=== PATIENT | female | born 1950 | race Caucasian/White ===

== ENCOUNTER 2017-04-29 12:21 | Day surgery (SDC) | payer OTHER, SELFPAY ==
[2017-04-29 12:38] VITALS: BP 157/69; PULSE 75; RESP 14; TEMP 35.6; O2SAT 96; BMI 37.3
--- NOTE | 2017-04-29 13:30 | RAD_ITS ---
STUDY: X-RAY - LUMBAR SPINE REASON FOR EXAM: Female, 66 years old. Radiofrequency ablation L3-S1 right side. TECHNIQUE: 8 view(s) of the lumbar spine were obtained. COMPARISON: None FINDINGS: 8 views were performed , as radiology support for c-arm imaging in the operating room. This is not a diagnostic examination. Images for for documentation purposes only. The cumulative dose is 7.0 mGy, 19.7 seconds fluoroscopy time used. RAD/Lumbar Spine 2 or 3 Views IMPRESSION: Fluoroscopic image guidance. Electronically Signed: Kelly Brasher MD at 6:09 EST , Service support ,
[2017-04-29] MEDS: Bupivacaine 0.25% 30 ML Vial (13:43)
[2017-04-29] MEDS: MethylPREDNISolone Acetate 80 MG/ML Vial (13:43)
[2017-04-29 13:56] VITALS: BP 119/58; BP 157/69; PULSE 65; RESP 16; TEMP 36.1; O2SAT 97
[2017-04-29 14:00] VITALS: BP 121/52; BP 157/69; PULSE 68; RESP 16; O2SAT 97
[2017-04-29 14:05] VITALS: BP 118/59; BP 157/69; PULSE 65; RESP 16; O2SAT 92
[2017-04-29 14:10] VITALS: BP 123/65; BP 157/69; PULSE 65; RESP 16; TEMP 36.1; O2SAT 93
[2017-04-29 14:30] VITALS: BP 157/69
--- NOTE | 2017-04-29 16:15 | PCM.OPRPT ---
Problem List (1) DDD (degenerative disc disease), lumbosacral Status: Chronic (2) Lumbar facet arthropathy Status: Chronic (3) Lumbosacral spondylosis Status: Chronic Report of Operation Date of Procedure: 04/29/17 Pre-Operative Diagnosis: Lumbosacral spondylosis, lumbosacral degenerative disc disease, lumbar facet arthropathy Post-Operative Diagnosis: Lumbosacral spondylosis, lumbosacral degenerative disc disease, lumbar facet arthropathy Surgery/Procedure Performed:: Right sided lumbar radiofrequency ablation of the medial branch at L3, L4, L5, S1 Description of Surgical Findings:: PROCEDURE: Right-sided radiofrequency ablation of the medial branch L3, L4, L5, S1 PREOPERATIVE DIAGNOSES: Lumbosacral spondylosis, lumbosacral degenerative disc disease, lumbar facet arthropathy POSTOPERATIVE DIAGNOSES: Lumbosacral spondylosis, lumbosacral degenerative disc disease, lumbar facet arthropathy ANESTHESIA: MAC COMPLICATIONS: None BLOOD LOSS: Minimal PROCEDURE IN DETAIL: History and physical today was reviewed. Risks and benefits of procedure explained. The patient understood, agreed to the procedure and informed consent was obtained. IV inserted per routine protocol. The patient was taken to the operating room, placed in the prone position with a pillow positioned underneath the abdomen. The right side of the lower back was prepped and draped in a sterile fashion using iodine x 3. Under fluoroscopy guidance, on an oblique view, the L3 through S1 vertebral bodies were visualized. The skin and subcutaneous tissue was anesthetized with approximately 10 mL of 1% lidocaine using a 25-gauge regular needle. Under direct visualization with fluoroscopy at approximately 25-degree angle, starting on the right L3, ending on the right S1 passing through the L4-L5 using a 20-gauge 15 cm with a 10 mm curved active tip radiofrequency ablation needle the needle passed through the skin. The tip of the needle was maneuvered and directed towards the superior and medial gutter of the transverse process at the vicinity of the medial branch. Once the tip of the needle was in contact with the bone, the needle pulled approximately 2 mm up the bone. The stylet of each needle was then removed. After negative aspiration of blood with CSF and confirmation of AP as well as oblique view, radiofrequency ablation probe was then inserted at each level. Impedance was then recorded at L3 to be 233, at L4 233, at L5 201, at S1 284 ohm. Motor-evoked potential was then initiated to 1.5 volt without any motor response at each corresponding level. The probe was then removed intact and a total of 6 mL preservative-free 1% lidocaine was injected in divided doses between those 4 levels after negative aspiration of blood with CSF. The radiofrequency ablation probe was then reinserted after confirmation of AP, oblique as well as lateral view. Radiofrequency ablation was then initiated to 80 degrees Celsius for 90 seconds at each level. Once concluded, the probe was then removed intact and a total of 6 mL of preservative-free 0.25% Marcaine with 40 mg Depo-Medrol was injected in divided doses between those 4 levels. The needles were then removed intact. The patient experienced no signs or symptoms of intrathecal, intravascular injection. The patient experienced no paraesthesia. The procedure was completed without any apparent difficulty, any complication. The patient appeared to tolerate well. Sensory as well as motor exam was unchanged from prior to procedure. ASSESSMENT AND PLAN: This is a 66-year-old Female with lumbosacral spondylosis, lumbosacral degenerative disc disease, lumbar facet arthropathy, status post right-sided radiofrequency ablation of the medial branch L3 through S1. The patient will continue her current medications. The patient will follow up in approximately 2 weeks for reevaluation.
== END 2017-04-29 14:30 | disposition home or self-care (01) ==
LOC: SDC 12:24 → AC 12:25
PROVIDERS: Family Provider Internal Medicine; PCP Internal Medicine; Visit Provider Anesthesiology Pain Medicine
PROC: (CPT 64635; principal; 2017-04-29 13:50)
DX: M47.897 Other spondylosis, lumbosacral region (principal); M51.37 Other intervertebral disc degeneration, lumbosacral region; F41.9 Anxiety disorder, unspecified; E78.00 Pure hypercholesterolemia, unspecified; K21.9 Gastro-esophageal reflux disease without esophagitis; Z79.899 Other long term (current) drug therapy; Z79.82 Long term (current) use of aspirin; I10 Essential (primary) hypertension; I44.7 Left bundle-branch block, unspecified; Z79.891 Long term (current) use of opiate analgesic; M17.10 Unilateral primary osteoarthritis, unspecified knee
CPT/HCPCS: 64635; 64636 ×3; 72100; 76000; J7120

== ENCOUNTER → 2017-05-15 20:00 | Outpatient (CLI) | payer OTHER, SELFPAY | PROVIDERS: Family Provider Internal Medicine; PCP Internal Medicine; Visit Provider Clinical Nurse Specialist | DX: G47.10 Hypersomnia, unspecified (principal); R06.83 Snoring; I10 Essential (primary) hypertension | CPT/HCPCS: 95810 ==

== ENCOUNTER → 2017-06-21 09:36 | Outpatient (CLI) | payer OTHER, SELFPAY ==
[2017-06-21 11:35] LABS: Cholesterol 166 mg/dL (200); High Density Lipoprotein 46 mg/dL; Triglycerides 189 mg/dL; Very Low Density Lipoprotein 38 mg/dL (5-40)
== END ==
PROVIDERS: Family Provider Internal Medicine; PCP Internal Medicine; Visit Provider Nurse Practitioner Primary Care
DX: R53.83 Other fatigue (principal); Z79.899 Other long term (current) drug therapy; R68.89 Other general symptoms and signs
CPT/HCPCS: 36415; 80061; 82306; 84443

== ENCOUNTER 2017-06-24 06:50 | Day surgery (SDC) | payer OTHER, SELFPAY ==
[2017-06-24 07:10] VITALS: BP 146/77; PULSE 83; RESP 16; TEMP 36.6; O2SAT 98; BMI 35.0
--- NOTE | 2017-06-24 08:10 | RAD_ITS ---
PROCEDURE: Caudal block. DATE OF EXAMINATION: June 24, 2017. INDICATION: Female, 66 years old. Chronic low back pain. FLUOROSCOPY TIME (if supplied): (0:07) minutes/seconds Imaging provided for caudal block. RAD/Fluor Guidance for Spine Inj IMPRESSION: Imaging provided for caudal block. Electronically Signed: Jayden Byrd MD at 10:05 EDT Tel [phone], Service support ,
[2017-06-24] MEDS: MethylPREDNISolone Acetate 80 MG/ML Vial (08:34)
[2017-06-24] MEDS: 0.9% Saline Lock 10 ML Syringe IV (08:34)
[2017-06-24] MEDS: Bupivacaine 0.25% 30 ML Vial (08:34)
[2017-06-24 08:40] VITALS: BP 115/58; BP 146/77; PULSE 75; RESP 16; TEMP 37; O2SAT 96
[2017-06-24 08:45] VITALS: BP 121/60; BP 146/77; PULSE 75; RESP 16; O2SAT 95
[2017-06-24 08:50] VITALS: BP 120/64; BP 146/77; PULSE 82; RESP 16; O2SAT 95
[2017-06-24 08:55] VITALS: BP 137/72; BP 146/77; PULSE 80; RESP 16; TEMP 36.9; O2SAT 96
[2017-06-24 09:19] VITALS: BP 146/77
--- NOTE | 2017-06-24 15:49 | PCM.OPRPT ---
Problem List (1) DDD (degenerative disc disease), lumbosacral Status: Chronic (2) Lumbosacral radiculopathy Status: Chronic (3) Lumbosacral spinal stenosis Status: Chronic Report of Operation Date of Procedure: 06/24/17 Pre-Operative Diagnosis: Lumbosacral radiculopathy, lumbosacral degenerative disc disease, lumbosacral spinal stenosis Post-Operative Diagnosis: Lumbosacral radiculopathy, lumbosacral degenerative disc disease, lumbosacral spinal stenosis Surgery/Procedure Performed:: Caudal epidural steroid injection Description of Surgical Findings:: Procedure: Caudal epidural steroid injection Preoperative diagnosis: Lumbosacral radiculopathy, lumbosacral degenerative disc disease, lumbosacral spinal stenosis Postoperative diagnosis:Lumbosacral radiculopathy, lumbosacral degenerative disc disease, lumbosacral spinal stenosis Anesthesia: MAC Blood loss: Minimal Complications: None Procedure in detail: History and physical today was reviewed risk and benefits of procedure explained the patient understood and agreed to procedure informed consent was obtained IV inserted per routine protocol patient was taken to the operating room placed in the prone position with a pillow position underneath the abdomen the lower back and tailbone area was prepped and draped in a sterile fashion using iodine ?3 under direct visualization with fluoroscopy on the lateral view the caudal space was identified skin and subcutaneous tissue anesthetized approximately 3 cc of 1% lidocaine using a 25-gauge regular needle under direct visualization fluoroscopy on the lateral view using a 22-gauge 3-1/2 inch spinal needle the needle was advanced via the skin through the sacral hiatus tip of needle passed through the sacrococcygeal ligament advanced approximately S4 area after negative aspiration for blood or CSF a total of 3 cc of contrast were injected to confirm correct placement of the needle as well as cephalad spread the spread was followed to approximately L5 area after repeated confirmation AP as well as lateral view and repeated negative aspiration a total of 15 cc of preservative-free 0.125% Marcaine with 80 mg of Depo-Medrol were injected easily the needle was then removed intact patient experienced no sinus symptoms intrathecal or intravascular injection patient experienced no paresthesia the procedure was completed without any apparent difficulty any complication the patient appeared to tolerate well. Assessment and plan: This is a 66-year-old female with lumbosacral radiculopathy lumbosacral degenerative disc disease lumbosacral spinal stenosis status post caudal epidural steroid injection patient will continue her current medications patient will follow approximately 2 weeks for possible repeat of the procedure if indicated.
== END 2017-06-24 09:20 | disposition home or self-care (01) ==
LOC: SDC 06:50 → AC 06:51
PROVIDERS: Family Provider Internal Medicine; PCP Internal Medicine; Visit Provider Anesthesiology Pain Medicine
PROC: 3E0S3BZ Introduction of Anesthetic Agent into Epidural Space, Percutaneous Approach (ICD-10-PCS; CPT 62282; principal; 2017-06-24 08:05)
DX: M51.17 Intervertebral disc disorders with radiculopathy, lumbosacral region (principal); M48.07 Spinal stenosis, lumbosacral region; F41.9 Anxiety disorder, unspecified; Z79.899 Other long term (current) drug therapy; Z79.82 Long term (current) use of aspirin; Z79.891 Long term (current) use of opiate analgesic; M12.9 Arthropathy, unspecified; E78.00 Pure hypercholesterolemia, unspecified; K21.9 Gastro-esophageal reflux disease without esophagitis; Z95.5 Presence of coronary angioplasty implant and graft; I25.10 Atherosclerotic heart disease of native coronary artery without angina pectoris; I10 Essential (primary) hypertension
CPT/HCPCS: 62323; 64483; 77003; J7120; A4216

== ENCOUNTER → 2017-08-21 08:14 | Outpatient (CLI) | payer OTHER, SELFPAY ==
[2017-08-21 09:23] LABS: AST(SGOT) 24 U/L (15-37); Alanine Aminotransfer ALT/SGPT 32 U/L (13-56); Albumin, Serum 3.8 g/dL (3.2-5.0); Alkaline Phosphatase 109 U/L (45-117); Bilirubin, Direct 0.09 mg/dL (0.00-0.30); Cholesterol 149 mg/dL (200); Globulin 3.6 g/dL (2.2-4.2); High Density Lipoprotein 42 mg/dL; Protein, Total 7.4 g/dL (6.4-8.2); Triglycerides 234 mg/dL; Very Low Density Lipoprotein 47 mg/dL (5-40)
== END ==
PROVIDERS: Family Provider Internal Medicine; PCP Internal Medicine; Visit Provider Internal Medicine Cardiovascular Disease
DX: E78.5 Hyperlipidemia, unspecified (principal)
CPT/HCPCS: 36415; 80061; 80076

== ENCOUNTER 2017-09-09 10:58 | Day surgery (SDC) | payer OTHER, SELFPAY ==
[2017-09-09] VITALS (7 sets, daily range): BP systolic 105–141; BP diastolic 64–77; PULSE 65–75; RESP 15–16; TEMP 36.3–36.6; O2SAT 94–100; BMI 34.7
--- NOTE | 2017-09-09 12:30 | RAD_ITS ---
PROCEDURE: Caudal block. DATE OF EXAMINATION: September 09, 2017. INDICATION: Female, 67 years old. FLUOROSCOPY TIME (if supplied): (0:06) minutes/seconds RADIATION DOSAGE (If Supplied By Facility): CTDIvol = ( ) mGy, DLP = ( ) mGycm Intraoperative imaging provided for caudal block. The spinal needle is seen in the mid posterior aspect of the sacrum. RAD/Fluor Guidance for Spine Inj IMPRESSION: Imaging provided for caudal block. Electronically Signed: Jayden Byrd MD at 14:50 EDT Tel [phone], Service support ,
[2017-09-09] MEDS: Bupivacaine 0.25% 30 ML Vial (12:41)
[2017-09-09] MEDS: MethylPREDNISolone Acetate 80 MG/ML Vial (12:41)
--- NOTE | 2017-09-09 13:28 | PCM.OPRPT ---
Problem List (1) DDD (degenerative disc disease), lumbosacral Status: Chronic (2) Lumbosacral radiculopathy Status: Chronic Report of Operation Date of Procedure: 09/09/17 Pre-Operative Diagnosis: Lumbosacral radiculopathy, lumbosacral degenerative disc disease, lumbosacral spinal stenosis Post-Operative Diagnosis: Lumbosacral radiculopathy, lumbosacral degenerative disc disease, lumbosacral spinal stenosis Surgery/Procedure Performed:: Caudal epidural steroid injection Description of Surgical Findings:: PROCEDURE: Caudal epidural steroid injection PREOPERATIVE DIAGNOSIS: Lumbosacral radiculopathy, lumbosacral degenerative disc disease, lumbosacral spinal stenosis POSTOPERATIVE DIAGNOSIS: Lumbosacral radiculopathy, lumbosacral degenerative disc disease, lumbosacral spinal stenosis ANESTHESIA: MAC COMPLICATIONS: None BLOOD LOSS: Minimal PROCEDURE IN DETAIL: History and physical today was reviewed. Risks and benefits of the procedure were explained. The patient understood, agreed to our procedure, and informed consent was obtained. IV inserted per routine protocol. The patient was taken to the operating room, placed in a prone position with a pillow positioned underneath the abdomen. The lower back and tailbone area was prepped and draped in a sterile fashion using iodine ?3 under direct visualization fluoroscopy on the lateral view the caudal space was identified the skin and subcutaneous tissue and size approximately 3 cc of 1% lidocaine using a 25-gauge regular needle under direct visualization with fluoroscopy on the lateral view using a 22-gauge 3-1/2 inch spinal needle the needle was advanced via the skin through the sacral hiatus the peroneal passed through the sacrococcygeal ligament advanced approximately S4 area after negative aspiration of blood or CSF a total of 3 cc of contrast were injected to confirm correct placement of the needle as well as cephalad spread spread was followed to approximately L5 area after confirmation AP as well as lateral view and repeated negative aspiration a total of 15 cc of preservative-free 0.125% Marcaine with 80 mg of the portal was injected easily. The needles were then removed intact. The patient experienced no signs or symptoms intrathecal, intravascular injection. The patient experienced no paraesthesia. The procedure was completed without any apparent difficult, any complication. The patient appeared to tolerate well. ASSESSMENT AND PLAN: This is a 67-year-old female with lumbosacral radiculopathy lumbosacral degenerative disc disease lumbosacral spinal stenosis status post caudal epidural steroid injection. The patient will continue his current medications. The patient will follow in approximately 2 weeks for possible repeat of the procedure if indicated.
== END 2017-09-09 13:42 | disposition home or self-care (01) ==
LOC: SDC 10:59 → AC 11:01
PROVIDERS: Family Provider Internal Medicine; PCP Internal Medicine; Visit Provider Anesthesiology Pain Medicine
PROC: 3E0S3BZ Introduction of Anesthetic Agent into Epidural Space, Percutaneous Approach (ICD-10-PCS; CPT 62282; principal; 2017-09-09 12:25)
DX: M51.17 Intervertebral disc disorders with radiculopathy, lumbosacral region (principal); I25.10 Atherosclerotic heart disease of native coronary artery without angina pectoris; I10 Essential (primary) hypertension; J45.909 Unspecified asthma, uncomplicated; K21.9 Gastro-esophageal reflux disease without esophagitis; E78.00 Pure hypercholesterolemia, unspecified; Z79.51 Long term (current) use of inhaled steroids; Z79.82 Long term (current) use of aspirin; Z79.891 Long term (current) use of opiate analgesic; Z79.899 Other long term (current) drug therapy; Z95.5 Presence of coronary angioplasty implant and graft
CPT/HCPCS: 01992; 62323; 64520; 64483; 77003; J7120; J3490

== ENCOUNTER 2017-12-23 06:57 | Day surgery (SDC) | payer OTHER, SELFPAY ==
[2017-12-23 07:17] VITALS: BP 149/74; PULSE 80; RESP 16; TEMP 36.8; O2SAT 98; BMI 34.4
--- NOTE | 2017-12-23 08:15 | RAD_ITS ---
PROCEDURE: Right L3 S1 radiofrequency ablation. DATE OF EXAMINATION: December 23, 2017. INDICATION: Female, 67 years old. Chronic low back pain. FLUOROSCOPY TIME (if supplied): (0:52) minutes/seconds. 14 coned-down intraoperative views were obtained. Intraoperative imaging was provided for right L3 S1 radiofrequency ablation. RAD/Lumbar Spine 2 or 3 Views IMPRESSION: Intraoperative fluoroscopic services provided for right L3 S1 radiofrequency ablation. Electronically Signed: Jayden Byrd MD at 14:57 EDT Tel [phone], Service support ,
[2017-12-23] MEDS: MethylPREDNISolone Acetate 80 MG/ML Vial (08:26)
[2017-12-23] MEDS: Bupivacaine 0.5% PF 10 ML VIAL (08:26)
[2017-12-23 08:49] VITALS: BP 100/55; BP 149/74; PULSE 82; RESP 16; TEMP 36.7; O2SAT 96
--- NOTE | 2017-12-23 08:53 | OP.PCM_ITS ---
Problem List (1) DDD (degenerative disc disease), lumbosacral Status: Chronic (2) Lumbar facet arthropathy Status: Chronic (3) Lumbosacral spondylosis Status: Chronic Report of Operation Date of Procedure: 12/23/17 Pre-Operative Diagnosis: Lumbosacral spondylosis, lumbosacral degenerative disc disease, lumbar facet arthropathy Post-Operative Diagnosis: Lumbosacral spondylosis, lumbosacral degenerative disc disease, lumbar facet arthropathy Surgery/Procedure Performed:: Right-sided lumbar radiofrequency ablation of the medial branch at L3, L4, L5, S1 Description of Surgical Findings:: PROCEDURE: Right-sided lumbar radiofrequency ablation of the medial branch L3, L4, L5, S1 PREOPERATIVE DIAGNOSES: Lumbosacral spondylosis, lumbosacral degenerative disc disease, lumbar facet arthropathy POSTOPERATIVE DIAGNOSES: Lumbosacral spondylosis, lumbosacral degenerative disc disease, lumbar facet arthropathy ANESTHESIA: MAC COMPLICATIONS: None BLOOD LOSS: Minimal PROCEDURE IN DETAIL: History and physical today was reviewed. Risks and benefits of procedure explained. The patient understood, agreed to the procedure and informed consent was obtained. IV inserted per routine protocol. The patient was taken to the operating room, placed in the prone position with a pillow positioned underneath the abdomen. The right side of the lower back was prepped and draped in a sterile fashion using iodine x 3. Under fluoroscopy guidance, on an oblique view, the L3 through S1 vertebral bodies were visual ized. The skin and subcutaneous tissue was anesthetized with approximately 10 mL of 1% lidocaine using a 25-gauge regular needle. Under direct visualization with fluoroscopy at approximately 25-degree angle, starting on the right L3, ending on the right S1 passing through the L4-L5 using a 20-gauge 15 cm with a 10 mm curved active tip radiofrequency ablation needle the needle passed through the skin. The tip of the needle was maneuvered and directed towards the superior and medial gutter of the transverse process at the vicinity of the medial branch. Once the tip of the needle was in contact with the bone, the needle pulled approximately 2 mm up the bone. The stylet of each needle was then removed. After negative aspiration of blood with CSF and confirmation of AP as well as oblique view, radiofrequency ablation probe was then inserted at each level. Impedance was then recorded at L3 to be 291, at L4 289, at L5 281, at S1 248 ohm. Motor-evoked potential was then initiated to 1.5 volt without any motor response at each corresponding level. The probe was then removed intact and a total of 6 mL preservative-free 1% lidocaine was injected in divided doses between those 4 levels after negative aspiration of blood with CSF. The radiofrequency ablation probe was then reinserted after confirmation of AP, oblique as well as lateral view. Radiofrequency ablation was then initiated to 80 degrees Celsius for 90 seconds at each level. Once concluded, the probe was then removed intact and a total of 6 mL of preservative-free 0.25% Marcaine with 40 mg Depo-Medrol was injected in divided doses between those 4 levels. The needles were then removed intact. The patient experienced no signs or symptoms of intrathecal, intravascular injection. The patient experienced no paraesthesia. The procedure was completed without any apparent difficulty, any complication. The patient appeared to tolerate well. Sensory as well as motor exam was unchanged from prior to procedure. ASSESSMENT AND PLAN: This is a 67-year-old female with lumbosacral spondylosis, lumbosacral degenerative disc disease, lumbar facet arthropathy, status post right-sided radiofrequency ablation of the medial branch L3 through S1. The patient will continue her current medications. The patient will follow up in approximately 2 weeks for reevaluation.
[2017-12-23 08:55] VITALS: BP 114/50; BP 149/74; PULSE 75; RESP 16; O2SAT 96
[2017-12-23 09:00] VITALS: BP 114/50; BP 149/74; PULSE 72; RESP 16; O2SAT 96
[2017-12-23 09:05] VITALS: BP 149/74; BP 97/85; PULSE 72; RESP 16; TEMP 36.6; O2SAT 95
[2017-12-23 09:21] VITALS: BP 149/74
== END 2017-12-23 09:22 | disposition home or self-care (01) ==
LOC: SDC 06:58 → AC 06:59
PROVIDERS: Family Provider Internal Medicine; PCP Internal Medicine; Referring Provider Anesthesiology Pain Medicine; Visit Provider Anesthesiology Pain Medicine
PROC: (CPT 64635; principal; 2017-12-23 08:10)
DX: M47.27 Other spondylosis with radiculopathy, lumbosacral region (principal); M51.37 Other intervertebral disc degeneration, lumbosacral region; M46.96 Unspecified inflammatory spondylopathy, lumbar region; M17.10 Unilateral primary osteoarthritis, unspecified knee; M51.36 Other intervertebral disc degeneration, lumbar region; D64.9 Anemia, unspecified; I25.10 Atherosclerotic heart disease of native coronary artery without angina pectoris; I10 Essential (primary) hypertension; F41.9 Anxiety disorder, unspecified; J45.909 Unspecified asthma, uncomplicated; G25.81 Restless legs syndrome; K21.9 Gastro-esophageal reflux disease without esophagitis; E78.00 Pure hypercholesterolemia, unspecified; Z78.0 Asymptomatic menopausal state; Z95.5 Presence of coronary angioplasty implant and graft; Z79.82 Long term (current) use of aspirin; Z79.891 Long term (current) use of opiate analgesic; Z79.899 Other long term (current) drug therapy
CPT/HCPCS: 01992; 64635; 64636 ×3; 72100; 76000; J7120; J3490

== ENCOUNTER 2018-01-27 07:25 | Day surgery (SDC) | payer OTHER, SELFPAY ==
[2018-01-27 07:53] VITALS: BP 122/57; PULSE 80; RESP 16; TEMP 36.6; O2SAT 95; BMI 34.3
--- NOTE | 2018-01-27 08:19 | RAD_ITS ---
STUDY: X-RAY - LUMBAR SPINE REASON FOR EXAM: Female, 67 years old. Intraoperative imaging for radiofrequency ablation of the left L3-S1 levels. TECHNIQUE: 12 coned-down intraoperative images of the lumbar spine were obtained. COMPARISON: None FINDINGS: Intraoperative imaging provided for left L3-S1 radiofrequency ablation. RAD/L/S Spine Min 4 Views IMPRESSION: Intraoperative imaging provided for left L3 S1 radiofrequency ablation. Electronically Signed: Jayden Byrd MD at 13:52 EST Tel [phone], Service support ,
[2018-01-27] MEDS: Bupivacaine 0.5% PF 10 ML VIAL (08:49)
[2018-01-27] MEDS: MethylPREDNISolone Acetate 80 MG/ML Vial (09:00)
[2018-01-27 09:12] VITALS: BP 117/66; BP 122/57; PULSE 76; RESP 16; TEMP 36.4; O2SAT 96
[2018-01-27 09:15] VITALS: BP 122/57; BP 124/71; PULSE 70; RESP 16; O2SAT 93
[2018-01-27 09:20] VITALS: BP 122/57; BP 124/76; PULSE 67; RESP 16; O2SAT 93
[2018-01-27 09:21] VITALS: BP 122/57; BP 144/69; PULSE 71; RESP 16; TEMP 36.7; O2SAT 96
[2018-01-27 09:36] VITALS: BP 122/57
--- NOTE | 2018-01-27 09:54 | PCM.OPRPT ---
Problem List (1) DDD (degenerative disc disease), lumbosacral Status: Chronic (2) Lumbar facet arthropathy Status: Chronic (3) Lumbosacral spondylosis Status: Chronic Report of Operation Date of Procedure: 01/27/18 Pre-Operative Diagnosis: Lumbosacral spondylosis, lumbosacral degenerative disc disease, lumbar facet arthropathy Post-Operative Diagnosis: Lumbosacral spondylosis, lumbosacral degenerative disc disease, lumbar facet arthropathy Surgery/Procedure Performed:: Left-sided lumbar radiofrequency ablation of the medial branch at L3, L4, L5, S1 Description of Surgical Findings:: PROCEDURE: Left-sided radiofrequency ablation of the medial branch L3, L4, L5, S1 PREOPERATIVE DIAGNOSES: Lumbosacral spondylosis, lumbosacral degenerative disc disease, lumbar facet arthropathy POSTOPERATIVE DIAGNOSES: Lumbosacral spondylosis, lumbosacral degenerative disc disease, lumbar facet arthropathy ANESTHESIA: MAC COMPLICATIONS: None BLOOD LOSS: Minimal PROCEDURE IN DETAIL: History and physical today was reviewed. Risks and benefits of procedure explained. The patient understood, agreed to the procedure and informed consent was obtained. IV inserted per routine protocol. The patient was taken to the operating room, placed in the prone position with a pillow positioned underneath the abdomen. The left side of the lower back was prepped and draped in a sterile fashion using iodine x 3. Under fluoroscopy guidance, on an oblique view, the L3 through S1 vertebral bodies were visualized. The skin and subcutaneous tissue was anesthetized with approximately 10 mL of 1% lidocaine using a 25-gauge regular needle. Under direct visualization with fluoroscopy at approximately 25-degree angle, starting on the left L3, ending on the left S1 passing through the L4-L5 using a 20-gauge 15 cm with a 10 mm curved active tip radiofrequency ablation needle, the needle passed through the skin, The tip of the needle was maneuvered and directed towards the superior and medial gutter of the transverse process at the vicinity of the medial branch. Once the tip of the needle was in contact with the bone, the needle pulled approximately 2 mm up the bone. The stylet of each needle was then removed. After negative aspiration of blood with CSF and confirmation of AP as well as oblique view, radiofrequency ablation probe was then inserted at each level. Impedance was then recorded at L3 to be 281, at L4 297, at L5 262, at S1 263 ohm. Motor-evoked potential was then initiated to 1.5 volt without any motor response at each corresponding level. The probe was then removed intact and a total of 6 mL preservative-free 1% lidocaine was injected in divided doses between those 4 levels after negative aspiration of blood with CSF. The radiofrequency ablation probe was then reinserted after confirmation of AP, oblique as well as lateral view. Radiofrequency ablation was then initiated to 80 degrees Celsius for 90 seconds at each level. Once concluded, the probe was then removed intact and a total of 6 mL of preservative-free 0.25% Marcaine with 40 mg Depo-Medrol was injected in divided doses between those 4 levels. The needles were then removed intact. The patient experienced no signs or symptoms of intrathecal, intravascular injection. The patient experienced no paraesthesia. The procedure was completed without any apparent difficulty, any complication. The patient appeared to tolerate well. Sensory as well as motor exam was unchanged from prior to procedure. ASSESSMENT AND PLAN: This is a 67-year-old female with lumbosacral spondylosis, lumbosacral degenerative disc disease, lumbar facet arthropathy, status post left-sided radiofrequency ablation of the medial branch L3 through S1. The patient will continue her current medications. The patient will follow up in approximately 2 weeks for reevaluation.
== END 2018-01-27 09:44 | disposition home or self-care (01) ==
LOC: SDC 07:29 → AC 07:29
PROVIDERS: Family Provider Internal Medicine; PCP Internal Medicine; Referring Provider Anesthesiology Pain Medicine; Visit Provider Anesthesiology Pain Medicine
PROC: (CPT 64635; principal; 2018-01-27 08:45)
DX: M47.817 Spondylosis without myelopathy or radiculopathy, lumbosacral region (principal); M51.37 Other intervertebral disc degeneration, lumbosacral region; M46.96 Unspecified inflammatory spondylopathy, lumbar region; M17.10 Unilateral primary osteoarthritis, unspecified knee; M51.36 Other intervertebral disc degeneration, lumbar region; M54.17 Radiculopathy, lumbosacral region; F41.9 Anxiety disorder, unspecified; I44.7 Left bundle-branch block, unspecified; I10 Essential (primary) hypertension; J45.909 Unspecified asthma, uncomplicated; G25.81 Restless legs syndrome; K21.9 Gastro-esophageal reflux disease without esophagitis; E78.00 Pure hypercholesterolemia, unspecified; Z86.2 Personal history of diseases of the blood and blood-forming organs and certain disorders involving the immune mechanism; Z78.0 Asymptomatic menopausal state; Z96.651 Presence of right artificial knee joint; Z95.5 Presence of coronary angioplasty implant and graft; Z79.82 Long term (current) use of aspirin; Z79.891 Long term (current) use of opiate analgesic; Z79.899 Other long term (current) drug therapy
CPT/HCPCS: 64635; 64636 ×3; 72110; 76000; J7120; J3490

== ENCOUNTER → 2018-01-31 15:59 | Outpatient (CLI) | payer OTHER, SELFPAY ==
[2018-01-27 07:53] VITALS: BMI 34.3
--- NOTE | 2018-01-31 16:05 | BI_ITS ---
MAMMOGRAPHY - BILATERAL SCREENING REASON FOR EXAM: Female, 67 years old. Routine annual screening examination. PERTINENT HISTORY: Mother with breast cancer. TECHNIQUE: Digital bilateral breast adriane (3D mammographic acquisition) in the CC and MLO projections. 2-D mediolateral oblique (MLO) and craniocaudad (CC) views of both breasts were obtained. CAD: Full Field Digital Mammography with Computer Added Detection was performed. COMPARISON: Comparison is made with prior study dated February 19, 2017 and January 09, 2016. FINDINGS: Breast Composition: There are scattered areas of fibroglandular density. There are no dominant masses or suspicious calcifications. No other significant abnormalities are identified. There has been no significant change since the prior study. BI/SCREENING MAMM (CAD), BILAT IMPRESSION: Stable bilateral screening mammogram. Yearly follow-up mammogram recommended. (A) ASSESSMENT CATEGORY: BIRADS Category 1: Negative. A letter regarding these results will be sent to the patient by the facility within 30 days. Approximately 10% of breast cancers are not detected by mammography. A normal mammogram should not delay biopsy of a clinically suspicious abnormality. [id number] Electronically Signed: Jayden Byrd MD at 10:25 EST Tel [phone], Service support ,
== END ==
PROVIDERS: Family Provider Internal Medicine; PCP Internal Medicine; Referring Provider Internal Medicine; Visit Provider Internal Medicine
DX: Z12.31 Encounter for screening mammogram for malignant neoplasm of breast (principal)
CPT/HCPCS: 77063; 77067

== ENCOUNTER 2018-03-08 17:48 | Emergency (ER) | payer OTHER, SELFPAY ==
[2018-02-28 14:43] VITALS: BMI 34.7
[2018-03-08 17:48] VITALS: BP 169/81; PULSE 96; RESP 18; TEMP 36.6; O2SAT 97; BMI 34.0
--- NOTE | 2018-03-08 18:09 | US_ITS ---
STUDY: ABDOMINAL ULTRASOUND - RIGHT UPPER QUADRANT REASON FOR VISIT: Female, 67 years old. Pain TECHNIQUE: Transverse and longitudinal imaging of the right upper quadrant was performed using real-time ultrasound. COMPARISON: None. FINDINGS: Liver: Right lobe 17 cm. Increased echogenicity. Normal portal venous flow. No demonstrated mass. Portal vein measurement: Gallbladder and biliary system: Normal size. Wall thickness 2-3 mm. Negative sonographic Bernal's sign. No demonstrated pericholecystic fluid. No luminal abnormalities. CBD 3-4 mm. Pancreas: Unremarkable. No demonstrated mass. Right Kidney: 9.1 cm. Cortex 1.3 cm. No demonstrated mass. No dilatation of collecting system. No demonstrated free fluid. US/Gallbladder IMPRESSION: The liver is prominent in size with increased echogenicity which can be seen with fatty infiltration. No abnormalities are seen in the gallbladder. Electronically Signed: Danna Rodriges MD at 21:21 EST Tel Direct: [phone], Service support ,
[2018-03-08] MEDS: Morphine 4 MG/ML Syringe IV ×2 (18:16→20:30)
[2018-03-08] MEDS: Ondansetron 4 MG/2 ML Vial IV ×2 (18:16→20:30)
[2018-03-08] MEDS: 0.9% Normal Saline 1,000 ML 1000 ML IV (18:16)
[2018-03-08 18:36] LABS: ALB/GLOB Ratio 1.1 RATIO (0.9-2.4); AST(SGOT) 34 U/L (15-37); Alanine Aminotransfer ALT/SGPT 45 U/L (13-56); Albumin, Serum 4.2 g/dL (3.2-5.0); Alkaline Phosphatase 112 U/L (45-117); Anion Gap 8 (5-15); BUN 12 mg/dL (7-18); BUN/Creat Ratio 12.8 RATIO (10-20); Calcium,Total 9.9 mg/dL (8.5-10.1); Chloride 104 mmol/L (98-107); Creatinine, Serum 0.93 mg/dL (0.55-1.02); EST Glomerular Filtration Rate 64 mL/min (>60); Est Glom Filt Rate - Afr Amer 77 mL/min (>60); Estimated Creatinine Clearance 44.29 ml/min; Globulin 3.7 g/dL (2.2-4.2); Glucose 141 mg/dL (74-106); Lipase 105 U/L (73-393); Potassium 3.9 mmol/L (3.5-5.1); Protein, Total 7.9 g/dL (6.4-8.2); Sodium Level 139 mmol/L (136-145)
[2018-03-08 18:57] LABS: Bacteria 0 SEEN /hpf (None Seen); Color, Urine Yellow (Yellow); Glucose, Dipstick Normal (Normal); Ketone-Dipstick Negative (Negative); Leukocyte Esterase-Dipstick 25 /ul (Negative); Mucous, Urine 0 SEEN /hpf (<or=2+); Nitrite-Dipstick Negative (Negative); Occult Blood-Urine Negative /ul (Negative); Protein-Dipstick Negative (Negative); Urine Bilirubin Dipstick Negative (Negative); Urine Clarity Sl. Cloudy (Clear); Urine Urobilinogen Normal (Normal)
[2018-03-08 19:03] LABS: Red Blood Cells-Urine 0-5 SEEN /hpf (0-5); Squamous Epithelial Cells - UA 0-5 SEEN /hpf (5-10); White Blood Cells 0-5 SEEN /hpf (0-5)
[2018-03-08 19:29] LABS: Absolute Lymphocyte Count 1.34 X10^3/ul (0.83-4.51); Absolute Neutrophil Count 6.4 X10^3/uL (2.0-7.7); Basophil# 0.01 X10^3/uL; Basophil% 0.1 % (0-1); Eosinophil# 0.22 X10^3/uL; Eosinophils% 2.5 % (0-5); Hematocrit 41.6 % (37-47); Hemoglobin 13.6 g/dl (12.0-15.0); Lymphocyte # 1.34 X10^3/ul (4.0); Lymphocyte % 15.5 % (19-41); Mean Corp Hgb Conc 32.7 g/gl (32-36); Mean Corpuscular Hgb 31.8 pg (27.0-32.0); Mean Corpuscular Volume 97.2 fL (81-99); Mean Platelet Vol. 11.1 fl (6.2-12.0); Monocyte# 0.67 X10^3/uL; Monocyte% 7.7 % (0-10); Neutrophil % 74.1 % (47-70); POSITIVE COUNT NO; POSITIVE DIFFERENTIAL NO; POSITIVE MORPHOLOGY NO; Platelet Count 226 K/mm3 (150-450); RBC Distribution Width CV 14.2 % (11.6-14.6); RBC Distribution Width SD 50.4 fl (35.1-43.9); Red Blood Count 4.28 M/mm3 (4.2-5.4); White Blood Count 8.7 K/mm3 (4.4-11.0)
[2018-03-08 20:00] VITALS: BP 116/52; PULSE 75; RESP 18; O2SAT 94
--- NOTE | 2018-03-08 21:47 | ED.VISSUMM ---
- ER Visit Summary Date of Service: 03/08/18 Chief Complaint: Nausea History of Present Illness: The patient is a 67 F with nausea, vomiting, and right upper quadrant pain. Symptoms are worse with food and better when she does not eat. She had a previous upper endoscopy which was unremarkable. She had a HIDA scan which showed an elevated ejection fraction. She is planning to follow-up with Dr. Lancaster in mid March as she is concerned for gallbladder pathology. She is also taking Protonix. She recently stopped Carafate and was prescribed Bentyl, but she has not started taking Bentyl yet. She thinks that the Protonix does not work as well as her prior prescription for AcipHex. No fevers or jaundice. No other pains. Physical Examination: Blood pressure 169/81. Otherwise vitals normal. Afebrile. Skin is normal without pallor, diaphoresis, or jaundice. Heart regular. Lungs clear. Abdomen tender in the right upper quadrant. No guarding or rebound. Back is nontender. Skin appears normal. Test Results: CBC normal. CMP and lipase unremarkable. Urinalysis unremarkable. Right upper quadrant ultrasound showed a prominent liver, possibly a fatty liver, but the gallbladder was normal. Emergency Department Course and Treatment: Patient was treated with fluids, morphine, and Zofran. She did require a second dose of morphine and Zofran for continued symptoms. Her workup was largely unremarkable. I have nothing to explain her right upper quadrant pain. She may still have some gallbladder dysfunction. At this time there is no evidence of cholecystitis, sepsis, or other pathology based on the workup. She would like to follow-up as an outpatient. She will switch her Protonix back to AcipHex. She will start taking her Bentyl. She was given a GI cocktail. Patient was advised to follow-up with her doctors. Return for any new or worsening issues. Return for chest pain or shortness of breath. Return for worsening abdominal pain or other symptoms. Treatment Plan: As above Disposition: Discharge Impression: 1. Right upper quadrant abdominal pain This note was generated with [employer] dictation software. It may contain incorrect words, spelling, and punctuation that were not noted in review of the chart prior to signing ED Disposition - Plan for ED Patient: Chief Complaint: Abd Pain Referrals: Helen Bartlett MD [Primary Care Provider] -
--- NOTE | 2018-03-08 21:50 | ED.DCSUM_ITS ---
- ER Visit Summary Date of Service: 03/08/18 Chief Complaint: Nausea History of Present Illness: The patient is a 67 F with nausea, vomiting, and right upper quadrant pain. Symptoms are worse with food and better when she does not eat. She had a previous upper endoscopy which was unremarkable. She had a HIDA scan which showed an elevated ejection fraction. She is planning to follow-up with Dr. Lancaster in mid March as she is concerned for gallbladder pathology. She is also taking Protonix. She recently stopped Carafate and was prescribed Bentyl, but she has not started taking Bentyl yet. She thinks that the Protonix does not work as well as her prior prescription for AcipHex. No fevers or jaundice. No other pains. Physical Examination: Blood pressure 169/81. Otherwise vitals normal. Afebrile. Skin is normal without pallor, diaphoresis, or jaundice. Heart regul ar. Lungs clear. Abdomen tender in the right upper quadrant. No guarding or rebound. Back is nontender. Skin appears normal. Test Results: CBC normal. CMP and lipase unremarkable. Urinalysis unremarkable. Right upper quadrant ultrasound showed a prominent liver, possibly a fatty liver, but the gallbladder was normal. Emergency Department Course and Treatment: Patient was treated with fluids, morphine, and Zofran. She did require a second dose of morphine and Zofran for continued symptoms. Her workup was largely unremarkable. I have nothing to explain her right upper quadrant pain. She may still have some gallbladder dysfunction. At this time there is no evidence of cholecystitis, sepsis, or other pathology based on the workup. She would like to follow-up as an outpatient. She will switch her Protonix back to AcipHex. She will start taking her Bentyl. She was given a GI cocktail. Patient was advised to follow-up with her doctors. Return for any new or worsening issues. Return for chest pain or shortness of breath. Return for worsening abdominal pain or other symptoms. Treatment Plan: As above Disposition: Discharge Impression: 1. Right upper quadrant abdominal pain This note was generated with [employer] software. It may contain incorrect words, spelling, and punctuation that were not noted in review of the chart prior to signing ED Disposition - Plan for ED Patient: Chief Complaint: Abd Pain Referrals: Helen Bartlett MD [Primary Care Provider] -
--- NOTE | 2018-03-08 21:50 | ED.DEP ---
ED Disposition - Plan for ED Patient: Chief Complaint: Abd Pain Instructions: ED Abdominal Pain Unkn Cause Referrals: Helen Bartlett MD [Primary Care Provider] -
[2018-03-08] MEDS: Mag Hydrox/Al Hydrox/Simeth 30 ML UDC PO (21:58)
[2018-03-08 22:00] VITALS: BP 114/65; PULSE 65; RESP 18; O2SAT 95
[2018-03-08] MEDS: HYDROcodone Bitartrate/Apap 5/325 Tablet PO (22:18)
[2018-03-08 22:19] VITALS: BP 114/65; PULSE 65; RESP 18; O2SAT 96
== END 2018-03-08 22:20 | disposition home or self-care (01) ==
LOC: ED 18:12
PROVIDERS: Emergency Provider Emergency Medicine; Family Provider Internal Medicine; PCP Internal Medicine
DX: R10.11 Right upper quadrant pain (principal); R11.2 Nausea with vomiting, unspecified; I25.10 Atherosclerotic heart disease of native coronary artery without angina pectoris; K21.9 Gastro-esophageal reflux disease without esophagitis; E78.00 Pure hypercholesterolemia, unspecified; Z79.82 Long term (current) use of aspirin; Z79.899 Other long term (current) drug therapy
CPT/HCPCS: 76705; 80053; 81001; 83690; 85025; 96361; 96374; 96375; 96376; 99284; A4216; J2405

== ENCOUNTER → 2018-03-27 13:14 | Outpatient (CLI) | payer OTHER, SELFPAY ==
[2018-03-25 07:39] VITALS: BMI 34.9
--- NOTE | 2018-03-27 11:00 | EKG12_ITS ---
Test Reason : PRE-OP Blood Pressure : / mmHG Vent. Rate : 085 BPM Atrial Rate : 085 BPM P-R Int : 152 ms QRS Dur : 110 ms QT Int : 408 ms P-R-T Axes : 053 009 076 degrees QTc Int : 485 ms Normal sinus rhythm ICLBBB Abnormal ECG Confirmed by MARLEN MARIEE, RYNE ([id number]), editorial director ADELA KAPOOR ([id number] on 03/31/2018 9:29:37 AM Referred By: Carmelo Lancaster Confirmed By:RYNE GEE MD
[2018-03-27 12:01] LABS: Prothrombin Time (Protime)PT. 13.1 SECONDS (11.7-14.9)
[2018-03-27 12:02] LABS: Partial Thromboplast Time 27.4 Seconds (24.1-36.2)
[2018-03-27 12:48] LABS: AST(SGOT) 38 U/L (15-37); Alanine Aminotransfer ALT/SGPT 43 U/L (13-56); Albumin, Serum 3.9 g/dL (3.2-5.0); Alkaline Phosphatase 106 U/L (45-117); Bilirubin, Direct 0.13 mg/dL (0.00-0.30); Cholesterol 141 mg/dL (200); Globulin 3.4 g/dL (2.2-4.2); High Density Lipoprotein 50 mg/dL; Protein, Total 7.3 g/dL (6.4-8.2); Triglycerides 165 mg/dL; Very Low Density Lipoprotein 33 mg/dL (5-40)
[2018-04-17 06:48] VITALS: BMI 35.0
== END ==
PROVIDERS: Internal Medicine Cardiovascular Disease; Family Provider Internal Medicine; PCP Internal Medicine; Referring Provider Surgery; Visit Provider Surgery
DX: Z79.899 Other long term (current) drug therapy (principal); G47.30 Sleep apnea, unspecified; Z87.898 Personal history of other specified conditions
CPT/HCPCS: 36415; 80061; 80076; 85610; 85730; 93005

== ENCOUNTER → 2018-04-01 09:46 | Outpatient (CLI) | payer OTHER, SELFPAY ==
[2018-03-25 07:39] VITALS: BMI 34.9
--- NOTE | 2018-04-01 09:48 | STE_ITS ---
Reason For Study: PRE OP Stress Results Protocol: Carlos Protocol Maximum Predicted HR: 153 bpm Target HR: 130 bpm % Maximum Predicted HR: 91 % DurationHeart Rate Stage (mm:ss) (bpm) BP BASELINE 69 120/64 STAGE 1 3:00 122 146/60 STAGE 2 3:00 139 174/50 RECOVERY 91 124/68 Stress Duration: 6:00 mm:ss Maximum Stress HR: 139 bpm Baseline Echocardiogram Findings The estimated ejection fraction is 65 %. Stress Echo Wall motion Data Resting WM Intermediate WM Stress WM Resting Wall Motion Wall Motion Stress No regional wall motion No regional wall motion abnormalities noted. abnormalities noted. EKG Data Normal intervals are noted. The patient exercised according to the regular Carlos protocol for a total duration of 6:01. The maximum heart rate attained was 164 beats per minute. This was 107% of maximum predicted heart rate. The patient exercised into stage 3 of the Carlos protocol. No clinical angina was noted. No arrhythmias noted. Interpretation Summary The estimated ejection fraction is 65 %. Abnormal, adequate, treadmill echocardiogram. Positive for ischemia by EKG criteria, as well as subtle anterior septal hypokinesis seen in the parasternal long, apical four-chamber and parasternal short views. No anginal symptoms noted but the patient did have dyspnea which may be an anginal equivalent. Appropriate blood pressure response to exercise. Average exercise capacity for age. Final LVEF of 65% test terminated due to dyspnea and target heart rate achieved. Ordering Physician: Carmelo Phillips Referring Physician: Carmelo Phillips Performed By: Aye Castillo, NELI, RVT
--- OUTSIDE RECORDS SUMMARY | 2018-06-03 11:33 | XMS RPT_ITS ---
:1950 Author Organization OHIP Support Name Relationship Address Phone LEXI BANSALBETH Unavailable [address] + [place] [address] TEACH, INOCENTE Unavailable [address] + [place] [address] [facility] Unavailable [address] + [place] [address] CHRIS, NORMA Unavailable [address] + [place] [address] TEACH, INOCENTE Unavailable [address] + [place] [address] [facility] Unavailable [address] + [place] [address] CHRIS, NORMA Unavailable [address] + [place] [address] TEACH, INOCENTE Unavailable [address] + [place] [address] [facility] Unavailable [address] + [place] [address] CHRIS, NORMA Unavailable [address] + [place] [address] TEACH, INOCENTE Unavailable [address] + [place] [address] [facility] Unavailable [address] + [place] [address] CHRIS, NORMA Unavailable [address] + [place] [address] TEACH, INOCENTE Unavailable [address] + [place] [address] [facility] Unavailable [address] + [place] [address] CHRIS, NORMA Unavailable [address] + [place] [address] TEACH, INOCENTE Unavailable [address] + [place] [address] [facility] Unavailable [address] + [place] [address] CHRIS, NORMA Unavailable [address] + [place] [address] TEACH, INOCENTE Unavailable [address] + [place] [address] [facility] Unavailable [address] + [place] [address] CHRIS, NORMA Unavailable [address] + [place] [address] TEACH, INOCENTE Unavailable [address] + [place] [address] [facility] Unavailable [address] + [place] [address] CHRIS, NORMA Unavailable [address] + [place] [address] TEACH, INOCENTE Unavailable [address] + [place] [address] [facility] Unavailable [address] + [place] [address] CHRIS, NORMA Unavailable [address] + [place] [address] TEACH, INOCENTE Unavailable [address] + [place] [address] [facility] Unavailable [address] + [place] [address] CHRIS, NORMA Unavailable [address] + [place] [address] TEACH, INOCENTE Unavailable [address] + [place] [address] [facility] Unavailable [address] + [place] [address] CHRIS, NORMA Unavailable [address] + [place] [address] TEACH, INOCENTE Unavailable [address] + [place] [address] [facility] Unavailable [address] + [place] [address] CHRIS, NORMA Unavailable [address] + [place] [address] TEACH, INOCENTE Unavailable [address] + [place] [address] [facility] Unavailable [address] + [place] [address] CHRIS, NORMA Unavailable [address] + [place] [address] TEACH, INOCENTE Unavailable [address] + [place] [address] [facility] Unavailable [address] + [place] [address] CHRIS, NORMA Unavailable [address] + [place] [address] TEACH, INOCENTE Unavailable [address] + [place] [address] [facility] Unavailable [address] + [place] [address] CHRIS, NORMA Unavailable [address] [phone] [place] [address] TEACH, INOCENTE Unavailable [address] [phone] [place] [address] [facility] Unavailable [address] + [place] [address] CHRIS, NORMA Unavailable [address] [phone] [place] [address] TEACH, INOCENTE Unavailable [address] [phone] [place] [address] [facility] Unavailable [address] + [place] [address] CHRIS, NORMA Unavailable [address] [phone] [place] [address] TEACH, INOCENTE Unavailable [address] [phone] [place] [address] [facility] Unavailable [address] + [place] [address] CHRIS, NORMA Unavailable [address] [phone] [place] [address] TEACH, INOCENTE Unavailable [address] [phone] [place] [address] [facility] Unavailable [address] + [place] [address] CHRIS, NORMA Unavailable [address] [phone] [place] [address] TEACH, INOCENTE Unavailable [address] [phone] [place] [address] [facility] Unavailable [address] + [place] [address] CHRIS, NORMA Unavailable [address] [phone] [place] [address] TEACH, INOCENTE Unavailable [address] [phone] [place] [address] [facility] Unavailable [address] + [place] [address] Care Team Providers Name Role Phone JOZEF SALEEM Admitting Unavailable JOZEF SALEEM Attending Unavailable CHRISTINA VAZQUEZ Attending Unavailable MARIA ANTONIA KIRBY ([facility]) Referring Unavailable BILL MUNROE ([facility]) Attending Unavailable BILL MUNROE ([facility]) Attending Unavailable BILL MUNROE ([facility]) Referring Unavailable BILL MUNROE ([facility]) Attending Unavailable KAROL BURROUGHS ([facility]) Attending Unavailable JOZEF SALEEM Attending Unavailable KAROL BURROUGHS ([facility]) Referring Unavailable JOZEF SALEEM Referring Unavailable JOZEF SALEEM Attending Unavailable JOZEF SALEEM Attending Unavailable GABRIELLE VAZQUEZA Swapna Attending Unavailable MARIA ANTONIA KIRBY ([facility]) Referring Unavailable TESTRAJODEE SANDERS Referring Unavailable TESTRAJODEE SANDERS Attending Unavailable EITAN WEN Attending Unavailable EITAN WEN Referring Unavailable EITAN WEN Admitting Unavailable EITAN WEN Attending Unavailable GEORGE CHRISTINA Swapna Referring Unavailable TESTRAJODEE SANDERS Attending Unavailable TESTRAJODEE SANDERS Attending Unavailable TESTRAJODEE SANDERS Referring Unavailable TESTRATOMMY, JODEE Referring Unavailable MARGARET HERRERA ([employer]) Attending Unavailable MARGARET HERRERA ([employer]) Referring Unavailable WENEITAN Referring Unavailable TESTRAKE, JODEE Attending Unavailable TESTRAKE, JODEE Referring Unavailable WEN, EITAN Referring Unavailable TESTRAKE, JODEE Attending Unavailable TESTRAKE, JODEE Referring Unavailable WEN, EITAN Attending Unavailable KAROL BURROUGHS ([facility]) Attending Unavailable Talampas, Christina Primary Care Unavailable Carmelo Rios Attending Unavailable Carlos Lancaster Attending Unavailable Talampas, Christina Referring Unavailable AnishaCarmelo Attending Unavailable Eitan Wen Referring Unavailable AimwellCarmelo Attending Unavailable Talampas, Christina Primary Care Unavailable Anisha [place]elo Referring Unavailable Carmelo Phillips Attending Unavailable Carmelo Phillips Referring Unavailable Talampas, Christina Primary Care Unavailable Carmelo Phillips Attending Unavailable Carmelo Phillips Referring Unavailable Talampas, Christina Primary Care Unavailable Ryder Parekh Consulting Unavailable Bautista Mendez Attending Unavailable Bautista Mendez Referring Unavailable Talampas, Christina Primary Care Unavailable Maria Antonia Kirby [employer] PICKER-C Attending Unavailable Talampas, Christina Primary Care Unavailable Bill Munroe Attending Unavailable Talampas, Christina Primary Care Unavailable Bill Munroe Referring Unavailable Bautista Mendez Attending Unavailable Bautista Mendez Referring Unavailable Talampas, Christina Primary Care Unavailable Carmelo Phillips Attending Unavailable Talampas, Christina Referring Unavailable Talampas, Christina Primary Care Unavailable Carmelo Phillips Attending Unavailable Carmelo Phillips Referring Unavailable Talampas, Christina Primary Care Unavailable Bautista [place]endez Attending Unavailable Bautista Mendez Referring Unavailable Talampas, Christina Primary Care Unavailable Carlos Lancaster Attending Unavailable Talampas, Christina Referring Unavailable Talampas, Christina Primary Care Unavailable Sally Kuo Attending Unavailable Talampas, Christina Referring Unavailable Sally Kuo Attending Unavailable Talampas, Christina Referring Unavailable Talampas, Christina Primary Care Unavailable ASSESSMENT, HEALTH RISK Attending Unavailable ASSESSMENT, HEALTH RISK Referring Unavailable Talampas, Christina Primary Care Unavailable Bautista [place] Attending Unavailable Bautista Mendez Referring Unavailable Talampas, Christina Primary Care Unavailable Bautista [place]endez Attending Unavailable Bautista Mendez Referring Unavailable Talampas, Christina Primary Care Unavailable Talampas, Christina Attending Unavailable Talampas, Christina Referring Unavailable Talampas, Christina Primary Care Unavailable Carmelo Phillips Attending Unavailable Christina Vazquez Referring Unavailable PROBLEMS PROBLEMS DATE TYPE CONDITION / CODE ATTENDING STATUS SOURCE 04/02/2018 Unknown E78.5 - Carmelo Lancaster Active [place] Hyperlipidemia, Community unspecified / Hospital E78.5(ICD-10) Repository 04/02/2018 Unknown I25.10 - Carmelo Lancaster Active [place] Atherosclerotic heart Community disease of [facility] coronary artery Repository without angina pectoris / I25.10(ICD-10) 02/05/2018 Active Ingrowing nail / NA Active [facility] L60.0(ICD-10) [facility] Main [place] Repository 02/05/2018 Active 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 [facility] Main cartilage, [place] unspecified / Repository D16.9(ICD-10) 01/20/2018 Active Change in bowel habit RYAN Active [facility] / R19.4(ICD-10) [facility] Main [place] Repository 01/20/2018 Active Dysphagia, WEN, Active [facility] unspecified / [facility] Main R13.10(ICD-10) [place] Repository 01/20/2018 Active Heartburn / WEN, Active [facility] R12(ICD-10) [facility] Main [place] Repository 01/07/2018 Active Right upper quadrant NA Active [facility] pain / R10.11(ICD-10) Clinic Main [place] Repository 12/27/2017 Active Pain, unspecified / NA Active [facility] R52(ICD-10) [facility] Main [place] Repository 08/28/2017 Active Ganglion, left hand / SALEEM, JOZEF Active [facility] M67.442(ICD-10) Clinic Other [place] Repository 05/15/2017 Active Unknown / BILL MUNROE Active [facility] UNK(Unknown) ([facility]) [facility] Main [place] Repository PROCEDURES PROCEDURES No Procedure Records FoundRESULTS RESULTS LIVER PROFILE Collected: 04/04/2018 Status: F Source: [place] [facility] TYPE CODE TESTS RESULT OUT OF RANGE REFERENCE UNITS LAB L501.1500 6.4-8.2 g/dL Normal T PROT 7.3 LAB L501.1800 3.2-5.0 g/dL Normal ALB 3.9 LAB L501.1950 2.2-4.2 g/dL Normal GLOB 3.4 LAB L501.4100 15-37 U/L High AST 38 LAB L501.4305 45-117 U/L Normal ALK P 106 LAB L501.4405 13-56 U/L Normal ALT 43 LAB L501.4600 0.20-1.00 mg/dL Normal T BILI 0.30 LAB L501.4700 0.00-0.30 mg/dL Normal D BILI 0.13 Performed By: #### L500.3400, L500.4100 #### [facility] [address] [place], [address] LIPID PROFILE Collected: 04/04/2018 Status: F Source: [place] 12:[address] [facility] REPOSITORY TYPE CODE TESTS RESULT OUT OF RANGE REFERENCE UNITS LAB L501.4900 200 mg/dL Normal CHOL 141 Result Comment: <200 mg/dL Desirable 200-240 mg/dL Borderline >240 mg/dL High Risk LAB L501.5000 mg/dL Normal TRIG 165 Result Comment: The drugs N-Acetylcysteine and Metamizole may falsely depress this assay. Serum Triglycerides Reference Interval Normal <150 mg/dL Borderline high 150 - 199 mg/dL High 200 - 499 mg/dL Very High > or = 500 mg/dL LAB L501.6400 mg/dL Normal HDL 50 Result Comment: The drugs N-Acetylcysteine and Metamizole may falsely depress this assay. Reference Range HDL <40 mg/dL Low HDL Cholesterol HDL >or= 60 mg/dL High HDL Cholesterol LAB L501.6500 0-130 mg/dL Normal LDL 58 LAB L501.6600 5-40 mg/dL Normal VLDL 33 Performed By: #### L500.3400, L500.4100 #### [facility] [address] [place], [address] CHEST PA AND LATERAL Observed: 04/03/2018 Status: F Source: [place] 7:[address] [facility] REPOSITORY [facility] Services [address] [place] [address] Chest PA and Lateral MR#: [id number] Acct: [id number] Name: NGOC COTA Ari[place]na Rep #: [id number] : 1950 F 67 From: Jayden Byrd MD PCP: Christina Vazquez MD Status: PRE SD Study: Chest PA and Lateral Date of Exam: 04/03/18 Exam# [id number] Ordering Dr: Carmelo Phillips MD STUDY: X-RAY CHEST REASON FOR EXAM: Female, 67 years old. Preoperative evaluation. Shortness of breath. TECHNIQUE: PA and lateral views of the chest. COMPARISON: None. FINDINGS: The lungs are clear and expanded. Scattered calcified granulomas. There is no demonstrated pleural abnormality. Normal size heart. Normal mediastinum and marck. Normal visualized pulmonary arteries. Normal visualized aortic arch and descending thoracic aorta. There is demineralization of the osseous structures. Normal visualized ribs, clavicles, and shoulders. Surgical clips are seen in the left upper quadrant. RAD/Chest PA and Lateral IMPRESSION: No acute abnormality is seen. Electronically Signed: Jayden Byrd MD at 9:52 EST , Service support , CC: Carmelo Phillips MD; Christina Vazquez MD Production Quality Manager: Signed CARDIOLOGY VISIT Observed: 04/02/2018 Status: F Source: [place] REPORT 1:[address] [facility] REPOSITORY [facility] [address] [place] [address]. [address] [place] [address] OFFICE VISIT Date of Service: 02/17/18 MR#: [id number] Acct: [id number] Name: NGOC COTA Rep #: [id number] : 1950 Provider: Carmelo Phillips MD Age/Sex: 67/F Location: [facility] Status: Signed with Addenda ADDENDUM by Caremlo Phillips MD on 04/02/18 at 1351 Addendum entered and electronically signed by Carmelo Phillips MD 04/02/18 13:51: Patient underwent stress echocardiogram which was abnormal for ischemia. Given the patient's previous coronary artery disease, stenting, and need for upcoming surgery, I recommended that she undergo a after catheterization to evaluate her previous coronary artery disease. She will continue on baby aspirin and Plavix until her catheterization is been complete. Unfortunately she will need to postpone her surgery until her catheterization has been completed. Sincerely, Dr. Carmelo Phillips. Assessment AND Plan 1. Atherosclerotic heart disease of [place] coronary artery without angina pectoris I25.10 PTCA and ALESSANDRA to LAD 07/05/[address] Phillips [facility] Plan - Carmelo Phillips MD 1. Coronary artery disease: No anginal symptoms at this time. No indication for any additional testing. Her blood pressure and heart rate are well-controlled. Patient states that she is being worked up for gallbladder disease and is undergoing a HIDA scan and ultrasound soon. It is found the patient requires cholecystectomy, she will require a treadmill echocardiogram. It is also possible the patient may have unerupted herpes zoster to explain her symptoms. In the meantime she will continue baby aspirin, Lasix, losartan, metoprolol. Orders Orders: 2. Hyperlipidemia E78.5 Plan - Carmelo Phillips MD 2. Hyperlipidemia: The patient's LDL cholesterol is not at goal. She complains of myalgias despite being on vitamin D and low-dose Zocor. Recommend discontinuation of Zocor, switching to Crestor 10 mg p.o. nightly, and continuing vitamin D. Repeat lipid profile in 6 weeks time. 3. Return office in 6 months. This note was generated using a voice recognition system and there may be incorrect words, spelling or punctuation that were not noted when reviewing the office note prior to saving. Orders Orders: Plan Detail Other Medications New: Discontinued: metoprolol succinate ER Discontinued Yipgrh27.5 mg (1/2 x 25 mg) PO DAILY 16 tabs 11RF : Order edited - Discontinuing original order simvastatin Discontinued Reason: Order Cha20 mg PO QHS 90 tabs 3RF high chol nged Follow Up +6M (Alan) 04/02/18 1351 <Electronically signed by Carmelo Phillips MD> Date Carmelo Phillips MD cc: Christina Vazquez MD * Signed HPI HPI Chief Complaint: routine f/u Details: Mrs. 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 this precipitated a treadmill echocardiogram supervised by myself at [facility] on 07/01/14. This was markedly abnormal which required a diagnostic coronary angiogram. Patient was found to have 2 tandem lesions in her proximal and mid LAD, followed by a Stable lesion in the proximal RCA. Patient had her sheath removed and then transferred to [facility] 3 days later after an inpatient stay with IV nitroglycerin. We then proceeded with successful angioplasty and drug-eluting stenting to the proximal LAD with a 3.0X 32 Promus stent, postdilated proximally with 3.5 and 4.0 noncompliant balloons. An FFR of her RCA was negative at 0.95 so no additional stenting was performed. The patient developed a pseudoaneurysm in the right groin, with successful thrombin injection. Repeat ultrasound demonstrated no evidence of continued pseudoaneurysm and the patient was discharged home. since her last visit, the patient has been doing rather well. She denies any chest pain, angina, shortness of breath or dyspnea on exertion. 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 She is compliant with her CPAP. She does complain of some mild myalgias due to her Zocor, despite being on vitamin D. In our office her blood pressure is 130/70, and pulse is 76 and regular. Her physical exam is as below. Her lipids as of 11/2014 show an HDL of 40 and LDL of 76. Her lipids as of 06/21/17 show an LDL of 82, and an HDL of 46. Repeat lipids dated 11/14/17 showed HDL of 42 and an LDL of 89. Repeat lipids are pending. 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: No Accompanied by: Is patient in pain?: No Allergies chlorhexidine Allergy (Verified 02/14/18 09:20) Hives diclofenac sodium [From Voltaren] Allergy (Verified 02/14/18 09:20) Swelling simvastatin Adverse Reaction (Intermediate, Verified 02/17/18 11:49) Myalgias adhesive Adverse Reaction (Verified 02/14/18 09:20) Rash cyclobenzaprine HCl [From Flexeril] Adverse Reaction (Verified 02/14/18 09:20) Nausea/Vom/Diarrhea ibuprofen Adverse Reaction (Verified 02/14/18 09:20) Nausea/Vom/Diarrhea meloxicam [From Mobic] Adverse Reaction (Verified 02/14/18 09:20) Nausea/Vom/Diarrhea orphenadrine citrate [From Norflex] Adverse Reaction (Verified 02/14/18 09:20) Other piroxicam [From Feldene] Adverse Reaction (Verified 02/14/18 09:20) Rash pregabalin [From Lyrica] Adverse Reaction (Verified 02/14/18 09:20) Nausea/Vom/Diarrhea Medications Lorazepam [Ativan] 1 mg PO BID PRN PRN 07/29/13 [History Confirmed 02/14/18] Multivitamins,Therapeutic [Multivitamin] 1 tab PO DAILY 07/29/13 [History Confirmed 02/14/18] Aspirin E.C. [Ecotrin] 81 mg PO DAILY@0800 04/06/15 [History Confirmed 02/14/18] Oxycodone HCl/Acetaminophen [Percocet 5-325] 1 - 2 tab PO TID PRN 12/07/15 [History Confirmed 02/14/18] Tizanidine HCl [Zanaflex] 1 tab PO TID PRN 05/10/16 [History Confirmed 02/14/18] Ipratropium [Atrovent (SP)] 1 puff INHALATION BID 10/29/16 [History Confirmed 02/14/18] proMETHazine suppository [Phenergan] 25 mg RECTAL Q6H PRN PRN #20 suppos. 01/26/17 [Rx Confirmed 02/14/18] metoprolol succinate ER 25 mg tablet,extended release 24 hr 12.5 mg PO DAILY #16 tab 06/14/17 [Rx Confirmed 02/14/18] Dextran 70/Hypromellose [Nature's Tears Eye Drops] 15 ml OP PRN PRN 06/20/17 [History Confirmed 02/14/18] bisacodyl 5 mg tablet,delayed release 5 mg PO QDAY PRN tab 06/29/17 [History Confirmed 02/14/18] cholecalciferol (vitamin D3) 2,000 unit capsule 2,000 unit PO QDAY 06/29/17 [History Confirmed 02/14/18] diphenhydramine 25 mg capsule 25 mg PO BID PRN cap 06/29/17 [History Confirmed 02/14/18] docusate sodium 100 mg capsule 100 mg PO QDAY PRN 06/29/17 [History Confirmed 02/14/18] furosemide 20 mg tablet 20 mg PO .COMPLEX tab 06/29/17 [History Confirmed 02/14/18] nitroglycerin 0.4 mg sublingual tablet 0.4 mg SUBLINGUAL Q5- 15M PRN 06/29/17 [History Confirmed 02/14/18] gabapentin 400 mg capsule 400 mg PO TID 07/01/17 [History Confirmed 02/14/18] losartan 50 mg tablet 50 mg PO QDAY #30 tab 07/01/17 [Rx Confirmed 02/14/18] Amoxicillin [Amoxil] 500 mg PO BID 12/23/17 [History Confirmed 02/14/18] Rabeprazole Sodium [Aciphex] 20 mg PO BID 01/27/18 [History Confirmed 02/14/18] fluticasone 50 mcg/actuation nasal spray,suspension 1 spray INTRANASAL BID g 02/17/18 [History Confirmed 02/17/18] rosuvastatin 10 mg tablet 10 mg PO DAILY #30 tab 02/17/18 [Rx Confirmed 02/17/18] [facility] Medical History History of pseudoaneurysm (Chronic) IBS (irritable bowel syndrome) (Chronic) Sciatica (Chronic) Arthritis (Chronic) Hyperlipidemia (Chronic) Hypertension (Chronic) Left bundle branch block (Chronic) Atherosclerotic heart disease of [place] coronary artery without angina pectoris (Chronic) Surgical History H/O left knee surgery (Chronic) Plantar fasciitis of left foot (Chronic) Bunion of left foot (Chronic) Status post right foot surgery (Chronic) Status post right knee replacement (Chronic) Stented coronary artery (Chronic) History of left heart catheterization (Chronic) Family History Mother Breast cancer Father CAD (coronary artery disease) Social History Smoking Status: Never smoker second hand exposure: No alcohol intake: never substance use type: does not use caffeine: Yes what type of physical activity do you participate in: none ROS Const Const: Positive for other (RUQ pain, HIDA scan Weds per Dr. Wen); negative for fatigue, weakness, body ache, fever(s), headache(s), chills, frequent falls, night sweats, daytime sleepiness, difficulty sleeping, excessive sweating, weight gain, weight loss, increased appetite, poor appetite or anorexia Eyes Eyes: Negative for blind spots, loss of peripheral vision, transient loss of vision, blurry vision, change in vision, double vision, floaters, tunnel vision or other ENT ENT: Negative for dizziness, hearing loss, tinnitus, Nosebleed/epistaxis, balance problems, post nasal drip, lip swelling, tongue swelling, bleeding gums, hoarseness, neck pain, dry mouth, other or headache(s) Cardio Chest Pain: No Palpitations: No Edema: Bilateral (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 It goes away when feet up.) Muscle aches with walking: None Resp Respiratory: Negative for SOB with activity, SOB at rest, SOB orthopnea\SOB lying down, Cough, Coughing up blood/hemoptysis, chest congestion, pain on inspiration, snoring, stridor, wheezing, crackles, paroxysmal nocturnal dyspnea or other GI GI: Negative nausea, vomiting, heartburn, constipation, belching, bloating, cramping, vomiting blood/hematemesis, bright, red blood in stools, black,tarry stools, loose stools, Difficulty Swallowing or other : Negative for hematuria, frequent nighttime urination/ nocturia, erectile dysfunction or abnormal vaginal bleeding Musc Musc: Negative for balance problems, muscle aches/ myalgia, muscle weakness or joint pain Skin Skin: Negative redness, non-healing lesions, rash, unusual bruising, skin ulcer, wounds, jaundice or other Neuro Neuro: Negative for blurry vision, double vision, dizziness, lightheadedness, near syncope, syncope, orthostatic symptoms, confusion, memory loss, restless legs, vertigo, seizures, lack of coordination, other, weakness, headache(s) or frequent falls Anoop Hematologic/Lymphatic: Negative for easy bleeding, easy bruising, enlarged lymph nodes or other Endo Endo: Negative for cold intolerance, heat intolerance, flushing, increased thirst/drinking, increased hunger, hair loss, hair growth, other, fatigue or excessive sweating Psych Psych: Negative for anxiety, depression, thoughts of harming anyone, thoughts of harming yourself, visual hallucinations, panic attacks or audible hallucinations Allergy Allergy/Immunology: Negative for lip swelling, Negative for tongue swelling, Negative for rash, Negative for throat swelling, Negative for hives Cardiology Exam Const Appearance: cooperative, healthy appearing and no acute distress Nutritional Appearance: well nourished Orientation: alert, oriented x3 and oriented to person Head Head: normal to inspection, atraumatic and normocephalic Nose: external nose normal Face and Sinus: face symmetric Mouth: oral mucosae normal Eyes General: appearance normal, both eyes and all related structures Eyelids: eyelids normal Conjunctivae: conjunctivae normal Pupils: PERRL and normal by confrontation EOM: EOM intact bilaterally Neck Neck: normal visual inspection and full ROM Carotids: normal carotid upstroke Chest Chest inspection: normal inspection of the chest Auscultation: Bilateral: Clear to Auscultation Cardio Palpation: normal PMI Rate: regular rate Rhythm: regular rhythm Heart sounds: S1 normal and S2 normal GI GI: normal to inspection, no hepatosplenomegaly and bowel sounds present Neuro General: alert, oriented x3, awake, CN's II-XI intact bilaterally and moves all extremities Skin Skin: no rashes or lesions noted Extremities Pulses: Normal: Right Femoral Pulse, Left Femoral Pulse, Right Dorsalis Pedis Pulse, Left Dorsalis Pedis Pulse, Right Posterior Tibial Pulse, Left Posterior Tibial Pulse, Right Radial Pulse, Left Radial Pulse Lower Extremity Edema: None: Bilateral Psych Psychological: normal affect Assessment AND Plan 1. Atherosclerotic heart disease of [place] coronary artery without angina pectoris I25.10 PTCA and ALESSANDRA to LAD 07/05/[address] Phillips [facility] Plan 1. Coronary artery disease: No anginal symptoms at this time. No indication for any additional testing. Her blood pressure and heart rate are well-controlled. Patient states that she is being worked up for gallbladder disease and is undergoing a HIDA scan and ultrasound soon. It is found the patient requires cholecystectomy, she will require a treadmill echocardiogram. It is also possible the patient may have unerupted herpes zoster to explain her symptoms. In the meantime she will continue baby aspirin, Lasix, losartan, metoprolol. Orders Orders: 2. Hyperlipidemia E78.5 Plan 2. Hyperlipidemia: The patient's LDL cholesterol is not at goal. She complains of myalgias despite being on vitamin D and low-dose Zocor. Recommend discontinuation of Zocor, switching to Crestor 10 mg p.o. nightly, and continuing vitamin D. Repeat lipid profile in 6 weeks time. 3. Return office in 6 months. This note was generated using a voice recognition system and there may be incorrect words, spelling or punctuation that were not noted when reviewing the office note prior to saving. Orders Orders: Plan Detail Other Medications New: Discontinued: Follow Up +6M (Alan) Coding Level of Care Code Off vis,est,level 3 Diagnoses Atherosclerotic heart disease of [place] coronary artery without angina pectoris I25.10 Hyperlipidemia E78.5 Coding Level of Care Code Off vis,est,level 3 Diagnoses Atherosclerotic heart disease of [place] coronary artery without angina pectoris I25.10 Hyperlipidemia E78.5 02/17/18 1200 <Electronically signed by Carmelo Phillips MD> Date Carmelo Phillips MD Cosigner Signature: Date (if applicable) CC: Christina Vazquez MD STRESS TEST ECHO W/O Observed: 04/01/2018 Status: F Source: [place] CONTRAST 5:[address] [facility] REPOSITORY [facility] Cardiovascular Services [address] [place], [place] [address] [address] Stress Test Echo w/o Contrast MR#: [id number] Acct: [id number] Name: NGOC COTA Rep #: [id number] : 1950 67 From: Carmelo Phillips MD Primary Care: Christina Vazquez MD Status: REG CLI Ordering Dr: Carmelo Phillips MD Sex: F C Reason For Study: PRE OP Stress Results Protocol: Carlos Protocol Maximum Predicted HR: 153 bpm Target HR: 130 bpm % Maximum Predicted HR: 91 % DurationHeart Rate Stage (mm:ss) (bpm) BP BASELINE 69 120/64 STAGE 1 3:00 122 146/60 STAGE 2 3:00 139 174/50 RECOVERY 91 124/68 Stress Duration: 6:00 mm:ss Maximum Stress HR: 139 bpm Baseline Echocardiogram Findings The estimated ejection fraction is 65 %. Stress Echo Wall motion Data Resting WM Intermediate WM Stress WM Resting Wall Motion Wall Motion Stress No regional wall motion No regional wall motion abnormalities noted. abnormalities noted. EKG Data Normal intervals are noted. The patient exercised according to the regular Carlos protocol for a total duration of 6:01. The maximum heart rate attained was 164 beats per minute. This was 107% of maximum predicted heart rate. The patient exercised into stage 3 of the Carlos protocol. No clinical angina was noted. No arrhythmias noted. Interpretation Summary The estimated ejection fraction is 65 %. Abnormal, adequate, treadmill echocardiogram. Positive for ischemia by EKG criteria, as well as subtle anterior septal hypokinesis seen in the parasternal long, apical four-chamber and parasternal short views. No anginal symptoms noted but the patient did have dyspnea which may be an anginal equivalent. Appropriate blood pressure response to exercise. Average exercise capacity for age. Final LVEF of 65% test terminated due to dyspnea and target heart rate achieved. Ordering Physician: Carmelo Phillips Referring Physician: Carmelo Phillips Performed By: Aye Castillo, NELI, RVT 04/01/18 1751 Date Carmelo Phillips MD CC: Carmelo Phillips MD; Christina Vazquez MD Date Dictated: 04/01/18 1007 Date Transcribed: 04/01/181750 Production Quality Manager: Signed 12 LEAD ELECTROCARDIOGRAM Observed: 03/31/2018 Status: F Source: [place] 9:29 AM [facility] REPOSITORY [facility] Cardiovascular Services [address] [place] [address] 12 Lead EKG 03/27/18 1120 MR#: [id number] Acct: [id number] Name: NGOC COAT Rep #: [id number] : 1950 67 From: Chauncey Munoz MD Attending Dr: Carmelo Lancaster MD Status: PRE SDC Ordering Dr: Carmelo Lancaster MD Date: 03/27/18 Location: [facility] Sex: F C Admitted: Test Reason : PRE-OP Blood Pressure : / mmHG Vent. Rate : 085 BPM Atrial Rate : 085 BPM P-R Int : 152 ms QRS Dur : 110 ms QT Int : 408 ms P-R-T Axes : 053 009 076 degrees QTc Int : 485 ms Normal sinus rhythm ICLBBB Abnormal ECG Confirmed by MARLEN MARIEE, CHAUNCEY ([id number]), fashion editor ADELA KAPOOR ([id number]) on 03/31/2018 9:29:37 AM Referred By: Carmelo Lancaster Confirmed By:CHAUNCEY MUNOZ MD 03/31/18 0929 Date Chauncey Munoz MD CC: Carmelo Lancaster MD; Christina Vazquez MD Signed PROTHROMBIN TIME W/INR Collected: 03/27/2018 Status: F Source: [place] 10:[address] [facility] REPOSITORY TYPE CODE TESTS RESULT OUT OF RANGE REFERENCE UNITS LAB L300.4150 11.7-14.9 SECONDS Normal PROTIME 13.1 LAB L300.4200 Normal INR 1.0 Performed By: #### L300.3900, L300.4310 #### [facility] [address] [place], [address] PARTIAL THROMBOPLAST Collected: 03/27/2018 Status: F Source: [place] TIME 10:[address] [facility] REPOSITORY TYPE CODE TESTS RESULT OUT OF RANGE REFERENCE UNITS LAB L300.4310 24.1-36.2 Seconds Normal PTT 27.4 Performed By: #### L300.3900, L300.4310 #### [facility] [address] [place], [address] SURGERY VISIT REPORT Observed: 03/25/2018 Status: F Source: [place] 8:39 AM [facility] REPOSITORY [facility] 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: No Is patient in pain?: No Allergies chlorhexidine Allergy (Verified 03/25/18 07:38) Hives diclofenac sodium [From Voltaren] Allergy (Verified 03/25/18 07:38) Swelling simvastatin Adverse Reaction (Intermediate, Verified 03/25/18 07:38) Myalgias adhesive Adverse Reaction (Verified 03/25/18 07:38) Rash cyclobenzaprine HCl [From Flexeril] Adverse Reaction (Verified 03/25/18 07:38) Nausea/Vom/Diarrhea ibuprofen Adverse Reaction (Verified 03/25/18 07:38) Nausea/Vom/Diarrhea meloxicam [From Mobic] Adverse Reaction (Verified 03/25/18 07:38) Nausea/Vom/Diarrhea orphenadrine citrate [From Norflex] Adverse Reaction (Verified 03/25/18 07:38) Other piroxicam [From Feldene] Adverse Reaction (Verified 03/25/18 07:38) Rash pregabalin [From Lyrica] Adverse Reaction (Verified 03/25/18 07:38) Nausea/Vom/Diarrhea Medications Lorazepam [Ativan] 1 mg PO BID PRN PRN 07/29/13 [History Confirmed 03/25/18] Multivitamins,Therapeutic [Multivitamin] 1 tab PO DAILY 07/29/13 [History Confirmed 03/25/18] Aspirin E.C. [Ecotrin] 81 mg PO DAILY@0800 04/06/15 [History Confirmed 03/25/18] Oxycodone HCl/Acetaminophen [Percocet 5-325] 1 - 2 tab PO TID PRN 12/07/15 [History Confirmed 03/25/18] Tizanidine HCl [Zanaflex] 1 tab PO TID PRN 05/10/16 [History Confirmed 03/25/18] Ipratropium [Atrovent (SP)] 1 puff INHALATION BID 10/29/16 [History Confirmed 03/25/18] proMETHazine suppository [Phenergan] 25 mg RECTAL Q6H PRN PRN #20 suppos. 01/26/17 [Rx Confirmed 03/25/18] metoprolol succinate ER 25 mg tablet,extended release 24 hr 12.5 mg PO DAILY #16 tab 06/14/17 [Rx Confirmed 03/25/18] Dextran 70/Hypromellose [Nature's Tears Eye Drops] 15 ml OP PRN PRN 06/20/17 [History Confirmed 03/25/18] bisacodyl 5 mg tablet,delayed release 5 mg PO QDAY PRN tab 06/29/17 [History Confirmed 03/25/18] cholecalciferol (vitamin D3) 2,000 unit capsule 2,000 unit PO QDAY 06/29/17 [History Confirmed 03/25/18] diphenhydramine 25 mg capsule 25 mg PO BID PRN cap 06/29/17 [History Confirmed 03/25/18] docusate sodium 100 mg capsule 100 mg PO QDAY PRN 06/29/17 [History Confirmed 03/25/18] furosemide 20 mg tablet 20 mg PO .COMPLEX tab 06/29/17 [History Confirmed 03/25/18] nitroglycerin 0.4 mg sublingual tablet 0.4 mg SUBLINGUAL Q5- 15M PRN 06/29/17 [History Confirmed 03/25/18] gabapentin 400 mg capsule 400 mg PO TID 07/01/17 [History Confirmed 03/25/18] losartan 50 mg tablet 50 mg PO QDAY #30 tab 07/01/17 [Rx Confirmed 03/25/18] Amoxicillin [Amoxil] 500 mg PO BID 12/23/17 [History Confirmed 03/25/18] Rabeprazole Sodium [Aciphex] 20 mg PO BID 01/27/18 [History Confirmed 03/25/18] fluticasone 50 mcg/actuation nasal spray,suspension 1 spray INTRANASAL BID g 02/17/18 [History Confirmed 03/25/18] rosuvastatin 10 mg tablet 10 mg PO DAILY #30 tab 02/17/18 [Rx Confirmed 03/25/18] PFSH Medical History History of pseudoaneurysm (Chronic) IBS (irritable bowel syndrome) (Chronic) Sciatica (Chronic) Arthritis (Chronic) Hyperlipidemia (Chronic) Hypertension (Chronic) Left bundle branch block (Chronic) Atherosclerotic heart disease of [place] coronary artery without angina pectoris (Chronic) Abdominal pain (Acute) Nausea (Acute) Surgical History H/O left knee surgery (Chronic) Plantar fasciitis of left foot (Chronic) Bunion of left foot (Chronic) Status post right foot surgery (Chronic) Status post right knee replacement (Chronic) Stented coronary artery (Chronic) History of left heart catheterization (Chronic) Family History Mother Breast cancer Father CAD (coronary artery disease) Social History Smoking Status: Never smoker second hand exposure: No alcohol intake: never substance use type: does not use caffeine: Yes what type of physical activity do you participate in: none HPI HPI HPI: NGOC COTA, is a 67 F who presents to the office today for right upper quadrant abdominal pain with nausea and vomiting. This is a complicated 67-year-old patient. In January 2018 she underwent a upper and lower endoscopy she was noted to have some mild chronic inactive gastritis H. pylori negative. She had random colon biopsies which showed no signs of acidic or collagenous colitis. She has been a long-term patient on AcipHex and recently was changed to Protonix. In addition she has been on Carafate in the past. She has had persistent right upper quadrant abdominal pain with nausea and vomiting. No particular foods make this worse. On 02/14/2018 she underwent a HIDA scan with ejection fraction which showed an ejection fraction above 76%. She does not complain of heartburn. She has had no rectal bleeding. Patient is also been taking dicyclomine but has not noticed any positive effects from this. ROS General General: No weight change, appetite, fatigue, colon cancer, breast cancer or weakness HEENT HEENT: Yes eye surgery; no difficulty swallowing, eye injury, swollen glands or hoarseness Endo Endocrine: No thyroid disease, diabetes mellitus, thyroid cancer, Hair loss, heat intolerance or cold intolerance Skin Skin: No rash or changing moles Breast Breast: No left breast lump, right breast lump, nipple discharge, breast pain, abnormal mammogram, abnormal US or breast enlargement Musc Musculoskeletal: Yes back problems and arthritis; no rheumatoid arthritis, gout or joint pain Cardio Cardiovascular: Yes heart disease, high blood pressure and heart stent; no murmur, pacemaker, atrial fibrillation, heart attack, palpitations, shortness of breat with exertion or chest pain Psych Psychiatric: No depression, anxiety or hearing voices Resp Respiratory: No shortness of breath, Yes sleep apnea, No cough, No COPD, No asthma, No emphysema, No wheezing Gastro Gastrointestinal: Yes abdominal pain, Yes nausea or vomiting, No diarrhea, Yes constipation, No blood in stool, Yes acid reflux, Yes hemorrhoids, No ulcers, Yes gallbladder problem, No black,tarry stools Anoop Hematologic: Yes blood thinners, No blood disorders, No bleeding, No anemia, No blood clots Neuro Neurologic: No system reviewed and no additional complaints, except as docu, No as per HPI, No abnormal walking, No abnormal hearing, No abnormal movements, No abnormal speech, No behavioral changes, No burning sensations, No confusion, No seizure-like activity, No unsteadiness, No dizziness, No localized weakness, No frequent falls, No headache(s), No lack of coordination, No loss of vision, No memory loss, No numbness, No other visual disturbances, No radiating pain, No restless legs, No sensory deficit, No fainting, No tingling, No tremor(s), No weakness, No other Exam Const General: well developed, no acute distress, well hydrated Orientation: oriented to person, oriented to place, oriented to time [facility] Head: normocephalic, atraumatic Ears: external ears normal Mouth: moist mucous membranes Eyes Sclera: sclerae normal Pupils: normal by confrontation Neck Neck: no lymphadenopathy noted Neck mass: No Thyroid: symmetrical, thyroid normal Chest Chest palpation AND inspection: normal inspection of the chest Breast Palpation: No nipple discharge Resp Effort AND Inspection: normal respiratory effort Auscultation: clear to auscultation bilaterally Percussion: percussion normal Cardio Rate: regular rate Rhythm: regular rhythm Heart Sounds: no murmurs GI Palpation: soft, tender, no masses, no hepatosplenomegaly Auscultation: normal bowel sounds Rectal Exam: other Other: Rectal exam deferred. Patient has a vertical midline incision from her xiphoid down to her pubic bone. She has an old colostomy scar in the left lower quadrant. She has significant tenderness in the right upper quadrant she has no rebound guarding or peritoneal signs. Extrem General: no clubbing, cyanosis or edema, normal to inspection Assessment AND Plan Problems 1. Right upper quadrant abdominal pain R10.11 2. Abnormal biliary HIDA scan R94.8 Plan Reviewed the anatomy with the patient and discussed the procedure: laparoscopic cholecystectomy with possible cholangiograms, possible open. Review risks including but not limited to bleeding, infection, hernia, bile leak, retained gallstones requiring another procedure ERCP- Endoscopic Retrograde Cholangiopancreatography, injury to another organ (bile ducts, common bile duct, small bowel, etc.) and conversion to an open procedure. All questions were answered. If this is ineffective at controlling her discomfort she is going to have to see rheumatology for possible treatment for costochondritis since she is not a candidate to be placed on any NSAIDs not quite sure what medication she might be useful on her. Coding Level of Care Code Off vis,new,level 3 Diagnoses Right upper quadrant abdominal pain R10.11 Abnormal biliary HIDA scan R94.8 03/25/18 0839 <Electronically signed by Carmelo Lancaster MD> Date Carmelo Lancaster MD Cosigner Signature: Date (if applicable) CC: MARGARET HERRERA; Christina Vazquez MD; Eitan Wen MD PROGRESS Observed: 03/13/2018 Status: COMPLETED Source: [place] 7:49 AM [facility] REPOSIT[facility] HNO ID: [id number] Author: Karol (Rug Weaver) Older Service: (none) Author Type: Nurse Practitioner Type: Progress Notes Filed: 03/13/2018 10:04 AM Note Text: CC: Patient presents with: [facility] ER Follow up HPI Ngoc Cota is a 67 year old female who presents today for ER follow-up. Facility: [facility] Date of visit: 03/08 Reason for visit: RUQ abdominal pain, nausea, vomiting Hospital course: CBC, CMP, Lipase, UA normal. RUQ ultrasound grossly normal RUQ abdominal pain has been present for about 6 months. Evaluated by GI initially on 01/03. HIDA scan showed increased EF. EGD and colonoscopy relatively normal. GI follow-up on 02/26. Advised symptoms due to reflux and possibly hyperactive gallbladder. Treatment with Carafate, Protonix continued and prescribed Bentyl. Referred to general surgery; appointment on 03/[address] Lancaster. Also has follow-up with GI on 03/21 She had not started Bentyl yet, advised in ER to start which she did on 03/09. Aciphex previously changed to Protonix due to cost but obviously ineffective. Resumed Aciphex about one week ago. No worsening symptoms since ER visit. Positive for RUQ pain, diarrhea, nausea, vomiting that is worsened by eating. She does tolerate liquids and staying hydrated. Denies fever, chills, black/bloody stools, weight loss, fatigue. REVIEW OF SYSTEMS General: Positive for intermittent lightheadedness. Denies syncope, feeling faint, low blood pressure. Cardiovascular: no SOB, no palpitations and no swelling : Voiding adequate amounts, urine light yellow PAST MEDICAL HISTORY Diagnosis Date - Anatomical narrow angle borderline glaucoma - Bundle branch block, unspecified 01/12 LBBB - Coronary artery disease involving [place] coronary artery of [place] heart without angina pectoris 2014 Dr. Phillips - DDD (degenerative disc disease), lumbar - Disorder of bone and cartilage, unspecified - Diverticulosis of colon (without mention of hemorrhage) - GERD (gastroesophageal reflux disease) - Hypertension - Irritable bowel syndrome - Lichen Sclerosus et Atrophicus of the Vulva 03/16/2009 - Lumbar radiculopathy - Other combinations of endocrine dysfunction - Plantar fascial fibromatosis - Primary localized osteoarthrosis, lower leg - Right knee DJD - Right sided sciatica - S/P coronary artery stent placement 2014 LAD - Snoring PAST SURGICAL HISTORY Procedure Laterality Date - CARDIAC CATH 06/2014 stent - COLONOSCOP W/ OR W/O BRSH SPEC 03/20/2011 Colonoscopy - CORRECT BUNION,SIMPLE 1999 Bunion both- left was nonunion - EGD W/O OR W/BRUSH/WASH 03/20/2011 EGD - EXCIS TENDON SHEATH LESN,HAND/FINGR Left 08/28/2017 Excision gangion cyst left index finger - KNEE SCOPE,DIAGNOSTIC prior to 2003 right knee X 3 - PART REMOVAL COLON W ANASTOMOSIS [id number] sigmoid resection - PAST SURGICAL HISTORY OF 1998 endochondroma right knee - PAST SURGICAL HISTORY OF 1998 laser both eyes for glaucoma - PAST SURGICAL HISTORY OF 1998 left plantar fasciotomy - PAST SURGICAL HISTORY OF 1982 hysterectomy with one ovary removed - PAST SURGICAL HISTORY OF 08/11/2013 Total Right Knee replacement - REMOVAL OF TONSILS,<12 Y/O Tonsillectomy - TOTAL KNEE REPLACEMENT 2003 Knee replacement, total right ALLERGIES Voltaren [Diclofenac Sodium]; Chlorhexidine; Cyclobenzaprine; Lyrica [Pregabalin]; Nsaids (Non-Steroidal Anti-Inflammatory Drug); Orphenadrine; Piroxicam; Tape [Other] MEDICATIONS amoxicillin (POLYMOX, AMOXIL) 500 mg capsule TAKE 4 CAPSULES BY MOUTH 30 MINUTES PRIOR TO DENTAL PROCEDURES dicyclomine (BENTYL) 20 mg tablet Take 1 tablet by mouth three times daily before meals. sucralfate (CARAFATE) 1 gram tablet Take 1 tablet by mouth three times daily before meals. rosuvastatin (CRESTOR) 10 mg tablet Take 10 mg by mouth once daily. LORazepam (ATIVAN) 1 mg tablet Take 1 tablet by mouth twice daily as needed for up to 180 days. losartan (COZAAR) 50 mg tablet Take 1 tablet by mouth once daily. gabapentin (NEURONTIN) 400 mg capsule Take 1 capsule by mouth daily at bedtime. CPAP Initiate Auto PAP @ 5-20 cm of water with humidification. Mask (per patient preference) optional chin strap (if indicated) , filters, tubing, humidifier and lifetime supplies. COMPOUNDED PRESCRIPTION Lab order: Hepatitis C antibody and reflex confirmation test (HCV RNA) if needed Z01.89 ACIPHEX 20 mg tablet Take 1 tablet by mouth twice daily. Do not substitute with generic (not effective) promethazine (PHENERGAN) 25 mg tablet Take 1 tablet by mouth every 6 hours as needed. clobetasol (TEMOVATE) 0.05 % cream Apply to affected skin sparingly once daily as needed nystatin (NYSTOP) powder Apply 1 application to affected area four times daily. As directed metoprolol succinate ER (TOPROL XL) 25 mg 24 hr tablet Take 0.5 tablets by mouth once daily. simvastatin (ZOCOR) 20 mg tablet Take 1 tablet by mouth daily at bedtime. Diclofenac Sodium (VOLTAREN) 1 % gel Use 4 times a day as needed furosemide (LASIX) 20 mg tablet Take 1 tablet by mouth once daily. docusate sodium (COLACE) 100 mg capsule Take 1 capsule by mouth twice daily as needed for Constipation. oxyCODONE-acetaminophen (PERCOCET) 10-325 mg tablet Take 1 tablet by mouth every 8 hours as needed. aspirin, enteric coated (ECOTRIN LOW STRENGTH) 81 mg EC tablet Take 1 tablet by mouth once daily. therapeutic multivitamin ORAL tablet Take 1 tablet by mouth once daily. pantoprazole DR (PROTONIX) 40 mg tablet Take 1 tablet by mouth once daily. bisacodyl EC (DULCOLAX) 5 mg EC tablet Take 1 tablet by mouth once daily as needed. FAMILY HISTORY Problem Relation Age of Onset - Breast Cancer Mother also uterine cancer - Diabetes Mother - Heart Father Social History Substance Use Topics - Smoking status: Never Smoker - Smokeless tobacco: Never Used - Alcohol use No PHYSICAL EXAM BP 119/80 Pulse 83 Temp 36.6 ?C (97.8 ?F) (Temporal Artery) Resp 16 Wt 84.2 kg (185 lb 9.6 oz) SpO2 99% BMI 34.50 kg/m? General Appearance: well appearing, in no acute distress, alert Skin: Skin color, texture, turgor normal for age; Eyes: conjunctiva pink and moist, no icterus, sclera white, non-injected Oropharynx: moist Lungs: lungs clear to auscultation. No wheezing, rhonchi, rales Heart: RRR without murmur, gallop, or rubs. No ectopy Abdomen: Abdomen soft. Bowel sounds normal. No pain with light palpation. Ext: no edema in LE bilaterally, good distal pulses ASSESSMENT/PLAN: 1. Right upper quadrant abdominal pain - ICD9: 789.01, ICD10: R10.11 (primary diagnosis) No worsening symptoms since ER visit. No alarm symptoms or exam findings today - Continue with Bentyl and Aciphex - Zofran as needed for nausea. Advised to take prior to eating. - Continue bland, low fat diet. Push fluids - Follow-up with general surgery and GI as scheduled 2. Gastroesophageal reflux disease, esophagitis presence not specified - ICD9: 530.81, ICD10: K21.9 As above 3. Non-intractable vomiting with nausea, unspecified vomiting type - ICD9: 787.01, ICD10: R11.2 As above 4. Diarrhea, unspecified type - ICD9: 787.91, ICD10: R19.7 As above Prescription instructions reviewed with patient as applicable. Potential red flag symptoms discussed with the patient. Reviewed appropriate action plan to take if red flag symptoms occur. Patient agreeable to treatment plan. Karol Burroughs APRN.CNP CNOV Observed: 03/13/2018 Status: COMPLETED Source: [place] 7:40 AM [facility] RE[facility]ITORY Office Visit (INTMWS) NGOC COTA ([id number]) 1950 F Date Time Provider Department 03/13/18 7:40 AM KAROL BURROUGHS (APRYL) INTM[facility] During your visit today, we recorded the following information about you: Temperature Pulse Respiration Blood pressure 97.8 degrees 83/minute 16/minute 119/80 Weight 84.2 kg Karol Burroughs APRN.CNP 03/13/2018 10:04 AM Signed CC: Patient presents with: [facility] ER Follow up HPI Ngoc Cota is a 67 year old female who presents today for ER follow-up. Facility: [facility] Date of visit: 03/08 Reason for visit: RUQ abdominal pain, nausea, vomiting Hospital course: CBC, CMP, Lipase, UA normal. RUQ ultrasound grossly normal RUQ abdominal pain has been present for about 6 months. Evaluated by GI initially on 01/03. HIDA scan showed increased EF. EGD and colonoscopy relatively normal. GI follow-up on 02/26. Advised symptoms due to reflux and possibly hyperactive gallbladder. Treatment with Carafate, Protonix continued and prescribed Bentyl. Referred to general surgery; appointment on 03/[address] Lancaster. Also has follow-up with GI on 03/21 She had not started Bentyl yet, advised in ER to start which she did on 03/09. Aciphex previously changed to Protonix due to cost but obviously ineffective. Resumed Aciphex about one week ago. No worsening symptoms since ER visit. Positive for RUQ pain, diarrhea, nausea, vomiting that is worsened by eating. She does tolerate liquids and staying hydrated. Denies fever, chills, black/bloody stools, weight loss, fatigue. REVIEW OF SYSTEMS General: Positive for intermittent lightheadedness. Denies syncope, feeling faint, low blood pressure. Cardiovascular: no SOB, no palpitations and no swelling : Voiding adequate amounts, urine light yellow PAST MEDICAL HISTORY Diagnosis Date - Anatomical narrow angle borderline glaucoma - Bundle branch block, unspecified 01/12 LBBB - Coronary artery disease involving [place] coronary artery of [place] heart without angina pectoris 2014 Dr. Phillips - DDD (degenerative disc disease), lumbar - Disorder of bone and cartilage, unspecified - Diverticulosis of colon (without mention of hemorrhage) - GERD (gastroesophageal reflux disease) - Hypertension - Irritable bowel syndrome - Lichen Sclerosus et Atrophicus of the Vulva 03/16/2009 - Lumbar radiculopathy - Other combinations of endocrine dysfunction - Plantar fascial fibromatosis - Primary localized osteoarthrosis, lower leg - Right knee DJD - Right sided sciatica - S/P coronary artery stent placement 2014 LAD - Snoring PAST SURGICAL HISTORY Procedure Laterality Date - CARDIAC CATH 06/2014 stent - COLONOSCOP W/ OR W/O [facility] SPEC 03/20/2011 Colonoscopy - CORRECT BUNION,SIMPLE 2000 Bunion both- left was nonunion - EGD W/O OR W/BRUSH/WASH 03/20/2011 EGD - EXCIS TENDON SHEATH LESN,HAND/FINGR Left 08/28/2017 Excision gangion cyst left index finger - KNEE SCOPE,DIAGNOSTIC prior to 2003 right knee X 3 - PART REMOVAL COLON W ANASTOMOSIS [id number] sigmoid resection - PAST SURGICAL HISTORY OF 1998 endochondroma right knee - PAST SURGICAL HISTORY OF 1998 laser both eyes for glaucoma - PAST SURGICAL HISTORY OF 1998 left plantar fasciotomy - PAST SURGICAL HISTORY OF 1982 hysterectomy with one ovary removed - PAST SURGICAL HISTORY OF 08/11/2013 Total Right Knee replacement - REMOVAL OF TONSILS,<12 Y/O Tonsillectomy - TOTAL KNEE REPLACEMENT 2003 Knee replacement, total right ALLERGIES Voltaren [Diclofenac Sodium]; Chlorhexidine; Cyclobenzaprine; Lyrica [Pregabalin]; Nsaids (Non-Steroidal Anti-Inflammatory Drug); Orphenadrine; Piroxicam; Tape [Other] MEDICATIONS amoxicillin (POLYMOX, AMOXIL) 500 mg capsule TAKE 4 CAPSULES BY MOUTH 30 MINUTES PRIOR TO DENTAL PROCEDURES dicyclomine (BENTYL) 20 mg tablet Take 1 tablet by mouth three times daily before meals. sucralfate (CARAFATE) 1 gram tablet Take 1 tablet by mouth three times daily before meals. rosuvastatin (CRESTOR) 10 mg tablet Take 10 mg by mouth once daily. LORazepam (ATIVAN) 1 mg tablet Take 1 tablet by mouth twice daily as needed for up to 180 days. losartan (COZAAR) 50 mg tablet Take 1 tablet by mouth once daily. gabapentin (NEURONTIN) 400 mg capsule Take 1 capsule by mouth daily at bedtime. CPAP Initiate Auto PAP @ 5-20 cm of water with humidification. Mask (per patient preference) optional chin strap (if indicated) , filters, tubing, humidifier and lifetime supplies. COMPOUNDED PRESCRIPTION Lab order: Hepatitis C antibody and reflex confirmation test (HCV RNA) if needed Z01.89 ACIPHEX 20 mg tablet Take 1 tablet by mouth twice daily. Do not substitute with generic (not effective) promethazine (PHENERGAN) 25 mg tablet Take 1 tablet by mouth every 6 hours as needed. clobetasol (TEMOVATE) 0.05 % cream Apply to affected skin sparingly once daily as needed nystatin (NYSTOP) powder Apply 1 application to affected area four times daily. As directed metoprolol succinate ER (TOPROL XL) 25 mg 24 hr tablet Take 0.5 tablets by mouth once daily. simvastatin (ZOCOR) 20 mg tablet Take 1 tablet by mouth daily at bedtime. Diclofenac Sodium (VOLTAREN) 1 % gel Use 4 times a day as needed furosemide (LASIX) 20 mg tablet Take 1 tablet by mouth once daily. docusate sodium (COLACE) 100 mg capsule Take 1 capsule by mouth twice daily as needed for Constipation. oxyCODONE-acetaminophen (PERCOCET) 10-325 mg tablet Take 1 tablet by mouth every 8 hours as needed. aspirin, enteric coated (ECOTRIN LOW STRENGTH) 81 mg EC tablet Take 1 tablet by mouth once daily. therapeutic multivitamin ORAL tablet Take 1 tablet by mouth once daily. pantoprazole DR (PROTONIX) 40 mg tablet Take 1 tablet by mouth once daily. bisacodyl EC (DULCOLAX) 5 mg EC tablet Take 1 tablet by mouth once daily as needed. FAMILY HISTORY Problem Relation Age of Onset - Breast Cancer Mother also uterine cancer - Diabetes Mother - Heart Father Social History Substance Use Topics - Smoking status: Never Smoker - Smokeless tobacco: Never Used - Alcohol use No PHYSICAL EXAM BP 119/80 Pulse 83 Temp 36.6 ?C (97.8 ?F) (Temporal Artery) Resp 16 Wt 84.2 kg (185 lb 9.6 oz) SpO2 99% BMI 34.50 kg/m? General Appearance: well appearing, in no acute distress, alert Skin: Skin color, texture, turgor normal for age; Eyes: conjunctiva pink and moist, no icterus, sclera white, non-injected Oropharynx: moist Lungs: lungs clear to auscultation. No wheezing, rhonchi, rales Heart: RRR without murmur, gallop, or rubs. No ectopy Abdomen: Abdomen soft. Bowel sounds normal. No pain with light palpation. Ext: no edema in LE bilaterally, good distal pulses ASSESSMENT/PLAN: 1. Right upper quadrant abdominal pain - ICD9: 789.01, ICD10: R10.11 (primary diagnosis) No worsening symptoms since ER visit. No alarm symptoms or exam findings today - Continue with Bentyl and Aciphex - Zofran as needed for nausea. Advised to take prior to eating. - Continue bland, low fat diet. Push fluids - Follow-up with general surgery and GI as scheduled 2. Gastroesophageal reflux disease, esophagitis presence not specified - ICD9: 530.81, ICD10: K21.9 As above 3. Non-intractable vomiting with nausea, unspecified vomiting type - ICD9: 787.01, ICD10: R11.2 As above 4. Diarrhea, unspecified type - ICD9: 787.91, ICD10: R19.7 As above Prescription instructions reviewed with patient as applicable. Potential red flag symptoms discussed with the patient. Reviewed appropriate action plan to take if red flag symptoms occur. Patient agreeable to treatment plan. Karol Burroughs APRN.APRYL Burroughs APRN.CNP 03/13/2018 8:07 AM Signed To ER if develop severe abdominal pain, vomiting that won't stop, high fever, rigid abdomen Referring Provider: SELF [[id number]] Allergies As of Date: 03/13/2018 Noted Allergy Reaction VOLTAREN (DICLOFENAC SODIUM) 01/02/2010 2 - Rash 7 - Swelling 12 - Shortness of Breath CHLORHEXIDINE 08/26/2017 4 - Hives Comments: Hibicleanse CYCLOBENZAPRINE 09/10/2002 4 - Hives Comments: Flexeril Blurred vision and nausea and vomiting LYRICA (PREGABALIN) 03/17/2010 5 - Intolerance Comments: Fluid retention NSAIDS (NON-STEROIDAL ANTI-INFLAM*09/10/2002 8 - GI Upset Comments: Ibuprofen, naproxen,etc ORPHENADRINE 09/10/2002 4 - Hives Comments: Norflex Nausea and vomiting and blurred vision PIROXICAM 09/10/2002 4 - Hives Comments: Feldene Blurred vision and nausea and vomiting Tape [Other] 09/10/2002 Comments: adhesive Date Reviewed: 03/13/2018 Reviewed by: Cheyanne Galarza Shank Sorter - Fully Assessed Reason for Visit: [facility] ER Follow up [Other] Primary Visit Diagnosis:Right upper quadrant abdominal pain [R10.11] Other Visit Diagnoses:Gastroesophageal reflux disease, esophagitis presence not specified [K21.9] Non-intractable vomiting with nausea, unspecified vomiting type [R11.2] Diarrhea, unspecified type [R19.7] Order(s):ACIPHEX 20 mg tabletTake 1 tablet by mouth twice daily. Do not substitute with generic (not effective)Disp: 180 tabletRfl: 3 ondansetron orally disintegrating (ZOFRAN ODT) 4 mg disintegrating tabletTake 1-2 tablets by mouth every 8 hours as needed.Disp: 30 tabletRfl: 0 Prescriptions as of 03/13/2018 Sig: ACIPHEX 20 MG TABLET,DELAYED * Take 1 tablet by mouth twice * AMOXICILLIN 500 MG CAPSULE TAKE 4 CAPSULES BY MOUTH 30 M* DICYCLOMINE 20 MG TABLET Take 1 tablet by mouth three * ROSUVASTATIN 10 MG TABLET Take 10 mg by mouth once florecita* LORAZEPAM 1 MG TABLET Take 1 tablet by mouth twice * LOSARTAN 50 MG TABLET Take 1 tablet by mouth once d* GABAPENTIN 400 MG CAPSULE Take 1 capsule by mouth daily* CPAP Initiate Auto PAP @ 5- 20 cm o* COMPOUNDED PRESCRIPTION Lab order: Hepatitis C antib* PROMETHAZINE 25 MG TABLET Take 1 tablet by mouth every * CLOBETASOL 0.05 % TOPICAL CRE* Apply to affected skin sparin* NYSTATIN 100,000 UNIT/GRAM TO* Apply 1 application to affect* METOPROLOL SUCCINATE ER 25 MG* Take 0.5 tablets by mouth onc* SIMVASTATIN 20 MG TABLET Take 1 tablet by mouth daily * DICLOFENAC 1 % TOPICAL GEL Use 4 times a day as needed FUROSEMIDE 20 MG TABLET Take 1 tablet by mouth once d* DOCUSATE SODIUM 100 MG CAPSULE Take 1 capsule by mouth twice* OXYCODONE-ACETAMINOPHEN 10 MG* Take 1 tablet by mouth every * ASPIRIN 81 MG TABLET,DELAYED * Take 1 tablet by mouth once d* THERAPEUTIC MULTIVITAMIN TABL* Take 1 tablet by mouth once d* ONDANSETRON 4 MG DISINTEGRATI* Take 1-2 tablets by mouth ugalberto* BISACODYL 5 MG TABLET,DELAYED* Take 1 tablet by mouth once d* Problem List As Of Date 03/13/2018 Noted Resolved INGROWING NAIL [L60.0] INVALID FOR* MALFUN PAYMENT COLLECTOR ORTHO DEVICE/ GRAFT NOS [T83.406B]INVALID FOR* Bundle branch block [I45.4] INVALID FOR* PAIN IN LIMB [M79.609] INVALID FOR* OTHER HAMMER TOE [M20.40] INVALID FOR* ENTHESOPATHY, SITE NOS [M77.9] INVALID FOR* GERD (Gastroesophageal Reflux Disease) [K21.9] Right Sided Sciatica [M54.31] Lichen Sclerosus et Atrophicus of the Vulva [N9*INVALID FOR* Porokeratosis [Q82.8] INVALID FOR* Calcaneal Spur [M77.30] INVALID FOR* Plantar fascial fibromatosis [M72.2] INVALID FOR* Hyperlipidemia [E78.5] INVALID FOR* Lumbar radiculopathy [M54.16] INVALID FOR* More... Degenerative joint disease of knee, right [M17.*INVALID FOR* More... Acute gastritis without mention of hemorrhage [*INVALID FOR* Anxiety [F41.9] INVALID FOR* Coronary artery disease involving [place] vann*INVALID FOR* More... Class 2 obesity due to excess calories with bod*INVALID FOR* Essential hypertension [I10] INVALID FOR* ARPAN (obstructive sleep apnea) [G47.33] INVALID FOR* Digital mucous cyst of finger of left hand [M67*INVALID FOR* More... Other instructions from your clinician: To ER if develop severe abdominal pain, vomiting that won't stop, high fever, rigid abdomen Prescriptions ordered this encounter Disp Refills Start End ACIPHEX 20 MG TABLET,DELAYED RELEASE 180 * 3 03/13/2018 03/13/2019 Cmt: Protonix ineffective. Has tried Nexium, Prilosec in the past which were ineffective Route: ORAL Sig: Take 1 tablet by mouth twice daily. Do not substitute with generic (not effective) ONDANSETRON 4 MG DISINTEGRATING TABL* 30 t* 0 03/13/2018 Route: ORAL Sig: Take 1-2 tablets by mouth every 8 hours as needed. Medications Discontinued During This Encounter pantoprazole DR (PROTONIX) 40 mg tab* 30 t* 2 02/06/2018 03/13/2018 Route: ORAL Sig: Take 1 tablet by mouth once daily. Disc: Lack of Efficacy sucralfate (CARAFATE) 1 gram tablet 90 t* 3 02/19/2018 03/13/2018 Route: ORAL Sig: Take 1 tablet by mouth three times daily before meals. Disc: Lack of Efficacy ACIPHEX 20 mg tablet 180 * 3 03/28/2017 03/13/2018 Route: ORAL Sig: Take 1 tablet by mouth twice daily. Do not substitute with generic (not effective) Disc: Reason for discontinue is not on file. Encounter Status:Closed by KAROL BURROUGHS CNP on 03/13/18 PULMONARY VISIT REPORT Observed: 03/13/2018 Status: F Source: [facility] 7:[address] [facility] REPOSITORY [facility] [address] [place] [address] OFFICE VISIT Date of Service: 03/13/18 MR#: [id number] Acct: [id number] Name: NGOC COTA Rep #: [id number] : 1950 Provider: Carlos Lancaster MD Age/Sex: 67/F Location: [facility].PM[facility] Status: Signed Assessment AND Plan Problems 1. ARPAN (obstructive sleep apnea) G47.33 2. Obesity (BMI 30.0-34.9) E66.9 3. 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 Plan Plan secondary to work. Patient does have mild sleep apnea treated with AutoPap. Have discussed dental appliance in the past, but given dental issues this is not appropriate at this time. 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 This would not be addressed unless patient were to decide to change shifts or retire. Did encourage weight loss. Continue AutoPap. Possible sleep phase training in the future HPI 3 M FU: Chief Complaint: Daytime fatigue Details: Patient is a 67-year-old female, currently under the care of Dr. Vazquez, who presents for evaluation secondary to daytime fatigue and ARPAN. Patient reports that she has had difficulty complying with AutoPap therapy secondary to dental issues. Patient states that she has been evaluated for dental implants. These have not gone as planned requiring multiple interventions. Patient states that this was complicated by paresthesia of the lower lip made it very difficult to use the AutoPap. Patient has recently resumed therapy and states that she can tell when she uses it. 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 Patient states she can wake up at midnight routinely, even on days off and she attributes this to break time while at work. Patient has had some weight loss that she attributes to the inability to eat given her dental issues. Patient is trying weight loss otherwise, but understands that most of her weight loss is because of her decreased p.o. intake. Patient does have some lower extremity swelling, which she believes is at baseline and she attributes to being on my feet all day. Documentation personally reviewed with the patient Compliance report (February 2018): Only attempted usage 8 times out of the last 30 days with an average of 2 hours 59 minutes on auto set with an average pressure of 9 cm of water and a residual AHI of 1.6 and well controlled leak HPI Comments Details: Intake Vital Signs03/13/18 Height 5 ft 1 in 03/13/18 Weight: 83.915 kg Intake Visit Reasons: 3 M FU Accompanied by: Self Allergies chlorhexidine Allergy (Verified 02/14/18 09:20) Hives diclofenac sodium [From Voltaren] Allergy (Verified 02/14/18 09:20) Swelling simvastatin Adverse Reaction (Intermediate, Verified 02/17/18 11:49) Myalgias adhesive Adverse Reaction (Verified 02/14/18 09:20) Rash cyclobenzaprine HCl [From Flexeril] Adverse Reaction (Verified 02/14/18 09:20) Nausea/Vom/Diarrhea ibuprofen Adverse Reaction (Verified 02/14/18 09:20) Nausea/Vom/Diarrhea meloxicam [From Mobic] Adverse Reaction (Verified 02/14/18 09:20) Nausea/Vom/Diarrhea orphenadrine citrate [From Norflex] Adverse Reaction (Verified 02/14/18 09:20) Other piroxicam [From Feldene] Adverse Reaction (Verified 02/14/18 09:20) Rash pregabalin [From Lyrica] Adverse Reaction (Verified 02/14/18 09:20) Nausea/Vom/Diarrhea Medications Lorazepam [Ativan] 1 mg PO BID PRN PRN 07/29/13 [History Confirmed 02/14/18] Multivitamins,Therapeutic [Multivitamin] 1 tab PO DAILY 07/29/13 [History Confirmed 02/14/18] Aspirin E.C. [Ecotrin] 81 mg PO DAILY@0800 04/06/15 [History Confirmed 02/14/18] Oxycodone HCl/Acetaminophen [Percocet 5-325] 1 - 2 tab PO TID PRN 12/07/15 [History Confirmed 02/14/18] Tizanidine HCl [Zanaflex] 1 tab PO TID PRN 05/10/16 [History Confirmed 02/14/18] Ipratropium [Atrovent (SP)] 1 puff INHALATION BID 10/29/16 [History Confirmed 02/14/18] proMETHazine suppository [Phenergan] 25 mg RECTAL Q6H PRN PRN #20 suppos. 01/26/17 [Rx Confirmed 02/14/18] metoprolol succinate ER 25 mg tablet,extended release 24 hr 12.5 mg PO DAILY #16 tab 06/14/17 [Rx Confirmed 02/14/18] Dextran 70/Hypromellose [Nature's Tears Eye Drops] 15 ml OP PRN PRN 06/20/17 [History Confirmed 02/14/18] bisacodyl 5 mg tablet,delayed release 5 mg PO QDAY PRN tab 06/29/17 [History Confirmed 02/14/18] cholecalciferol (vitamin D3) 2,000 unit capsule 2,000 unit PO QDAY 06/29/17 [History Confirmed 02/14/18] diphenhydramine 25 mg capsule 25 mg PO BID PRN cap 06/29/17 [History Confirmed 02/14/18] docusate sodium 100 mg capsule 100 mg PO QDAY PRN 06/29/17 [History Confirmed 02/14/18] furosemide 20 mg tablet 20 mg PO .COMPLEX tab 06/29/17 [History Confirmed 02/14/18] nitroglycerin 0.4 mg sublingual tablet 0.4 mg SUBLINGUAL Q5- 15M PRN 06/29/17 [History Confirmed 02/14/18] gabapentin 400 mg capsule 400 mg PO TID 07/01/17 [History Confirmed 02/14/18] losartan 50 mg tablet 50 mg PO QDAY #30 tab 07/01/17 [Rx Confirmed 02/14/18] Amoxicillin [Amoxil] 500 mg PO BID 12/23/17 [History Confirmed 02/14/18] Rabeprazole Sodium [Aciphex] 20 mg PO BID 01/27/18 [History Confirmed 02/14/18] fluticasone 50 mcg/actuation nasal spray,suspension 1 spray INTRANASAL BID g 02/17/18 [History Confirmed 02/17/18] rosuvastatin 10 mg tablet 10 mg PO DAILY #30 tab 02/17/18 [Rx Confirmed 02/17/18] PFSH Medical History History of pseudoaneurysm (Chronic) IBS (irritable bowel syndrome) (Chronic) Sciatica (Chronic) Arthritis (Chronic) Hyperlipidemia (Chronic) Hypertension (Chronic) Left bundle branch block (Chronic) Atherosclerotic heart disease of [place] coronary artery without angina pectoris (Chronic) Surgical History H/O left knee surgery (Chronic) Plantar fasciitis of left foot (Chronic) Bunion of left foot (Chronic) Status post right foot surgery (Chronic) Status post right knee replacement (Chronic) Stented coronary artery (Chronic) History of left heart catheterization (Chronic) Family History Mother Breast cancer Father CAD (coronary artery disease) Social History Smoking Status: Never smoker second hand exposure: No alcohol intake: never substance use type: does not use caffeine: Yes what type of physical activity do you participate in: none Review of Systems Const CONSTITUTIONAL: Negative anorexia, body ache, chills, daytime sleepiness, fever(s), night sweats, oral thrush, stops breathing during sleep, weight loss, sleeping in chair, fatigue, weight loss, weight gain, frequent colds, seasonal allergies, other, headache(s) or orthopnea EETM Ear Nose Throat Mouth: Positive hearing normal and post nasal drip; negative hoarseness, dry mouth in morning, change in vision, itchy eyes, eye pain, swallowing Difficulty, ear pain, headache(s), mouth pain, nasal congestion, nasal discharge, sinus pain, sinus pressure, sore throat, other, hard of hearing or nose bleed Cardio Cardiovascular: Negative chest pain, chest pain at rest, chest pain with activity, irregular heart rhythm, edema, shortness of breath when lying down, palpitations, other or murmur Resp Respiratory: Positive as per HPI and wheezing; negative shortness of breath, pain with cough, chest congestion, cough, chest tightness, pain on inspiration, inhalers, increase use of rescue inhalers, snoring, apnea or other Gastro Gastrointestional: Positive reflux; negative bloody stools, change in appetite, difficulty swallowing, hematemesis, melena stool, loose stool, constipation or other Genitourinary: Negative blood in urine, nocturia, pain with urination or other Musc Musculoskeletal: Negative body pain, back pain, neck pain or other Skin/Breast Skin/Breast: Negative dry skin, itching, unusual bruising, breast lump, other or rash Neuro Neurological: Positive restless legs; negative confusion, weakness or other Psych Psychocological: Negative abnormal sleep pattern, anxiety, thoughts of hurting self/others, hopelessness or other Lymph Lymphatic: Negative easy bleeding, easy bruising, other or swollen lymph nodes Exam Const Constitutional: Positive conversant, cooperative, in no acute respiratory distress, healthy appearing, well developed, well nourished, good hygiene and obese; negative appears older than stated age or smells of smoke Head Head: Positive normocephalic and atraumatic; negative cyanosis of lips/distal nose, frontal sinus tenderness or maxillary sinus tenderness Eyes Eye: Positive clear conjunctiva; negative nystagmus, scleral abnormality or cataract present Ears Ear: Positive hearing normal and external ears normal; negative hard of hearing Nose Nose: Positive external nose normal, septum normal and no nasal discharge; negative epistaxis or nasal polyp Mouth Mouth: Positive post nasal drip, oral mucosae normal, no lesions and good dentition; negative malodorous breath or oral thrush present Mallampati Score: II: Mallampati Score Neck Neck: Positive normal visual inspection, full ROM and trachea midline; negative lymphadenopathy or JVD Chest Wall Chest: Positive normal inspection of the chest and symmetric chest movement; negative crepitus or tenderness Resp lung sounds: Positive clear to auscultation, good air exchange, normal expiratory time and normal respiratory effort; negative wheezes, rhonchi, rales, use of accessory muscles, wheeze present on forced exhalation or dullness to percussion Cardio Cardiac: Positive regular rate, regular rhythm, S1 normal and S2 normal; negative murmur, rub or gallop GI GI: Positive normal to inspection, normal bowel sounds and obese; negative distended, ascites or epigastric tenderness Genitourinary: Positive deferred Musc Musculoskeletal: Positive steady gait; negative using an assistive device for ambulation, kyphosis or scoliosis Skin Pulmonary Skin Exam: Positive intact; negative rash, lesion, ulcers, erythema or dermal atrophy Pulses Pulse: Yes radial pulses present Extremities Extremities: Yes capillary refill normal, No clubbing, No cyanosis, Yes edema Neuro Neurologic: Yes conversant, Yes no focal neuro deficits, Yes normal concentration, Yes understands questions, Yes cooperative, Yes normal cognition, Yes normal coordination Lymph Lymphatic: No lymphadenopathy Psych Appearance: Positive grossly normal Mental Status: Positive mental status grossly normal Mood: Positive congruent mood Affect: Positive normal affect Coding Level of Care Code Off vis,est,level 3 Diagnoses ARPAN (obstructive sleep apnea) G47.33 Obesity (BMI 30.0-34.9) E66.9 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 03/13/18 0707 <Electronically signed by Carlos Lancaster MD> Date Carlos Lancaster MD Cosigner Signature: Date (if applicable) CC: Christina Vazquez MD EMERGENCY DEPARTMENT Observed: 03/08/2018 Status: F Source: [place] SUMMARY 11:[address] [facility] REPOSITORY [facility] Medical Records Department [address] [place] [address] Emergency Department Summary 03/08/18 2147 MR#: [id number] Acct: [id number] Name: NGOC COTA Rep #: [id number] : 1950 67 From: Carmelo Rios MD PCP: Christina Vazquez MD Status: DEP ER - ER Visit Summary Date of Service: 03/08/18 Chief Complaint: Nausea History of Present Illness: The patient is a 67 F with nausea, vomiting, and right upper quadrant pain. Symptoms are worse with food and better when she does not eat. She had a previous upper endoscopy which was unremarkable. She had a HIDA scan which showed an elevated ejection fraction. She is planning to follow-up with Dr. Lancaster in mid March as she is concerned for gallbladder pathology. She is also taking Protonix. She recently stopped Carafate and was prescribed Bentyl, but she has not started taking Bentyl yet. She thinks that the Protonix does not work as well as her prior prescription for AcipHex. No fevers or jaundice. No other pains. Physical Examination: Blood pressure 169/81. Otherwise vitals normal. Afebrile. Skin is normal without pallor, diaphoresis, or jaundice. Heart regular. Lungs clear. Abdomen tender in the right upper quadrant. No guarding or rebound. Back is nontender. Skin appears normal. Test Results: CBC normal. CMP and lipase unremarkable. Urinalysis unremarkable. Right upper quadrant ultrasound showed a prominent liver, possibly a fatty liver, but the gallbladder was normal. Emergency Department Course and Treatment: Patient was treated with fluids, morphine, and Zofran. She did require a second dose of morphine and Zofran for continued symptoms. Her workup was largely unremarkable. I have nothing to explain her right upper quadrant pain. She may still have some gallbladder dysfunction. At this time there is no evidence of cholecystitis, sepsis, or other pathology based on the workup. She would like to follow-up as an outpatient. She will switch her Protonix back to AcipHex. She will start taking her Bentyl. She was given a GI cocktail. Patient was advised to follow-up with her doctors. Return for any new or worsening issues. Return for chest pain or shortness of breath. Return for worsening abdominal pain or other symptoms. Treatment Plan: As above Disposition: Discharge Impression: 1. Right upper quadrant abdominal pain This note was generated with Hitch dictation software. It may contain incorrect words, spelling, and punctuation that were not noted in review of the chart prior to signing ED Disposition - Plan for ED Patient: Chief Complaint: Abd Pain Referrals: Christina Vazquez MD [Primary Care Provider] - What to do if you have Problems For any increased pain, shortness of breath, bleeding, nausea or vomiting, chest pain, or any unexpected problems, contact your Primary Care Provider. Call [facility] ([phone]) or report to the closest Emergency Room. Call 911 if necessary. 03/08/18 2500 <Electronically signed by Carmelo Rios MD> Date Carmelo Rios MD Cosigner Signature (If Indicated): Date CC: Christina Vazquez MD DISCHARGE INSTRUCTION Observed: 03/08/2018 Status: F Source: [place] 11:[address] [facility] REPOSITORY [facility] Medical Records Department [address] [place] [address] Discharge Instruction 03/08/18 2150 MR#: [id number] Acct: [id number] Name: NGOC COTA #: [id number] : 1950 67 From: Carmelo Rios MD PCP: Christina Vazquez MD Status: DEP ER ED Disposition - Plan for ED Patient: Chief Complaint: Abd Pain Instructions: ED Abdominal Pain Unkn Cause Referrals: Christina Vazquez MD [Primary Care Provider] - What to do if you have Problems For any increased pain, shortness of breath, bleeding, nausea or vomiting, chest pain, or any unexpected problems, contact your Primary Care Provider. Call [facility] ([phone]) or report to the closest Emergency Room. Call 911 if necessary. 03/08/18 1103 <Electronically signed by Carmelo Rios MD> Date Carmelo Rios MD Cosigner Signature (If Indicated): Date CC: Christina Vazquez MD URINALYSIS, COMPLETE Collected: 03/08/2018 Status: F Source: [place] 6:[address] [facility] REPOSITORY Order Comment: Order Date: 03/08/18 How was Urine Obtained? CLEAN CATCH TYPE CODE TESTS RESULT OUT OF RANGE REFERENCE UNITS LAB L400.3000 Yellow COLOR Normal Yellow LAB L400.3050 Clear Normal CLARITY Sl. Cloudy LAB L400.3200 Normal mg/dl Normal GLUCOSE, UR Normal LAB L400.3300 Negative mg/dL Normal BILIRUBIN URINE Negative LAB L400.3400 Negative mg/dl Normal KETONE UR Negative LAB L400.3465 1.002-1.030 Normal SP.GR. DIPSTX 1.010 LAB L400.3550 5.0 - 8.0 pH UR Normal 7.0 LAB L400.3600 Negative mg/dl PROT Normal DIPSTX Negative LAB L400.3700 Normal mg/dl Normal UROBILI Normal LAB L400.3750 Negative Normal NITRITE UR Negative LAB L400.3780 Negative /ul Normal OCCULT BLOOD-UR Negative LAB L400.3800 Negative /ul High LEUK 25 ESTERASE LAB L400.4050 0-5 /hpf WBC Normal 0-5 SEEN LAB L400.4100 0-5 /hpf Normal RBC-UA 0-5 SEEN LAB L400.4150 5-10 /hpf SQUAM Normal EPI 0-5 SEEN LAB L400.4300 None Seen /hpf 0 Normal BACTERIA SEEN LAB L400.4350 <or=2+ /hpf 0 Normal MUCUS, URINE SEEN Performed By: #### L400.0001 #### [facility] [address] [place], [address] COMPREHENSIVE METABOLIC Collected: 03/08/2018 Status: F Source: [facility] 6:[address] [facility] REPOSITORY TYPE CODE TESTS RESULT OUT OF RANGE REFERENCE UNITS LAB L501.0100 74-106 mg/dL High GLU 141 Result Comment: Fasting Glucose result greater than or equal to 126 mg/dL suggests DIABETES MELLITUS per A.D.A. criteria. Please note revised GLUCOSE reference range effective 2017. LAB L501.1000 7-18 mg/dL Normal BUN 12 LAB L501.1100 0.55-1.02 mg/dL Normal CREAT,SERUM 0.93 Result Comment: The validity of the calculated GFR AND GFRAA in patients over 70 years has not been determined. Clinical correlation is essential. LAB L501.1110 >60 mL/min Normal EST GFR 64 Result Comment: Non- GFR Calc LAB L501.1115 >60 mL/min Normal EST GFR - AA 77 Result Comment: GFR Calc LAB L501.1255 ml/min Normal Estimated CRCL 44.29 LAB L501.1300 10-20 RATIO Normal BUN/CRE 12.8 LAB L501.1500 6.4-8. g/dL Normal 2 T PROT 7.9 LAB L501.1800 3.2-5. g/dL Normal 0 ALB 4.2 LAB L501.1950 2.2-4. g/dL Normal 2 GLOB 3.7 LAB L501.2000 0.9-2. RATIO Normal 4 A/G 1.1 LAB L501.2200 8.5-10 mg/dL Normal .1 CA 9.9 LAB L501.4100 15-37 U/L Normal AST 34 LAB L501.4305 45-117 U/L Normal ALK P 112 LAB L501.4405 13-56 U/L Normal ALT 45 LAB L501.4600 0.20-1 mg/dL Normal .00 T BILI 0.50 LAB L501.5300 136-14 mmol/L Normal 5 NA 139 LAB L501.5600 3.5-5. mmol/L Normal 1 K 3.9 LAB L501.5900 98-107 mmol/L Normal CL 104 LAB L501.6100 21.0-3 mmol/L Normal 2.0 CO2 27.0 LAB L501.6200 5-15 Normal GAP 8 Performed By: #### L500.4050, L501.2450 #### [facility] [address] [place], [address] LIPASE Collected: 03/08/2018 Status: F Source: [place] 6:[address] [facility] REPOSITORY TYPE CODE TESTS RESULT OUT OF RANGE REFERENCE UNITS LAB L501.2450 73-393 U/L Normal LIPASE 105 Performed By: #### L500.4050, L501.2450 #### [facility] [address] [place], [address] CBC W/DIFF, AUTOMATED Collected: 03/08/2018 Status: F Source: [place] 6:[address] [facility] REPOSITORY TYPE CODE TESTS RESULT OUT OF RANGE REFERENCE UNITS LAB L100.1000 4.4-11.0 K/mm3 Normal WBC 8.7 LAB L100.1200 4.2-5.4 M/mm3 Normal RBC 4.28 LAB L100.1300 12.0-15.0 g/dl Normal HGB 13.6 LAB L100.1400 37-47 % Normal HCT 41.6 LAB L100.1500 81-99 fL Normal MCV 97.2 LAB L100.1600 27.0-32.0 pg Normal MCH 31.8 LAB L100.1700 32-36 g/gl Normal MCHC 32.7 LAB L100.1810 11.6-14.6 % Normal RDW CV 14.2 LAB L100.1820 35.1-43.9 fl High RDW SD 50.4 LAB L100.1900 150-450 K/mm3 Normal PLT 226 LAB L100.2000 6.2-12.0 fl Normal MPV 11.1 LAB L100.2100 47-70 % High NEUT% 74.1 LAB L100.2200 19-41 % Low LY% 15.5 LAB L100.2300 0-10 % Normal MONO% 7.7 LAB L100.2400 0-5 % Normal EO% 2.5 LAB L100.2500 0-1 % Normal BASO% 0.1 LAB L100.2550 0.0-0.9 % Normal IM GRAN % 0.100 Result Comment: IG% - Immature Granulocytes (promyelocytes, myelocytes and metamyelocytes) > 1% indicates that a LEFT SHIFT is Present. LAB L100.2620 2.0-7.7 X10 3/uL Normal Absolute Neut 6.4 LAB L100.2720 0.83-4.51 X10 3/ul Normal Absolute Lymph 1.34 Performed By: #### L100.0100 #### [facility] [address] [facility] [place], [address] GALLBLADDER Observed: 03/08/2018 Status: F Source: [place] 6:[address] [facility] REPOSITORY [facility] Imaging Services [address] [place] [address] Gallbladder MR#: [id number] Acct: [id number] Name: NGOC COTA Rep #: [id number] : 1950 F 67 From: Danna Rodriges MD PCP: Christina Vazquez MD Status: REG ER Study: Gallbladder Date of Exam: 03/08/18 Exam# [id number] Ordering Dr: Carmelo Rios MD STUDY: ABDOMINAL ULTRASOUND - RIGHT UPPER QUADRANT REASON FOR VISIT: Female, 67 years old. Pain TECHNIQUE: Transverse and longitudinal imaging of the right upper quadrant was performed using real-time ultrasound. COMPARISON: None. FINDINGS: Liver: Right lobe 17 cm. Increased echogenicity. Normal portal venous flow. No demonstrated mass. Portal vein measurement: Gallbladder and biliary system: Normal size. Wall thickness 2-3 mm. Negative sonographic Bernal's sign. No demonstrated pericholecystic fluid. No luminal abnormalities. CBD 3-4 mm. Pancreas: Unremarkable. No demonstrated mass. Right Kidney: 9.1 cm. Cortex 1.3 cm. No demonstrated mass. No dilatation of collecting system. No demonstrated free fluid. US/Gallbladder IMPRESSION: The liver is prominent in size with increased echogenicity which can be seen with fatty infiltration. No abnormalities are seen in the gallbladder. Electronically Signed: Danna Rodriges MD at 21:21 EST Tel Direct: [phone], Service support , CC: Carmelo Rios MD; Christina Vazquez MD Production Quality Manager: Signed PROGRESS Observed: 02/26/2018 Status: COMPLETED Source: [place] 5:19 PM [facility] RE[facility] HNO ID: [id number] Author: Eitan Wen Service: (none) Author Type: Physician Type: Progress Notes Filed: 02/26/2018 5:24 PM Note Text: CC: Mrs. Cota returns today for follow up of her recent HIDA scan HPI: Ngoc Cota is a 67 year old female. The patient had a recent HIDA scan which was read as normal. However I looked at it and I saw that the ejection fraction was quite elevated at 76%. Interestingly the patient has had continuing right upper quadrant pain and has had at least 4 episodes where the pain was so bad she almost saw hospitalization something that the patient is not inclined to ever do. 2 weeks ago the patient was placed on pantoprazole replacing her long-term AcipHex. This produced no improvement. 5 days ago the patient was placed on Carafate thus far with no improvement Clearly the patient has at least 2 different GI illnesses both reflux as well as abdominal pain in the right upper quadrant PAST MEDICAL HISTORY Diagnosis Date - Anatomical narrow angle borderline glaucoma - Bundle branch block, unspecified 01/12 LBBB - Coronary artery disease involving [place] coronary artery of [place] heart without angina pectoris 2014 Dr. Phillips - DDD (degenerative disc disease), lumbar - Disorder of bone and cartilage, unspecified - Diverticulosis of colon (without mention of hemorrhage) - GERD (gastroesophageal reflux disease) - Hypertension - Irritable bowel syndrome - Lichen Sclerosus et Atrophicus of the Vulva 03/16/2009 - Lumbar radiculopathy - Other combinations of endocrine dysfunction - Plantar fascial fibromatosis - Primary localized osteoarthrosis, lower leg - Right knee DJD - Right sided sciatica - S/P coronary artery stent placement 2014 LAD - Snoring PAST SURGICAL HISTORY Procedure Laterality Date - CARDIAC CATH 06/2014 stent - COLONOSCOP W/ OR W/O BRSH SPEC 03/20/2011 Colonoscopy - CORRECT BUNION,SIMPLE 2000 Bunion both- left was nonunion - EGD W/O OR W/BRUSH/WASH 03/20/2011 EGD - EXCIS TENDON SHEATH LESN,HAND/FINGR Left 08/28/2017 Excision gangion cyst left index finger - KNEE SCOPE,DIAGNOSTIC prior to 2003 right knee X 3 - PART REMOVAL COLON W ANASTOMOSIS [id number] sigmoid resection - PAST SURGICAL HISTORY OF 1998 endochondroma right knee - PAST SURGICAL HISTORY OF 1998 laser both eyes for glaucoma - PAST SURGICAL HISTORY OF 1998 left plantar fasciotomy - PAST SURGICAL HISTORY OF 1982 hysterectomy with one ovary removed - PAST SURGICAL HISTORY OF 08/11/2013 Total Right Knee replacement - REMOVAL OF TONSILS,<12 Y/O Tonsillectomy - TOTAL KNEE REPLACEMENT 2004 Knee replacement, total right SOCIAL HX: Social History Substance Use Topics - Smoking status: Never Smoker - Smokeless tobacco: Never Used - Alcohol use No FAMILY HISTORY Problem Relation Age of Onset - Breast Cancer Mother also uterine cancer - Diabetes Mother - Heart Father ALLERGIES: ALLERGIES Allergen Reactions - Voltaren [Diclofena* Rash, Swelling, Shortness of Breath - Chlorhexidine Hives Hibicleanse - Cyclobenzaprine Hives Flexeril Blurred vision and nausea and vomiting - Lyrica [Pregabalin] Intolerance Fluid retention - Nsaids (Non-Steroid* GI Upset Ibuprofen, naproxen,etc - Orphenadrine Hives Norflex Nausea and vomiting and blurred vision - Piroxicam Hives Feldene Blurred vision and nausea and vomiting - Tape [Other] adhesive MEDICATIONS: Amoxicillin 500 mg tablet Take 4 tablets by mouth. 30 minutes prior to dental procedures. aspirin, enteric coated (ECOTRIN LOW STRENGTH) 81 mg EC tablet Take 1 tablet by mouth once daily. bisacodyl EC (DULCOLAX) 5 mg EC tablet Take 1 tablet by mouth once daily as needed. clobetasol (TEMOVATE) 0.05 % cream Apply to affected skin sparingly once daily as needed COMPOUNDED PRESCRIPTION Lab order: Hepatitis C antibody and reflex confirmation test (HCV RNA) if needed Z01.89 CPAP Initiate Auto PAP @ 5-20 cm of water with humidification. Mask (per patient preference) optional chin strap (if indicated) , filters, tubing, humidifier and lifetime supplies. Diclofenac Sodium (VOLTAREN) 1 % gel Use 4 times a day as needed docusate sodium (COLACE) 100 mg capsule Take 1 capsule by mouth twice daily as needed for Constipation. furosemide (LASIX) 20 mg tablet Take 1 tablet by mouth once daily. gabapentin (NEURONTIN) 400 mg capsule Take 1 capsule by mouth daily at bedtime. LORazepam (ATIVAN) 1 mg tablet Take 1 tablet by mouth twice daily as needed for up to 180 days. losartan (COZAAR) 50 mg tablet Take 1 tablet by mouth once daily. metoprolol succinate ER (TOPROL XL) 25 mg 24 hr tablet Take 0.5 tablets by mouth once daily. nystatin (NYSTOP) powder Apply 1 application to affected area four times daily. As directed oxyCODONE-acetaminophen (PERCOCET) 10-325 mg tablet Take 1 tablet by mouth every 8 hours as needed. pantoprazole DR (PROTONIX) 40 mg tablet Take 1 tablet by mouth once daily. promethazine (PHENERGAN) 25 mg tablet Take 1 tablet by mouth every 6 hours as needed. rosuvastatin (CRESTOR) 10 mg tablet Take 10 mg by mouth once daily. simvastatin (ZOCOR) 20 mg tablet Take 1 tablet by mouth daily at bedtime. sucralfate (CARAFATE) 1 gram tablet Take 1 tablet by mouth three times daily before meals. therapeutic multivitamin ORAL tablet Take 1 tablet by mouth once daily. ACIPHEX 20 mg tablet Take 1 tablet by mouth twice daily. Do not substitute with generic (not effective) dicyclomine (BENTYL) 20 mg tablet Take 1 tablet by mouth three times daily before meals. ROS: All systems reviewed and negative unless otherwise noted above. PHYSICAL EXAM: VITALS: BP 127/53 Pulse 61 Wt 192 lb 4.8 oz (87.2kg) General Appearance: Well appearing, alert, in no acute distress, well-hydrated, well nourished.. Skin: Skin color, texture, turgor normal, no suspicious rashes or lesions. Lungs: Lungs clear to auscultation. No wheezing, rhonchi, rales. Heart: RRR without murmur, gallop, or rubs. No ectopy. Extremities: No deformities, edema, skin discoloration, clubbing or cyanosis. Abdomen: Soft nontender bowel sounds normoactive without hepatosplenomegaly. IMPRESSION: I believe that this patient's HIDA scan is significant in that the ejection fraction is markedly elevated at almost 80%. It is my experience that a hyperactive gallbladder can also give rise to symptoms. Traditionally only underactive gallbladders with ejection fraction is less than 35% are thought to be abnormal. It is interesting to note that the patient's pain is exclusively in the right upper quadrant and that on 4 occasions has been so severe that it is almost prompting hospitalization. I also believe that the patient has to different GI illnesses. First, her acid reflux which is unrelated to her current situation and the second her right upper quadrant pain which is either secondary to gallbladder dysfunction or possibly small bowel dysmotility PLAN: Will complete another 9 days of the Carafate. If ineffective would discontinue the Carafate and continue the Protonix. I would then wait 3 days and start dicyclomine intended to help her theorized small bowel hypercontractility. If after 2 weeks of dicyclomine she continues to have right upper quadrant discomfort, I would make a consultation with the surgeon for consideration of a cholecystectomy. I have told the patient that the cholecystectomy doesn't offer any promises of a cure but might be something to consider false fails This note was partially generated using Hitch voice recognition system, and there may be some incorrect words, spellings, and punctuation that were not noted in checking the note before saving. Eitan Wen MD CNOV Observed: 02/26/2018 Status: COMPLETED Source: [place] 4:10 PM [facility] REPOSITORY Office Visit (GASTTW) NGOC COTA ([id number]) 1950 F Date Time Provider Department 02/26/18 4:10 PM EITAN WEN During your visit today, we recorded the following information about you: Pulse Blood pressure Weight 61/minute 127/53 87.2 kg Eitan Wen MD 02/26/2018 5:24 PM Signed CC: Mrs. Cota returns today for follow up of her recent HIDA scan HPI: Ngoc Cota is a 67 year old female. The patient had a recent HIDA scan which was read as normal. However I looked at it and I saw that the ejection fraction was quite elevated at 76%. Interestingly the patient has had continuing right upper quadrant pain and has had at least 4 episodes where the pain was so bad she almost saw hospitalization something that the patient is not inclined to ever do. 2 weeks ago the patient was placed on pantoprazole replacing her long-term AcipHex. This produced no improvement. 5 days ago the patient was placed on Carafate thus far with no improvement Clearly the patient has at least 2 different GI illnesses both reflux as well as abdominal pain in the right upper quadrant PAST MEDICAL HISTORY Diagnosis Date - Anatomical narrow angle borderline glaucoma - Bundle branch block, unspecified 01/12 LBBB - Coronary artery disease involving [place] coronary artery of [place] heart without angina pectoris 2014 Dr. Phillips - DDD (degenerative disc disease), lumbar - Disorder of bone and cartilage, unspecified - Diverticulosis of colon (without mention of hemorrhage) - GERD (gastroesophageal reflux disease) - Hypertension - Irritable bowel syndrome - Lichen Sclerosus et Atrophicus of the Vulva 03/16/2009 - Lumbar radiculopathy - Other combinations of endocrine dysfunction - Plantar fascial fibromatosis - Primary localized osteoarthrosis, lower leg - Right knee DJD - Right sided sciatica - S/P coronary artery stent placement 2014 LAD - Snoring PAST SURGICAL HISTORY Procedure Laterality Date - CARDIAC CATH 06/2014 stent - COLONOSCOP W/ OR W/O BRSH SPEC 03/20/2011 Colonoscopy - CORRECT BUNION,SIMPLE 2000 Bunion both- left was nonunion - EGD W/O OR W/BRUSH/WASH 03/20/2011 EGD - EXCIS TENDON SHEATH LESN,HAND/FINGR Left 08/28/2017 Excision gangion cyst left index finger - KNEE SCOPE,DIAGNOSTIC prior to 2003 right knee X 3 - PART REMOVAL COLON W ANASTOMOSIS [id number] sigmoid resection - PAST SURGICAL HISTORY OF 1998 endochondroma right knee - PAST SURGICAL HISTORY OF 1998 laser both eyes for glaucoma - PAST SURGICAL HISTORY OF 1998 left plantar fasciotomy - PAST SURGICAL HISTORY OF 1982 hysterectomy with one ovary removed - PAST SURGICAL HISTORY OF 08/11/2013 Total Right Knee replacement - REMOVAL OF TONSILS,<12 Y/O Tonsillectomy - TOTAL KNEE REPLACEMENT 2004 Knee replacement, total right SOCIAL HX: Social History Substance Use Topics - Smoking status: Never Smoker - Smokeless tobacco: Never Used - Alcohol use No FAMILY HISTORY Problem Relation Age of Onset - Breast Cancer Mother also uterine cancer - Diabetes Mother - Heart Father ALLERGIES: ALLERGIES Allergen Reactions - Voltaren [Diclofena* Rash, Swelling, Shortness of Breath - Chlorhexidine Hives Hibicleanse - Cyclobenzaprine Hives Flexeril Blurred vision and nausea and vomiting - Lyrica [Pregabalin] Intolerance Fluid retention - Nsaids (Non-Steroid* GI Upset Ibuprofen, naproxen,etc - Orphenadrine Hives Norflex Nausea and vomiting and blurred vision - Piroxicam Hives Feldene Blurred vision and nausea and vomiting - Tape [Other] adhesive MEDICATIONS: Amoxicillin 500 mg tablet Take 4 tablets by mouth. 30 minutes prior to dental procedures. aspirin, enteric coated (ECOTRIN LOW STRENGTH) 81 mg EC tablet Take 1 tablet by mouth once daily. bisacodyl EC (DULCOLAX) 5 mg EC tablet Take 1 tablet by mouth once daily as needed. clobetasol (TEMOVATE) 0.05 % cream Apply to affected skin sparingly once daily as needed COMPOUNDED PRESCRIPTION Lab order: Hepatitis C antibody and reflex confirmation test (HCV RNA) if needed Z01.89 CPAP Initiate Auto PAP @ 5-20 cm of water with humidification. Mask (per patient preference) optional chin strap (if indicated) , filters, tubing, humidifier and lifetime supplies. Diclofenac Sodium (VOLTAREN) 1 % gel Use 4 times a day as needed docusate sodium (COLACE) 100 mg capsule Take 1 capsule by mouth twice daily as needed for Constipation. furosemide (LASIX) 20 mg tablet Take 1 tablet by mouth once daily. gabapentin (NEURONTIN) 400 mg capsule Take 1 capsule by mouth daily at bedtime. LORazepam (ATIVAN) 1 mg tablet Take 1 tablet by mouth twice daily as needed for up to 180 days. losartan (COZAAR) 50 mg tablet Take 1 tablet by mouth once daily. metoprolol succinate ER (TOPROL XL) 25 mg 24 hr tablet Take 0.5 tablets by mouth once daily. nystatin (NYSTOP) powder Apply 1 application to affected area four times daily. As directed oxyCODONE-acetaminophen (PERCOCET) 10-325 mg tablet Take 1 tablet by mouth every 8 hours as needed. pantoprazole DR (PROTONIX) 40 mg tablet Take 1 tablet by mouth once daily. promethazine (PHENERGAN) 25 mg tablet Take 1 tablet by mouth every 6 hours as needed. rosuvastatin (CRESTOR) 10 mg tablet Take 10 mg by mouth once daily. simvastatin (ZOCOR) 20 mg tablet Take 1 tablet by mouth daily at bedtime. sucralfate (CARAFATE) 1 gram tablet Take 1 tablet by mouth three times daily before meals. therapeutic multivitamin ORAL tablet Take 1 tablet by mouth once daily. ACIPHEX 20 mg tablet Take 1 tablet by mouth twice daily. Do not substitute with generic (not effective) dicyclomine (BENTYL) 20 mg tablet Take 1 tablet by mouth three times daily before meals. ROS: All systems reviewed and negative unless otherwise noted above. PHYSICAL EXAM: VITALS: BP 127/53 Pulse 61 Wt 192 lb 4.8 oz (87.2kg) General Appearance: Well appearing, alert, in no acute distress, well-hydrated, well nourished.. Skin: Skin color, texture, turgor normal, no suspicious rashes or lesions. Lungs: Lungs clear to auscultation. No wheezing, rhonchi, rales. Heart: RRR without murmur, gallop, or rubs. No ectopy. Extremities: No deformities, edema, skin discoloration, clubbing or cyanosis. Abdomen: Soft nontender bowel sounds normoactive without hepatosplenomegaly. IMPRESSION: I believe that this patient's HIDA scan is significant in that the ejection fraction is markedly elevated at almost 80%. It is my experience that a hyperactive gallbladder can also give rise to symptoms. Traditionally only underactive gallbladders with ejection fraction is less than 35% are thought to be abnormal. It is interesting to note that the patient's pain is exclusively in the right upper quadrant and that on 4 occasions has been so severe that it is almost prompting hospitalization. I also believe that the patient has to different GI illnesses. First, her acid reflux which is unrelated to her current situation and the second her right upper quadrant pain which is either secondary to gallbladder dysfunction or possibly small bowel dysmotility PLAN: Will complete another 9 days of the Carafate. If ineffective would discontinue the Carafate and continue the Protonix. I would then wait 3 days and start dicyclomine intended to help her theorized small bowel hypercontractility. If after 2 weeks of dicyclomine she continues to have right upper quadrant discomfort, I would make a consultation with the surgeon for consideration of a cholecystectomy. I have told the patient that the cholecystectomy doesn't offer any promises of a cure but might be something to consider false fails This note was partially generated using Hitch voice recognition system, and there may be some incorrect words, spellings, and punctuation that were not noted in checking the note before saving. Eitan Wen MD Referring Provider: SELF [[id number]] Allergies As of Date: 02/26/2018 Noted Allergy Reaction VOLTAREN (DICLOFENAC SODIUM) 01/02/2010 2 - Rash 7 - Swelling 12 - Shortness of Breath CHLORHEXIDINE 08/26/2017 4 - Hives Comments: Hibicleanse CYCLOBENZAPRINE 09/10/2002 4 - Hives Comments: Flexeril Blurred vision and nausea and vomiting LYRICA (PREGABALIN) 03/17/2010 5 - Intolerance Comments: Fluid retention NSAIDS (NON-STEROIDAL ANTI-INFLAM*09/10/2002 8 - GI Upset Comments: Ibuprofen, naproxen,etc ORPHENADRINE 09/10/2002 4 - Hives Comments: Norflex Nausea and vomiting and blurred vision PIROXICAM 09/10/2002 4 - Hives Comments: Feldene Blurred vision and nausea and vomiting Tape [Other] 09/10/2002 Comments: adhesive Date Reviewed: 02/26/2018 Reviewed by: Suzanna Keenan LPN - Fully Assessed Reason for Visit: Follow Up [171] Cmt: HIDA scan f/u Primary Visit Diagnosis:Right upper quadrant pain [R10.11] Order(s):dicyclomine (BENTYL) 20 mg tabletTake 1 tablet by mouth three times daily before meals.Disp: 90 tabletRfl: 3 Prescriptions as of 02/26/2018 Sig: AMOXICILLIN 500 MG TABLET Take 4 tablets by mouth. 30 m* ASPIRIN 81 MG TABLET,DELAYED * Take 1 tablet by mouth once d* BISACODYL 5 MG TABLET,DELAYED* Take 1 tablet by mouth once d* CLOBETASOL 0.05 % TOPICAL CRE* Apply to affected skin sparin* COMPOUNDED PRESCRIPTION Lab order: Hepatitis C antib* CPAP Initiate Auto PAP @ 5- 20 cm o* DICLOFENAC 1 % TOPICAL GEL Use 4 times a day as needed DOCUSATE SODIUM 100 MG CAPSULE Take 1 capsule by mouth twice* FUROSEMIDE 20 MG TABLET Take 1 tablet by mouth once d* GABAPENTIN 400 MG CAPSULE Take 1 capsule by mouth daily* LORAZEPAM 1 MG TABLET Take 1 tablet by mouth twice * LOSARTAN 50 MG TABLET Take 1 tablet by mouth once d* METOPROLOL SUCCINATE ER 25 MG* Take 0.5 tablets by mouth onc* NYSTATIN 100,000 UNIT/GRAM TO* Apply 1 application to affect* OXYCODONE-ACETAMINOPHEN 10 MG* Take 1 tablet by mouth every * PANTOPRAZOLE 40 MG TABLET,DEL* Take 1 tablet by mouth once d* PROMETHAZINE 25 MG TABLET Take 1 tablet by mouth every * ROSUVASTATIN 10 MG TABLET Take 10 mg by mouth once florecita* SIMVASTATIN 20 MG TABLET Take 1 tablet by mouth daily * SUCRALFATE 1 GRAM TABLET Take 1 tablet by mouth three * THERAPEUTIC MULTIVITAMIN TABL* Take 1 tablet by mouth once d* ACIPHEX 20 MG TABLET,DELAYED * Take 1 tablet by mouth twice * Patient not taking: Reported on 02/18/2018 DICYCLOMINE 20 MG TABLET Take 1 tablet by mouth three * Problem List As Of Date 02/26/2018 Noted Resolved INGROWING NAIL [L60.0] INVALID FOR* MALFUN PAYMENT COLLECTOR ORTHO DEVICE/ GRAFT NOS [T80.668X]INVALID FOR* Bundle branch block [I45.4] INVALID FOR* PAIN IN LIMB [M79.609] INVALID FOR* OTHER HAMMER TOE [M20.40] INVALID FOR* ENTHESOPATHY, SITE NOS [M77.9] INVALID FOR* GERD (Gastroesophageal Reflux Disease) [K21.9] Right Sided Sciatica [M54.31] Lichen Sclerosus et Atrophicus of the Vulva [N9*INVALID FOR* Porokeratosis [Q82.8] INVALID FOR* Calcaneal Spur [M77.30] INVALID FOR* Plantar fascial fibromatosis [M72.2] INVALID FOR* Hyperlipidemia [E78.5] INVALID FOR* Lumbar radiculopathy [M54.16] INVALID FOR* More... Degenerative joint disease of knee, right [M17.*INVALID FOR* More... Acute gastritis without mention of hemorrhage [*INVALID FOR* Anxiety [F41.9] INVALID FOR* Coronary artery disease involving [place] vann*INVALID FOR* More... Class 2 obesity due to excess calories with bod*INVALID FOR* Essential hypertension [I10] INVALID FOR* ARPAN (obstructive sleep apnea) [G47.33] INVALID FOR* Digital mucous cyst of finger of left hand [M67*INVALID FOR* More... Prescriptions ordered this encounter Disp Refills Start End DICYCLOMINE 20 MG TABLET 90 t* 3 02/26/2018 Route: ORAL Sig: Take 1 tablet by mouth three times daily before meals. Encounter Status:Closed by EITAN WEN MD on 02/26/18 PROGRESS Observed: 02/26/2018 Status: COMPLETED Source: [place] 1:22 PM [facility] [place] REPOSIT[facility] HNO ID: [id number] Author: Jodee Ruiz Service: (none) Author Type: Physician Type: Progress Notes Filed: 02/26/2018 1:28 PM Note Text: Follow up podiatric office visit for: Chief Complaint: This 67 year old who presents for follow up:left hallux total nail matrixectomy. Patient states that there is some mild pain but it is tolerable Patient denies any major redness or drainage. She feels she is doing well. PAIN EVALUATION 02/26/2018 Pain Score: 2 Pain Location: Toe Description: Sore Duration Amount of Time: 1 Duration Units: Weeks Frequency: Intermittent Intervention: Relaxation No results found for: HBA1C PCP: Christina Vazquez MD PAST MEDICAL HISTORY Diagnosis Date - Anatomical narrow angle borderline glaucoma - Bundle branch block, unspecified 01/12 LBBB - Coronary artery disease involving [place] coronary artery of [place] heart without angina pectoris 2014 Dr. 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 30 minutes prior to dental procedures. aspirin, enteric coated (ECOTRIN LOW STRENGTH) 81 mg EC tablet Take 1 tablet by mouth once daily. bisacodyl EC (DULCOLAX) 5 mg EC tablet Take 1 tablet by mouth once daily as needed. clobetasol (TEMOVATE) 0.05 % cream Apply to affected skin sparingly once daily as needed COMPOUNDED PRESCRIPTION Lab order: Hepatitis C antibody and reflex confirmation test (HCV RNA) if needed Z01.89 CPAP Initiate Auto PAP @ 5-20 cm of water with humidification. Mask (per patient preference) optional chin strap (if indicated) , filters, tubing, humidifier and lifetime supplies. Diclofenac Sodium (VOLTAREN) 1 % gel Use 4 times a day as needed docusate sodium (COLACE) 100 mg capsule Take 1 capsule by mouth twice daily as needed for Constipation. furosemide (LASIX) 20 mg tablet Take 1 tablet by mouth once daily. gabapentin (NEURONTIN) 400 mg capsule Take 1 capsule by mouth daily at bedtime. LORazepam (ATIVAN) 1 mg tablet Take 1 tablet by mouth twice daily as needed for up to 180 days. losartan (COZAAR) 50 mg tablet Take 1 tablet by mouth once daily. metoprolol succinate ER (TOPROL XL) 25 mg 24 hr tablet Take 0.5 tablets by mouth once daily. nystatin (NYSTOP) powder Apply 1 application to affected area four times daily. As directed oxyCODONE-acetaminophen (PERCOCET) 10-325 mg tablet Take 1 tablet by mouth every 8 hours as needed. pantoprazole DR (PROTONIX) 40 mg tablet Take 1 tablet by mouth once daily. promethazine (PHENERGAN) 25 mg tablet Take 1 tablet by mouth every 6 hours as needed. rosuvastatin (CRESTOR) 10 mg tablet Take 10 mg by mouth once daily. simvastatin (ZOCOR) 20 mg tablet Take 1 tablet by mouth daily at bedtime. sucralfate (CARAFATE) 1 gram tablet Take 1 tablet by mouth three times daily before meals. therapeutic multivitamin ORAL tablet Take 1 tablet by mouth once daily. ACIPHEX 20 mg tablet Take 1 tablet by mouth twice daily. Do not substitute with generic (not effective) (Patient not taking: Reported on 02/18/2018 ) No current facility-administered medications for this visit. ALLERGIES Allergen Reactions - Voltaren [Diclofena* Rash, Swelling, Shortness of Breath - Chlorhexidine Hives Hibicleanse - Cyclobenzaprine Hives Flexeril Blurred vision and nausea and vomiting - Lyrica [Pregabalin] Intolerance Fluid retention - Nsaids (Non-Steroid* GI Upset Ibuprofen, naproxen,etc - Orphenadrine Hives Norflex Nausea and vomiting and blurred vision - Piroxicam Hives Feldene Blurred vision and nausea and vomiting - Tape [Other] adhesive PAST SURGICAL HISTORY Procedure Laterality Date - CARDIAC CATH 06/2014 stent - COLONOSCOP W/ OR W/O [facility] SPEC 03/20/2011 Colonoscopy - CORRECT BUNION,SIMPLE 1999 Bunion both- left was nonunion - EGD W/O OR W/BRUSH/WASH 03/20/2011 EGD - EXCIS TENDON SHEATH LESN,HAND/FINGR Left 08/28/2017 Excision gangion cyst left index finger - KNEE SCOPE,DIAGNOSTIC prior to 2003 right knee X 3 - PART REMOVAL COLON W ANASTOMOSIS [id number] sigmoid resection - PAST SURGICAL HISTORY OF 1998 endochondroma right knee - PAST SURGICAL HISTORY OF 1998 laser both eyes for glaucoma - PAST SURGICAL HISTORY OF 1998 left plantar fasciotomy - PAST SURGICAL HISTORY OF 1982 hysterectomy with one ovary removed - PAST SURGICAL HISTORY OF 08/11/2013 Total Right Knee replacement - REMOVAL OF TONSILS,<12 Y/O Tonsillectomy - TOTAL KNEE REPLACEMENT 2003 Knee replacement, total right Physical Exam: Constitutional: Pt is a well developed 67 year old female who is alert, oriented, cooperative and in no apparent distress. OBJECTIVE: NVSI unchanged from previous visit. Dermatological: Left hallux s/p total nail matrixectomy. No redness, drainage or local signs of infection. Mild maceration is noted distally. No pain is present with palpation of toe. Webspaces clean and dry 1- 4 left. Skin appears well hydrated and supple. good color, texture, turgor. No open lesions present. No callosities present. Musculoskeletal/Orthopaedic: Patient has no pain to palpation of left foot ASSESSMENT: (S91.109A) Open wound of toe, initial encounter (primary encounter diagnosis) PLAN: 1. History and physical examination completed today. 2. Patient toe is progressing and healing as expected without signs of infection. Mild maceration present so informed patient that she can leave open to air at night. During day, continue with band aid until entire wound has healed 3. Patient understands risk of recurrence 4. Patient very pleased with outcome to b/l hallux. 5. F/u prn. Jodee Ruiz DPM CNOV Observed: 02/26/2018 Status: COMPLETED Source: [place] 1:10 PM [facility] [place] RE[facility]IT[facility] Office Visit (PODIWS) [facility] COTA ([id number]) 1950 F Date Time Provider Department 02/26/18 1:10 PM JODEE RUIZ PODIWS During your visit today, we recorded the following information about you: Tiffany Powell RN 02/26/2018 1:28 PM Signed AMB ROOMING INTAKE FLOWSHEET DATA Risk Screening Do you have concerns about personal safety or safety in the home?: No Pain Pain Score: 2/10 Pain Location: Toe Description: Sore Duration Amount of Time: 1 Duration Units: Weeks Frequency: Intermittent Intervention: Relaxation Patient presents 1 week post total nail matrixectomy, L hallux. Pt states she only has pain with a lot of activity. She worked a 12 hour shift last night and states her toe was mildly sore as a result. She continues to soak her toe and apply neosporin and a bandaid. Jodee Ruiz DPM 02/26/2018 1:28 PM Signed Follow up podiatric office visit for: Chief Complaint: This 67 year old who presents for follow up:left hallux total nail matrixectomy. Patient states that there is some mild pain but it is tolerable Patient denies any major redness or drainage. She feels she is doing well. PAIN EVALUATION 02/26/2018 Pain Score: 2 Pain Location: Toe Description: Sore Duration Amount of Time: 1 Duration Units: Weeks Frequency: Intermittent Intervention: Relaxation No results found for: HBA1C PCP: Christina Vazquez MD PAST MEDICAL HISTORY Diagnosis Date - Anatomical narrow angle borderline glaucoma - Bundle branch block, unspecified 01/12 LBBB - Coronary artery disease involving [place] coronary artery of [place] heart without angina pectoris 2014 Dr. 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 30 minutes prior to dental procedures. aspirin, enteric coated (ECOTRIN LOW STRENGTH) 81 mg EC tablet Take 1 tablet by mouth once daily. bisacodyl EC (DULCOLAX) 5 mg EC tablet Take 1 tablet by mouth once daily as needed. clobetasol (TEMOVATE) 0.05 % cream Apply to affected skin sparingly once daily as needed COMPOUNDED PRESCRIPTION Lab order: Hepatitis C antibody and reflex confirmation test (HCV RNA) if needed Z01.89 CPAP Initiate Auto PAP @ 5-20 cm of water with humidification. Mask (per patient preference) optional chin strap (if indicated) , filters, tubing, humidifier and lifetime supplies. Diclofenac Sodium (VOLTAREN) 1 % gel Use 4 times a day as needed docusate sodium (COLACE) 100 mg capsule Take 1 capsule by mouth twice daily as needed for Constipation. furosemide (LASIX) 20 mg tablet Take 1 tablet by mouth once daily. gabapentin (NEURONTIN) 400 mg capsule Take 1 capsule by mouth daily at bedtime. LORazepam (ATIVAN) 1 mg tablet Take 1 tablet by mouth twice daily as needed for up to 180 days. losartan (COZAAR) 50 mg tablet Take 1 tablet by mouth once daily. metoprolol succinate ER (TOPROL XL) 25 mg 24 hr tablet Take 0.5 tablets by mouth once daily. nystatin (NYSTOP) powder Apply 1 application to affected area four times daily. As directed oxyCODONE-acetaminophen (PERCOCET) 10-325 mg tablet Take 1 tablet by mouth every 8 hours as needed. pantoprazole DR (PROTONIX) 40 mg tablet Take 1 tablet by mouth once daily. promethazine (PHENERGAN) 25 mg tablet Take 1 tablet by mouth every 6 hours as needed. rosuvastatin (CRESTOR) 10 mg tablet Take 10 mg by mouth once daily. simvastatin (ZOCOR) 20 mg tablet Take 1 tablet by mouth daily at bedtime. sucralfate (CARAFATE) 1 gram tablet Take 1 tablet by mouth three times daily before meals. therapeutic multivitamin ORAL tablet Take 1 tablet by mouth once daily. ACIPHEX 20 mg tablet Take 1 tablet by mouth twice daily. Do not substitute with generic (not effective) (Patient not taking: Reported on 02/18/2018 ) No current facility-administered medications for this visit. ALLERGIES Allergen Reactions - Voltaren [Diclofena* Rash, Swelling, Shortness of Breath - Chlorhexidine Hives Hibicleanse - Cyclobenzaprine Hives Flexeril Blurred vision and nausea and vomiting - Lyrica [Pregabalin] Intolerance Fluid retention - Nsaids (Non-Steroid* GI Upset Ibuprofen, naproxen,etc - Orphenadrine Hives Norflex Nausea and vomiting and blurred vision - Piroxicam Hives Feldene Blurred vision and nausea and vomiting - Tape [Other] adhesive PAST SURGICAL HISTORY Procedure Laterality Date - CARDIAC CATH 06/2014 stent - COLONOSCOP W/ OR W/O [facility] SPEC 03/20/2011 Colonoscopy - CORRECT BUNION,SIMPLE 2000 Bunion both- left was nonunion - EGD W/O OR W/BRUSH/WASH 03/20/2011 EGD - EXCIS TENDON SHEATH LESN,HAND/FINGR Left 08/28/2017 Excision gangion cyst left index finger - KNEE SCOPE,DIAGNOSTIC prior to 2003 right knee X 3 - PART REMOVAL COLON W ANASTOMOSIS [id number] sigmoid resection - PAST SURGICAL HISTORY OF 1998 endochondroma right knee - PAST SURGICAL HISTORY OF 1998 laser both eyes for glaucoma - PAST SURGICAL HISTORY OF 1998 left plantar fasciotomy - PAST SURGICAL HISTORY OF 1982 hysterectomy with one ovary removed - PAST SURGICAL HISTORY OF 08/11/2013 Total Right Knee replacement - REMOVAL OF TONSILS,<12 Y/O Tonsillectomy - TOTAL KNEE REPLACEMENT 2004 Knee replacement, total right Physical Exam: Constitutional: Pt is a well developed 67 year old female who is alert, oriented, cooperative and in no apparent distress. OBJECTIVE: NVSI unchanged from previous visit. Dermatological: Left hallux s/p total nail matrixectomy. No redness, drainage or local signs of infection. Mild maceration is noted distally. No pain is present with palpation of toe. Webspaces clean and dry 1-4 left. Skin appears well hydrated and supple. good color, texture, turgor. No open lesions present. No callosities present. Musculoskeletal/Orthopaedic: Patient has no pain to palpation of left foot ASSESSMENT: (S91.109A) Open wound of toe, initial encounter (primary encounter diagnosis) PLAN: 1. History and physical examination completed today. 2. Patient toe is progressing and healing as expected without signs of infection. Mild maceration present so informed patient that she can leave open to air at night. During day, continue with band aid until entire wound has healed 3. Patient understands risk of recurrence 4. Patient very pleased with outcome to b/l hallux. 5. F/u prn. Jodee Ruiz DPM Referring Provider: JODEE RUIZ [[id number]] Allergies As of Date: 02/26/2018 Noted Allergy Reaction VOLTAREN (DICLOFENAC SODIUM) 01/02/2010 2 - Rash 7 - Swelling 12 - Shortness of Breath CHLORHEXIDINE 08/26/2017 4 - Hives Comments: Hibicleanse CYCLOBENZAPRINE 09/10/2002 4 - Hives Comments: Flexeril Blurred vision and nausea and vomiting LYRICA (PREGABALIN) 03/17/2010 5 - Intolerance Comments: Fluid retention NSAIDS (NON-STEROIDAL ANTI-INFLAM*09/10/2002 8 - GI Upset Comments: Ibuprofen, naproxen,etc ORPHENADRINE 09/10/2002 4 - Hives Comments: Norflex Nausea and vomiting and blurred vision PIROXICAM 09/10/2002 4 - Hives Comments: Feldene Blurred vision and nausea and vomiting Tape [Other] 09/10/2002 Comments: adhesive Date Reviewed: 02/26/2018 Reviewed by: Tiffany Powell RN - Fully Assessed Reason for Visit: Recheck [92] Primary Visit Diagnosis:Open wound of toe, initial encounter [S98.109A] Prescriptions as of 02/26/2018 Sig: AMOXICILLIN 500 MG TABLET Take 4 tablets by mouth. 30 m* ASPIRIN 81 MG TABLET,DELAYED * Take 1 tablet by mouth once d* BISACODYL 5 MG TABLET,DELAYED* Take 1 tablet by mouth once d* CLOBETASOL 0.05 % TOPICAL CRE* Apply to affected skin sparin* COMPOUNDED PRESCRIPTION Lab order: Hepatitis C antib* CPAP Initiate Auto PAP @ 5- 20 cm o* DICLOFENAC 1 % TOPICAL GEL Use 4 times a day as needed DOCUSATE SODIUM 100 MG CAPSULE Take 1 capsule by mouth twice* FUROSEMIDE 20 MG TABLET Take 1 tablet by mouth once d* GABAPENTIN 400 MG CAPSULE Take 1 capsule by mouth daily* LORAZEPAM 1 MG TABLET Take 1 tablet by mouth twice * LOSARTAN 50 MG TABLET Take 1 tablet by mouth once d* METOPROLOL SUCCINATE ER 25 MG* Take 0.5 tablets by mouth onc* NYSTATIN 100,000 UNIT/GRAM TO* Apply 1 application to affect* OXYCODONE-ACETAMINOPHEN 10 MG* Take 1 tablet by mouth every * PANTOPRAZOLE 40 MG TABLET,DEL* Take 1 tablet by mouth once d* PROMETHAZINE 25 MG TABLET Take 1 tablet by mouth every * ROSUVASTATIN 10 MG TABLET Take 10 mg by mouth once florecita* SIMVASTATIN 20 MG TABLET Take 1 tablet by mouth daily * SUCRALFATE 1 GRAM TABLET Take 1 tablet by mouth three * THERAPEUTIC MULTIVITAMIN TABL* Take 1 tablet by mouth once d* ACIPHEX 20 MG TABLET,DELAYED * Take 1 tablet by mouth twice * Patient not taking: Reported on 02/18/2018 Problem List As Of Date 02/26/2018 Noted Resolved INGROWING NAIL [L60.0] INVALID FOR* MALFUN PAYMENT COLLECTOR ORTHO DEVICE/ GRAFT NOS [T88.670Z]INVALID FOR* Bundle branch block [I45.4] INVALID FOR* PAIN IN LIMB [M79.609] INVALID FOR* OTHER HAMMER TOE [M20.40] INVALID FOR* ENTHESOPATHY, SITE NOS [M77.9] INVALID FOR* GERD (Gastroesophageal Reflux Disease) [K21.9] Right Sided Sciatica [M54.31] Lichen Sclerosus et Atrophicus of the Vulva [N9*INVALID FOR* Porokeratosis [Q82.8] INVALID FOR* Calcaneal Spur [M77.30] INVALID FOR* Plantar fascial fibromatosis [M72.2] INVALID FOR* Hyperlipidemia [E78.5] INVALID FOR* Lumbar radiculopathy [M54.16] INVALID FOR* More... Degenerative joint disease of knee, right [M17.*INVALID FOR* More... Acute gastritis without mention of hemorrhage [*INVALID FOR* Anxiety [F41.9] INVALID FOR* Coronary artery disease involving [place] vann*INVALID FOR* More... Class 2 obesity due to excess calories with bod*INVALID FOR* Essential hypertension [I10] INVALID FOR* ARPAN (obstructive sleep apnea) [G47.33] INVALID FOR* Digital mucous cyst of finger of left hand [M67*INVALID FOR* More... Disposition: Return if symptoms worsen or fail to improve. Follow-up and Disposition History Recorded Encounter Status:Closed by JODEE RUIZ DPM on 02/26/18 PROGRESS Observed: 02/26/2018 Status: COMPLETED Source: [place] 1:06 PM [facility] REPOSITORY HNO ID: [id number] Author: Tiffany Powell RN Service: (none) Author Type: (none) Type: Progress Notes Filed: 02/26/2018 1:28 PM Note Text: AMB ROOMING INTAKE FLOWSHEET DATA Risk Screening Do you have concerns about personal safety or safety in the home?: No Pain Pain Score: 2/10 Pain Location: Toe Description: Sore Duration Amount of Time: 1 Duration Units: Weeks Frequency: Intermittent Intervention: Relaxation Patient presents 1 week post total nail matrixectomy, L hallux. Pt states she only has pain with a lot of activity. She worked a 12 hour shift last night and states her toe was mildly sore as a result. She continues to soak her toe and apply neosporin and a bandaid. NM HEPATOBILIARY W EF Observed: 02/19/2018 Status: F Source: [place] AND/OR RX 11:32 AM [facility] REPOSITORY * * *Final Report* * * DATE OF EXAM: Feb 19 2018 11:32AM TWN [id number] - NM HEPATOBILIARY W EF AND/OR RX / PROCEDURE REASON: Right upper quadrant pain * * * * Physician Interpretation * * * * HEPATOBILIARY SCAN WITH POST FATTY MEAL GALLBLADDER EJECTION FRACTION: HISTORY: Right upper quadrant abdominal pain. TECHNIQUE: 5.5 mCi Tc-99m Choletec IV, followed by dynamic imaging of the abdomen for 60 minutes. The patient ingested a fatty meal consisting of 8 ounces of Ensure Plus, followed by additional imaging. RESULT: There is prompt uptake and clearance of activity by the liver, which is normal in configuration. Major intra- and extrahepatic biliary ducts are visualized. Gallbladder activity is visualized by 11 minutes post injection, indicating cystic duct patency. Proximal small bowel activity is noted by 16 minutes post injection, indicating biliary patency. After ingestion of the fatty meal, the calculated gallbladder ejection fraction was 76% (normal range, >35%). These findings represent a normal gallbladder response, without definite evidence for chronic cholecystitis. There was an episode of mild transient duodenogastric biliary reflux. IMPRESSION: NO DEFINITE SCINTIGRAPHIC EVIDENCE FOR ACUTE OR CHRONIC CHOLECYSTITIS. MILD TRANSIENT DUODENOGASTRIC BILIARY REFLUX. Production Quality Manager: [facility] Transcribe Date/Time: Feb 19 2018 11:42A Dictated by : GEORGES MARINO MD This examination was interpreted and the report reviewed and electronically signed by: GEORGES MARINO MD on Feb 19 2018 11:46AM EST [id number] PROGRESS Observed: 02/19/2018 Status: COMPLETED Source: [place] 10:08 AM [facility] REPOSITORY O ID: [id number] Author: Laurie Holloway Rt (N) (Ct) Service: (none) Author Type: (none) Type: Progress Notes Filed: 02/19/2018 10:09 AM Note Text: RADIOLOGY SERVICE PROGRESS NOTE SERVICE DATE: 02/19/2018 SERVICE TIME: 10:08 AM PATIENT IDENTITY VERIFICATION COMPLETED USING TWO (2) METHODS: Patient confirmed name and Date of verbally. PATIENT GENDER DATA: .female : No ALLERGIES: Reviewed and unchanged MEDICATIONS REVIEWED: Not applicable PATIENT RELEVANT IMPLANT DATA REVIEWED: Not Applicable CREATININE: Creatinine Date Value Ref Range Status 07/06/2014 0.91 0.51 - 0.95 mg/dL Final 02/28/2004 0.90 0.6 - 1.0 mg/dL Final 02/27/2004 0.90 0.6 - 1.0 mg/dL Final P.O.C.T. RESULTS: N/A February 19, [address] PERFORMED: No IV SITE: Ambulatory: A peripheral IV was started in the Right antecubital site with a Angio cath: 22 gauge. POST EXAM PIV STATUS: Discontinued PROCEDURE TYPE: NM INJECT: HIDA with Gallbladder EF. 5.5 mCi Tc99m CHOLETEC. 8 ounces of Ensure Plus. ADMINISTRATION TIME: 9:55am PATIENT DISCHARGED TO: Ambulatory patient, left [place] department area. A Diagnostic radioactive procedure has taken place, with no further precautions necessary other than routine body substance precautions. More information regarding radiation safety can be found using this link: [email or web address] SIGNATURE: Laurie Holloway Rt (N) (Ct) PATIENT NAME: Ngoc Cota DATE: February 19, 2018 TIME: 10:08 AM PAGER/CONTACT #: PROGRESS Observed: 02/18/2018 Status: COMPLETED Source: [place] 9:42 AM [facility] REPOSITORY HNO ID: [id number] Author: Tiffany Powell RN Service: (none) Author Type: (none) Type: Progress Notes Filed: 02/18/2018 12:23 PM Note Text: UNIVERSAL PROTOCOL / SAFETY CHECKLIST Procedure to be performed: Total phenol matrixectomy, L hallux Sign in Communication: Completed Time Out: Team Confirms the Correct Patient, Correct Procedure, Correct Site and Site Marking, Correct Position (if applicable), Prep and Dry Time (if applicable). Time: 0946 Affirmation of Time Out: YES Sign Out Discussion: Completed Tiffany Powell RN PROGRESS Observed: 02/18/2018 Status: COMPLETED Source: [place] 9:18 AM [facility] REPOSITORY HNO ID: [id number] Author: Jodee Ruiz Service: (none) Author Type: Physician Type: Progress Notes Filed: 02/18/2018 12:23 PM Note Text: Follow up podiatric office visit for: Chief Complaint: This 67 year old who presents for follow up:painful ingrowing toenail of left hallux. She is here to have the entire toenail removed of left hallux. She had procedure on right hallux and this has healed and she has no issues with the right hallux toenail. PAIN EVALUATION 02/18/2018 Pain Score: 2 Pain Location: Toe left great toe Description: Aching;Sharp Duration Amount of Time: - years Frequency: Continuous Intervention: Medication tylenol as needed No results found for: HBA1C PCP: Christina Vazquez MD PAST MEDICAL HISTORY Diagnosis Date - Anatomical narrow angle borderline glaucoma - Bundle branch block, unspecified 01/12 LBBB - Coronary artery disease involving [place] coronary artery of [place] heart without angina pectoris 2014 Dr. 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 30 minutes prior to dental procedures. aspirin, enteric coated (ECOTRIN LOW STRENGTH) 81 mg EC tablet Take 1 tablet by mouth once daily. bisacodyl EC (DULCOLAX) 5 mg EC tablet Take 1 tablet by mouth once daily as needed. clobetasol (TEMOVATE) 0.05 % cream Apply to affected skin sparingly once daily as needed COMPOUNDED PRESCRIPTION Lab order: Hepatitis C antibody and reflex confirmation test (HCV RNA) if needed Z01.89 CPAP Initiate Auto PAP @ 5-20 cm of water with humidification. Mask (per patient preference) optional chin strap (if indicated) , filters, tubing, humidifier and lifetime supplies. Diclofenac Sodium (VOLTAREN) 1 % gel Use 4 times a day as needed docusate sodium (COLACE) 100 mg capsule Take 1 capsule by mouth twice daily as needed for Constipation. furosemide (LASIX) 20 mg tablet Take 1 tablet by mouth once daily. gabapentin (NEURONTIN) 400 mg capsule Take 1 capsule by mouth daily at bedtime. LORazepam (ATIVAN) 1 mg tablet Take 1 tablet by mouth twice daily as needed for up to 180 days. losartan (COZAAR) 50 mg tablet Take 1 tablet by mouth once daily. metoprolol succinate ER (TOPROL XL) 25 mg 24 hr tablet Take 0.5 tablets by mouth once daily. nystatin (NYSTOP) powder Apply 1 application to affected area four times daily. As directed oxyCODONE-acetaminophen (PERCOCET) 10-325 mg tablet Take 1 tablet by mouth every 8 hours as needed. pantoprazole DR (PROTONIX) 40 mg tablet Take 1 tablet by mouth once daily. promethazine (PHENERGAN) 25 mg tablet Take 1 tablet by mouth every 6 hours as needed. rosuvastatin (CRESTOR) 10 mg tablet Take 10 mg by mouth once daily. therapeutic multivitamin ORAL tablet Take 1 tablet by mouth once daily. ACIPHEX 20 mg tablet Take 1 tablet by mouth twice daily. Do not substitute with generic (not effective) (Patient not taking: Reported on 02/18/2018 ) simvastatin (ZOCOR) 20 mg tablet Take 1 tablet by mouth daily at bedtime. No current facility-administered medications for this visit. ALLERGIES Allergen Reactions - Voltaren [Diclofena* Rash, Swelling, Shortness of Breath - Chlorhexidine Hives Hibicleanse - Cyclobenzaprine Hives Flexeril Blurred vision and nausea and vomiting - Lyrica [Pregabalin] Intolerance Fluid retention - Nsaids (Non-Steroid* GI Upset Ibuprofen, naproxen,etc - Orphenadrine Hives Norflex Nausea and vomiting and blurred vision - Piroxicam Hives Feldene Blurred vision and nausea and vomiting - Tape [Other] adhesive PAST SURGICAL HISTORY Procedure Laterality Date - CARDIAC CATH 06/2014 [facility]2011 Colonoscopy - CORRECT BUNION,SIMPLE 2000 Bunion both- left was nonunion - EGD W/O OR W/BRUSH/WASH 03/20/2011 EGD - EXCIS TENDON SHEATH LESN,HAND/FINGR Left 08/28/2017 Excision gangion cyst left index finger - KNEE SCOPE,DIAGNOSTIC prior to 2003 right knee X 3 - PART REMOVAL COLON W ANASTOMOSIS [id number] sigmoid resection - PAST SURGICAL HISTORY OF 1998 endochondroma right knee - PAST SURGICAL HISTORY OF 1998 laser both eyes for glaucoma - PAST SURGICAL HISTORY OF 1998 left plantar fasciotomy - PAST SURGICAL HISTORY OF 1982 hysterectomy with one ovary removed - PAST SURGICAL HISTORY OF 08/11/2013 Total Right Knee replacement - REMOVAL OF TONSILS,<12 Y/O Tonsillectomy - TOTAL KNEE REPLACEMENT 2004 Knee replacement, total right Physical Exam: Constitutional: Pt is a well developed 67 year old female who is alert, oriented, cooperative and in no apparent distress. OBJECTIVE: NVSI unchanged from previous visit. Dermatological: Right hallux lateral nail border s/p matrixectomy without signs of infection. Left hallux toenail appears lifting and is dystrophic. Webspaces clean and dry 1-4 b/l. Skin appears well hydrated and supple. good color, texture, turgor. No open lesions present. No callosities present. Musculoskeletal/Orthopaedic: Patient has pain to palpation of left hallux xrays of b/l foot reviewed. Very small exostosis present to right hallux. No spur present of left hallux ASSESSMENT: (L60.0) Ingrowing toenail of left foot (primary encounter diagnosis) PLAN: 1. History and physical examination completed today. 2. Patient was examined and informed of current findings 3. Right hallux s/p matrixectomy appears healed. There are no signs of infection. No need for wound care as toe is now healed 4. Discussed ingrowing toenail of left hallux. She has had procedure in past. Discussed partial vs total nail matrixectomy. She has elected for total nail matrixectomy. 5. Reviewed xrays. Essentially normal. No major exostosis noted b/l Discussed risks of toenail procedure not limited to infection, pain, swelling, bleeding, painful scarring, recurrence, need for revised procedure. Patient consented to proceed. Patient was properly identified by name and procedure. The left hallux was then injected with 1.5 cc of 0.25% Marcaine plain and 1.5 cc of 2% lidocaine plain in a 50/50 mixture. The toe was then prepped and draped in the usual aseptic technique. A digital tournicot was applied to the toe. The entire nail was then freed and removed. Careful inspection was performed to assure no remaining spicule present. 3 applications of phenol were then administered x 30 seconds each followed by alcohol rinse. Sterile dressing was then applied consisting of amerigel, guaze, shane and coban. Tournicot was removed and hyperemic response was noted. Patient tolerated well. Patient will f/u in 2 weeks. ARACELI Banegas Observed: 02/18/2018 Status: COMPLETED Source: [place] 8:55 AM [facility] REPOSITORY Office Visit (PODIWS) BEATANGOC ([id number]) 1950 F Date Time Provider Department 02/18/18 8:55 AM JODEE RUIZ During your visit today, we recorded the following information about you: Jodee Ruiz DPM 02/18/2018 12:23 PM Signed Follow up podiatric office visit for: Chief Complaint: This 67 year old who presents for follow up:painful ingrowing toenail of left hallux. She is here to have the entire toenail removed of left hallux. She had procedure on right hallux and this has healed and she has no issues with the right hallux toenail. PAIN EVALUATION 02/18/2018 Pain Score: 2 Pain Location: Toe left great toe Description: Aching;Sharp Duration Amount of Time: - years Frequency: Continuous Intervention: Medication tylenol as needed No results found for: HBA1C PCP: Christina Vazquez MD PAST MEDICAL HISTORY Diagnosis Date - Anatomical narrow angle borderline glaucoma - Bundle branch block, unspecified 01/12 LBBB - Coronary artery disease involving [place] coronary artery of [place] heart without angina pectoris 2014 Dr. 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 30 minutes prior to dental procedures. aspirin, enteric coated (ECOTRIN LOW STRENGTH) 81 mg EC tablet Take 1 tablet by mouth once daily. bisacodyl EC (DULCOLAX) 5 mg EC tablet Take 1 tablet by mouth once daily as needed. clobetasol (TEMOVATE) 0.05 % cream Apply to affected skin sparingly once daily as needed COMPOUNDED PRESCRIPTION Lab order: Hepatitis C antibody and reflex confirmation test (HCV RNA) if needed Z01.89 CPAP Initiate Auto PAP @ 5-20 cm of water with humidification. Mask (per patient preference) optional chin strap (if indicated) , filters, tubing, humidifier and lifetime supplies. Diclofenac Sodium (VOLTAREN) 1 % gel Use 4 times a day as needed docusate sodium (COLACE) 100 mg capsule Take 1 capsule by mouth twice daily as needed for Constipation. furosemide (LASIX) 20 mg tablet Take 1 tablet by mouth once daily. gabapentin (NEURONTIN) 400 mg capsule Take 1 capsule by mouth daily at bedtime. LORazepam (ATIVAN) 1 mg tablet Take 1 tablet by mouth twice daily as needed for up to 180 days. losartan (COZAAR) 50 mg tablet Take 1 tablet by mouth once daily. metoprolol succinate ER (TOPROL XL) 25 mg 24 hr tablet Take 0.5 tablets by mouth once daily. nystatin (NYSTOP) powder Apply 1 application to affected area four times daily. As directed oxyCODONE-acetaminophen (PERCOCET) 10-325 mg tablet Take 1 tablet by mouth every 8 hours as needed. pantoprazole DR (PROTONIX) 40 mg tablet Take 1 tablet by mouth once daily. promethazine (PHENERGAN) 25 mg tablet Take 1 tablet by mouth every 6 hours as needed. rosuvastatin (CRESTOR) 10 mg tablet Take 10 mg by mouth once daily. therapeutic multivitamin ORAL tablet Take 1 tablet by mouth once daily. ACIPHEX 20 mg tablet Take 1 tablet by mouth twice daily. Do not substitute with generic (not effective) (Patient not taking: Reported on 02/18/2018 ) simvastatin (ZOCOR) 20 mg tablet Take 1 tablet by mouth daily at bedtime. No current facility-administered medications for this visit. ALLERGIES Allergen Reactions - Voltaren [Diclofena* Rash, Swelling, Shortness of Breath - Chlorhexidine Hives Hibicleanse - Cyclobenzaprine Hives Flexeril Blurred vision and nausea and vomiting - Lyrica [Pregabalin] Intolerance Fluid retention - Nsaids (Non-Steroid* GI Upset Ibuprofen, naproxen,etc - Orphenadrine Hives Norflex Nausea and vomiting and blurred vision - Piroxicam Hives Feldene Blurred vision and nausea and vomiting - Tape [Other] adhesive PAST SURGICAL HISTORY Procedure Laterality Date - CARDIAC CATH 06/2014 stent - COLONOSCOP W/ OR W/O [facility] SPEC 03/20/2011 Colonoscopy - CORRECT BUNION,SIMPLE 1999 Bunion both- left was nonunion - EGD W/O OR W/BRUSH/WASH 03/20/2011 EGD - EXCIS TENDON SHEATH LESN,HAND/FINGR Left 08/28/2017 Excision gangion cyst left index finger - KNEE SCOPE,DIAGNOSTIC prior to 2003 right knee X 3 - PART REMOVAL COLON W ANASTOMOSIS [id number] sigmoid resection - PAST SURGICAL HISTORY OF 1998 endochondroma right knee - PAST SURGICAL HISTORY OF 1998 laser both eyes for glaucoma - PAST SURGICAL HISTORY OF 1998 left plantar fasciotomy - PAST SURGICAL HISTORY OF 1982 hysterectomy with one ovary removed - PAST SURGICAL HISTORY OF 08/11/2013 Total Right Knee replacement - REMOVAL OF TONSILS,<12 Y/O Tonsillectomy - TOTAL KNEE REPLACEMENT 2004 Knee replacement, total right Physical Exam: Constitutional: Pt is a well developed 67 year old female who is alert, oriented, cooperative and in no apparent distress. OBJECTIVE: NVSI unchanged from previous visit. Dermatological: Right hallux lateral nail border s/p matrixectomy without signs of infection. Left hallux toenail appears lifting and is dystrophic. Webspaces clean and dry 1-4 b/l. Skin appears well hydrated and supple. good color, texture, turgor. No open lesions present. No callosities present. Musculoskeletal/Orthopaedic: Patient has pain to palpation of left hallux xrays of b/l foot reviewed. Very small exostosis present to right hallux. No spur present of left hallux ASSESSMENT: (L60.0) Ingrowing toenail of left foot (primary encounter diagnosis) PLAN: 1. History and physical examination completed today. 2. Patient was examined and informed of current findings 3. Right hallux s/p matrixectomy appears healed. There are no signs of infection. No need for wound care as toe is now healed 4. Discussed ingrowing toenail of left hallux. She has had procedure in past. Discussed partial vs total nail matrixectomy. She has elected for total nail matrixectomy. 5. Reviewed xrays. Essentially normal. No major exostosis noted b/l Discussed risks of toenail procedure not limited to infection, pain, swelling, bleeding, painful scarring, recurrence, need for revised procedure. Patient consented to proceed. Patient was properly identified by name and procedure. The left hallux was then injected with 1.5 cc of 0.25% Marcaine plain and 1.5 cc of 2% lidocaine plain in a 50/50 mixture. The toe was then prepped and draped in the usual aseptic technique. A digital tournicot was applied to the toe. The entire nail was then freed and removed. Careful inspection was performed to assure no remaining spicule present. 3 applications of phenol were then administered x 30 seconds each followed by alcohol rinse. Sterile dressing was then applied consisting of amerigel, guaze, shane and coban. Tournicot was removed and hyperemic response was noted. Patient tolerated well. Patient will f/u in 2 weeks. ARACELI Banegas RN 02/18/2018 12:23 PM Signed UNIVERSAL PROTOCOL / SAFETY CHECKLIST Procedure to be performed: Total phenol matrixectomy, L hallux Sign in Communication: Completed Time Out: Team Confirms the Correct Patient, Correct Procedure, Correct Site and Site Marking, Correct Position (if applicable), Prep and Dry Time (if applicable). Time: 0946 Affirmation of Time Out: YES Sign Out Discussion: Completed Tiffany Powell RN 02/18/2018 9:57 AM Signed Post-Op Nail Instructions Minimize activity until the anesthesia wears off (about 2- 8 hours). Increase activity to tolerance Remove bandage tomorrow Soak affected toe/foot in epsom salts for 15-20 minutes twice daily After soaking, apply antibiotic ointment (OTC Neosporin) to affected toe and re bandage OTC Ibuprofen if having pain, provided you have no allergies or intolerance to NSAIDS Mild drainage, redness, and blood is expected, but if you expeirence severe pain, increase in drainage, swelling, or red streaking please contact our office immediately Feel free to contact office as well if you have any questions/concerns [phone], ask for Podiatry Nurse Referring Provider: JODEE RUIZ [[id number]] Allergies As of Date: 02/18/2018 Noted Allergy Reaction VOLTAREN (DICLOFENAC SODIUM) 01/02/2010 2 - Rash 7 - Swelling 12 - Shortness of Breath CHLORHEXIDINE 08/26/2017 4 - Hives Comments: Hibicleanse CYCLOBENZAPRINE 09/10/2002 4 - Hives Comments: Flexeril Blurred vision and nausea and vomiting LYRICA (PREGABALIN) 03/17/2010 5 - Intolerance Comments: Fluid retention NSAIDS (NON-STEROIDAL ANTI-INFLAM*09/10/2002 8 - GI Upset Comments: Ibuprofen, naproxen,etc ORPHENADRINE 09/10/2002 4 - Hives Comments: Norflex Nausea and vomiting and blurred vision PIROXICAM 09/10/2002 4 - Hives Comments: Feldene Blurred vision and nausea and vomiting Tape [Other] 09/10/2002 Comments: adhesive Date Reviewed: 02/18/2018 Reviewed by: Daren (Rn) Jin - Fully Assessed Reason for Visit: Procedure [88] Cmt: Left hallux removal Primary Visit Diagnosis:Ingrowing toenail of left foot [L60.0] Prescriptions as of 02/18/2018 Sig: AMOXICILLIN 500 MG TABLET Take 4 tablets by mouth. 30 m* ASPIRIN 81 MG TABLET,DELAYED * Take 1 tablet by mouth once d* BISACODYL 5 MG TABLET,DELAYED* Take 1 tablet by mouth once d* CLOBETASOL 0.05 % TOPICAL CRE* Apply to affected skin sparin* COMPOUNDED PRESCRIPTION Lab order: Hepatitis C antib* CPAP Initiate Auto PAP @ 5- 20 cm o* DICLOFENAC 1 % TOPICAL GEL Use 4 times a day as needed DOCUSATE SODIUM 100 MG CAPSULE Take 1 capsule by mouth twice* FUROSEMIDE 20 MG TABLET Take 1 tablet by mouth once d* GABAPENTIN 400 MG CAPSULE Take 1 capsule by mouth daily* LORAZEPAM 1 MG TABLET Take 1 tablet by mouth twice * LOSARTAN 50 MG TABLET Take 1 tablet by mouth once d* METOPROLOL SUCCINATE ER 25 MG* Take 0.5 tablets by mouth onc* NYSTATIN 100,000 UNIT/GRAM TO* Apply 1 application to affect* OXYCODONE-ACETAMINOPHEN 10 MG* Take 1 tablet by mouth every * PANTOPRAZOLE 40 MG TABLET,DEL* Take 1 tablet by mouth once d* PROMETHAZINE 25 MG TABLET Take 1 tablet by mouth every * ROSUVASTATIN 10 MG TABLET Take 10 mg by mouth once florecita* THERAPEUTIC MULTIVITAMIN TABL* Take 1 tablet by mouth once d* ACIPHEX 20 MG TABLET,DELAYED * Take 1 tablet by mouth twice * Patient not taking: Reported on 02/18/2018 SIMVASTATIN 20 MG TABLET Take 1 tablet by mouth daily * Problem List As Of Date 02/18/2018 Noted Resolved INGROWING NAIL [L60.0] INVALID FOR* MALFUN PAYMENT COLLECTOR ORTHO DEVICE/ GRAFT NOS [T84.325F]INVALID FOR* Bundle branch block [I45.4] INVALID FOR* PAIN IN LIMB [M79.609] INVALID FOR* OTHER HAMMER TOE [M20.40] INVALID FOR* ENTHESOPATHY, SITE NOS [M77.9] INVALID FOR* GERD (Gastroesophageal Reflux Disease) [K21.9] Right Sided Sciatica [M54.31] Lichen Sclerosus et Atrophicus of the Vulva [N9*INVALID FOR* Porokeratosis [Q82.8] INVALID FOR* Calcaneal Spur [M77.30] INVALID FOR* Plantar fascial fibromatosis [M72.2] INVALID FOR* Hyperlipidemia [E78.5] INVALID FOR* Lumbar radiculopathy [M54.16] INVALID FOR* More... Degenerative joint disease of knee, right [M17.*INVALID FOR* More... Acute gastritis without mention of hemorrhage [*INVALID FOR* Anxiety [F41.9] INVALID FOR* Coronary artery disease involving [place] vann*INVALID FOR* More... Class 2 obesity due to excess calories with bod*INVALID FOR* Essential hypertension [I10] INVALID FOR* ARPAN (obstructive sleep apnea) [G47.33] INVALID FOR* Digital mucous cyst of finger of left hand [M67*INVALID FOR* More... Other instructions from your clinician: Post-Op Nail Instructions Minimize activity until the anesthesia wears off (about 2-8 hours). Increase activity to tolerance Remove bandage tomorrow Soak affected toe/foot in epsom salts for 15-20 minutes twice daily After soaking, apply antibiotic ointment (OTC Neosporin) to affected toe and re bandage OTC Ibuprofen if having pain, provided you have no allergies or intolerance to NSAIDS Mild drainage, redness, and blood is expected, but if you expeirence severe pain, increase in drainage, swelling, or red streaking please contact our office immediately Feel free to contact office as well if you have any questions/concerns [phone], ask for Podiatry Nurse Disposition: Return in about 1 week (around 02/25/2018) for post total nail matrixectomy, L hallux. Follow-up and Disposition History Recorded Encounter Status:Closed by GEOVANNY JODEE ARACELI on 02/18/18 PROGRESS Observed: 02/06/2018 Status: COMPLETED Source: [place] 4:00 PM [facility] REPOSITORY HNO ID: [id number] Author: Margaret Herrera Service: (none) Author Type: Nurse Practitioner Type: Progress Notes Filed: 02/06/2018 6:31 PM Note Text: Ngoc Cota a 67 year old female who presents today for follow up regarding dyspepsia and RUQ pain. The patient saw Dr. Wen in consultation on 01/03/18. That note has been reviewed. The patient was seen by Dr. Wen for upper endoscopy and colonoscopy 01/20/18 The procedure report has been reviewed and findings as follows: EGD Impression: ? - Normal esophagus. ? - Normal stomach. Biopsied. ? - Normal examined duodenum. Colonoscopy Impression: - The entire examined colon is normal. Biopsied. FINAL DIAGNOSIS 1. Stomach, antrum, biopsy (A) - Mild chronic inactive gastritis. ?- No morphologic evidence of Helicobacter pylori. 2. Colon, random biopsy (B) - Colonic mucosa with no significant diagnostic alteration. COMMENT Morphologic features of lymphocytic and collagenous colitis are not identified. Acute colitis is not present. I have reviewed the procedure and pathology reports, as well as the images, with the patient. The patient is scheduled for a HIDA scan on 02/14/18 in [place]. Presenting complaint: The patient presents today concerned regarding RUQ pain. This has been persistent. She is concerned about her gallbladder. The patient takes AciPhex daily for years. Has tried the other PPIs, a few years ago, as well as OTC. Will be retiring soon and concerned about cost. Willing to try pantoprazole since that wasn't around when she tried the others. The patient recalls that Dr. Wen mentioned something about trying Carafate. I have explained that it could make her constipated. She declines trying it. REVIEW OF SYSTEMS: GENERAL: No weight loss, malaise or fevers GI: The patient states that her appetite has been adequate. She does get hungry. There has been some nausea, no vomiting. She denies dysphagia and denies odynophagia. There has partially been indigestion without heartburn. There has not been regurgitation. Bowel habits have been irregular. There has partially been diarrhea. There has partially been constipation. The patient denies rectal bleeding. There has not been melena. Daily abdominal pain that is located in the right upper quadrant. All other reviewed and negative other than HPI. PAST MEDICAL HISTORY Diagnosis Date - Anatomical narrow angle borderline glaucoma - Bundle branch block, unspecified 01/12 LBBB - Coronary artery disease involving [place] coronary artery of [place] heart without angina pectoris 2014 Dr. Phillips - DDD (degenerative disc disease), lumbar - Disorder of bone and cartilage, unspecified - Diverticulosis of colon (without mention of hemorrhage) - GERD (gastroesophageal reflux disease) - Hypertension - Irritable bowel syndrome - Lichen Sclerosus et Atrophicus of the [place] 03/16/2009 - Lumbar radiculopathy - Other combinations of endocrine dysfunction - Plantar fascial fibromatosis - Primary localized osteoarthrosis, lower leg - Right knee DJD - Right sided sciatica - S/P coronary artery stent placement 2014 LAD - Snoring PAST SURGICAL HISTORY Procedure Laterality Date - CARDIAC CATH 06/2014 stent - COLONOSCOP W/ OR W/O [facility] SPEC 03/20/2011 Colonoscopy - CORRECT BUNION,SIMPLE 2000 Bunion both- left was nonunion - EGD W/O OR W/BRUSH/WASH 03/20/2011 EGD - EXCIS TENDON SHEATH LESN,HAND/FINGR Left 08/28/2017 Excision gangion cyst left index finger - KNEE SCOPE,DIAGNOSTIC prior to 2003 right knee X 3 - PART REMOVAL COLON W ANASTOMOSIS [id number] sigmoid resection - PAST SURGICAL HISTORY OF 1998 endochondroma right knee - PAST SURGICAL HISTORY OF 1998 laser both eyes for glaucoma - PAST SURGICAL HISTORY OF 1998 left plantar fasciotomy - PAST SURGICAL HISTORY OF 1982 hysterectomy with one ovary removed - PAST SURGICAL HISTORY OF 08/11/2013 Total Right Knee replacement - REMOVAL OF TONSILS,<12 Y/O Tonsillectomy - TOTAL KNEE REPLACEMENT 2004 Knee replacement, total right FAMILY HISTORY Problem Relation Age of Onset - Breast Cancer Mother also uterine cancer - Diabetes Mother - Heart Father Current Outpatient Prescriptions: LORazepam (ATIVAN) 1 mg tablet Take 1 tablet by mouth twice daily as needed for up to 180 days. Disp: 60 tablet Rfl: 4 losartan (COZAAR) 50 mg tablet Take 1 tablet by mouth once daily. Disp: 90 tablet Rfl: 3 gabapentin (NEURONTIN) 400 mg capsule Take 1 capsule by mouth daily at bedtime. Disp: Rfl: Amoxicillin 500 mg tablet Take 4 tablets by mouth. 30 minutes prior to dental procedures. Disp: 8 tablet Rfl: 1 CPAP Initiate Auto PAP @ 5-20 cm of water with humidification. Mask (per patient preference) optional chin strap (if indicated) , filters, tubing, humidifier and lifetime supplies. Disp: 1 Device Rfl: 0 COMPOUNDED PRESCRIPTION Lab order: Hepatitis C antibody and reflex confirmation test (HCV RNA) if needed Z01.89 Disp: 1 Each Rfl: 0 ACIPHEX 20 mg tablet Take 1 tablet by mouth twice daily. Do not substitute with generic (not effective) Disp: 180 tablet Rfl: 3 promethazine (PHENERGAN) 25 mg tablet Take 1 tablet by mouth every 6 hours as needed. Disp: 30 tablet Rfl: 0 clobetasol (TEMOVATE) 0.05 % cream Apply to affected skin sparingly once daily as needed Disp: 30 g Rfl: 3 nystatin (NYSTOP) powder Apply 1 application to affected area four times daily. As directed Disp: 1 Bottle Rfl: 2 metoprolol succinate ER (TOPROL XL) 25 mg 24 hr tablet Take 0.5 tablets by mouth once daily. Disp: Rfl: simvastatin (ZOCOR) 20 mg tablet Take 1 tablet by mouth daily at bedtime. Disp: Rfl: 0 Diclofenac Sodium (VOLTAREN) 1 % gel Use 4 times a day as needed Disp: Rfl: 0 furosemide (LASIX) 20 mg tablet Take 1 tablet by mouth once daily. Disp: Rfl: 0 docusate sodium (COLACE) 100 mg capsule Take 1 capsule by mouth twice daily as needed for Constipation. Disp: Rfl: 0 bisacodyl EC (DULCOLAX) 5 mg EC tablet Take 1 tablet by mouth once daily as needed. Disp: Rfl: 0 oxyCODONE-acetaminophen (PERCOCET) 10-325 mg tablet Take 1 tablet by mouth every 8 hours as needed. Disp: Rfl: aspirin, enteric coated (ECOTRIN LOW STRENGTH) 81 mg EC tablet Take 1 tablet by mouth once daily. Disp: Rfl: 0 therapeutic multivitamin ORAL tablet Take 1 tablet by mouth once daily. Disp: Rfl: 0 No current facility-administered medications for this visit. SOCIAL HISTORY: Patient is . She has never smoked and reports her alcohol use as never. PHYSICAL EXAMINATION: Blood pressure 133/62, pulse 88, height 156.2 cm (5' 1.5), weight 83.9 kg (185 lb). General Appearance: Well appearing, alert, in no acute distress, well-hydrated, well nourished. Skin: Skin color, texture, turgor normal, no suspicious rashes or lesions. Eyes: Anicteric sclera. Neck: Supple, no adenopathy. Lungs: lungs clear to auscultation. No wheezing, rhonchi, rales. Heart: RRR without murmur. Abdomen: Abdomen soft, tenderness to palpation just below, but along right lower rib border. Non-tender otherwise. Bowel sounds normal. No masses, organomegaly. Extremities: No deformities, edema. Impression: RUQ pain 2)dyspepsia Plan: Trial of pantoprazole. Proceed with the HIDA scan. Further plan based on the results. I have personally interviewed and examined this patient. I have reviewed the information that the BUDDER entered for this encounter. I spent 25 minutes in the visit, with greater than 50% of the total ocsd-pz-lwrm time of the visit in counseling and coordination of care. Margaret Herrera RN APRN.APRYL CNOV Observed: 02/06/2018 Status: COMPLETED Source: [place] 3:40 PM [facility] REPOSITORY [facility] NGOC COTA ([id number]) 1950 F Date Time Provider Department 02/06/18 3:40 PM MARGARET HERRERA ([place]ON) [facility] During your visit today, we recorded the following information about you: Pulse Blood pressure Weight Height 88/minute 133/62 83.9 kg 1.562 m Margaret Herrera RN APRN.APRYL 02/06/2018 6:31 PM Signed Ngoc Cota a 67 year old female who presents today for follow up regarding dyspepsia and RUQ pain. The patient saw Dr. Wen in consultation on 01/03/18. That note has been reviewed. The patient was seen by Dr. Wen for upper endoscopy and colonoscopy 01/20/18 The procedure report has been reviewed and findings as follows: EGD Impression: ? - Normal esophagus. ? - Normal stomach. Biopsied. ? - Normal examined duodenum. Colonoscopy Impression: - The entire examined colon is normal. Biopsied. FINAL DIAGNOSIS 1. Stomach, antrum, biopsy (A) - Mild chronic inactive gastritis. ?- No morphologic evidence of Helicobacter pylori. 2. Colon, random biopsy (B) - Colonic mucosa with no significant diagnostic alteration. COMMENT Morphologic features of lymphocytic and collagenous colitis are not identified. Acute colitis is not present. I have reviewed the procedure and pathology reports, as well as the images, with the patient. The patient is scheduled for a HIDA scan on 02/14/18 in [place]. Presenting complaint: The patient presents today concerned regarding RUQ pain. This has been persistent. She is concerned about her gallbladder. The patient takes AciPhex daily for years. Has tried the other PPIs, a few years ago, as well as OTC. Will be retiring soon and concerned about cost. Willing to try pantoprazole since that wasn't around when she tried the others. The patient recalls that Dr. Wen mentioned something about trying Carafate. I have explained that it could make her constipated. She declines trying it. REVIEW OF SYSTEMS: GENERAL: No weight loss, malaise or fevers GI: The patient states that her appetite has been adequate. She does get hungry. There has been some nausea, no vomiting. She denies dysphagia and denies odynophagia. There has partially been indigestion without heartburn. There has not been regurgitation. Bowel habits have been irregular. There has partially been diarrhea. There has partially been constipation. The patient denies rectal bleeding. There has not been melena. Daily abdominal pain that is located in the right upper quadrant. All other reviewed and negative other than HPI. PAST MEDICAL HISTORY Diagnosis Date - Anatomical narrow angle borderline glaucoma - Bundle branch block, unspecified 01/12 LBBB - Coronary artery disease involving [place] coronary artery of [place] heart without angina pectoris 2014 Dr. Phillips - DDD (degenerative disc disease), lumbar - Disorder of bone and cartilage, unspecified - Diverticulosis of colon (without mention of hemorrhage) - GERD (gastroesophageal reflux disease) - Hypertension - Irritable bowel syndrome - Lichen Sclerosus et Atrophicus of the [place] 03/16/2009 - Lumbar radiculopathy - Other combinations of endocrine dysfunction - Plantar fascial fibromatosis - Primary localized osteoarthrosis, lower leg - Right knee DJD - Right sided sciatica - S/P coronary artery stent placement 2014 LAD - Snoring PAST SURGICAL HISTORY Procedure Laterality Date - CARDIAC CATH 06/2014 stent - COLONOSCOP W/ OR W/O [facility] SPEC 03/20/2011 Colonoscopy - CORRECT BUNION,SIMPLE 1999 Bunion both- left was nonunion - EGD W/O OR W/BRUSH/WASH 03/20/2011 EGD - EXCIS TENDON SHEATH LESN,HAND/FINGR Left 08/28/2017 Excision gangion cyst left index finger - KNEE SCOPE,DIAGNOSTIC prior to 2003 right knee X 3 - PART REMOVAL COLON W ANASTOMOSIS [id number] sigmoid resection - PAST SURGICAL HISTORY OF 1998 endochondroma right knee - PAST SURGICAL HISTORY OF 1998 laser both eyes for glaucoma - PAST SURGICAL HISTORY OF 1998 left plantar fasciotomy - PAST SURGICAL HISTORY OF 1982 hysterectomy with one ovary removed - PAST SURGICAL HISTORY OF 08/11/2013 Total Right Knee replacement - REMOVAL OF TONSILS,<12 Y/O Tonsillectomy - TOTAL KNEE REPLACEMENT 2003 Knee replacement, total right FAMILY HISTORY Problem Relation Age of Onset - Breast Cancer Mother also uterine cancer - Diabetes Mother - Heart Father Current Outpatient Prescriptions: LORazepam (ATIVAN) 1 mg tablet Take 1 tablet by mouth twice daily as needed for up to 180 days. Disp: 60 tablet Rfl: 4 losartan (COZAAR) 50 mg tablet Take 1 tablet by mouth once daily. Disp: 90 tablet Rfl: 3 gabapentin (NEURONTIN) 400 mg capsule Take 1 capsule by mouth daily at bedtime. Disp: Rfl: Amoxicillin 500 mg tablet Take 4 tablets by mouth. 30 minutes prior to dental procedures. Disp: 8 tablet Rfl: 1 CPAP Initiate Auto PAP @ 5-20 cm of water with humidification. Mask (per patient preference) optional chin strap (if indicated) , filters, tubing, humidifier and lifetime supplies. Disp: 1 Device Rfl: 0 COMPOUNDED PRESCRIPTION Lab order: Hepatitis C antibody and reflex confirmation test (HCV RNA) if needed Z01.89 Disp: 1 Each Rfl: 0 ACIPHEX 20 mg tablet Take 1 tablet by mouth twice daily. Do not substitute with generic (not effective) Disp: 180 tablet Rfl: 3 promethazine (PHENERGAN) 25 mg tablet Take 1 tablet by mouth every 6 hours as needed. Disp: 30 tablet Rfl: 0 clobetasol (TEMOVATE) 0.05 % cream Apply to affected skin sparingly once daily as needed Disp: 30 g Rfl: 3 nystatin (NYSTOP) powder Apply 1 application to affected area four times daily. As directed Disp: 1 Bottle Rfl: 2 metoprolol succinate ER (TOPROL XL) 25 mg 24 hr tablet Take 0.5 tablets by mouth once daily. Disp: Rfl: simvastatin (ZOCOR) 20 mg tablet Take 1 tablet by mouth daily at bedtime. Disp: Rfl: 0 Diclofenac Sodium (VOLTAREN) 1 % gel Use 4 times a day as needed Disp: Rfl: 0 furosemide (LASIX) 20 mg tablet Take 1 tablet by mouth once daily. Disp: Rfl: 0 docusate sodium (COLACE) 100 mg capsule Take 1 capsule by mouth twice daily as needed for Constipation. Disp: Rfl: 0 bisacodyl EC (DULCOLAX) 5 mg EC tablet Take 1 tablet by mouth once daily as needed. Disp: Rfl: 0 oxyCODONE-acetaminophen (PERCOCET) 10-325 mg tablet Take 1 tablet by mouth every 8 hours as needed. Disp: Rfl: aspirin, enteric coated (ECOTRIN LOW STRENGTH) 81 mg EC tablet Take 1 tablet by mouth once daily. Disp: Rfl: 0 therapeutic multivitamin ORAL tablet Take 1 tablet by mouth once daily. Disp: Rfl: 0 No current facility-administered medications for this visit. SOCIAL HISTORY: Patient is . She has never smoked and reports her alcohol use as never. PHYSICAL EXAMINATION: Blood pressure 133/62, pulse 88, height 156.2 cm (5' 1.5), weight 83.9 kg (185 lb). General Appearance: Well appearing, alert, in no acute distress, well-hydrated, well nourished. Skin: Skin color, texture, turgor normal, no suspicious rashes or lesions. Eyes: Anicteric sclera. Neck: Supple, no adenopathy. Lungs: lungs clear to auscultation. No wheezing, rhonchi, rales. Heart: RRR without murmur. Abdomen: Abdomen soft, tenderness to palpation just below, but along right lower rib border. Non-tender otherwise. Bowel sounds normal. No masses, organomegaly. Extremities: No deformities, edema. Impression: RUQ pain 2)dyspepsia Plan: Trial of pantoprazole. Proceed with the HIDA scan. Further plan based on the results. I have personally interviewed and examined this patient. I have reviewed the information that the BUDDER entered for this encounter. I spent 25 minutes in the visit, with greater than 50% of the total grnj-iq-hjqc time of the visit in counseling and coordination of care. Margaret Herrera RN PRE K SPECIAL EDUCATION TEACHER.WEDDING CONSULTANT Margaret Herrera RN PRE K SPECIAL EDUCATION TEACHER.APRYL 02/06/2018 4:34 PM Addendum We'll see what that the HIDA scan shows. Trial of pantoprazole in place of the AciPhex. Report back. Begin Benefiber. Start by taking one teaspoon in 8 oz of liquid daily for 3-4 weeks. Increase to two teaspoons daily for 3-4 weeks. Finally take one tablespoon daily. At that point you may divide the dose and take twice a day, if you'd like. Do not stop using this. Referring Provider: MARGARET HERRERA ([facility]) [[id number]] Allergies As of Date: 02/06/2018 Noted Allergy Reaction VOLTAREN (DICLOFENAC SODIUM) 01/02/2010 2 - Rash 7 - Swelling 12 - Shortness of Breath CHLORHEXIDINE 08/26/2017 4 - Hives Comments: Hibicleanse CYCLOBENZAPRINE 09/10/2002 4 - Hives Comments: Flexeril Blurred vision and nausea and vomiting LYRICA (PREGABALIN) 03/17/2010 5 - Intolerance Comments: Fluid retention NSAIDS (NON-STEROIDAL ANTI-INFLAM*09/10/2002 8 - GI Upset Comments: Ibuprofen, naproxen,etc ORPHENADRINE 09/10/2002 4 - Hives Comments: Norflex Nausea and vomiting and blurred vision PIROXICAM 09/10/2002 4 - Hives Comments: Feldene Blurred vision and nausea and vomiting Tape [Other] 09/10/2002 Comments: adhesive Date Reviewed: 02/06/2018 Reviewed by: Sahara Cisneros LPN - Fully Assessed Reason for Visit: follow up procedure 01-20-18 [Other] Primary Visit Diagnosis:Chronic RUQ pain [R10.11, G89.29] Other Visit Diagnosis:Chronic antral gastritis [K29.50] Order(s):pantoprazole DR (PROTONIX) 40 mg tabletTake 1 tablet by mouth once daily.Disp: 30 tabletRfl: 2 Prescriptions as of 02/06/2018 Sig: LORAZEPAM 1 MG TABLET Take 1 tablet by mouth twice * LOSARTAN 50 MG TABLET Take 1 tablet by mouth once d* GABAPENTIN 400 MG CAPSULE Take 1 capsule by mouth daily* AMOXICILLIN 500 MG TABLET Take 4 tablets by mouth. 30 m* CPAP Initiate Auto PAP @ 5- 20 cm o* COMPOUNDED PRESCRIPTION Lab order: Hepatitis C antib* ACIPHEX 20 MG TABLET,DELAYED * Take 1 tablet by mouth twice * PROMETHAZINE 25 MG TABLET Take 1 tablet by mouth every * CLOBETASOL 0.05 % TOPICAL CRE* Apply to affected skin sparin* NYSTATIN 100,000 UNIT/GRAM TO* Apply 1 application to affect* METOPROLOL SUCCINATE ER 25 MG* Take 0.5 tablets by mouth onc* SIMVASTATIN 20 MG TABLET Take 1 tablet by mouth daily * DICLOFENAC 1 % TOPICAL GEL Use 4 times a day as needed FUROSEMIDE 20 MG TABLET Take 1 tablet by mouth once d* DOCUSATE SODIUM 100 MG CAPSULE Take 1 capsule by mouth twice* BISACODYL 5 MG TABLET,DELAYED* Take 1 tablet by mouth once d* OXYCODONE-ACETAMINOPHEN 10 MG* Take 1 tablet by mouth every * ASPIRIN 81 MG TABLET,DELAYED * Take 1 tablet by mouth once d* THERAPEUTIC MULTIVITAMIN TABL* Take 1 tablet by mouth once d* PANTOPRAZOLE 40 MG TABLET,DEL* Take 1 tablet by mouth once d* Problem List As Of Date 02/06/2018 Noted Resolved INGROWING NAIL [L60.0] INVALID FOR* MALFUN PAYMENT COLLECTOR ORTHO DEVICE/ GRAFT NOS [G47.790Y]INVALID FOR* Bundle branch block [I45.4] INVALID FOR* PAIN IN LIMB [M79.609] INVALID FOR* OTHER HAMMER TOE [M20.40] INVALID FOR* ENTHESOPATHY, SITE NOS [M77.9] INVALID FOR* GERD (Gastroesophageal Reflux Disease) [K21.9] Right Sided Sciatica [M54.31] Lichen Sclerosus et Atrophicus of the [place] [N9*INVALID FOR* Porokeratosis [Q82.8] INVALID FOR* Calcaneal Spur [M77.30] INVALID FOR* Plantar fascial fibromatosis [M72.2] INVALID FOR* Hyperlipidemia [E78.5] INVALID FOR* Lumbar radiculopathy [M54.16] INVALID FOR* More... Degenerative joint disease of knee, right [M17.*INVALID FOR* More... Acute gastritis without mention of hemorrhage [*INVALID FOR* Anxiety [F41.9] INVALID FOR* Coronary artery disease involving [place] vann*INVALID FOR* More... Class 2 obesity due to excess calories with bod*INVALID FOR* Essential hypertension [I10] INVALID FOR* ARPAN (obstructive sleep apnea) [G47.33] INVALID FOR* Digital mucous cyst of finger of left hand [M67*INVALID FOR* More... Other instructions from your clinician: We'll see what that the HIDA scan shows. Trial of pantoprazole in place of the AciPhex. Report back. Begin Benefiber. Start by taking one teaspoon in 8 oz of liquid daily for 3-4 weeks. Increase to two teaspoons daily for 3-4 weeks. Finally take one tablespoon daily. At that point you may divide the dose and take twice a day, if you'd like. Do not stop using this. Prescriptions ordered this encounter Disp Refills Start End PANTOPRAZOLE 40 MG TABLET,DELAYED RE* 30 t* 2 02/06/2018 Route: ORAL Sig: Take 1 tablet by mouth once daily. Encounter Status:Closed by MARGARET HERRERA CNP on 02/06/18 PROGRESS Observed: 02/05/2018 Status: COMPLETED Source: [place] 9:37 AM [facility] REPOSITORY [facility] ID: [id number] Author: AMELIA Almonte (Ct) Service: (none) Author Type: Clinical Partner Integration Planner Type: Progress Notes Filed: 02/05/2018 9:37 AM Note Text: Radiology Service Progress Note PATIENT NAME: Ngoc Cota DATE OF SERVICE: February 05, 2018 TIME: 9:37 AM PATIENT IDENTITY VERIFICATION COMPLETED USING TWO (2) METHODS: Patient confirmed name verbally and Date of . PATIENT GENDER DATA: Female. status: : No status: NO. PATIENT RELEVANT IMPLANT DATA REVIEWED: Not Applicable RADIOLOGY DEPARTMENT: General X-ray: Exam(s) Completed: Lower Extremity X-Ray(s): Feet, Bilateral and Wt. Bearing: PERIPHERAL IV DATA: Not applicable SIGNED BY: AMELIA Almonte February 05, 2018 9:37 AM XR FOOT 3V AP/LAT/OBL Observed: 02/05/2018 Status: F Source: [facility] 9:36 AM [facility] REPOSITORY * * *Final Report* * * DATE OF EXAM: Feb 05 2018 9:36AM [id number] - XR FOOT 3V AP/LAT/OBL DANDY / PROCEDURE REASON: multiple diagnoses * * * * Physician Interpretation * * * * HISTORY: 67-YEAR-OLD FEMALE WITH Ingrowing toenail of left foot Osteochondroma . pt recently had ingrown nail on right great toe removed, possible bone spur on left foot TECHNIQUE: XR FOOT 3V AP/LAT/OBL DANDY Laterality: BILATERAL Number of different views (projections): 3 COMPARISON: 12/27/2017 RESULT: Status post bilateral bunionectomy. Osteophytes at the first MTP joint bilaterally. Degenerative changes and interphalangeal joints are unchanged. Status post bunionette correction and the previously described calcifications in the Achilles tendon on the right is not visualized on today's exam which may be related to positioning. Bilaterally no acute fracture. IMPRESSION: NO ACUTE BONY ABNORMALITY AND NO CHANGE COMPARED TO PREVIOUS EXAM. Production Quality Manager: CHERYL Transcribe Date/Time: Feb 06 2018 9:56A Dictated by : ROSEANN ISAAC MD This examination was interpreted and the report reviewed and electronically signed by: ROSEANN ISAAC MD on Feb 06 2018 10:00AM EST [id number] PROGRESS Observed: 02/05/2018 Status: COMPLETED Source: [place] 9:07 AM [facility] REPOSITORY [facility] ID: [id number] Author: Jodee Ruiz Service: (none) Author Type: Physician Type: Progress Notes Filed: 02/08/2018 1:36 PM Note Text: Follow up podiatric office visit for: Chief Complaint: This 67 year old who presents for follow up:right hallux lateral nail matrixectomy. Patient denies any pain. Denies n/v/f/c. Patient has completed antibiotic and has had no issues. She has very little drainage. She feels she is doing very well. She would like to arrange to have procedure on the left hallux lateral nail border. Patient has no other complaints. PAIN EVALUATION No data found. No results found for: HBA1C PCP: Christina Vazquez MD PAST MEDICAL HISTORY Diagnosis Date - Anatomical narrow angle borderline glaucoma - Bundle branch block, unspecified 01/12 LBBB - Coronary artery disease involving [place] coronary artery of [place] heart without angina pectoris 2014 Dr. Phillips - DDD (degenerative disc disease), lumbar - Disorder of bone and cartilage, unspecified - Diverticulosis of colon (without mention of hemorrhage) - GERD (gastroesophageal reflux disease) - Hypertension - Irritable bowel syndrome - Lichen Sclerosus et Atrophicus of the [place] 03/16/2009 - Lumbar radiculopathy - Other combinations of endocrine dysfunction - Plantar fascial fibromatosis - Primary localized osteoarthrosis, lower leg - Right knee DJD - Right sided sciatica - S/P coronary artery stent placement 2014 LAD - Snoring Current Outpatient Prescriptions: doxycycline monohydrate (MONODOX) 100 mg capsule Take 1 capsule by mouth twice daily for 7 days. LORazepam (ATIVAN) 1 mg tablet Take 1 tablet by mouth twice daily as needed for up to 180 days. losartan (COZAAR) 50 mg tablet Take 1 tablet by mouth once daily. gabapentin (NEURONTIN) 400 mg capsule Take 1 capsule by mouth daily at bedtime. Amoxicillin 500 mg tablet Take 4 tablets by mouth. 30 minutes prior to dental procedures. CPAP Initiate Auto PAP @ 5-20 cm of water with humidification. Mask (per patient preference) optional chin strap (if indicated) , filters, tubing, humidifier and lifetime supplies. COMPOUNDED PRESCRIPTION Lab order: Hepatitis C antibody and reflex confirmation test (HCV RNA) if needed Z01.89 ACIPHEX 20 mg tablet Take 1 tablet by mouth twice daily. Do not substitute with generic (not effective) clobetasol (TEMOVATE) 0.05 % cream Apply to affected skin sparingly once daily as needed nystatin (NYSTOP) powder Apply 1 application to affected area four times daily. As directed metoprolol succinate ER (TOPROL XL) 25 mg 24 hr tablet Take 0.5 tablets by mouth once daily. simvastatin (ZOCOR) 20 mg tablet Take 1 tablet by mouth daily at bedtime. Diclofenac Sodium (VOLTAREN) 1 % gel Use 4 times a day as needed furosemide (LASIX) 20 mg tablet Take 1 tablet by mouth once daily. docusate sodium (COLACE) 100 mg capsule Take 1 capsule by mouth twice daily as needed for Constipation. bisacodyl EC (DULCOLAX) 5 mg EC tablet Take 1 tablet by mouth once daily as needed. oxyCODONE-acetaminophen (PERCOCET) 10-325 mg tablet Take 1 tablet by mouth every 8 hours as needed. aspirin, enteric coated (ECOTRIN LOW STRENGTH) 81 mg EC tablet Take 1 tablet by mouth once daily. therapeutic multivitamin ORAL tablet Take 1 tablet by mouth once daily. promethazine (PHENERGAN) 25 mg tablet Take 1 tablet by mouth every 6 hours as needed. (Patient not taking: Reported on 01/03/2018 ) No current facility-administered medications for this visit. ALLERGIES Allergen Reactions - Voltaren [Diclofena* Rash, Swelling, Shortness of Breath - Chlorhexidine Hives Hibicleanse - Cyclobenzaprine Hives Flexeril Blurred vision and nausea and vomiting - Lyrica [Pregabalin] Intolerance Fluid retention - Nsaids (Non-Steroid* GI Upset Ibuprofen, naproxen,etc - Orphenadrine Hives Norflex Nausea and vomiting and blurred vision - Piroxicam Hives Feldene Blurred vision and nausea and vomiting - Tape [Other] adhesive PAST SURGICAL HISTORY Procedure Laterality Date - CARDIAC CATH 06/2014 [facility]2011 Colonoscopy - CORRECT BUNION,SIMPLE 2000 Bunion both- left was nonunion - EGD W/O OR W/BRUSH/WASH 03/20/2011 EGD - EXCIS TENDON SHEATH LESN,HAND/FINGR Left 08/28/2017 Excision gangion cyst left index finger - KNEE SCOPE,DIAGNOSTIC prior to 2003 right knee X 3 - PART REMOVAL COLON W ANASTOMOSIS [id number] sigmoid resection - PAST SURGICAL HISTORY OF 1998 endochondroma right knee - PAST SURGICAL HISTORY OF 1998 laser both eyes for glaucoma - PAST SURGICAL HISTORY OF 1998 left plantar fasciotomy - PAST SURGICAL HISTORY OF 1982 hysterectomy with one ovary removed - PAST SURGICAL HISTORY OF 08/11/2013 Total Right Knee replacement - REMOVAL OF TONSILS,<12 Y/O Tonsillectomy - TOTAL KNEE REPLACEMENT 2004 Knee replacement, total right Physical Exam: Constitutional: Pt is a well developed 67 year old female who is alert, oriented, cooperative and in no apparent distress. OBJECTIVE: NVSI unchanged from previous visit. Dermatological: Patient s/p matrixectomy of right hallux lateral nail border. There are no signs of infection. Nail bed appears healed. There is no pain. Left hallux does appear dystrophic and ingrowing. There is swelling of distal tuft of left hallux. Musculoskeletal/Orthopaedic: Patient has pain to palpation of left hallux ASSESSMENT: (S90.109A) Open wound of toe, initial encounter (primary encounter diagnosis) (L60.0) Ingrowing toenail of left foot (D16.9) Osteochondroma PLAN: 1. History and physical examination completed today. 2. Discussed right hallux. She is sp matrixectomy of right hallux lateral nail border. Right hallux appears healed without signs of infection, pain or complication. She can continue with local wound care if any drainage develops. Patient very satisfied. 3. Discussed ingrowing toenail of left hallux. She has had procedure in past. She has ingrowing toenail of left hallux. Going to order xrays to assure no underlying osteochondrom that could be causing thickening of nail plate. If xrays negative, she can consider partial vs total nail matrixectomy of left hallux . Jodee Ruiz DPM PROGRESS Observed: 02/05/2018 Status: COMPLETED Source: [place] 8:50 AM [facility] REPOSITORY HNO ID: [id number] Author: Tiffany Powell RN Service: (none) Author Type: (none) Type: Progress Notes Filed: 02/08/2018 1:36 PM Note Text: AMB ROOMING INTAKE FLOWSHEET DATA Risk Screening Do you have concerns about personal safety or safety in the home?: No Patient presents 1 week post partial matrixectomy L hallux lateral border. She denies pain or any signs of infection. She continues to apply neosporin and bandaid. CNOV Observed: 02/05/2018 Status: COMPLETED Source: [place] 8:40 AM [facility] REPOSITORY Office Visit (PODIWS) NGOC COTA ([id number]) 1950 F Date Time Provider Department 02/05/18 8:40 AM JODEE RUIZ During your visit today, we recorded the following information about you: Tiffany Powell RN 02/08/2018 1:36 PM Signed AMB ROOMING INTAKE FLOWSHEET DATA Risk Screening Do you have concerns about personal safety or safety in the home?: No Patient presents 1 week post partial matrixectomy L hallux lateral border. She denies pain or any signs of infection. She continues to apply neosporin and bandaid. Jodee Ruiz DPM 02/08/2018 1:36 PM Signed Follow up podiatric office visit for: Chief Complaint: This 67 year old who presents for follow up:right hallux lateral nail matrixectomy. Patient denies any pain. Denies n/v/f/c. Patient has completed antibiotic and has had no issues. She has very little drainage. She feels she is doing very well. She would like to arrange to have procedure on the left hallux lateral nail border. Patient has no other complaints. PAIN EVALUATION No data found. No results found for: HBA1C PCP: Christina Vazquez MD PAST MEDICAL HISTORY Diagnosis Date - Anatomical narrow angle borderline glaucoma - Bundle branch block, unspecified 01/12 LBBB - Coronary artery disease involving [place] coronary artery of [place] heart without angina pectoris 2014 Dr. Phillips - DDD (degenerative disc disease), lumbar - Disorder of bone and cartilage, unspecified - Diverticulosis of colon (without mention of hemorrhage) - GERD (gastroesophageal reflux disease) - Hypertension - Irritable bowel syndrome - Lichen Sclerosus et Atrophicus of the Vulva 03/16/2009 - Lumbar radiculopathy - Other combinations of endocrine dysfunction - Plantar fascial fibromatosis - Primary localized osteoarthrosis, lower leg - Right knee DJD - Right sided sciatica - S/P coronary artery stent placement 2014 LAD - Snoring Current Outpatient Prescriptions: doxycycline monohydrate (MONODOX) 100 mg capsule Take 1 capsule by mouth twice daily for 7 days. LORazepam (ATIVAN) 1 mg tablet Take 1 tablet by mouth twice daily as needed for up to 180 days. losartan (COZAAR) 50 mg tablet Take 1 tablet by mouth once daily. gabapentin (NEURONTIN) 400 mg capsule Take 1 capsule by mouth daily at bedtime. Amoxicillin 500 mg tablet Take 4 tablets by mouth. 30 minutes prior to dental procedures. CPAP Initiate Auto PAP @ 5-20 cm of water with humidification. Mask (per patient preference) optional chin strap (if indicated) , filters, tubing, humidifier and lifetime supplies. COMPOUNDED PRESCRIPTION Lab order: Hepatitis C antibody and reflex confirmation test (HCV RNA) if needed Z01.89 ACIPHEX 20 mg tablet Take 1 tablet by mouth twice daily. Do not substitute with generic (not effective) clobetasol (TEMOVATE) 0.05 % cream Apply to affected skin sparingly once daily as needed nystatin (NYSTOP) powder Apply 1 application to affected area four times daily. As directed metoprolol succinate ER (TOPROL XL) 25 mg 24 hr tablet Take 0.5 tablets by mouth once daily. simvastatin (ZOCOR) 20 mg tablet Take 1 tablet by mouth daily at bedtime. Diclofenac Sodium (VOLTAREN) 1 % gel Use 4 times a day as needed furosemide (LASIX) 20 mg tablet Take 1 tablet by mouth once daily. docusate sodium (COLACE) 100 mg capsule Take 1 capsule by mouth twice daily as needed for Constipation. bisacodyl EC (DULCOLAX) 5 mg EC tablet Take 1 tablet by mouth once daily as needed. oxyCODONE-acetaminophen (PERCOCET) 10-325 mg tablet Take 1 tablet by mouth every 8 hours as needed. aspirin, enteric coated (ECOTRIN LOW STRENGTH) 81 mg EC tablet Take 1 tablet by mouth once daily. therapeutic multivitamin ORAL tablet Take 1 tablet by mouth once daily. promethazine (PHENERGAN) 25 mg tablet Take 1 tablet by mouth every 6 hours as needed. (Patient not taking: Reported on 01/03/2018 ) No current facility-administered medications for this visit. ALLERGIES Allergen Reactions - Voltaren [Diclofena* Rash, Swelling, Shortness of Breath - Chlorhexidine Hives Hibicleanse - Cyclobenzaprine Hives Flexeril Blurred vision and nausea and vomiting - Lyrica [Pregabalin] Intolerance Fluid retention - Nsaids (Non-Steroid* GI Upset Ibuprofen, naproxen,etc - Orphenadrine Hives Norflex Nausea and vomiting and blurred vision - Piroxicam Hives Feldene Blurred vision and nausea and vomiting - Tape [Other] adhesive PAST SURGICAL HISTORY Procedure Laterality Date - CARDIAC CATH 06/2014 stent - COLONOSCOP W/ OR W/O [facility] SPEC 03/20/2011 Colonoscopy - CORRECT BUNION,SIMPLE 1999 Bunion both- left was nonunion - EGD W/O OR W/BRUSH/WASH 03/20/2011 EGD - EXCIS TENDON SHEATH CLARITZAHAND/FINGR Left 08/28/2017 Excision gangion cyst left index finger - KNEE SCOPE,DIAGNOSTIC prior to 2003 right knee X 3 - PART REMOVAL COLON W ANASTOMOSIS [id number] sigmoid resection - PAST SURGICAL HISTORY OF 1998 endochondroma right knee - PAST SURGICAL HISTORY OF 1998 laser both eyes for glaucoma - PAST SURGICAL HISTORY OF 1998 left plantar fasciotomy - PAST SURGICAL HISTORY OF 1982 hysterectomy with one ovary removed - PAST SURGICAL HISTORY OF 08/11/2013 Total Right Knee replacement - REMOVAL OF TONSILS,<12 Y/O Tonsillectomy - TOTAL KNEE REPLACEMENT 2004 Knee replacement, total right Physical Exam: Constitutional: Pt is a well developed 67 year old female who is alert, oriented, cooperative and in no apparent distress. OBJECTIVE: NVSI unchanged from previous visit. Dermatological: Patient s/p matrixectomy of right hallux lateral nail border. There are no signs of infection. Nail bed appears healed. There is no pain. Left hallux does appear dystrophic and ingrowing. There is swelling of distal tuft of left hallux. Musculoskeletal/Orthopaedic: Patient has pain to palpation of left hallux ASSESSMENT: (S91.109A) Open wound of toe, initial encounter (primary encounter diagnosis) (L60.0) Ingrowing toenail of left foot (D16.9) Osteochondroma PLAN: 1. History and physical examination completed today. 2. Discussed right hallux. She is sp matrixectomy of right hallux lateral nail border. Right hallux appears healed without signs of infection, pain or complication. She can continue with local wound care if any drainage develops. Patient very satisfied. 3. Discussed ingrowing toenail of left hallux. She has had procedure in past. She has ingrowing toenail of left hallux. Going to order xrays to assure no underlying osteochondrom that could be causing thickening of nail plate. If xrays negative, she can consider partial vs total nail matrixectomy of left hallux . ARACELI Banegas RN 02/05/2018 9:17 AM Signed Continue band aid and neosporin to R great toe Get xrays today - our office will contact you with the results Referring Provider: JODEE RUIZ [[id number]] Allergies As of Date: 02/05/2018 Noted Allergy Reaction VOLTAREN (DICLOFENAC SODIUM) 01/02/2010 2 - Rash 7 - Swelling 12 - Shortness of Breath CHLORHEXIDINE 08/26/2017 4 - Hives Comments: Hibicleanse CYCLOBENZAPRINE 09/10/2002 4 - Hives Comments: Flexeril Blurred vision and nausea and vomiting LYRICA (PREGABALIN) 03/17/2010 5 - Intolerance Comments: Fluid retention NSAIDS (NON-STEROIDAL ANTI-INFLAM*09/10/2002 8 - GI Upset Comments: Ibuprofen, naproxen,etc ORPHENADRINE 09/10/2002 4 - Hives Comments: Norflex Nausea and vomiting and blurred vision PIROXICAM 09/10/2002 4 - Hives Comments: Feldene Blurred vision and nausea and vomiting Tape [Other] 09/10/2002 Comments: adhesive Date Reviewed: 02/05/2018 Reviewed by: Tiffany Powell RN - Fully Assessed Reason for Visit: Follow Up [171] Primary Visit Diagnosis:Open wound of toe, initial encounter [S91.109A] Other Visit Diagnoses:Ingrowing toenail of left foot [L60.0] Osteochondroma [D16.9] Order(s):XR FOOT GENERAL 3V AP/LAT/OBL BILAT [[id number]] Order #: [id number] FUTURE Prescriptions as of 02/05/2018 Sig: DOXYCYCLINE MONOHYDRATE 100 M* Take 1 capsule by mouth twice* LORAZEPAM 1 MG TABLET Take 1 tablet by mouth twice * LOSARTAN 50 MG TABLET Take 1 tablet by mouth once d* GABAPENTIN 400 MG CAPSULE Take 1 capsule by mouth daily* AMOXICILLIN 500 MG TABLET Take 4 tablets by mouth. 30 m* CPAP Initiate Auto PAP @ 5- 20 cm o* COMPOUNDED PRESCRIPTION Lab order: Hepatitis C antib* ACIPHEX 20 MG TABLET,DELAYED * Take 1 tablet by mouth twice * CLOBETASOL 0.05 % TOPICAL CRE* Apply to affected skin sparin* NYSTATIN 100,000 UNIT/GRAM TO* Apply 1 application to affect* METOPROLOL SUCCINATE ER 25 MG* Take 0.5 tablets by mouth onc* SIMVASTATIN 20 MG TABLET Take 1 tablet by mouth daily * DICLOFENAC 1 % TOPICAL GEL Use 4 times a day as needed FUROSEMIDE 20 MG TABLET Take 1 tablet by mouth once d* DOCUSATE SODIUM 100 MG CAPSULE Take 1 capsule by mouth twice* BISACODYL 5 MG TABLET,DELAYED* Take 1 tablet by mouth once d* OXYCODONE-ACETAMINOPHEN 10 MG* Take 1 tablet by mouth every * ASPIRIN 81 MG TABLET,DELAYED * Take 1 tablet by mouth once d* THERAPEUTIC MULTIVITAMIN TABL* Take 1 tablet by mouth once d* PROMETHAZINE 25 MG TABLET Take 1 tablet by mouth every * Problem List As Of Date 02/05/2018 Noted Resolved INGROWING NAIL [L60.0] INVALID FOR* MALFUN PAYMENT COLLECTOR ORTHO DEVICE/ GRAFT NOS [T84.498A]INVALID FOR* Bundle branch block [I45.4] INVALID FOR* PAIN IN LIMB [M79.609] INVALID FOR* OTHER HAMMER TOE [M20.40] INVALID FOR* ENTHESOPATHY, SITE NOS [M77.9] INVALID FOR* GERD (Gastroesophageal Reflux Disease) [K21.9] Right Sided Sciatica [M54.31] Lichen Sclerosus et Atrophicus of the Vulva [N9*INVALID FOR* Porokeratosis [Q82.8] INVALID FOR* Calcaneal Spur [M77.30] INVALID FOR* Plantar fascial fibromatosis [M72.2] INVALID FOR* Hyperlipidemia [E78.5] INVALID FOR* Lumbar radiculopathy [M54.16] INVALID FOR* More... Degenerative joint disease of knee, right [M17.*INVALID FOR* More... Acute gastritis without mention of hemorrhage [*INVALID FOR* Anxiety [F41.9] INVALID FOR* Coronary artery disease involving [place] vann*INVALID FOR* More... Class 2 obesity due to excess calories with bod*INVALID FOR* Essential hypertension [I10] INVALID FOR* ARPAN (obstructive sleep apnea) [G47.33] INVALID FOR* Digital mucous cyst of finger of left hand [M67*INVALID FOR* More... Notes for Staff Call patient with results Other instructions from your clinician: Continue band aid and neosporin to R great toe Get xrays today - our office will contact you with the results Follow Up: Call patient with results Follow-up and Disposition History Recorded Encounter Status:Closed by JODEE RUIZ DPM on 02/08/18 SCREENING MAMM (CAD), Observed: 01/31/2018 Status: F Source: [place] 4:05 PM [facility] REPOSITORY [facility] Imaging Services [address] [place] [address] SCREENING MAMM (CAD), BILAT MR#: [id number] Acct: [id number] Name: NGOC COTA Rep #: [id number] : 1950 F 67 From: Jayden Byrd MD PCP: Christina Vazquez MD Status: REG CLI Study: SCREENING MAMM (CAD), BILAT Date of Exam: 01/31/18 Exam# [id number] Ordering Dr: Christina Vazquez MD MAMMOGRAPHY - BILATERAL SCREENING REASON FOR EXAM: Female, 67 years old. Routine annual screening examination. PERTINENT HISTORY: Mother with breast cancer. TECHNIQUE: Digital bilateral breast adriane (3D mammographic acquisition) in the CC and MLO projections. 2-D mediolateral oblique (MLO) and craniocaudad (CC) views of both breasts were obtained. CAD: Full Field Digital Mammography with Computer Added Detection was performed. COMPARISON: Comparison is made with prior study dated February 19, 2017 and January 09, 2016. FINDINGS: Breast Composition: There are scattered areas of fibroglandular density. There are no dominant masses or suspicious calcifications. No other significant abnormalities are identified. There has been no significant change since the prior study. BI/SCREENING MAMM (CAD), BILAT IMPRESSION: Stable bilateral screening mammogram. Yearly follow-up mammogram recommended. (A) ASSESSMENT CATEGORY: BIRADS Category 1: Negative. A letter regarding these results will be sent to the patient by the facility within 30 days. Approximately 10% of breast cancers are not detected by mammography. A normal mammogram should not delay biopsy of a clinically suspicious abnormality. [id number] Electronically Signed: Jayden Byrd MD at 10:25 EST Tel [phone], Service support , CC: Christina Vazquez MD Production Quality Manager: Signed PROGRESS Observed: 01/29/2018 Status: COMPLETED Source: [place] 8:18 AM [facility] REPOSITORY HNO ID: [id number] Author: Tiffany Powell RN Service: (none) Author Type: (none) Type: Progress Notes Filed: 01/30/2018 8:15 PM Note Text: UNIVERSAL PROTOCOL / SAFETY CHECKLIST Procedure to be performed: Partial matrixectomy, L hallux lateral border Sign in Communication: Completed Time Out: Team Confirms the Correct Patient, Correct Procedure, Correct Site and Site Marking, Correct Position (if applicable), Prep and Dry Time (if applicable). Time: 818 Affirmation of Time Out: YES Sign Out Discussion: Completed Tiffany Powell RN CNOV Observed: 01/29/2018 Status: COMPLETED Source: [place] 8:15 AM [facility] REPOSITORY Office Visit (PODIWS) NGOC COTA ([id number]) 1950 F Date Time Provider Department 01/29/18 8:15 AM JODEE RUIZ PODIWS During your visit today, we recorded the following information about you: Tiffany Powell RN 01/30/2018 8:15 PM Signed AMB ROOMING INTAKE FLOWSHEET DATA Risk Screening Do you have concerns about personal safety or safety in the home?: No Pain Pain Score: 3/10 Pain Location: Toe (right hallux) Description: Sharp Duration Amount of Time: (several) Duration Units: Weeks Frequency: Intermittent Intervention: Reposition Patient is here for follow up of ingrown toenail, R hallux lateral border. She continues with pain and would like to proceed with removing border permanently today. Jodee Ruiz DPM 01/30/2018 8:15 PM Signed Follow up podiatric office visit for: Chief Complaint: This 67 year old who presents for follow up:ingrowing toenail of right hallux Patient has continued pain to the lateral border of right hallux She would like to have this removed today She denies any drainage She has no other complaints. PAIN EVALUATION 01/29/2018 Pain Score: 3 Pain Location: Toe right hallux Description: Sharp Duration Amount of Time: - several Duration Units: Weeks Frequency: Intermittent Intervention: Reposition No results found for: HBA1C PCP: Christina Vazquez MD PAST MEDICAL HISTORY Diagnosis Date - Anatomical narrow angle borderline glaucoma - Bundle branch block, unspecified 01/12 LBBB - Coronary artery disease involving [place] coronary artery of [place] heart without angina pectoris 2014 Dr. Phillips - DDD (degenerative disc disease), lumbar - Disorder of bone and cartilage, unspecified - Diverticulosis of colon (without mention of hemorrhage) - GERD (gastroesophageal reflux disease) - Hypertension - Irritable bowel syndrome - Lichen Sclerosus et Atrophicus of the Vulva 03/16/2009 - Lumbar radiculopathy - Other combinations of endocrine dysfunction - Plantar fascial fibromatosis - Primary localized osteoarthrosis, lower leg - Right knee DJD - Right sided sciatica - S/P coronary artery stent placement 2014 LAD - Snoring Current Outpatient Prescriptions: LORazepam (ATIVAN) 1 mg tablet Take 1 tablet by mouth twice daily as needed for up to 180 days. losartan (COZAAR) 50 mg tablet Take 1 tablet by mouth once daily. gabapentin (NEURONTIN) 400 mg capsule Take 1 capsule by mouth daily at bedtime. Amoxicillin 500 mg tablet Take 4 tablets by mouth. 30 minutes prior to dental procedures. CPAP Initiate Auto PAP @ 5-20 cm of water with humidification. Mask (per patient preference) optional chin strap (if indicated) , filters, tubing, humidifier and lifetime supplies. COMPOUNDED PRESCRIPTION Lab order: Hepatitis C antibody and reflex confirmation test (HCV RNA) if needed Z01.89 ACIPHEX 20 mg tablet Take 1 tablet by mouth twice daily. Do not substitute with generic (not effective) clobetasol (TEMOVATE) 0.05 % cream Apply to affected skin sparingly once daily as needed nystatin (NYSTOP) powder Apply 1 application to affected area four times daily. As directed metoprolol succinate ER (TOPROL XL) 25 mg 24 hr tablet Take 0.5 tablets by mouth once daily. simvastatin (ZOCOR) 20 mg tablet Take 1 tablet by mouth daily at bedtime. Diclofenac Sodium (VOLTAREN) 1 % gel Use 4 times a day as needed furosemide (LASIX) 20 mg tablet Take 1 tablet by mouth once daily. docusate sodium (COLACE) 100 mg capsule Take 1 capsule by mouth twice daily as needed for Constipation. bisacodyl EC (DULCOLAX) 5 mg EC tablet Take 1 tablet by mouth once daily as needed. oxyCODONE-acetaminophen (PERCOCET) 10-325 mg tablet Take 1 tablet by mouth every 8 hours as needed. aspirin, enteric coated (ECOTRIN LOW STRENGTH) 81 mg EC tablet Take 1 tablet by mouth once daily. therapeutic multivitamin ORAL tablet Take 1 tablet by mouth once daily. promethazine (PHENERGAN) 25 mg tablet Take 1 tablet by mouth every 6 hours as needed. (Patient not taking: Reported on 01/03/2018 ) No current facility-administered medications for this visit. ALLERGIES Allergen Reactions - Voltaren [Diclofena* Rash, Swelling, Shortness of Breath - Chlorhexidine Hives Hibicleanse - Cyclobenzaprine Hives Flexeril Blurred vision and nausea and vomiting - Lyrica [Pregabalin] Intolerance Fluid retention - Nsaids (Non-Steroid* GI Upset Ibuprofen, naproxen,etc - Orphenadrine Hives Norflex Nausea and vomiting and blurred vision - Piroxicam Hives Feldene Blurred vision and nausea and vomiting - Tape [Other] adhesive PAST SURGICAL HISTORY Procedure Laterality Date - CARDIAC CATH 06/2014 stent - COLONOSCOP W/ OR W/O [facility] SPEC 03/20/2011 Colonoscopy - CORRECT BUNION,SIMPLE 2000 Bunion both- left was nonunion - EGD W/O OR W/BRUSH/WASH 03/20/2011 EGD - EXCIS TENDON SHEATH LESN,HAND/FINGR Left 08/28/2017 Excision gangion cyst left index finger - KNEE SCOPE,DIAGNOSTIC prior to 2003 right knee X 3 - PART REMOVAL COLON W ANASTOMOSIS [id number] sigmoid resection - PAST SURGICAL HISTORY OF 1998 endochondroma right knee - PAST SURGICAL HISTORY OF 1998 laser both eyes for glaucoma - PAST SURGICAL HISTORY OF 1998 left plantar fasciotomy - PAST SURGICAL HISTORY OF 1982 hysterectomy with one ovary removed - PAST SURGICAL HISTORY OF 08/11/2013 Total Right Knee replacement - REMOVAL OF TONSILS,<12 Y/O Tonsillectomy - TOTAL KNEE REPLACEMENT 2004 Knee replacement, total right Physical Exam: Constitutional: Pt is a well developed 67 year old female who is alert, oriented, cooperative and in no apparent distress. OBJECTIVE: Vascular: DP and PT pulses are readily palpable to right foot. cft is less than 5 seconds. Skin temperature is warm to warm. No erythema is present. Dermatological: Right hallux lateral border is ingrowing and painful. No signs of infection are present. Webspaces clean and dry 1-4 b/l. Skin appears well hydrated and supple. good color, texture, turgor. No open lesions present. No callosities present. Musculoskeletal/Orthopaedic: Patient has pain to palpation of right hallux lateral nail border ASSESSMENT: (L60.0) Ingrowing toenail (primary encounter diagnosis) PLAN: 1. History and physical examination completed today. 2. Discussed ingrowing toenail of right hallux lateral border. Discussed conservative options not limited to slant back vs partial vs total matrixectomy. She elected for partial matrixectomy of right hallux lateral nail border. Discussed risks of toenail procedure not limited to infection, pain, swelling, bleeding, painful scarring, recurrence, deep bone infection, loss of toe, need for revised procedure. Patient consented to proceed. Patient was properly identified by name and procedure. The right hallux was then injected with 1.5 cc of 0.5% Marcaine plain and 1.5 cc of 2% lidocaine plain in a 50/50 mixture. The toe was then prepped and draped in the usual aseptic technique. A digital tournicot was applied to the toe. The lateral border was then freed and removed. There was severe incurvation of lateral nail border with significant thickening of proximal nail plate. the proximal nail plate had significant spicule beneath existing nail plate with granulation tissue requiring debridement. Careful inspection was performed to assure no remaining spicule present following debridement. 3 applications of phenol were then administered x 30 seconds each followed by alcohol rinse. Sterile dressing was then applied consisting of amerigel, guaze, shane and coban. Tournicot was removed and hyperemic response was noted. Patient tolerated well. Patient will f/u in 1 weeks. I am going to recommend patient hold on showering with the toe exposed until she heals this wound due to the required extra debridement performed today. I am going to place her on doxycycline as precaution. Will see patient in one week. ARACELI Banegas DPM 01/29/2018 8:13 AM Addendum Post-Op Nail Instructions Minimize activity until the anesthesia wears off (about 2- 8 hours). Increase activity to tolerance Remove bandage tomorrow Soak affected toe/foot in warm water and mild antibacterial soap for 15-20 minutes twice daily DO NOT GET TOE WET IN SHOWER After soaking, apply antibiotic ointment (OTC Neosporin) to affected toe and re bandage OTC Ibuprofen if having pain, provided you have no allergies or intolerance to NSAIDS Mild drainage, redness, and blood is expected, but if you expeirence severe pain, increase in drainage, swelling, or red streaking please contact our office immediately Feel free to contact office as well if you have any questions/concerns [phone], ask for Podiatry Nurse Tiffany Powell RN 01/30/2018 8:15 PM Signed UNIVERSAL PROTOCOL / SAFETY CHECKLIST Procedure to be performed: Partial matrixectomy, L hallux lateral border Sign in Communication: Completed Time Out: Team Confirms the Correct Patient, Correct Procedure, Correct Site and Site Marking, Correct Position (if applicable), Prep and Dry Time (if applicable). Time: 0819 Affirmation of Time Out: YES Sign Out Discussion: Completed Tiffany Powell RN Referring Provider: SELF [[id number]] Allergies As of Date: 01/29/2018 Noted Allergy Reaction VOLTAREN (DICLOFENAC SODIUM) 01/02/2010 2 - Rash 7 - Swelling 12 - Shortness of Breath CHLORHEXIDINE 08/26/2017 4 - Hives Comments: Hibicleanse CYCLOBENZAPRINE 09/10/2002 4 - Hives Comments: Flexeril Blurred vision and nausea and vomiting LYRICA (PREGABALIN) 03/17/2010 5 - Intolerance Comments: Fluid retention NSAIDS (NON-STEROIDAL ANTI-INFLAM*09/10/2002 8 - GI Upset Comments: Ibuprofen, naproxen,etc ORPHENADRINE 09/10/2002 4 - Hives Comments: Norflex Nausea and vomiting and blurred vision PIROXICAM 09/10/2002 4 - Hives Comments: Feldene Blurred vision and nausea and vomiting Tape [Other] 09/10/2002 Comments: adhesive Date Reviewed: 01/29/2018 Reviewed by: Tiffany Powell RN - Fully Assessed Reason for Visit: Ingrown Nail [765] Primary Visit Diagnosis:Ingrowing toenail [L60.0] Order(s):doxycycline monohydrate (MONODOX) 100 mg capsuleTake 1 capsule by mouth twice daily for 7 days.Disp: 14 capsuleRfl: 0 Prescriptions as of 01/29/2018 Sig: LORAZEPAM 1 MG TABLET Take 1 tablet by mouth twice * LOSARTAN 50 MG TABLET Take 1 tablet by mouth once d* GABAPENTIN 400 MG CAPSULE Take 1 capsule by mouth daily* AMOXICILLIN 500 MG TABLET Take 4 tablets by mouth. 30 m* CPAP Initiate Auto PAP @ 5- 20 cm o* COMPOUNDED PRESCRIPTION Lab order: Hepatitis C antib* ACIPHEX 20 MG TABLET,DELAYED * Take 1 tablet by mouth twice * CLOBETASOL 0.05 % TOPICAL CRE* Apply to affected skin sparin* NYSTATIN 100,000 UNIT/GRAM TO* Apply 1 application to affect* METOPROLOL SUCCINATE ER 25 MG* Take 0.5 tablets by mouth onc* SIMVASTATIN 20 MG TABLET Take 1 tablet by mouth daily * DICLOFENAC 1 % TOPICAL GEL Use 4 times a day as needed FUROSEMIDE 20 MG TABLET Take 1 tablet by mouth once d* DOCUSATE SODIUM 100 MG CAPSULE Take 1 capsule by mouth twice* BISACODYL 5 MG TABLET,DELAYED* Take 1 tablet by mouth once d* OXYCODONE-ACETAMINOPHEN 10 MG* Take 1 tablet by mouth every * ASPIRIN 81 MG TABLET,DELAYED * Take 1 tablet by mouth once d* THERAPEUTIC MULTIVITAMIN TABL* Take 1 tablet by mouth once d* DOXYCYCLINE MONOHYDRATE 100 M* Take 1 capsule by mouth twice* PROMETHAZINE 25 MG TABLET Take 1 tablet by mouth every * Patient not taking: Reported on 01/03/2018 Problem List As Of Date 01/29/2018 Noted Resolved INGROWING NAIL [L60.0] INVALID FOR* MALFUN PAYMENT COLLECTOR ORTHO DEVICE/ GRAFT NOS [N15.657S]INVALID FOR* Bundle branch block [I45.4] INVALID FOR* PAIN IN LIMB [M79.609] INVALID FOR* OTHER HAMMER TOE [M20.40] INVALID FOR* ENTHESOPATHY, SITE NOS [M77.9] INVALID FOR* GERD (Gastroesophageal Reflux Disease) [K21.9] Right Sided Sciatica [M54.31] Lichen Sclerosus et Atrophicus of the Vulva [N9*INVALID FOR* Porokeratosis [Q82.8] INVALID FOR* Calcaneal Spur [M77.30] INVALID FOR* Plantar fascial fibromatosis [M72.2] INVALID FOR* Hyperlipidemia [E78.5] INVALID FOR* Lumbar radiculopathy [M54.16] INVALID FOR* More... Degenerative joint disease of knee, right [M17.*INVALID FOR* More... Acute gastritis without mention of hemorrhage [*INVALID FOR* Anxiety [F41.9] INVALID FOR* Coronary artery disease involving [place] vann*INVALID FOR* More... Class 2 obesity due to excess calories with bod*INVALID FOR* Essential hypertension [I10] INVALID FOR* ARPAN (obstructive sleep apnea) [G47.33] INVALID FOR* Digital mucous cyst of finger of left hand [M67*INVALID FOR* More... Other instructions from your clinician: Post-Op Nail Instructions Minimize activity until the anesthesia wears off (about 2-8 hours). Increase activity to tolerance Remove bandage tomorrow Soak affected toe/foot in warm water and mild antibacterial soap for 15-20 minutes twice daily DO NOT GET TOE WET IN SHOWER After soaking, apply antibiotic ointment (OTC Neosporin) to affected toe and re bandage OTC Ibuprofen if having pain, provided you have no allergies or intolerance to NSAIDS Mild drainage, redness, and blood is expected, but if you expeirence severe pain, increase in drainage, swelling, or red streaking please contact our office immediately Feel free to contact office as well if you have any questions/concerns [phone], ask for Podiatry Nurse Prescriptions ordered this encounter Disp Refills Start End DOXYCYCLINE MONOHYDRATE 100 MG CAPSU* 14 c* 0 01/29/2018 02/05/2018 Route: ORAL Sig: Take 1 capsule by mouth twice daily for 7 days. Disposition: Return in about 1 week (around 02/05/2018) for post partial matrixectomy, L hallux lateral border. Follow-up and Disposition History Recorded Encounter Status:Closed by JODEE RUIZ DPM on 01/30/18 PROGRESS Observed: 01/29/2018 Status: COMPLETED Source: [place] 7:58 AM [facility] REPOSITORY HNO ID: [id number] Author: Jodee Ruiz Service: (none) Author Type: Physician Type: Progress Notes Filed: 01/30/2018 8:15 PM Note Text: Follow up podiatric office visit for: Chief Complaint: This 67 year old who presents for follow up:ingrowing toenail of right hallux Patient has continued pain to the lateral border of right hallux She would like to have this removed today She denies any drainage She has no other complaints. PAIN EVALUATION 01/29/2018 Pain Score: 3 Pain Location: Toe right hallux Description: Sharp Duration Amount of Time: - several Duration Units: Weeks Frequency: Intermittent Intervention: Reposition No results found for: HBA1C PCP: Christina Vazquez MD PAST MEDICAL HISTORY Diagnosis Date - Anatomical narrow angle borderline glaucoma - Bundle branch block, unspecified 01/12 LBBB - Coronary artery disease involving [place] coronary artery of [place] heart without angina pectoris 2014 Dr. Phillips - DDD (degenerative disc disease), lumbar - Disorder of bone and cartilage, unspecified - Diverticulosis of colon (without mention of hemorrhage) - GERD (gastroesophageal reflux disease) - Hypertension - Irritable bowel syndrome - Lichen Sclerosus et Atrophicus of the Vulva 03/16/2009 - Lumbar radiculopathy - Other combinations of endocrine dysfunction - Plantar fascial fibromatosis - Primary localized osteoarthrosis, lower leg - Right knee DJD - Right sided sciatica - S/P coronary artery stent placement 2014 LAD - Snoring Current Outpatient Prescriptions: LORazepam (ATIVAN) 1 mg tablet Take 1 tablet by mouth twice daily as needed for up to 180 days. losartan (COZAAR) 50 mg tablet Take 1 tablet by mouth once daily. gabapentin (NEURONTIN) 400 mg capsule Take 1 capsule by mouth daily at bedtime. Amoxicillin 500 mg tablet Take 4 tablets by mouth. 30 minutes prior to dental procedures. CPAP Initiate Auto PAP @ 5-20 cm of water with humidification. Mask (per patient preference) optional chin strap (if indicated) , filters, tubing, humidifier and lifetime supplies. COMPOUNDED PRESCRIPTION Lab order: Hepatitis C antibody and reflex confirmation test (HCV RNA) if needed Z01.89 ACIPHEX 20 mg tablet Take 1 tablet by mouth twice daily. Do not substitute with generic (not effective) clobetasol (TEMOVATE) 0.05 % cream Apply to affected skin sparingly once daily as needed nystatin (NYSTOP) powder Apply 1 application to affected area four times daily. As directed metoprolol succinate ER (TOPROL XL) 25 mg 24 hr tablet Take 0.5 tablets by mouth once daily. simvastatin (ZOCOR) 20 mg tablet Take 1 tablet by mouth daily at bedtime. Diclofenac Sodium (VOLTAREN) 1 % gel Use 4 times a day as needed furosemide (LASIX) 20 mg tablet Take 1 tablet by mouth once daily. docusate sodium (COLACE) 100 mg capsule Take 1 capsule by mouth twice daily as needed for Constipation. bisacodyl EC (DULCOLAX) 5 mg EC tablet Take 1 tablet by mouth once daily as needed. oxyCODONE-acetaminophen (PERCOCET) 10-325 mg tablet Take 1 tablet by mouth every 8 hours as needed. aspirin, enteric coated (ECOTRIN LOW STRENGTH) 81 mg EC tablet Take 1 tablet by mouth once daily. therapeutic multivitamin ORAL tablet Take 1 tablet by mouth once daily. promethazine (PHENERGAN) 25 mg tablet Take 1 tablet by mouth every 6 hours as needed. (Patient not taking: Reported on 01/03/2018 ) No current facility-administered medications for this visit. ALLERGIES Allergen Reactions - Voltaren [Diclofena* Rash, Swelling, Shortness of Breath - Chlorhexidine Hives Hibicleanse - Cyclobenzaprine Hives Flexeril Blurred vision and nausea and vomiting - Lyrica [Pregabalin] Intolerance Fluid retention - Nsaids (Non-Steroid* GI Upset Ibuprofen, naproxen,etc - Orphenadrine Hives Norflex Nausea and vomiting and blurred vision - Piroxicam Hives Feldene Blurred vision and nausea and vomiting - Tape [Other] adhesive PAST SURGICAL HISTORY Procedure Laterality Date - CARDIAC CATH 06/2014 stent - COLONOSCOP W/ OR W/O [facility] SPEC 03/20/2011 Colonoscopy - CORRECT BUNION,SIMPLE 2000 Bunion both- left was nonunion - EGD W/O OR W/BRUSH/WASH 03/20/2011 EGD - EXCIS TENDON SHEATH LESN,HAND/FINGR Left 08/28/2017 Excision gangion cyst left index finger - KNEE SCOPE,DIAGNOSTIC prior to 2003 right knee X 3 - PART REMOVAL COLON W ANASTOMOSIS [id number] sigmoid resection - PAST SURGICAL HISTORY OF 1998 endochondroma right knee - PAST SURGICAL HISTORY OF 1998 laser both eyes for glaucoma - PAST SURGICAL HISTORY OF 1998 left plantar fasciotomy - PAST SURGICAL HISTORY OF 1982 hysterectomy with one ovary removed - PAST SURGICAL HISTORY OF 08/11/2013 Total Right Knee replacement - REMOVAL OF TONSILS,<12 Y/O Tonsillectomy - TOTAL KNEE REPLACEMENT 2004 Knee replacement, total right Physical Exam: Constitutional: Pt is a well developed 67 year old female who is alert, oriented, cooperative and in no apparent distress. OBJECTIVE: Vascular: DP and PT pulses are readily palpable to right foot. cft is less than 5 seconds. Skin temperature is warm to warm. No erythema is present. Dermatological: Right hallux lateral border is ingrowing and painful. No signs of infection are present. Webspaces clean and dry 1-4 b/l. Skin appears well hydrated and supple. good color, texture, turgor. No open lesions present. No callosities present. Musculoskeletal/Orthopaedic: Patient has pain to palpation of right hallux lateral nail border ASSESSMENT: (L60.0) Ingrowing toenail (primary encounter diagnosis) PLAN: 1. History and physical examination completed today. 2. Discussed ingrowing toenail of right hallux lateral border. Discussed conservative options not limited to slant back vs partial vs total matrixectomy. She elected for partial matrixectomy of right hallux lateral nail border. Discussed risks of toenail procedure not limited to infection, pain, swelling, bleeding, painful scarring, recurrence, deep bone infection, loss of toe, need for revised procedure. Patient consented to proceed. Patient was properly identified by name and procedure. The right hallux was then injected with 1.5 cc of 0.5% Marcaine plain and 1.5 cc of 2% lidocaine plain in a 50/50 mixture. The toe was then prepped and draped in the usual aseptic technique. A digital tournicot was applied to the toe. The lateral border was then freed and removed. There was severe incurvation of lateral nail border with significant thickening of proximal nail plate. the proximal nail plate had significant spicule beneath existing nail plate with granulation tissue requiring debridement. Careful inspection was performed to assure no remaining spicule present following debridement. 3 applications of phenol were then administered x 30 seconds each followed by alcohol rinse. Sterile dressing was then applied consisting of amerigel, guaze, shane and coban. Tournicot was removed and hyperemic response was noted. Patient tolerated well. Patient will f/u in 1 weeks. I am going to recommend patient hold on showering with the toe exposed until she heals this wound due to the required extra debridement performed today. I am going to place her on doxycycline as precaution. Will see patient in one week. Jodee Ruiz DPM PROGRESS Observed: 01/29/2018 Status: COMPLETED Source: [place] 7:55 AM [facility] REPOSITORY O ID: [id number] Author: Tiffany Powell RN Service: (none) Author Type: (none) Type: Progress Notes Filed: 01/30/2018 8:15 PM Note Text: AMB ROOMING INTAKE FLOWSHEET DATA Risk Screening Do you have concerns about personal safety or safety in the home?: No Pain Pain Score: 3/10 Pain Location: Toe (right hallux) Description: Sharp Duration Amount of Time: (several) Duration Units: Weeks Frequency: Intermittent Intervention: Reposition Patient is here for follow up of ingrown toenail, R hallux lateral border. She continues with pain and would like to proceed with removing border permanently today. OPERATIVE REPORT Observed: 01/27/2018 Status: F Source: [place] 9:[address] [facility] REPOSITORY [facility] Medical Records Department [address] [place] [address] Operative Report 01/27/18 0954 MR#: [id number] Acct: [id number] Name: NGOC COTA Rep #: [id number] : 1950 67 From: Bautista Mendez MD PCP: Christina Vazquez MD Status: [facility] [place] [facility] Problem List (1) DDD (degenerative disc disease), lumbosacral Status: Chronic (2) Lumbar facet arthropathy Status: Chronic (3) Lumbosacral spondylosis Status: Chronic Report of Operation Date of Procedure: 01/27/18 Pre-Operative Diagnosis: Lumbosacral spondylosis, lumbosacral degenerative disc disease, lumbar facet arthropathy Post-Operative Diagnosis: Lumbosacral spondylosis, lumbosacral degenerative disc disease, lumbar facet arthropathy Surgery/Procedure Performed:: Left-sided lumbar radiofrequency ablation of the medial branch at L3, L4, L5, S1 Description of Surgical Findings:: PROCEDURE: Left-sided radiofrequency ablation of the medial branch L3, L4, L5, S1 PREOPERATIVE DIAGNOSES: Lumbosacral spondylosis, lumbosacral degenerative disc disease, lumbar facet arthropathy POSTOPERATIVE DIAGNOSES: Lumbosacral spondylosis, lumbosacral degenerative disc disease, lumbar facet arthropathy ANESTHESIA: MAC COMPLICATIONS: None BLOOD LOSS: Minimal PROCEDURE IN DETAIL: History and physical today was reviewed. Risks and benefits of procedure explained. The patient understood, agreed to the procedure and informed consent was obtained. IV inserted per routine protocol. The patient was taken to the operating room, placed in the prone position with a pillow positioned underneath the abdomen. The left side of the lower back was prepped and draped in a sterile fashion using iodine x 3. Under fluoroscopy guidance, on an oblique view, the L3 through S1 vertebral bodies were visualized. The skin and subcutaneous tissue was anesthetized with approximately 10 mL of 1% lidocaine using a 25-gauge regular needle. Under direct visualization with fluoroscopy at approximately 25-degree angle, starting on the left L3, ending on the left S1 passing through the L4-L5 using a 20-gauge 15 cm with a 10 mm curved active tip radiofrequency ablation needle, the needle passed through the skin, The tip of the needle was maneuvered and directed towards the superior and medial gutter of the transverse process at the vicinity of the medial branch. Once the tip of the needle was in contact with the bone, the needle pulled approximately 2 mm up the bone. The stylet of each needle was then removed. After negative aspiration of blood with CSF and confirmation of AP as well as oblique view, radiofrequency ablation probe was then inserted at each level. Impedance was then recorded at L3 to be 281, at L4 297, at L5 262, at S1 263 ohm. Motor-evoked potential was then initiated to 1.5 volt without any motor response at each corresponding level. The probe was then removed intact and a total of 6 mL preservative- free 1% lidocaine was injected in divided doses between those 4 levels after negative aspiration of blood with CSF. The radiofrequency ablation probe was then reinserted after confirmation of AP, oblique as well as lateral view. Radiofrequency ablation was then initiated to 80 degrees Celsius for 90 seconds at each level. Once concluded, the probe was then removed intact and a total of 6 mL of preservative-free 0.25% Marcaine with 40 mg Depo-Medrol was injected in divided doses between those 4 levels. The needles were then removed intact. The patient experienced no signs or symptoms of intrathecal, intravascular injection. The patient experienced no paraesthesia. The procedure was completed without any apparent difficulty, any complication. The patient appeared to tolerate well. Sensory as well as motor exam was unchanged from prior to procedure. ASSESSMENT AND PLAN: This is a 67-year-old female with lumbosacral spondylosis, lumbosacral degenerative disc disease, lumbar facet arthropathy, status post left-sided radiofrequency ablation of the medial branch L3 through S1. The patient will continue her current medications. The patient will follow up in approximately 2 weeks for reevaluation. 01/27/18 0957 <Electronically signed by Bautista Mendez MD> Date Bautista Mendez MD CC: Bautista Mendez; Christina Vazquez MD Signed L/S SPINE MIN 4 Observed: 01/27/2018 Status: F Source: [facility] 8:[address] [facility] REPOSITORY [facility] Imaging Services [address] [place] [id number] L/S Spine Min 4 Views MR#: [id number] Acct: [id number] Name: NGOC COTA Rep #: [id number] : 1950 F 67 From: Jayden Byrd MD PCP: Christina Vazquez MD Status: [facility] Study: L/S Spine Min 4 Views Date of Exam: 01/27/18 Exam# [id number] Ordering Dr: Bautista Mendez MD STUDY: X-RAY - LUMBAR SPINE REASON FOR EXAM: Female, 67 years old. Intraoperative imaging for radiofrequency ablation of the left L3-S1 levels. TECHNIQUE: 12 coned-down intraoperative images of the lumbar spine were obtained. COMPARISON: None FINDINGS: Intraoperative imaging provided for left L3-S1 radiofrequency ablation. RAD/L/S Spine Min 4 Views IMPRESSION: Intraoperative imaging provided for left L3 S1 radiofrequency ablation. Electronically Signed: Jayden Byrd MD at 13:52 EST Tel [phone], Service support , CC: Bautista Mendez; Christina Vazquez MD Production Quality Manager: Signed NURSING PROG Observed: 01/20/2018 Status: COMPLETED Source: [place] 5:10 PM [facility] REPOSITORY HNO ID: [id number] Author: Lupis Horne RN Service: (none) Author Type: Registered Nurse Type: Nursing Progress Note Filed: 01/20/2018 5:13 PM Note Text: Patient did not experience a fall prior to discharge. Patient did not experience a burn prior to discharge. Lupis Horne RN PT ED Observed: 01/20/2018 Status: COMPLETED Source: [place] 5:05 PM [facility] RE[facility]IT[facility] HNO ID: [id number] Author: Lupis Horne RN Service: (none) Author Type: Registered Nurse Type: Patient Education Filed: 01/20/2018 5:12 PM Note Text: POST OP LEARNING RESPONSE INSTRUCTION PROVIDED TO: Patient and family member METHOD OF INSTRUCTION: Individual instruction Written instruction - handouts Verbal instruction PATIENT / FAMILY RESPONSE: Information received as demonstrated by interest and questions FOLLOW-UP PLAN: Follow up phone call. Contact information given. Followup appointment with nurse practitioner--scheduled SUPPLEMENTAL MATERIAL: Procedure discharge instructions REFERRAL (RECOMMENDATION): None Electronically Signed By: Lupis Horne RN In Department: AMBULATORY SURGERY NURSING PROG Observed: 01/20/2018 Status: COMPLETED Source: [place] 5:00 PM [facility] RE[facility]ITORY HNO ID: [id number] Author: Lupis Horne RN Service: (none) Author Type: Registered Nurse Type: Nursing Progress Note Filed: 01/20/2018 5:14 PM Note Text: Dr. Wen at bedside to review procedure and recommendations. Lupis Horne RN NURSING PROG Observed: 01/20/2018 Status: COMPLETED Source: [place] 4:20 PM [facility] RE[facility]IT[facility] HNO ID: [id number] Author: Lupis DanielsRnSandy Horne RN Service: (none) Author Type: Registered Nurse Type: Nursing Progress Note Filed: 01/20/2018 4:29 PM Note Text: Arrived in phase II via cart. Left lateral position. Sedated, but responds to verbal stimuli. Color normal; skin warm and dry. Respirations wnl and unlabored. Abdomen soft and with + bowel sounds in quads X 4. Family at bedside. Patient resting comfortably. Lupis Horne RN BRIEF OP NOT Observed: 01/20/2018 Status: COMPLETED Source: [place] 4:18 PM [facility] RE[facility] HNO ID: [id number] Author: Eitan Wen Service: Gastroenterology Author Type: Physician Type: Brief Op Note Filed: 01/20/2018 4:19 PM Note Text: BRIEF OPERATIVE NOTE PATIENT NAME: Ngoc Cota LOG ID: [id number] Surgery Date: 01/20/2018 Surgeon(s) and Operations Leader(s): Eitan Wen MD -Primary Procedure(s): Procedure(s) (LRB): EGD WITH BIOPSY (N/A) COLONOSCOPY FLEXIBLE W/ BIOPSY (N/A) Anesthesia: Procedural Sedation Findings: Normal EGD and colonoscopy Estimated Blood Loss: Minimal Specimens: Antrum and random colon Preop Diagnosis: Altered bowel function [R19.4] Right upper quadrant pain [R10.11] Dysphagia, unspecified type [R13.10] Heartburn [R12] Postop Diagnosis: Right upper quadrant pain [R10.11] Dysphagia, unspecified type [R13.10] Heartburn [R12] SIGNATURE: Eitan Wen MD DATE: January 20, 2018 TIME: 4:18 PM NURSING PROG Observed: 01/20/2018 Status: COMPLETED Source: [place] 4:16 PM [facility] REPOSIT[facility] HNO ID: [id number] Author: Danna DanielsRn) NITHIN Bansal Service: (none) Author Type: Registered Nurse Type: Nursing Progress Note Filed: 01/20/2018 4:16 PM Note Text: Patient did not experience a fall within the Intraoperative area. Patient did not experience a burn within the Intraoperative area. Danna Bansal RN NURSING PROG Observed: 01/20/2018 Status: COMPLETED Source: [place] 3:48 PM [facility] RE[facility]ITORY HNO ID: [id number] Author: Lupis (Rn) NITHIN Horne Service: (none) Author Type: Registered Nurse Type: Nursing Progress Note Filed: 01/20/2018 3:49 PM Note Text: [facility] PRE-OP NURSING HAND OFF NOTE SBAR Hand off given to Danna Bansal RN. Hand off was communicated verbally and at the patient's bedside and all questions were answered. FALLS/HEATON Patient did not experience a fall within the Preoperative area. Patient did not experience a burn within the Preoperative area. Lupis Horne RN HISTORY PHYSICAL Observed: 01/20/2018 Status: COMPLETED Source: [place] 3:18 PM [facility] REPOSIT[facility] HNO ID: [id number] Author: Eitan Wen Service: Gastroenterology Author Type: Physician Type: HANDP Filed: 01/20/2018 3:18 PM Note Text: PROCEDURAL SEDATION HISTORY AND PHYSICAL EXAM SERVICE DATE: 01/20/2018 SERVICE TIME: 3:18 PM Subjective HPI: This is a 67 year old female who presents with upper and lower GI distress PAST ANESTHESIA HISTORY: No history of adverse event PAST MEDICAL HISTORY Diagnosis Date - Anatomical narrow angle borderline glaucoma - Bundle branch block, unspecified 01/12 LBBB - Coronary artery disease involving [place] coronary artery of [place] heart without angina pectoris 2014 Dr. Phillips - DDD (degenerative disc disease), lumbar - Disorder of bone and cartilage, unspecified - Diverticulosis of colon (without mention of hemorrhage) - GERD (gastroesophageal reflux disease) - Hypertension - Irritable bowel syndrome - Lichen Sclerosus et Atrophicus of the Vulva 03/16/2009 - Lumbar radiculopathy - Other combinations of endocrine dysfunction - Plantar fascial fibromatosis - Primary localized osteoarthrosis, lower leg - Right knee DJD - Right sided sciatica - S/P coronary artery stent placement 2014 LAD - Snoring PAST SURGICAL HISTORY Procedure Laterality Date - CARDIAC CATH 06/2014 [facility] 03/20/2011 Colonoscopy - CORRECT BUNION,SIMPLE 2000 Bunion both- left was nonunion - EGD W/O OR W/BRUSH/WASH 03/20/2011 EGD - EXCIS TENDON SHEATH LESN,HAND/FINGR Left 08/28/2017 Excision gangion cyst left index finger - KNEE SCOPE,DIAGNOSTIC prior to 2003 right knee X 3 - PART REMOVAL COLON W ANASTOMOSIS [id number] sigmoid resection - PAST SURGICAL HISTORY OF 1998 endochondroma right knee - PAST SURGICAL HISTORY OF 1998 laser both eyes for glaucoma - PAST SURGICAL HISTORY OF 1998 left plantar fasciotomy - PAST SURGICAL HISTORY OF 1982 hysterectomy with one ovary removed - PAST SURGICAL HISTORY OF 08/11/2013 Total Right Knee replacement - REMOVAL OF TONSILS,<12 Y/O Tonsillectomy - TOTAL KNEE REPLACEMENT 2003 Knee replacement, total right Prior to Admission medications as of 01/20/18 1435 Medication Sig Last Dose Taking losartan (COZAAR) 50 mg tablet Take 1 tablet by mouth once daily. 01/20/2018 at Unknown time Yes gabapentin (NEURONTIN) 400 mg capsule Take 1 capsule by mouth daily at bedtime. 01/19/2018 at Unknown time Yes ACIPHEX 20 mg tablet Take 1 tablet by mouth twice daily. Do not substitute with generic (not effective) 01/20/2018 at Unknown time Yes metoprolol succinate ER (TOPROL XL) 25 mg 24 hr tablet Take 0.5 tablets by mouth once daily. 01/20/2018 at Unknown time Yes simvastatin (ZOCOR) 20 mg tablet Take 1 tablet by mouth daily at bedtime. 01/19/2018 at Unknown time Yes furosemide (LASIX) 20 mg tablet Take 1 tablet by mouth once daily. 01/20/2018 at Unknown time Yes oxyCODONE-acetaminophen (PERCOCET) 10-325 mg tablet Take 1 tablet by mouth every 8 hours as needed. 01/19/2018 at Unknown time Yes aspirin, enteric coated (ECOTRIN LOW STRENGTH) 81 mg EC tablet Take 1 tablet by mouth once daily. 01/20/2018 at Unknown time Yes LORazepam (ATIVAN) 1 mg tablet Take 1 tablet by mouth twice daily as needed for up to 180 days. 01/18/2018 Amoxicillin 500 mg tablet Take 4 tablets by mouth. 30 minutes prior to dental procedures. Unknown at Unknown time CPAP Initiate Auto PAP @ 5-20 cm of water with humidification. Mask (per patient preference) optional chin strap (if indicated) , filters, tubing, humidifier and lifetime supplies. Unknown at Unknown time COMPOUNDED PRESCRIPTION Lab order: Hepatitis C antibody and reflex confirmation test (HCV RNA) if needed Z01.89 promethazine (PHENERGAN) 25 mg tablet Take 1 tablet by mouth every 6 hours as needed. Patient not taking: Reported on 01/03/2018 Unknown at Unknown time clobetasol (TEMOVATE) 0.05 % cream Apply to affected skin sparingly once daily as needed Unknown at Unknown time nystatin (NYSTOP) powder Apply 1 application to affected area four times daily. As directed Unknown at Unknown time Diclofenac Sodium (VOLTAREN) 1 % gel Use 4 times a day as needed Unknown at Unknown time docusate sodium (COLACE) 100 mg capsule Take 1 capsule by mouth twice daily as needed for Constipation. Unknown at Unknown time bisacodyl EC (DULCOLAX) 5 mg EC tablet Take 1 tablet by mouth once daily as needed. Unknown at Unknown time therapeutic multivitamin ORAL tablet Take 1 tablet by mouth once daily. Unknown at Unknown time ALLERGIES Allergen Reactions - Voltaren [Diclofena* Rash, Swelling, Shortness of Breath - Chlorhexidine Hives Hibicleanse - Cyclobenzaprine Hives Flexeril Blurred vision and nausea and vomiting - Lyrica [Pregabalin] Intolerance Fluid retention - Nsaids (Non-Steroid* GI Upset Ibuprofen, naproxen,etc - Orphenadrine Hives Norflex Nausea and vomiting and blurred vision - Piroxicam Hives Feldene Blurred vision and nausea and vomiting - Tape [Other] adhesive Objective PHYSICAL EXAM: The remainder of the physical exam is noncontributory. AIRWAY: Airway Visualization of Uvula: Yes Mouth opening greater than 2 fingerbreadths: Yes Neck Full Range of Motion: Yes LUNGS: Lungs clear to auscultation, Good diaphragmatic excursion CARDIAC: Normal S1 and S2; no rubs, murmurs, or gallops Assessment/Plan ASA Class: ASA Class:: Patient with mild systemic disease Active Problems: * No active hospital problems. * Resolved Problems: * No resolved hospital problems. * Provisional Diagnosis/Treatment Plan: Upper and lower GI distress/EGD and colonoscopy SEDATION GOAL: Moderate SIGNATURE: Eitan Wen MD PATIENT NAME: Ngoc Cota DATE: January 20, 2018 TIME: 3:18 PM PAGER: PT ED Observed: 01/20/2018 Status: COMPLETED Source: [place] 2:38 PM [facility] REPOSITORY HNO ID: [id number] Author: Lupis Russo) NITHIN Horne Service: (none) Author Type: Registered Nurse Type: Patient Education Filed: 01/20/2018 2:39 PM Note Text: Discharge Instructions were reviewed pre-operatively with the patient. All questions and concerns were addressed. Lupis Horne RN PRE OP LEARNING ASSESSMENT PROCEDURE/SURGERY: GI PROCEDURES: EGD AND Colonoscopy READINESS TO LEARN COGNITIVE ABILITY: Alert and oriented MOTIVATION TO LEARN: Interested FAMILY SUPPORT: Unable to assess - Family not present PATIENT LEARNS BEST BY: Multiple Methods FACTORS AFFECTING LEARNING: None PHYSICAL LIMITATIONS AFFECTING LEARNING: None Electronically Signed By: Lupis Horne RN In Department: AMBULATORY SURGERY SURGICAL PATHOLOGY Observed: 01/20/2018 Status: F Source: [place] 12:00 AM [facility] REPOSITORY Specimen originated from [facility] Specimen #: [id number] Submitting Physician: EITAN WEN MD FINAL DIAGNOSIS 1. Stomach, antrum, biopsy (A) - Mild chronic inactive gastritis. - No morphologic evidence of Helicobacter pylori. 2. Colon, random biopsy (B) - Colonic mucosa with no significant diagnostic alteration. COMMENT Morphologic features of lymphocytic and collagenous colitis are not identified. Acute colitis is not present. AEB/kmr 01/21/18 Ana See M.D. (Electronic Signature) SPECIMEN SUBMITTED A: ANTRUM, BIOPSY B: RANDOM COLON, BIOPSY CLINICAL DATA DYSPHAGIA, UNSPECIFIED TYPE [R13.10], ALTERED BOWEL FUNCTION [R19.4], RIGHT UPPER QUADRANT PAIN [R10.11], HEARTBURN [R12] A) H/H GROSS DESCRIPTION A. Received in formalin are two pieces of bliss, soft tissue aggregating to 0.7 x 0.2 x 0.1 cm. Totally submitted in one cassette. B. Received in formalin are six pieces of bliss, soft tissue aggregating to 2.5 x 0.2 x 0.1 cm. Totally submitted in one cassette. Gross examination performed at [facility], [address] [place] [address] 01/21/2018 12:54:06 AM Date of Report: 01/22/2018 Date of Procedure: 01/20/2018 Date of Receipt: 01/20/2018 Submitted by: EITAN WEN MD Location: W010 Diagnostic interpretation performed at [facility], [address] [place] [address]. PROGRESS Observed: 01/07/2018 Status: COMPLETED Source: [place] 10:44 AM [facility] REPOSITORY HNO ID: [id number] Author: Nichole Alcocer Service: (none) Author Type: (none) Type: Progress Notes Filed: 01/07/2018 10:45 AM Note Text: Radiology Service Progress Note PATIENT NAME: Ngoc Cota DATE OF SERVICE: January 07, 2018 TIME: 10:44 AM PATIENT IDENTITY VERIFICATION COMPLETED USING TWO (2) METHODS: Patient confirmed name verbally and Date of . PATIENT GENDER DATA: Female. status: : No status: NO. PATIENT RELEVANT IMPLANT DATA REVIEWED: Not Applicable RADIOLOGY DEPARTMENT: Ultrasound PERIPHERAL IV DATA: Not applicable SIGNED BY: Nichole Alcocer January 07, 2018 10:44 AM US ABD RIGHT UPPER Observed: 01/07/2018 Status: F Source: [facility] 10:43 AM [facility] REPOSITORY * * *Final Report* * * DATE OF EXAM: Jan 07 2018 10:43AM [facility]U 1032 - US ABD RIGHT UPPER QUADRANT / PROCEDURE REASON: Right upper quadrant pain * * * * Physician Interpretation * * * * EXAMINATION: RIGHT UPPER QUADRANT ULTRASOUND CLINICAL HISTORY: Right upper quadrant pain. TECHNIQUE: Sonography of the right upper quadrant was performed. Images were obtained and stored in a permanent archive. MQ: [id number] COMPARISON: None. RESULT: Please of this examination is limited secondary to overlying bowel gas. Pancreas: Normal sonographic appearance. Portions obscured: tail Liver: Echotexture: Normal, homogeneous. Echogenicity: Heterogeneous Surface contour: Smooth Lesions: None. Biliary: No intrahepatic biliary duct dilation. CBD: 0.3 cm at the hilum. Gallbladder: Normal caliber -Contents: No cholelithiasis -Wall: Normal -Other: No pericholecystic fluid. Right Kidney: No hydronephrosis. The right kidney measures approximately 8.6 cm. Ascites: None. IMPRESSION: Heterogeneous liver echogenicity, without focal hepatic lesion. No cholelithiasis or convincing sonographic evidence for acute cholecystitis. No biliary dilation. Production Quality Manager: CHERYL Transcribe Date/Time: Jan 07 2018 10:57A Dictated by : YOSEPH PLATT MD This examination was interpreted and the report reviewed and electronically signed by: YOSEPH PLATT MD on Jan 07 2018 10:59AM EST [id number] Observed: 01/06/2018 Status: COMPLETED Source: [place] 12:00 AM [facility] REPOSITORY Patient:Ngoc Cota MRN: <[id number]> Height:5' 1.417(1.56 m) Weight:183 lb 10.3 oz (83.3 kg) Outpatient Medications as of 01/20/18: LORazepam (ATIVAN) 1 mg tablet losartan (COZAAR) 50 mg tablet gabapentin (NEURONTIN) 400 mg capsule Amoxicillin 500 mg tablet CPAP COMPOUNDED PRESCRIPTION ACIPHEX 20 mg tablet promethazine (PHENERGAN) 25 mg tablet clobetasol (TEMOVATE) 0.05 % cream nystatin (NYSTOP) powder metoprolol succinate ER (TOPROL XL) 25 mg 24 hr tablet simvastatin (ZOCOR) 20 mg tablet Diclofenac Sodium (VOLTAREN) 1 % gel furosemide (LASIX) 20 mg tablet docusate sodium (COLACE) 100 mg capsule bisacodyl EC (DULCOLAX) 5 mg EC tablet oxyCODONE-acetaminophen (PERCOCET) 10-325 mg tablet aspirin, enteric coated (ECOTRIN LOW STRENGTH) 81 mg EC tablet therapeutic multivitamin ORAL tablet Admission/Clinic Administered Medications as of 01/20/18: lactated ringers infusion Problem List: Ingrowing nail [L60.0] Unspecified mechanical complication of internal orthopedic device, implant, and graft [T84.498A] Bundle branch block [I45.4] Pain in limb [M79.609] Other hammer toe (acquired) [M20.40] Enthesopathy of unspecified site [M77.9] GERD (gastroesophageal reflux disease) [K21.9] Right sided sciatica [M54.31] Lichen sclerosus et atrophicus of the vulva [N90.4] Porokeratosis [Q82.8] Calcaneal spur [M77.30] Plantar fascial fibromatosis [M72.2] Hyperlipidemia [E78.5] Lumbar radiculopathy [M54.16] Degenerative joint disease of knee, right [M17.11] Acute gastritis without mention of hemorrhage [K29.00] Anxiety [F41.9] Coronary artery disease involving [place] coronary artery of [place] heart without angina pectoris [I25.10] Class 2 obesity due to excess calories with body mass index (BMI) of 35.0 to 35.9 in adult [E66.09, Z68.35] Essential hypertension [I10] ARPAN (obstructive sleep apnea) [G47.33] Digital mucous cyst of finger of left hand [M67.442] Allergies: Voltaren [Diclofenac Sodium] Chlorhexidine Cyclobenzaprine Lyrica [Pregabalin] Nsaids (Non-Steroidal Anti-Inflammatory Drug) Orphenadrine Piroxicam Tape [Other] Date Verified: 01/20/18 Lab Values No results within the last 30 days for the following basenames: K,HCT Progress Notes ([facility]): Eitan Wen MD 01/07/2018 11:35 AM Signed Gallbladder ultrasound is negative Suzanna Keenan LPN 01/07/2018 11:40 AM Signed Called and spoke with patient. Relayed ultrasound results. Patient verbalizes understanding and has no other questions or concerns at this time. Suzanna Keenan LPN January 07, 2018 11:39 AM Progress Notes ([facility]): Nichole Alcocer 01/07/2018 10:45 AM Signed Radiology Service Progress Note PATIENT NAME: Ngoc Cota DATE OF SERVICE: January 07, 2018 TIME: 10:44 AM PATIENT IDENTITY VERIFICATION COMPLETED USING TWO (2) METHODS: Patient confirmed name verbally and Date of . PATIENT GENDER DATA: Female. status: : No status: NO. PATIENT RELEVANT IMPLANT DATA REVIEWED: Not Applicable RADIOLOGY DEPARTMENT: Ultrasound PERIPHERAL IV DATA: Not applicable SIGNED BY: Nichole Alcocer January 07, 2018 10:44 AM PROGRESS Observed: 01/03/2018 Status: COMPLETED Source: [place] 11:06 AM [facility] REPOSITORY O ID: [id number] Author: Eitan Wen Service: (none) Author Type: Physician Type: Progress Notes Filed: 01/03/2018 11:09 AM Note Text: CC: Right upper quadrant pain, acid reflux and dysphagia and altered bowel habits HPI: Ngoc Cota is a 67 year old female. 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 She had a gallbladder evaluation with ultrasound and HIDA scan. That evaluation, however, was about 15 years ago and needs to be repeated The patient also notices alternating diarrhea and constipation there is lower abdominal cramping. Finally the patient has a history of acid reflux and is currently experiencing dysphagia/choking. She points to her upper esophagus but it is well-known fact that localization of dysphagia in the esophagus is not very good. PAST MEDICAL HISTORY Diagnosis Date - Anatomical narrow angle borderline glaucoma - Bundle branch block, unspecified 01/12 LBBB - Coronary artery disease involving [place] coronary artery of [place] heart without angina pectoris 2014 Dr. Phillips - DDD (degenerative disc disease), lumbar - Disorder of bone and cartilage, unspecified - Diverticulosis of colon (without mention of hemorrhage) - GERD (gastroesophageal reflux disease) - Irritable bowel syndrome - Lichen Sclerosus et Atrophicus of the Vulva 03/16/2009 - Lumbar radiculopathy - Other combinations of endocrine dysfunction - Plantar fascial fibromatosis - Primary localized osteoarthrosis, lower leg - Right knee DJD - Right sided sciatica - S/P coronary artery stent placement 2014 LAD PAST SURGICAL HISTORY Procedure Laterality Date - CARDIAC CATH 06/2014 stent - COLONOSCOP W/ OR W/O [facility] SPEC 03/20/2011 Colonoscopy - CORRECT BUNION,SIMPLE 2000 Bunion both- left was nonunion - EGD W/O OR W/BRUSH/WASH 03/20/2011 EGD - EXCIS TENDON SHEATH LESN,HAND/FINGR Left 08/28/2017 Excision gangion cyst left index finger - KNEE SCOPE,DIAGNOSTIC prior to 2003 right knee X 3 - PART REMOVAL COLON W ANASTOMOSIS [id number] sigmoid resection - PAST SURGICAL HISTORY OF 1998 endochondroma right knee - PAST SURGICAL HISTORY OF 1998 laser both eyes for glaucoma - PAST SURGICAL HISTORY OF 1998 left plantar fasciotomy - PAST SURGICAL HISTORY OF 1982 hysterectomy with one ovary removed - PAST SURGICAL HISTORY OF 08/11/2013 Total Right Knee replacement - REMOVAL OF TONSILS,<12 Y/O Tonsillectomy - TOTAL KNEE REPLACEMENT 2004 Knee replacement, total right SOCIAL HX: Social History Substance Use Topics - Smoking status: Never Smoker - Smokeless tobacco: Never Used - Alcohol use No FAMILY HISTORY Problem Relation Age of Onset - Breast Cancer Mother also uterine cancer - Diabetes Mother - Heart Father ALLERGIES: ALLERGIES Allergen Reactions - Voltaren [Diclofena* Rash, Swelling, Shortness of Breath - Chlorhexidine Hives Hibicleanse - Cyclobenzaprine Hives Flexeril Blurred vision and nausea and vomiting - Lyrica [Pregabalin] Intolerance Fluid retention - Nsaids (Non-Steroid* GI Upset Ibuprofen, naproxen,etc - Orphenadrine Hives Norflex Nausea and vomiting and blurred vision - Piroxicam Hives Feldene Blurred vision and nausea and vomiting - Tape [Other] adhesive MEDICATIONS: LORazepam (ATIVAN) 1 mg tablet Take 1 tablet by mouth twice daily as needed for up to 180 days. losartan (COZAAR) 50 mg tablet Take 1 tablet by mouth once daily. gabapentin (NEURONTIN) 400 mg capsule Take 1 capsule by mouth daily at bedtime. CPAP Initiate Auto PAP @ 5-20 cm of water with humidification. Mask (per patient preference) optional chin strap (if indicated) , filters, tubing, humidifier and lifetime supplies. clobetasol (TEMOVATE) 0.05 % cream Apply to affected skin sparingly once daily as needed nystatin (NYSTOP) powder Apply 1 application to affected area four times daily. As directed metoprolol succinate ER (TOPROL XL) 25 mg 24 hr tablet Take 0.5 tablets by mouth once daily. simvastatin (ZOCOR) 20 mg tablet Take 1 tablet by mouth daily at bedtime. Diclofenac Sodium (VOLTAREN) 1 % gel Use 4 times a day as needed furosemide (LASIX) 20 mg tablet Take 1 tablet by mouth once daily. docusate sodium (COLACE) 100 mg capsule Take 1 capsule by mouth twice daily as needed for Constipation. oxyCODONE-acetaminophen (PERCOCET) 10-325 mg tablet Take 1 tablet by mouth every 8 hours as needed. aspirin, enteric coated (ECOTRIN LOW STRENGTH) 81 mg EC tablet Take 1 tablet by mouth once daily. therapeutic multivitamin ORAL tablet Take 1 tablet by mouth once daily. peg 3350-electrolytes (COLYTE) 240-22.72-6.72 -5.84 gram solution Take 4,000 mL by mouth one time only for 1 dose. Amoxicillin 500 mg tablet Take 4 tablets by mouth. 30 minutes prior to dental procedures. COMPOUNDED PRESCRIPTION Lab order: Hepatitis C antibody and reflex confirmation test (HCV RNA) if needed Z01.89 ACIPHEX 20 mg tablet Take 1 tablet by mouth twice daily. Do not substitute with generic (not effective) promethazine (PHENERGAN) 25 mg tablet Take 1 tablet by mouth every 6 hours as needed. bisacodyl EC (DULCOLAX) 5 mg EC tablet Take 1 tablet by mouth once daily as needed. ROS: All systems reviewed and negative except as above noted. PHYSICAL EXAM: VITALS: BP 140/51 Pulse 72 Ht 5' 1.417 (1.56m) Wt 183 lb 9.6 oz (83.3kg) BMI 34.22 kg/(m2). General Appearance: Well appearing, alert, in no acute distress, well-hydrated, well nourished.. Skin: Skin color, texture, turgor normal, no suspicious rashes or lesions. Eyes: Anicteric sclera. Pupils are equally round and reactive to light. Extraocular movements are intact. Nose/Sinuses: Nares normal, septum midline, mucosa normal, no drainage or sinus tenderness. Oropharynx: Lips, mucosa, and tongue normal, teeth and gingiva normal, oropharynx normal. Neck: Supple, no adenopathy; thyroid symmetric, normal size, no bruits. Back: good flexion and extension, good range of motion, no muscle tenderness, motor and sensory appear to be normal, no evidence of scoliosis. Lungs: Lungs clear to auscultation. No wheezing, rhonchi, rales. Heart: RRR without murmur, gallop, or rubs. No ectopy. Abdomen: Normal abdominal exam, Abdomen soft, non-tender. Bowel sounds normal. No masses, organomegaly. Extremities: No deformities, edema, skin discoloration, clubbing or cyanosis. . IMPRESSION: This patient has right upper quadrant discomfort, acid reflux with dysphagia and altered bowel habits. She will need evaluation of her stomach colon and gallbladder PLAN: HIDA scan with calculated ejection fraction and ultrasound EGD Colonoscopy Return to the office thereafter This note was partially generated using Hitch voice recognition system, and there may be some incorrect words, spellings, and punctuation that were not noted in checking the note before saving. Eitan Wen MD CNOV Observed: 01/03/2018 Status: COMPLETED Source: [place] 9:40 AM [facility] REPOSITORY Office Visit (GASTTW) NGOC COTA ([id number]) 1950 F Date Time Provider Department 01/03/18 9:40 AM EITAN WENW During your visit today, we recorded the following information about you: Pulse Blood pressure Weight Height 72/minute 140/51 83.3 kg 1.56 m Eitan Wen MD 01/03/2018 11:09 AM Signed CC: Right upper quadrant pain, acid reflux and dysphagia and altered bowel habits HPI: Ngoc Cota is a 67 year old female. 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 She had a gallbladder evaluation with ultrasound and HIDA scan. That evaluation, however, was about 15 years ago and needs to be repeated The patient also notices alternating diarrhea and constipation there is lower abdominal cramping. Finally the patient has a history of acid reflux and is currently experiencing dysphagia/choking. She points to her upper esophagus but it is well-known fact that localization of dysphagia in the esophagus is not very good. PAST MEDICAL HISTORY Diagnosis Date - Anatomical narrow angle borderline glaucoma - Bundle branch block, unspecified 01/12 LBBB - Coronary artery disease involving [place] coronary artery of [place] heart without angina pectoris 2014 Dr. Phillips - DDD (degenerative disc disease), lumbar - Disorder of bone and cartilage, unspecified - Diverticulosis of colon (without mention of hemorrhage) - GERD (gastroesophageal reflux disease) - Irritable bowel syndrome - Lichen Sclerosus et Atrophicus of the Vulva 03/16/2009 - Lumbar radiculopathy - Other combinations of endocrine dysfunction - Plantar fascial fibromatosis - Primary localized osteoarthrosis, lower leg - Right knee DJD - Right sided sciatica - S/P coronary artery stent placement 2014 LAD PAST SURGICAL HISTORY Procedure Laterality Date - CARDIAC CATH 06/2014 stent - COLONOSCOP W/ OR W/O [facility] SPEC 03/20/2011 Colonoscopy - CORRECT BUNION,SIMPLE 1999 Bunion both- left was nonunion - EGD W/O OR W/BRUSH/WASH 03/20/2011 EGD - EXCIS TENDON SHEATH LESN,HAND/FINGR Left 08/28/2017 Excision gangion cyst left index finger - KNEE SCOPE,DIAGNOSTIC prior to 2003 right knee X 3 - PART REMOVAL COLON W ANASTOMOSIS [id number] sigmoid resection - PAST SURGICAL HISTORY OF 1998 endochondroma right knee - PAST SURGICAL HISTORY OF 1998 laser both eyes for glaucoma - PAST SURGICAL HISTORY OF 1998 left plantar fasciotomy - PAST SURGICAL HISTORY OF 1982 hysterectomy with one ovary removed - PAST SURGICAL HISTORY OF 08/11/2013 Total Right Knee replacement - REMOVAL OF TONSILS,<12 Y/O Tonsillectomy - TOTAL KNEE REPLACEMENT 2003 Knee replacement, total right SOCIAL HX: Social History Substance Use Topics - Smoking status: Never Smoker - Smokeless tobacco: Never Used - Alcohol use No FAMILY HISTORY Problem Relation Age of Onset - Breast Cancer Mother also uterine cancer - Diabetes Mother - Heart Father ALLERGIES: ALLERGIES Allergen Reactions - Voltaren [Diclofena* Rash, Swelling, Shortness of Breath - Chlorhexidine Hives Hibicleanse - Cyclobenzaprine Hives Flexeril Blurred vision and nausea and vomiting - Lyrica [Pregabalin] Intolerance Fluid retention - Nsaids (Non-Steroid* GI Upset Ibuprofen, naproxen,etc - Orphenadrine Hives Norflex Nausea and vomiting and blurred vision - Piroxicam Hives Feldene Blurred vision and nausea and vomiting - Tape [Other] adhesive MEDICATIONS: LORazepam (ATIVAN) 1 mg tablet Take 1 tablet by mouth twice daily as needed for up to 180 days. losartan (COZAAR) 50 mg tablet Take 1 tablet by mouth once daily. gabapentin (NEURONTIN) 400 mg capsule Take 1 capsule by mouth daily at bedtime. CPAP Initiate Auto PAP @ 5-20 cm of water with humidification. Mask (per patient preference) optional chin strap (if indicated) , filters, tubing, humidifier and lifetime supplies. clobetasol (TEMOVATE) 0.05 % cream Apply to affected skin sparingly once daily as needed nystatin (NYSTOP) powder Apply 1 application to affected area four times daily. As directed metoprolol succinate ER (TOPROL XL) 25 mg 24 hr tablet Take 0.5 tablets by mouth once daily. simvastatin (ZOCOR) 20 mg tablet Take 1 tablet by mouth daily at bedtime. Diclofenac Sodium (VOLTAREN) 1 % gel Use 4 times a day as needed furosemide (LASIX) 20 mg tablet Take 1 tablet by mouth once daily. docusate sodium (COLACE) 100 mg capsule Take 1 capsule by mouth twice daily as needed for Constipation. oxyCODONE-acetaminophen (PERCOCET) 10-325 mg tablet Take 1 tablet by mouth every 8 hours as needed. aspirin, enteric coated (ECOTRIN LOW STRENGTH) 81 mg EC tablet Take 1 tablet by mouth once daily. therapeutic multivitamin ORAL tablet Take 1 tablet by mouth once daily. peg 3350-electrolytes (COLYTE) 240-22.72-6.72 -5.84 gram solution Take 4,000 mL by mouth one time only for 1 dose. Amoxicillin 500 mg tablet Take 4 tablets by mouth. 30 minutes prior to dental procedures. COMPOUNDED PRESCRIPTION Lab order: Hepatitis C antibody and reflex confirmation test (HCV RNA) if needed Z01.89 ACIPHEX 20 mg tablet Take 1 tablet by mouth twice daily. Do not substitute with generic (not effective) promethazine (PHENERGAN) 25 mg tablet Take 1 tablet by mouth every 6 hours as needed. bisacodyl EC (DULCOLAX) 5 mg EC tablet Take 1 tablet by mouth once daily as needed. ROS: All systems reviewed and negative except as above noted. PHYSICAL EXAM: VITALS: BP 140/51 Pulse 72 Ht 5' 1.417 (1.56m) Wt 183 lb 9.6 oz (83.3kg) BMI 34.22 kg/(m2). General Appearance: Well appearing, alert, in no acute distress, well-hydrated, well nourished.. Skin: Skin color, texture, turgor normal, no suspicious rashes or lesions. Eyes: Anicteric sclera. Pupils are equally round and reactive to light. Extraocular movements are intact. Nose/Sinuses: Nares normal, septum midline, mucosa normal, no drainage or sinus tenderness. Oropharynx: Lips, mucosa, and tongue normal, teeth and gingiva normal, oropharynx normal. Neck: Supple, no adenopathy; thyroid symmetric, normal size, no bruits. Back: good flexion and extension, good range of motion, no muscle tenderness, motor and sensory appear to be normal, no evidence of scoliosis. Lungs: Lungs clear to auscultation. No wheezing, rhonchi, rales. Heart: RRR without murmur, gallop, or rubs. No ectopy. Abdomen: Normal abdominal exam, Abdomen soft, non-tender. Bowel sounds normal. No masses, organomegaly. Extremities: No deformities, edema, skin discoloration, clubbing or cyanosis. . IMPRESSION: This patient has right upper quadrant discomfort, acid reflux with dysphagia and altered bowel habits. She will need evaluation of her stomach colon and gallbladder PLAN: HIDA scan with calculated ejection fraction and ultrasound EGD Colonoscopy Return to the office thereafter This note was partially generated using Hitch voice recognition system, and there may be some incorrect words, spellings, and punctuation that were not noted in checking the note before saving. Eitan Wen MD Referring Provider: SELF [200] Allergies As of Date: 01/03/2018 Noted Allergy Reaction VOLTAREN (DICLOFENAC SODIUM) 01/02/2010 2 - Rash 7 - Swelling 12 - Shortness of Breath CHLORHEXIDINE 08/26/2017 4 - Hives Comments: Hibicleanse CYCLOBENZAPRINE 09/10/2002 4 - Hives Comments: Flexeril Blurred vision and nausea and vomiting LYRICA (PREGABALIN) 03/17/2010 5 - Intolerance Comments: Fluid retention NSAIDS (NON-STEROIDAL ANTI-INFLAM*09/10/2002 8 - GI Upset Comments: Ibuprofen, naproxen,etc ORPHENADRINE 09/10/2002 4 - Hives Comments: Norflex Nausea and vomiting and blurred vision PIROXICAM 09/10/2002 4 - Hives Comments: Feldene Blurred vision and nausea and vomiting Tape [Other] 09/10/2002 Comments: adhesive Date Reviewed: 12/27/2017 Reviewed by: Christine Crenshaw MA - Fully Assessed Reason for Visit: Consult [502] Primary Visit Diagnosis:Altered bowel function [R19.4] Other Visit Diagnoses:Right upper quadrant pain [R10.11] Dysphagia, unspecified type [R13.10] Heartburn [R12] Order(s):US ABD RT UPPER QUADRANT [[id number]] Order #: [id number] FUTURE NM HEPATOBILIARY W EF AND/OR RX [[id number]] Order #: [id number] FUTURE COLONOSCOPY - DIAGNOSTIC [[id number]] Order #: [id number] FUTURE EGD [[id number]] Order #: [id number] FUTURE peg 3350-electrolytes (COLYTE) 240-22.72-6.72 -5.84 gram solutionTake 4,000 mL by mouth one time only for 1 dose.Disp: 1 BottleRfl: 0 Prescriptions as of 01/03/2018 Sig: LORAZEPAM 1 MG TABLET Take 1 tablet by mouth twice * LOSARTAN 50 MG TABLET Take 1 tablet by mouth once d* GABAPENTIN 400 MG CAPSULE Take 1 capsule by mouth daily* CPAP Initiate Auto PAP @ 5- 20 cm o* CLOBETASOL 0.05 % TOPICAL CRE* Apply to affected skin sparin* NYSTATIN 100,000 UNIT/GRAM TO* Apply 1 application to affect* METOPROLOL SUCCINATE ER 25 MG* Take 0.5 tablets by mouth onc* SIMVASTATIN 20 MG TABLET Take 1 tablet by mouth daily * DICLOFENAC 1 % TOPICAL GEL Use 4 times a day as needed FUROSEMIDE 20 MG TABLET Take 1 tablet by mouth once d* DOCUSATE SODIUM 100 MG CAPSULE Take 1 capsule by mouth twice* OXYCODONE-ACETAMINOPHEN 10 MG* Take 1 tablet by mouth every * ASPIRIN 81 MG TABLET,DELAYED * Take 1 tablet by mouth once d* THERAPEUTIC MULTIVITAMIN TABL* Take 1 tablet by mouth once d* PEG 3350 240 GRAM-ELECTROLYTE* Take 4,000 mL by mouth one ti* AMOXICILLIN 500 MG TABLET Take 4 tablets by mouth. 30 m* COMPOUNDED PRESCRIPTION Lab order: Hepatitis C antib* ACIPHEX 20 MG TABLET,DELAYED * Take 1 tablet by mouth twice * PROMETHAZINE 25 MG TABLET Take 1 tablet by mouth every * Patient not taking: Reported on 01/03/2018 BISACODYL 5 MG TABLET,DELAYED* Take 1 tablet by mouth once d* Problem List As Of Date 01/03/2018 Noted Resolved INGROWING NAIL [L60.0] INVALID FOR* MALFUN PAYMENT COLLECTOR ORTHO DEVICE/ GRAFT NOS [S54.392U]INVALID FOR* Bundle branch block [I45.4] INVALID FOR* PAIN IN LIMB [M79.609] INVALID FOR* OTHER HAMMER TOE [M20.40] INVALID FOR* ENTHESOPATHY, SITE NOS [M77.9] INVALID FOR* GERD (Gastroesophageal Reflux Disease) [K21.9] Right Sided Sciatica [M54.31] Lichen Sclerosus et Atrophicus of the Vulva [N9*INVALID FOR* Porokeratosis [Q82.8] INVALID FOR* Calcaneal Spur [M77.30] INVALID FOR* Plantar fascial fibromatosis [M72.2] INVALID FOR* Hyperlipidemia [E78.5] INVALID FOR* Lumbar radiculopathy [M54.16] INVALID FOR* More... Degenerative joint disease of knee, right [M17.*INVALID FOR* More... Acute gastritis without mention of hemorrhage [*INVALID FOR* Anxiety [F41.9] INVALID FOR* Coronary artery disease involving [place] vann*INVALID FOR* More... Class 2 obesity due to excess calories with bod*INVALID FOR* Essential hypertension [I10] INVALID FOR* ARPAN (obstructive sleep apnea) [G47.33] INVALID FOR* Digital mucous cyst of finger of left hand [M67*INVALID FOR* More... Prescriptions ordered this encounter Disp Refills Start End PEG 3350 240 GRAM-ELECTROLYTES 22.72* 1 Ron* 0 01/03/2018 01/03/2018 Route: ORAL Sig: Take 4,000 mL by mouth one time only for 1 dose. Encounter Status:Closed by EITAN WEN MD on 01/03/18 PROGRESS Observed: 12/27/2017 Status: COMPLETED Source: [place] 8:56 AM [facility] REPOSITORY HNO ID: [id number] Author: Christine Crenshaw MA Service: (none) Author Type: (none) Type: Progress Notes Filed: 12/27/2017 9:01 AM Note Text: Patient provided with powerstep comfort max and silcone toe cap for R 4th toe , size 7/8, and instructed/educated in its application, wear, and care. All questions were answered, and patient was able to demonstrate competence with the necessary skills to utilize the above equipment. Christine Crenshaw MA PROGRESS Observed: 12/27/2017 Status: COMPLETED Source: [place] 8:31 AM [facility] REPOSITORY HNO ID: [id number] Author: Jodee Ruiz Service: (none) Author Type: Physician Type: Progress Notes Filed: 12/27/2017 9:01 AM Note Text: Consultation requested by Dr. Vazquez for an opinion regarding b/l foot pain. My final recommendations will be communicated back to the requesting physician by way of shared Medical record or letter to requesting physician via US mail. Initial Podiatric Office Visit: Chief Complaint: This 67 year old female who presents with chief complaint:painful callus of b/l feet HPI Patient presents to clinic for evaluation of b/l foot She complains of painful callus to b/l 4th toe. She states that she will often get callus to toes and she trims them herself. She is here to discuss options. She also complains of painful ingrowing toenail of right hallux. She has this debrided with scheduled pedicure which does help. She has no other complaints. PAIN EVALUATION 12/27/2017 Pain Score: 3 Pain Location: Foot-Right b/l feet Description: Aching;Burning;Sore;Tingling Duration Amount of Time: 1 Duration Units: Months Frequency: Intermittent Intervention: Medication No results found for: HBA1C PCP: Christina Vazquez MD PAST MEDICAL HISTORY Diagnosis Date - Anatomical narrow angle borderline glaucoma - Bundle branch block, unspecified 01/12 LBBB - Coronary artery disease involving [place] coronary artery of [place] heart without angina pectoris 2014 Dr. Phillips - DDD (degenerative disc disease), lumbar - Disorder of bone and cartilage, unspecified - Diverticulosis of colon (without mention of hemorrhage) - GERD (gastroesophageal reflux disease) - Irritable bowel syndrome - Lichen Sclerosus et Atrophicus of the Vulva 03/16/2009 - Lumbar radiculopathy - Other combinations of endocrine dysfunction - Plantar fascial fibromatosis - Primary localized osteoarthrosis, lower leg - Right knee DJD - Right sided sciatica - S/P coronary artery stent placement 2015 [facility] Current Outpatient Prescriptions: LORazepam (ATIVAN) 1 mg tablet Take 1 tablet by mouth twice daily as needed for up to 180 days. losartan (COZAAR) 50 mg tablet Take 1 tablet by mouth once daily. gabapentin (NEURONTIN) 400 mg capsule Take 1 capsule by mouth daily at bedtime. Amoxicillin 500 mg tablet Take 4 tablets by mouth. 30 minutes prior to dental procedures. CPAP Initiate Auto PAP @ 5-20 cm of water with humidification. Mask (per patient preference) optional chin strap (if indicated) , filters, tubing, humidifier and lifetime supplies. COMPOUNDED PRESCRIPTION Lab order: Hepatitis C antibody and reflex confirmation test (HCV RNA) if needed Z01.89 ACIPHEX 20 mg tablet Take 1 tablet by mouth twice daily. Do not substitute with generic (not effective) promethazine (PHENERGAN) 25 mg tablet Take 1 tablet by mouth every 6 hours as needed. clobetasol (TEMOVATE) 0.05 % cream Apply to affected skin sparingly once daily as needed nystatin (NYSTOP) powder Apply 1 application to affected area four times daily. As directed metoprolol succinate ER (TOPROL XL) 25 mg 24 hr tablet Take 0.5 tablets by mouth once daily. simvastatin (ZOCOR) 20 mg tablet Take 1 tablet by mouth daily at bedtime. Diclofenac Sodium (VOLTAREN) 1 % gel Use 4 times a day as needed furosemide (LASIX) 20 mg tablet Take 1 tablet by mouth once daily. docusate sodium (COLACE) 100 mg capsule Take 1 capsule by mouth twice daily as needed for Constipation. bisacodyl EC (DULCOLAX) 5 mg EC tablet Take 1 tablet by mouth once daily as needed. oxyCODONE-acetaminophen (PERCOCET) 10-325 mg tablet Take 1 tablet by mouth every 8 hours as needed. aspirin, enteric coated (ECOTRIN LOW STRENGTH) 81 mg EC tablet Take 1 tablet by mouth once daily. therapeutic multivitamin ORAL tablet Take 1 tablet by mouth once daily. No current facility-administered medications for this visit. ALLERGIES Allergen Reactions - Voltaren [Diclofena* Rash, Swelling, Shortness of Breath - Chlorhexidine Hives Hibicleanse - Cyclobenzaprine Hives Flexeril Blurred vision and nausea and vomiting - Lyrica [Pregabalin] Intolerance Fluid retention - Nsaids (Non-Steroid* GI Upset Ibuprofen, naproxen,etc - Orphenadrine Hives Norflex Nausea and vomiting and blurred vision - Piroxicam Hives Feldene Blurred vision and nausea and vomiting - Tape [Other] adhesive PAST SURGICAL HISTORY Procedure Laterality Date - CARDIAC CATH 06/2014 stent - COLONOSCOP W/ OR W/O [facility] SPEC 03/20/2011 Colonoscopy - CORRECT BUNION,SIMPLE 2000 Bunion both- left was nonunion - EGD W/O OR W/BRUSH/WASH 03/20/2011 EGD - EXCIS TENDON SHEATH LESN,HAND/FINGR Left 08/28/2017 Excision gangion cyst left index finger - KNEE SCOPE,DIAGNOSTIC prior to 2003 right knee X 3 - PART REMOVAL COLON W ANASTOMOSIS [id number] sigmoid resection - PAST SURGICAL HISTORY OF 1998 endochondroma right knee - PAST SURGICAL HISTORY OF 1998 laser both eyes for glaucoma - PAST SURGICAL HISTORY OF 1998 left plantar fasciotomy - PAST SURGICAL HISTORY OF 1982 hysterectomy with one ovary removed - PAST SURGICAL HISTORY OF 08/11/2013 Total Right Knee replacement - REMOVAL OF TONSILS,<12 Y/O Tonsillectomy - TOTAL KNEE REPLACEMENT 2003 Knee replacement, total right FAMILY HISTORY Problem Relation Age of Onset - Breast Cancer Mother also uterine cancer - Diabetes Mother - Heart Father Social History Marital status: Spouse name: Years of education: Number of children: Social History Main Topics Smoking status: Never Smoker Smokeless tobacco: Never Used Alcohol use: No Drug use: No REVIEW OF SYSTEMS GENERAL: Negative for Malaise, significant weight loss, fever RESPIRATORY: Negative for cough, wheezing and shortness of breath CARDIOVASCULAR: Negative for chest pain, leg swelling and palpitations GI: Negative for abdominal discomfort, blood in stools or black stools and change in bowel habits : Negative for dysuria, frequency and incontinence MUSCULOSKELETAL: Negative for joint pain or swelling, back pain, and muscle pain. SKIN: Negative for lesions, rash, and itching. HEMATOLOGY/LYMPHOLOGY Negative for prolonged bleeding, bruising easily, and swollen nodes. ENDOCRINE: Negative for cold or heat intolerance, polyuria, polydipsia and goiter. NEURO: negative Physical Exam: Constitutional: Pt is a well developed 67 year old female who is alert, oriented and cooperative Eyes: Following during examination. No redness or drainage. Respiratory: RR normal and nonlabored. Even breathing. No evidence of distress or shortness of breath. Psychology: Patient is engaged during conversation. Normal affect and mood. Does not appear depressed or anxious during encounter. Vascular: Dorsalis pedis and posterior tibial pulses palpable as b/l Capillary Fill time < 5 seconds to digits 1-5 b/l Skin temperature warm to warm proximal to distal b/l Hair growth present to digits Neurological: intact light touch/epicritic sensation Vibratory sensation decreased b/l intact protective sensation no significant neurological deficits Dermatological: B/l hallux lateral border is slightly ingrowing. No signs of infection. No pain today. Webspaces clean and dry 1-4 b/l. Skin appears well hydrated and supple. good color, texture, turgor. No open lesions present. Callus present to left 4th and 5th metatarsal heads and right 4th toe. There is atrophy of fat pad b/l Musculoskeletal/Orthopaedic: Patient has pain to palpation of right 4th toe Foot type is neutral structurally AJ ROM is full with knee extended and flexed 1st MPJ is full when loaded and no pain or crepitus are noted with ROM. MTJ, STJ are full and free of pain and crepitus. +5/5 muscle strength dorsiflexion, plantarflexion, inversion, eversion b/l Radiographs: 3 views b/l foot ordered December 27, 2017: I have personally reviewed and interpreted these XR myself: No acute findings noted. There is exostosis present to right 4th toe ASSESSMENT: (M89.8X9) Exostosis (primary encounter diagnosis) (L85.9) Hyperkeratosis (L60.0) Ingrowing toenail PLAN: 1. History and physical examination performed. 2. XR reviewed with patient and interpreted today 3. Discussed pain of right 4th toe. She has bony exostosis of middle phalanx. This is likely source of pain. Recommend gel spacer and/or use of lambs wool. If pain persists, exostectomy vs hammertoe correction is possible. 4. Discussed callus of left foot. This was debrided today as courtesy. Recommend gel powersteps. Due to atrophy of fat pad, she is susceptible to callus formation. I suspect the inserts will help her. 5. Discussed ingrowing toenail of b/l hallux. She could consider matrixectomy of lateral nail border. She will consider. 6. F/u prn. ARACELI Banegas Observed: 12/27/2017 Status: COMPLETED Source: [place] 8:25 AM [facility] REPOSITORY Office Visit (PODIWS) [facility] COTA ([id number]) 1950 F Date Time Provider Department 10/19/18 8:25 AM JODEE RUIZ During your visit today, we recorded the following information about you: Christine Crenshaw MA 12/27/2017 9:01 AM Signed AMB ROOMING INTAKE FLOWSHEET DATA Risk Screening Do you have concerns about personal safety or safety in the home?: No Pain Pain Score: 3/10 Pain Location: Foot-Right (b/l feet) Description: Aching, Burning, Sore, Tingling Duration Amount of Time: 1 Duration Units: Months Frequency: Intermittent Intervention: Medication Patient is here for Bilateral foot pain. R foot 4 th toe rubs on her shoe and has caused a callus whichs has a burning, stinging pain pain 4/10. Big toe R foot tingling feeling pain 4/10. Patient states she will soak her feet in very warm water which helps. Patient takes percocet 2 x daily for pain. Patient applies lotion to b/l feet. Patient is not a smoker nor a diabetic. XR 12/27 Jodee Ruiz DPM 12/27/2017 9:01 AM Signed Consultation requested by Dr. Vazquez for an opinion regarding b/l foot pain. My final recommendations will be communicated back to the requesting physician by way of shared Medical record or letter to requesting physician via US mail. Initial Podiatric Office Visit: Chief Complaint: This 67 year old female who presents with chief complaint:painful callus of b/l feet HPI Patient presents to clinic for evaluation of b/l foot She complains of painful callus to b/l 4th toe. She states that she will often get callus to toes and she trims them herself. She is here to discuss options. She also complains of painful ingrowing toenail of right hallux. She has this debrided with scheduled pedicure which does help. She has no other complaints. PAIN EVALUATION 12/27/2017 Pain Score: 3 Pain Location: Foot-Right b/l feet Description: Aching;Burning;Sore;Tingling Duration Amount of Time: 1 Duration Units: Months Frequency: Intermittent Intervention: Medication No results found for: HBA1C PCP: Christina Vazquez MD PAST MEDICAL HISTORY Diagnosis Date - Anatomical narrow angle borderline glaucoma - Bundle branch block, unspecified 01/12 LBBB - Coronary artery disease involving [place] coronary artery of [place] heart without angina pectoris 2014 Dr. Phillips - DDD (degenerative disc disease), lumbar - Disorder of bone and cartilage, unspecified - Diverticulosis of colon (without mention of hemorrhage) - GERD (gastroesophageal reflux disease) - Irritable bowel syndrome - Lichen Sclerosus et Atrophicus of the Vulva 03/16/2009 - Lumbar radiculopathy - Other combinations of endocrine dysfunction - Plantar fascial fibromatosis - Primary localized osteoarthrosis, lower leg - Right knee DJD - Right sided sciatica - S/P coronary artery stent placement 2014 [facility] Current Outpatient Prescriptions: LORazepam (ATIVAN) 1 mg tablet Take 1 tablet by mouth twice daily as needed for up to 180 days. losartan (COZAAR) 50 mg tablet Take 1 tablet by mouth once daily. gabapentin (NEURONTIN) 400 mg capsule Take 1 capsule by mouth daily at bedtime. Amoxicillin 500 mg tablet Take 4 tablets by mouth. 30 minutes prior to dental procedures. CPAP Initiate Auto PAP @ 5-20 cm of water with humidification. Mask (per patient preference) optional chin strap (if indicated) , filters, tubing, humidifier and lifetime supplies. COMPOUNDED PRESCRIPTION Lab order: Hepatitis C antibody and reflex confirmation test (HCV RNA) if needed Z01.89 ACIPHEX 20 mg tablet Take 1 tablet by mouth twice daily. Do not substitute with generic (not effective) promethazine (PHENERGAN) 25 mg tablet Take 1 tablet by mouth every 6 hours as needed. clobetasol (TEMOVATE) 0.05 % cream Apply to affected skin sparingly once daily as needed nystatin (NYSTOP) powder Apply 1 application to affected area four times daily. As directed metoprolol succinate ER (TOPROL XL) 25 mg 24 hr tablet Take 0.5 tablets by mouth once daily. simvastatin (ZOCOR) 20 mg tablet Take 1 tablet by mouth daily at bedtime. Diclofenac Sodium (VOLTAREN) 1 % gel Use 4 times a day as needed furosemide (LASIX) 20 mg tablet Take 1 tablet by mouth once daily. docusate sodium (COLACE) 100 mg capsule Take 1 capsule by mouth twice daily as needed for Constipation. bisacodyl EC (DULCOLAX) 5 mg EC tablet Take 1 tablet by mouth once daily as needed. oxyCODONE-acetaminophen (PERCOCET) 10-325 mg tablet Take 1 tablet by mouth every 8 hours as needed. aspirin, enteric coated (ECOTRIN LOW STRENGTH) 81 mg EC tablet Take 1 tablet by mouth once daily. therapeutic multivitamin ORAL tablet Take 1 tablet by mouth once daily. No current facility-administered medications for this visit. ALLERGIES Allergen Reactions - Voltaren [Diclofena* Rash, Swelling, Shortness of Breath - Chlorhexidine Hives Hibicleanse - Cyclobenzaprine Hives Flexeril Blurred vision and nausea and vomiting - Lyrica [Pregabalin] Intolerance Fluid retention - Nsaids (Non-Steroid* GI Upset Ibuprofen, naproxen,etc - Orphenadrine Hives Norflex Nausea and vomiting and blurred vision - Piroxicam Hives Feldene Blurred vision and nausea and vomiting - Tape [Other] adhesive PAST SURGICAL HISTORY Procedure Laterality Date - CARDIAC CATH 06/2014 stent - COLONOSCOP W/ OR W/O [facility] SPEC 03/20/2011 Colonoscopy - CORRECT BUNION,SIMPLE 2000 Bunion both- left was nonunion - EGD W/O OR W/BRUSH/WASH 03/20/2011 EGD - EXCIS TENDON SHEATH LESN,HAND/FINGR Left 08/28/2017 Excision gangion cyst left index finger - KNEE SCOPE,DIAGNOSTIC prior to 2003 right knee X 3 - PART REMOVAL COLON W ANASTOMOSIS [id number] sigmoid resection - PAST SURGICAL HISTORY OF 1998 endochondroma right knee - PAST SURGICAL HISTORY OF 1998 laser both eyes for glaucoma - PAST SURGICAL HISTORY OF 1998 left plantar fasciotomy - PAST SURGICAL HISTORY OF 1982 hysterectomy with one ovary removed - PAST SURGICAL HISTORY OF 08/11/2013 Total Right Knee replacement - REMOVAL OF TONSILS,<12 Y/O Tonsillectomy - TOTAL KNEE REPLACEMENT 2003 Knee replacement, total right FAMILY HISTORY Problem Relation Age of Onset - Breast Cancer Mother also uterine cancer - Diabetes Mother - Heart Father Social History Marital status: Spouse name: Years of education: Number of children: Social History Main Topics Smoking status: Never Smoker Smokeless tobacco: Never Used Alcohol use: No Drug use: No REVIEW OF SYSTEMS GENERAL: Negative for Malaise, significant weight loss, fever RESPIRATORY: Negative for cough, wheezing and shortness of breath CARDIOVASCULAR: Negative for chest pain, leg swelling and palpitations GI: Negative for abdominal discomfort, blood in stools or black stools and change in bowel habits : Negative for dysuria, frequency and incontinence MUSCULOSKELETAL: Negative for joint pain or swelling, back pain, and muscle pain. SKIN: Negative for lesions, rash, and itching. HEMATOLOGY/LYMPHOLOGY Negative for prolonged bleeding, bruising easily, and swollen nodes. ENDOCRINE: Negative for cold or heat intolerance, polyuria, polydipsia and goiter. NEURO: negative Physical Exam: Constitutional: Pt is a well developed 67 year old female who is alert, oriented and cooperative Eyes: Following during examination. No redness or drainage. Respiratory: RR normal and nonlabored. Even breathing. No evidence of distress or shortness of breath. Psychology: Patient is engaged during conversation. Normal affect and mood. Does not appear depressed or anxious during encounter. Vascular: Dorsalis pedis and posterior tibial pulses palpable as b/l Capillary Fill time < 5 seconds to digits 1-5 b/l Skin temperature warm to warm proximal to distal b/l Hair growth present to digits Neurological: intact light touch/epicritic sensation Vibratory sensation decreased b/l intact protective sensation no significant neurological deficits Dermatological: B/l hallux lateral border is slightly ingrowing. No signs of infection. No pain today. Webspaces clean and dry 1-4 b/l. Skin appears well hydrated and supple. good color, texture, turgor. No open lesions present. Callus present to left 4th and 5th metatarsal heads and right 4th toe. There is atrophy of fat pad b/l Musculoskeletal/Orthopaedic: Patient has pain to palpation of right 4th toe Foot type is neutral structurally AJ ROM is full with knee extended and flexed 1st MPJ is full when loaded and no pain or crepitus are noted with ROM. MTJ, STJ are full and free of pain and crepitus. +5/5 muscle strength dorsiflexion, plantarflexion, inversion, eversion b/l Radiographs: 3 views b/l foot ordered December 27, 2017: I have personally reviewed and interpreted these XR myself: No acute findings noted. There is exostosis present to right 4th toe ASSESSMENT: (M89.8X9) Exostosis (primary encounter diagnosis) (L85.9) Hyperkeratosis (L60.0) Ingrowing toenail PLAN: 1. History and physical examination performed. 2. XR reviewed with patient and interpreted today 3. Discussed pain of right 4th toe. She has bony exostosis of middle phalanx. This is likely source of pain. Recommend gel spacer and/or use of lambs wool. If pain persists, exostectomy vs hammertoe correction is possible. 4. Discussed callus of left foot. This was debrided today as courtesy. Recommend gel powersteps. Due to atrophy of fat pad, she is susceptible to callus formation. I suspect the inserts will help her. 5. Discussed ingrowing toenail of b/l hallux. She could consider matrixectomy of lateral nail border. She will consider. 6. F/u prn. ARACELI Banegas Ma 12/27/2017 8:51 AM Signed When calling back to schedule for ingrown toenail, please call [phone] and ask for podiatry and a nurse. Christine Crenshaw MA 12/27/2017 9:01 AM Signed Patient provided with powerstep comfort max and silcone toe cap for R 4th toe , size 7/8, and instructed/educated in its application, wear, and care. All questions were answered, and patient was able to demonstrate competence with the necessary skills to utilize the above equipment. Christine Crenshaw MA Referring Provider: SELF [[id number]] Allergies As of Date: 12/27/2017 Noted Allergy Reaction VOLTAREN (DICLOFENAC SODIUM) 01/02/2010 2 - Rash 7 - Swelling 12 - Shortness of Breath CHLORHEXIDINE 08/26/2017 4 - Hives Comments: Hibicleanse CYCLOBENZAPRINE 09/10/2002 4 - Hives Comments: Flexeril Blurred vision and nausea and vomiting LYRICA (PREGABALIN) 03/17/2010 5 - Intolerance Comments: Fluid retention NSAIDS (NON-STEROIDAL ANTI-INFLAM*09/10/2002 8 - GI Upset Comments: Ibuprofen, naproxen,etc ORPHENADRINE 09/10/2002 4 - Hives Comments: Norflex Nausea and vomiting and blurred vision PIROXICAM 09/10/2002 4 - Hives Comments: Feldene Blurred vision and nausea and vomiting Tape [Other] 09/10/2002 Comments: adhesive Date Reviewed: 12/27/2017 Reviewed by: Christine Crenshaw MA - Fully Assessed Reason for Visit: New Patient [172] Primary Visit Diagnosis:Exostosis [M89.8X9] Other Visit Diagnoses:Hyperkeratosis [L85.9] Ingrowing toenail [L60.0] Prescriptions as of 12/27/2017 Sig: LORAZEPAM 1 MG TABLET Take 1 tablet by mouth twice * LOSARTAN 50 MG TABLET Take 1 tablet by mouth once d* GABAPENTIN 400 MG CAPSULE Take 1 capsule by mouth daily* AMOXICILLIN 500 MG TABLET Take 4 tablets by mouth. 30 m* CPAP Initiate Auto PAP @ 5- 20 cm o* COMPOUNDED PRESCRIPTION Lab order: Hepatitis C antib* ACIPHEX 20 MG TABLET,DELAYED * Take 1 tablet by mouth twice * PROMETHAZINE 25 MG TABLET Take 1 tablet by mouth every * CLOBETASOL 0.05 % TOPICAL CRE* Apply to affected skin sparin* NYSTATIN 100,000 UNIT/GRAM TO* Apply 1 application to affect* METOPROLOL SUCCINATE ER 25 MG* Take 0.5 tablets by mouth onc* SIMVASTATIN 20 MG TABLET Take 1 tablet by mouth daily * DICLOFENAC 1 % TOPICAL GEL Use 4 times a day as needed FUROSEMIDE 20 MG TABLET Take 1 tablet by mouth once d* DOCUSATE SODIUM 100 MG CAPSULE Take 1 capsule by mouth twice* BISACODYL 5 MG TABLET,DELAYED* Take 1 tablet by mouth once d* OXYCODONE-ACETAMINOPHEN 10 MG* Take 1 tablet by mouth every * ASPIRIN 81 MG TABLET,DELAYED * Take 1 tablet by mouth once d* THERAPEUTIC MULTIVITAMIN TABL* Take 1 tablet by mouth once d* Problem List As Of Date 12/27/2017 Noted Resolved INGROWING NAIL [L60.0] INVALID FOR* MALFUN PAYMENT COLLECTOR ORTHO DEVICE/ GRAFT NOS [E38.160J]INVALID FOR* Bundle branch block [I45.4] INVALID FOR* PAIN IN LIMB [M79.609] INVALID FOR* OTHER HAMMER TOE [M20.40] INVALID FOR* ENTHESOPATHY, SITE NOS [M77.9] INVALID FOR* GERD (Gastroesophageal Reflux Disease) [K21.9] Right Sided Sciatica [M54.31] Lichen Sclerosus et Atrophicus of the Vulva [N9*INVALID FOR* Porokeratosis [Q82.8] INVALID FOR* Calcaneal Spur [M77.30] INVALID FOR* Plantar fascial fibromatosis [M72.2] INVALID FOR* Hyperlipidemia [E78.5] INVALID FOR* Lumbar radiculopathy [M54.16] INVALID FOR* More... Degenerative joint disease of knee, right [M17.*INVALID FOR* More... Acute gastritis without mention of hemorrhage [*INVALID FOR* Anxiety [F41.9] INVALID FOR* Coronary artery disease involving [place] vann*INVALID FOR* More... Class 2 obesity due to excess calories with bod*INVALID FOR* Essential hypertension [I10] INVALID FOR* ARPAN (obstructive sleep apnea) [G47.33] INVALID FOR* Digital mucous cyst of finger of left hand [M67*INVALID FOR* More... Other instructions from your clinician: When calling back to schedule for ingrown toenail, please call [phone] and ask for podiatry and a nurse. Encounter Status:Closed by JODEE RUIZ DPM on 12/27/17 PROGRESS Observed: 12/27/2017 Status: COMPLETED Source: [place] 8:13 AM [facility] REPOSITORY HNO ID: [id number] Author: Christine Crenshaw MA Service: (none) Author Type: (none) Type: Progress Notes Filed: 12/27/2017 9:01 AM Note Text: AMB ROOMING INTAKE FLOWSHEET DATA Risk Screening Do you have concerns about personal safety or safety in the home?: No Pain Pain Score: 3/10 Pain Location: Foot-Right (b/l feet) Description: Aching, Burning, Sore, Tingling Duration Amount of Time: 1 Duration Units: Months Frequency: Intermittent Intervention: Medication Patient is here for Bilateral foot pain. R foot 4 th toe rubs on her shoe and has caused a callus whichs has a burning, stinging pain pain 4/10. Big toe R foot tingling feeling pain 4/10. Patient states she will soak her feet in very warm water which helps. Patient takes percocet 2 x daily for pain. Patient applies lotion to b/l feet. Patient is not a smoker nor a diabetic. XR 12/27 PROGRESS Observed: 12/27/2017 Status: COMPLETED Source: [place] 8:11 AM [facility] REPOSITORY HNO ID: [id number] Author: Lori DanielsRt) Stefany Guerra Service: (none) Author Type: Partner Integration Planner Type: Progress Notes Filed: 12/27/2017 8:11 AM Note Text: Radiology Service Progress Note PATIENT NAME: Ngoc Cota DATE OF SERVICE: December 27, 2017 TIME: 8:11 AM PATIENT IDENTITY VERIFICATION COMPLETED USING TWO (2) METHODS: Patient confirmed name verbally and Date of . PATIENT GENDER DATA: Female. status: : No status: NO. PATIENT RELEVANT IMPLANT DATA REVIEWED: Not Applicable RADIOLOGY DEPARTMENT: General X-ray: Exam(s) Completed: Lower Extremity X-Ray(s): Feet, Bilateral and Wt. Bearing: PERIPHERAL IV DATA: Not applicable SIGNED BY: RT Sharron December 27, 2017 8:11 AM XR FOOT 3V AP/LAT/OBL Observed: 12/27/2017 Status: F Source: [place] D[place] 8:09 AM [facility] REPOSITORY * * *Final Report* * * DATE OF EXAM: Dec 27 2017 8:09AM [id number] [id number] - XR FOOT 3V AP/LAT/OBL DAND[place] / PROCEDURE REASON: Pain * * * * Physician Interpretation * * * * HISTORY: 67-YEAR-OLD FEMALE WITH Pain . one month history of pain in the right foot 4th digit, no injury, planter fascitis pain in the left foot, on going. TECHNIQUE: XR FOOT 3V AP/LAT/OBL DANDY Laterality: BILATERAL Number of different views (projections): 3 each COMPARISON: Left foot done on 02/28/2011 RESULT: Right foot: Status post bunionectomy with distal first metatarsal osteotomy healed. Narrowing the first MTP joint with osteophytes. Narrowing of interphalangeal joints. Status post distal fifth metatarsal osteotomy for bunionette repair. Narrowing of the first through third tarsometatarsal joints. There is linear calcification of distal Achilles tendon consistent with remote injury. Left foot: Status post bunionectomy. Osteophytes at the first MTP joint. Narrowing of interphalangeal joints of the digits except for the great toe. Remote healed osteotomy of the distal fifth metatarsal for bunionectomy and repair. Narrowing of the first through third tarsometatarsal joints. Calcaneal enthesophyte insertion of Achilles tendon. 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 IMPRESSION: STATUS POST BILATERAL BUNIONECTOMY, BILATERAL CORRECTION OF BUNIONETTE AND BILATERAL MIDFOOT DEGENERATIVE CHANGE. ON THE RIGHT THERE IS EVIDENCE FOR REMOTE INJURY TO THE ACHILLES TENDON. Production Quality Manager: CHERYL Transcribe Date/Time: Dec 27 2017 4:15P Dictated by : ROSEANN ISAAC MD This examination was interpreted and the report reviewed and electronically signed by: ROSEANN ISAAC MD on Dec 27 2017 4:19PM EST [id number] OPERATIVE REPORT Observed: 12/23/2017 Status: F Source: [place] 8:[address] [facility] REPOSITORY [facility] Medical Records Department [address] [place] [address] Operative Report 12/23/17 0850 MR#: [id number] Acct: [id number] Name: NGOC COTA Rep #: [id number] : 1950 67 From: Bautista Mendez MD PCP: Christina Vazquez MD Status: REG SDC Y Location: [place] [address] Problem List (1) DDD (degenerative disc disease), lumbosacral Status: Chronic (2) Lumbar facet arthropathy Status: Chronic (3) Lumbosacral spondylosis Status: Chronic Report of Operation Date of Procedure: 12/23/17 Pre-Operative Diagnosis: Lumbosacral spondylosis, lumbosacral degenerative disc disease, lumbar facet arthropathy Post-Operative Diagnosis: Lumbosacral spondylosis, lumbosacral degenerative disc disease, lumbar facet arthropathy Surgery/Procedure Performed:: Right-sided lumbar radiofrequency ablation of the medial branch at L3, L4, L5, S1 Description of Surgical Findings:: PROCEDURE: Right-sided lumbar radiofrequency ablation of the medial branch L3, L4, L5, S1 PREOPERATIVE DIAGNOSES: Lumbosacral spondylosis, lumbosacral degenerative disc disease, lumbar facet arthropathy POSTOPERATIVE DIAGNOSES: Lumbosacral spondylosis, lumbosacral degenerative disc disease, lumbar facet arthropathy ANESTHESIA: MAC COMPLICATIONS: None BLOOD LOSS: Minimal PROCEDURE IN DETAIL: History and physical today was reviewed. Risks and benefits of procedure explained. The patient understood, agreed to the procedure and informed consent was obtained. IV inserted per routine protocol. The patient was taken to the operating room, placed in the prone position with a pillow positioned underneath the abdomen. The right side of the lower back was prepped and draped in a sterile fashion using iodine x 3. Under fluoroscopy guidance, on an oblique view, the L3 through S1 vertebral bodies were visualized. The skin and subcutaneous tissue was anesthetized with approximately 10 mL of 1% lidocaine using a 25-gauge regular needle. Under direct visualization with fluoroscopy at approximately 25-degree angle, starting on the right L3, ending on the right S1 passing through the L4-L5 using a 20-gauge 15 cm with a 10 mm curved active tip radiofrequency ablation needle the needle passed through the skin. The tip of the needle was maneuvered and directed towards the superior and medial gutter of the transverse process at the vicinity of the medial branch. Once the tip of the needle was in contact with the bone, the needle pulled approximately 2 mm up the bone. The stylet of each needle was then removed. After negative aspiration of blood with CSF and confirmation of AP as well as oblique view, radiofrequency ablation probe was then inserted at each level. Impedance was then recorded at L3 to be 291, at L4 289, at L5 281, at S1 248 ohm. Motor-evoked potential was then initiated to 1.5 volt without any motor response at each corresponding level. The probe was then removed intact and a total of 6 mL preservative- free 1% lidocaine was injected in divided doses between those 4 levels after negative aspiration of blood with CSF. The radiofrequency ablation probe was then reinserted after confirmation of AP, oblique as well as lateral view. Radiofrequency ablation was then initiated to 80 degrees Celsius for 90 seconds at each level. Once concluded, the probe was then removed intact and a total of 6 mL of preservative-free 0.25% Marcaine with 40 mg Depo-Medrol was injected in divided doses between those 4 levels. The needles were then removed intact. The patient experienced no signs or symptoms of intrathecal, intravascular injection. The patient experienced no paraesthesia. The procedure was completed without any apparent difficulty, any complication. The patient appeared to tolerate well. Sensory as well as motor exam was unchanged from prior to procedure. ASSESSMENT AND PLAN: This is a 67-year-old female with lumbosacral spondylosis, lumbosacral degenerative disc disease, lumbar facet arthropathy, status post right-sided radiofrequency ablation of the medial branch L3 through S1. The patient will continue her current medications. The patient will follow up in approximately 2 weeks for reevaluation. 12/23/17 0853 <Electronically signed by Bautista Mendez MD> Date Bautista Mendez MD CC: Bautista Mendez; Christina Vazquez MD Signed LUMBAR SPINE 2 OR 3 Observed: 12/23/2017 Status: F Source: [place] VIEWS 3:[address] [facility] REPOSITORY [facility] Imaging Services [address] [place] [address] Lumbar Spine 2 or 3 Views MR#: [id number] Acct: [id number] Name: NGOC COTA Rep #: [id number] : 1950 F 67 From: Jayden Byrd MD PCP: Christina Vazquez MD Status: [facility] Study: Lumbar Spine 2 or 3 Views Date of Exam: 12/23/17 Exam# [id number] Ordering Dr: Bautista Mendez MD PROCEDURE: Right L3 S1 radiofrequency ablation. DATE OF EXAMINATION: December 23, 2017. INDICATION: Female, 67 years old. Chronic low back pain. FLUOROSCOPY TIME (if supplied): (0:52) minutes/seconds. 14 coned-down intraoperative views were obtained. Intraoperative imaging was provided for right L3 S1 radiofrequency ablation. RAD/Lumbar Spine 2 or 3 Views IMPRESSION: Intraoperative fluoroscopic services provided for right L3 S1 radiofrequency ablation. Electronically Signed: Jayden Byrd MD at 14:57 EDT Tel [phone], Service support , CC: Bautista Mendez; Christina Vazquez MD Production Quality Manager: Signed [employer], EMPLOYEE Collected: 11/14/2017 Status: F Source: [place] 7:[address] [facility] REPOSITORY TYPE CODE TESTS RESULT OUT OF RANGE REFERENCE UNITS LAB L100.1000 4.4-11.0 K/mm3 Normal WBC 5.7 LAB L100.1200 4.2-5.4 M/mm3 Low RBC 4.09 LAB L100.1300 12.0-15.0 g/dl Normal HGB 12.7 LAB L100.1400 37-47 % Normal HCT 40.4 LAB L100.1500 81-99 fL Normal MCV 98.8 LAB L100.1600 27.0-32.0 pg Normal MCH 31.1 LAB L100.1700 32-36 g/gl Low MCHC 31.4 LAB L100.1810 11.6-14.6 % Normal RDW CV 14.6 LAB L100.1820 35.1-43.9 fl High RDW SD 51.4 LAB L100.1900 150-450 K/mm3 Normal PLT 195 LAB L100.2000 6.2-12.0 fl Normal MPV 10.8 LAB L100.2110 47-70 % Low NEUT% 44.1 LAB L100.2210 19-41 % Normal LY% 37.6 LAB L100.2310 0-10 % High MONO% 10.6 LAB L100.2410 0-5 % High EO% 7.0 LAB L100.2510 0-1 % Normal BASO% 0.5 LAB L100.2620 2.0-7.7 X10 3/uL Normal Absolute Neut 2.5 LAB L100.2720 0.83-4.51 X10 3/ul Normal Absolute Lymph 2.16 Performed By: #### L100.0200 #### [facility] [address] [place], [address] URINALYSIS, EMPLOYEE Collected: 11/14/2017 Status: F Source: [place] 7:[address] [facility] REPOSITORY TYPE CODE TESTS RESULT OUT OF RANGE REFERENCE UNITS LAB L400.3000 Yellow COLOR Normal Yellow LAB L400.3050 Clear Normal CLARITY Clear LAB L400.3200 Normal mg/dl Normal GLUCOSE, UR Normal LAB L400.3300 Negative mg/dL Normal BILIRUBIN URINE Negative LAB L400.3400 Negative mg/dl High 5 KETONE UR LAB L400.3465 1.002-1.030 Normal SP.GR. DIPSTX 1.025 LAB L400.3550 5.0 - 8.0 pH UR Normal 5.0 LAB L400.3600 Negative mg/dl High PROT 30 DIPSTX LAB L400.3700 Normal mg/dl High 1 UROBILI LAB L400.3750 Negative Normal NITRITE UR Negative LAB L400.3780 Negative /ul Normal OCCULT BLOOD-UR Negative LAB L400.3800 Negative /ul High LEUK ESTERASE 500 Performed By: #### L400.0100 #### [facility] [address] [facility] [place], [address] EMPLOYEE PROFILE Collected: 11/14/2017 Status: F Source: [place] 7:[address] [facility] REPOSITORY TYPE CODE TESTS RESULT OUT OF RANGE REFERENCE UNITS LAB L501.0100 74-106 mg/dL High GLU 124 Result Comment: Fasting Glucose result from 100 to 125 mg/dL suggests IMPAIRED HOMEOSTASIS per A.D.A. criteria. Please note revised GLUCOSE reference range effective 2017. LAB L501.1000 7-18 mg/dL Normal BUN 15 LAB L501.1100 0.55-1.02 mg/dL High CREAT,SERUM 1.03 Result Comment: The validity of the calculated GFR AND GFRAA in patients over 70 years has not been determined. Clinical correlation is essential. LAB L501.1110 >60 mL/min Low EST GFR 57 Result Comment: Non- GFR Calc LAB L501.1115 >60 mL/min Normal EST GFR - AA 69 Result Comment: GFR Calc LAB L501.1300 10-20 RATIO Normal BUN/CRE 14.6 LAB L501.1400 2.6-6.0 mg/dL High URIC 6.1 Result Comment: The drugs N-Acetylcysteine and Metamizole may falsely depress this assay. LAB L501.1500 6.4-8.2 g/dL Normal T PROT 7.5 LAB L501.1800 3.2-5.0 g/dL Normal ALB 3.8 LAB L501.1950 2.2-4.2 g/dL Normal GLOB 3.7 LAB L501.2000 0.9-2.4 RATIO Normal A/G 1.0 LAB L501.2200 8.5-10.1 mg/dL Normal CA 9.6 LAB L501.2300 2.5-4.9 mg/dL Normal PHOS 3.3 LAB L501.4100 15-37 U/L Normal AST 36 LAB L501.4305 45-117 U/L Normal ALK P 109 LAB L501.4405 13-56 U/L Normal ALT 44 LAB L501.4600 0.20-1.00 mg/dL Normal T BILI 0.30 LAB L501.4700 0.00-0.30 mg/dL Normal D BILI 0.09 LAB L501.4900 200 mg/dL Normal CHOL 175 Result Comment: <200 mg/dL Desirable 200-240 mg/dL Borderline >240 mg/dL High Risk LAB L501.5000 mg/dL High TRIG 222 Result Comment: The drugs N-Acetylcysteine and Metamizole may falsely depress this assay. Serum Triglycerides Reference Interval Normal <150 mg/dL Borderline high 150 - 199 mg/dL High 200 - 499 mg/dL Very High > or = 500 mg/dL LAB L501.5300 136-145 mmol/L Normal NA 144 LAB L501.5600 3.5-5.1 mmol/L Normal K 4.0 LAB L501.5900 98-107 mmol/L Normal CL 105 LAB L501.6100 21.0-32.0 mmol/L Normal CO2 30.0 LAB L501.6200 5-15 Normal 9 GAP LAB L501.6400 mg/dL Normal HDL 42 Result Comment: The drugs N-Acetylcysteine and Metamizole may falsely depress this assay. Reference Range HDL <40 mg/dL Low HDL Cholesterol HDL >or= 60 mg/dL High HDL Cholesterol LAB L501.6475 Normal CHOL:HDL 4.20 LAB L501.6500 0-130 mg/dL Normal LDL 89 LAB L501.6600 5-40 mg/dL High VLDL 44 LAB L504.2610 84-246 U/L Normal LDH 186 Performed By: #### L500.2900 #### [facility] [address] [place], [address] NICOTINE URINE DRUG Collected: 11/14/2017 Status: F Source: [place] SCREEN 7:[address] [facility] REPOSITORY TYPE CODE TESTS RESULT OUT OF RANGE REFERENCE UNITS LAB L505.6250 TO BE Normal CONFIRMED Result Comment: CONFIRMATORY TESTING FOR ALL POSITIVE URINE DRUG SCREEN RESULTS WILL ONLY BE SENT OUT UPON PHYSICIAN ORDER. The results of Urine Drug Screen methods provide only preliminary analytical test results. A more specific alternate chemical method must be used in order to obtain a confirmed analytical result. Gas chromatography/mass spectrometery (GC/MS) is the preferred confirmatory method. Clinical consideration and professional judgement should be applied to any drug of abuse test result, particularly when preliminary positive results are used. LAB L505.6270 <200 ng/mL Normal COT DRG Negative SCREEN Result Comment: Cotinine is the first-stage metabolite of Nicotine. Performed By: #### L505.6240 #### [facility] [address] [place], [address] PULMONARY VISIT REPORT Observed: 11/04/2017 Status: F Source: [place] 8:[address] [facility] REPOSITORY [facility] [address] [place] [address] OFFICE VISIT Date of Service: 11/04/17 MR#: [id number] Acct: [id number] Name: NGOC COTA Rep #: [id number] : 1950 Provider: Sally Kuo Age/Sex: 67/F Location: [facility] Status: Signed Assessment AND Plan 1. ARPAN (obstructive sleep apnea) G47.33 Plan Patient is using and benefiting from Pap therapy. No indication for titration study at this time. Continue to encourage weight loss. Contact the office for any new or worsening symptoms in the meantime. Follow-up in 3 months, at which time her dental appliance evaluation should be complete and a plan will be developed. 2. Obesity (BMI 30.0-34.9) E66.9 Plan Deteriorated. Continue to encourage weight loss. Plan Detail Follow Up 3 Months ([facility]) HPI 1 M FU: Chief Complaint: None HPI Comments Details: This is a pleasant 67 year old F, here to follow up for sleep apnea. Current use of pressure support therapy is on average of 6 hours per night with current settings of 5-20 cmH2O. NGOC denies any daytime somnolence, dry mouth in the morning, snoring through the mask, morning headaches or difficulty with mask leaks, but is experiencing nocturia. NGOC reports feeling rested in the morning and is benefitting from current therapy. She reports that she has scheduled dental procedure in December, during which she will have 2 implants placed. After that, she will be referred to a new dentist who will evaluate her for a dental appliance to treat her ARPAN. Compliance report was reviewed and shows 90% compliance, current AHI is controlled at an average of 2.2 events per hour and leaks do not appear to be in a consistent issue. She reports a mild amount of shortness of breath on exertion only, denies any shortness of breath with rest or conversation. This morning she is experiencing a mild amount of lower extremity edema. She reports that she has been trying to lose weight, she was slightly disappointed to see today that her weight has actually gone up. She does admit that she had a turkey and cheese sandwich last night which probably had more sodium in it than she normally eats. She denies any cough, sputum production or hemoptysis. No fever chills or body aches. See complete review of systems. 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: No Accompanied by: Self Is patient in pain?: Yes Allergies diclofenac sodium [From Voltaren] Allergy (Verified 11/04/17 07:40) Swelling adhesive Adverse Reaction (Verified 11/04/17 07:40) Rash cyclobenzaprine HCl [From Flexeril] Adverse Reaction (Verified 11/04/17 07:40) Nausea/Vom/Diarrhea ibuprofen Adverse Reaction (Verified 11/04/17 07:40) Nausea/Vom/Diarrhea meloxicam [From Mobic] Adverse Reaction (Verified 11/04/17 07:40) Nausea/Vom/Diarrhea orphenadrine citrate [From Norflex] Adverse Reaction (Verified 11/04/17 07:40) Other piroxicam [From Feldene] Adverse Reaction (Verified 11/04/17 07:40) Rash pregabalin [From Lyrica] Adverse Reaction (Verified 11/04/17 07:40) Nausea/Vom/Diarrhea Medications Lorazepam [Ativan] 1 mg PO BID PRN PRN 07/29/13 [History Confirmed 11/04/17] Multivitamins,Therapeutic [Multivitamin] 1 tab PO DAILY 07/29/13 [History Confirmed 11/04/17] Aspirin E.C. [Ecotrin] 81 mg PO DAILY@0800 04/06/15 [History Confirmed 11/04/17] Oxycodone HCl/Acetaminophen [Percocet 5-325] 1 - 2 tab PO TID PRN 12/07/15 [History Confirmed 11/04/17] Tizanidine HCl [Zanaflex] 1 tab PO TID PRN 05/10/16 [History Confirmed 11/04/17] Ipratropium [Atrovent (SP)] 1 puff INHALATION BID 10/29/16 [History Confirmed 11/04/17] proMETHazine suppository [Phenergan] 25 mg RECTAL Q6H PRN PRN #20 suppos. 01/26/17 [Rx Confirmed 11/04/17] metoprolol succinate ER 25 mg tablet,extended release 24 hr 12.5 mg PO DAILY #16 tab 06/14/17 [Rx Confirmed 11/04/17] Dextran 70/Hypromellose [Nature's Tears Eye Drops] 15 ml OP PRN PRN 06/20/17 [History Confirmed 11/04/17] bisacodyl 5 mg tablet,delayed release 5 mg PO QDAY PRN tab 06/29/17 [History Confirmed 11/04/17] cholecalciferol (vitamin D3) 2,000 unit capsule 2,000 unit PO QDAY 06/29/17 [History Confirmed 11/04/17] diphenhydramine 25 mg capsule 25 mg PO BID PRN cap 06/29/17 [History Confirmed 11/04/17] docusate sodium 100 mg capsule 100 mg PO QDAY PRN 06/29/17 [History Confirmed 11/04/17] furosemide 20 mg tablet 20 mg PO .COMPLEX tab 06/29/17 [History Confirmed 11/04/17] nitroglycerin 0.4 mg sublingual tablet 0.4 mg SUBLINGUAL Q5- 15M PRN 06/29/17 [History Confirmed 11/04/17] gabapentin 400 mg capsule 400 mg PO TID 07/01/17 [History Confirmed 11/04/17] losartan 50 mg tablet 50 mg PO QDAY #30 tab 07/01/17 [Rx Confirmed 11/04/17] rabeprazole 20 mg tablet,delayed release 20 mg PO BID 07/01/17 [History Confirmed 11/04/17] simvastatin 20 mg tablet 20 mg PO QHS #90 tab 07/01/17 [Rx Confirmed 11/04/17] [facility] Medical History History of pseudoaneurysm (Chronic) H/O left knee surgery (Chronic) IBS (irritable bowel syndrome) (Chronic) Sciatica (Chronic) Arthritis (Chronic) Hyperlipidemia (Chronic) Hypertension (Chronic) Left bundle branch block (Chronic) Atherosclerotic heart disease of [place] coronary artery without angina pectoris (Chronic) Surgical History Plantar fasciitis of left foot (Chronic) Bunion of left foot (Chronic) Status post right foot surgery (Chronic) Status post right knee replacement (Chronic) Stented coronary artery (Chronic) History of left heart catheterization (Chronic) Family History Mother Breast cancer Father CAD (coronary artery disease) Social History Smoking Status: Never smoker second hand exposure: No alcohol intake: never substance use type: does not use caffeine: Yes what type of physical activity do you participate in: none Review of Systems Const CONSTITUTIONAL: Positive fatigue; negative anorexia, body ache, chills, daytime sleepiness, fever(s), night sweats, oral thrush, stops breathing during sleep, weight loss, sleeping in chair, weight loss, weight gain, frequent colds, seasonal allergies, other, headache(s) or orthopnea EETM Ear Nose Throat Mouth: Positive hearing normal and nasal discharge; negative hard of hearing, hoarseness, dry mouth in morning, change in vision, itchy eyes, eye pain, swallowing Difficulty, ear pain, nose bleed, headache(s), mouth pain, nasal congestion, sinus pain, sinus pressure, sore throat or other Cardio Cardiovascular: Positive edema Location: lower extremity; negative chest pain, chest pain at rest, chest pain with activity, irregular heart rhythm, shortness of breath when lying down, palpitations, murmur or other Resp Respiratory: Positive as per HPI; negative shortness of breath, pain with cough, wheezing, chest congestion, cough, chest tightness, pain on inspiration, inhalers, increase use of rescue inhalers, snoring, apnea or other Gastro Gastrointestional: Negative bloody stools, change in appetite, difficulty swallowing, reflux, hematemesis, melena stool, loose stool, constipation or other Genitourinary: Positive nocturia; negative blood in urine, pain with urination or other Musc Musculoskeletal: Negative body pain, back pain, neck pain or other Skin/Breast Skin/Breast: Negative dry skin, itching, rash, unusual bruising, breast lump or other Neuro Neurological: Negative restless legs, confusion, weakness or other Psych Psychocological: Negative abnormal sleep pattern, anxiety, thoughts of hurting self/others, hopelessness or other Lymph Lymphatic: Negative easy bleeding, easy bruising, swollen lymph nodes or other Exam Const Constitutional: Positive conversant, cooperative, in no acute respiratory distress, healthy appearing, well developed, well nourished, good hygiene and obese Head Head: Positive normocephalic and atraumatic; negative cyanosis of lips/distal nose Eyes Eye: Positive clear conjunctiva; negative nystagmus or scleral abnormality Ears Ear: Positive hearing normal and external ears normal; negative hard of hearing Nose Nose: Positive external nose normal and no nasal discharge; negative epistaxis Neck Neck: Positive normal visual inspection, full ROM and trachea midline; negative lymphadenopathy, JVD or tender Chest Wall Chest: Positive normal inspection of the chest and symmetric chest movement; negative increased A/P diameter Resp lung sounds: Positive clear to auscultation, good air exchange, normal expiratory time and normal respiratory effort; negative diminished, wheezes, rhonchi, rales, dullness to percussion or wheeze present on forced exhalation Cardio Cardiac: Positive regular rate, regular rhythm, S1 normal and S2 normal; negative murmur GI GI: Positive normal to inspection and obese; negative distended Genitourinary: Positive deferred Musc Musculoskeletal: Positive steady gait and ROM normal; negative kyphosis or scoliosis Skin Pulmonary Skin Exam: Positive intact; negative rash Pulses Pulse: Yes radial pulses present Extremities Extremities: Yes capillary refill normal, Yes edema Location: lower extremity location: Bilateral pitting trace, No clubbing, No cyanosis Neuro Neurologic: Yes conversant, Yes no focal neuro deficits, Yes normal concentration, Yes understands questions, Yes cooperative, Yes normal cognition, Yes normal coordination Lymph Lymphatic: No lymphadenopathy, No tenderness, No cervical adenopathy, No axillary adenopathy Psych Appearance: Positive grossly normal, eye contact and well kempt Mental Status: Positive mental status grossly normal Mood: Positive congruent mood Affect: Positive normal affect Coding Level of Care Code Off vis,est,level 3 Diagnoses ARPAN (obstructive sleep apnea) G47.33 Obesity (BMI 30.0-34.9) E66.9 11/04/17 0850 <Electronically signed by Sally HARMAN> Date Sally Kuo CROP PICKER-C Cosigner Signature: Date (if applicable) CC: Christina Vazquez MD PROGRESS Observed: 10/18/2017 Status: COMPLETED Source: [place] 9:39 AM [facility] REPOSITORY HNO ID: [id number] Author: Christina Vazquez Service: (none) Author Type: Physician Type: Progress Notes Filed: 11/03/2017 7:15 PM Note Text: Patient presents with: Recheck: 6 month follow up SUBJECTIVE: Ngoc Cota is a 67 year old year old lady here today for 6 month follow up appointment for review of medical conditions. BP up again. Saw Dr. Lancaster for ARPAN--was told if lost 30 to 40 pounds would not need CPAP. Lost 4 pounds so far. Walking when was on vacation helped, but gained some weight though some fluid retention. Watching salt. Doing better with limiting carbs this summer. Likes iced coffees. PAST MEDICAL HISTORY Diagnosis Date - Anatomical narrow angle borderline glaucoma - Bundle branch block, unspecified 01/12 LBBB - Coronary artery disease involving [place] coronary artery of [place] heart without angina pectoris 2014 Dr. Phillips - DDD (degenerative disc disease), lumbar - Disorder of bone and cartilage, unspecified - Diverticulosis of colon (without mention of hemorrhage) - GERD (gastroesophageal reflux disease) - Irritable bowel syndrome - Lichen Sclerosus et Atrophicus of the Vulva 03/16/2009 - Lumbar radiculopathy - Other combinations of endocrine dysfunction - Plantar fascial fibromatosis - Primary localized osteoarthrosis, lower leg - Right knee DJD - Right sided sciatica - S/P coronary artery stent placement 2014 [facility] Current Outpatient Prescriptions: gabapentin (NEURONTIN) 400 mg capsule Amoxicillin 500 mg tablet Take 4 tablets by mouth. 30 minutes prior to dental procedures. LORazepam (ATIVAN) 1 mg tablet Take 1 tablet by mouth twice daily as needed for up to 180 days. losartan (COZAAR) 25 mg tablet Take 2 tablets by mouth once daily. CPAP Initiate Auto PAP @ 5-20 cm of water with humidification. Mask (per patient preference) optional chin strap (if indicated) , filters, tubing, humidifier and lifetime supplies. ACIPHEX 20 mg tablet Take 1 tablet by mouth twice daily. Do not substitute with generic (not effective) promethazine (PHENERGAN) 25 mg tablet Take 1 tablet by mouth every 6 hours as needed. clobetasol (TEMOVATE) 0.05 % cream Apply to affected skin sparingly once daily as needed nystatin (NYSTOP) powder Apply 1 application to affected area four times daily. As directed metoprolol succinate ER (TOPROL XL) 25 mg 24 hr tablet Take 0.5 tablets by mouth once daily. simvastatin (ZOCOR) 20 mg tablet Take 1 tablet by mouth daily at bedtime. Diclofenac Sodium (VOLTAREN) 1 % gel Use 4 times a day as needed furosemide (LASIX) 20 mg tablet Take 1 tablet by mouth once daily. docusate sodium (COLACE) 100 mg capsule Take 1 capsule by mouth twice daily as needed for Constipation. oxyCODONE-acetaminophen (PERCOCET) 10-325 mg tablet Take 1 tablet by mouth every 8 hours as needed. aspirin, enteric coated (ECOTRIN LOW STRENGTH) 81 mg EC tablet Take 1 tablet by mouth once daily. therapeutic multivitamin ORAL tablet Take 1 tablet by mouth once daily. COMPOUNDED PRESCRIPTION Lab order: Hepatitis C antibody and reflex confirmation test (HCV RNA) if needed Z01.89 bisacodyl EC (DULCOLAX) 5 mg EC tablet Take 1 tablet by mouth once daily as needed. No current facility-administered medications for this visit. OBJECTIVE: BP 150/84 Pulse 84 Resp 12 Wt 85.3 kg (188 lb) BMI 35.52 kg/m? Patient is alert, oriented times 3, no apparent distress, affect is bright, reactive. Last 5 Encounter BP Readings: Date: BP: 10/18/2017 150/84 08/26/2017 139/77 08/19/2017 165/72 08/19/2017 151/61 07/31/2017 120/78 Last 5 Encounter Wt Readings: Date: Wt: 10/18/2017 85.3 kg (188 lb) 08/26/2017 83.9 kg (185 lb) 08/19/2017 84.8 kg (187 lb) 07/31/2017 84.4 kg (186 lb) 07/15/2017 84.8 kg (187 lb) 10/18/17 0923 10/18/17 1002 BP: 150/84 134/70 Pulse: 84 Resp: 12 Weight: 85.3 kg (188 lb) Heart: Regular rate, rhythm, no murmurs, gallops, rubs. Lungs: Clear to auscultation, bilaterally, breathing non labored. Ext: No cyanosis, clubbing; 1 to 2+ ankle and leg edema. ASSESSMENT AND PLAN: Encounter Diagnosis ICD-10-CM 1. Essential hypertension I10 losartan (COZAAR) 50 mg tablet 2. ARPAN (obstructive sleep apnea) G47.33 3. Sciatica, right side M54.31 gabapentin (NEURONTIN) 400 mg capsule 4. Gastroesophageal reflux disease without esophagitis K21.9 controlled with Aciphex; other PPIs not effective 5. Bilateral lower extremity edema R60.0 6. Class 2 obesity due to excess calories with body mass index (BMI) of 35.0 to 35.9 in adult, unspecified whether serious comorbidity present E66.09 Z68.35 .Above issues addressed with patient. Patient involved in shared decision making for management of her medical issues. History and medications reviewed. Epic updated as needed Refills taken care of and meds adjusted as indicated after reviewed history, exam and labs. Health Maintenance reviewed. Updated record and/or ordered tests as recorded. Encouraged on efforts at healthy diet and regular exercise and adequate sleep. Needs to keep working on diet and exercise with lifestyle changes for effective weight loss. GERD controlled with controlled only with Aciphex. Continue present management. Reviewed management of edema. Further evaluation and treatment as indicated. Stable with pain and anxiety control. No signs of diversion or abuse of medication(s); no adverse effects. Continue present management. Gabapentin effective. Gets from Dr. Mendez (pain management). Lorazepam effective without adverse effects. At this time benefits outweigh risks. Continue to monitor for adverse effects and indications for decreasing dose or tapering off. PDMP website checked and validated. All prescriptions have been APPROPRIATELY filled. No suspicious activity was identified. 10/18/2017 by Christina Vazquez MD The majority of the visit was spent counseling and/or coordinating care for the patient. [id number] time was at least 25 minutes. Christina Vazquez MD CNOV Observed: 10/18/2017 Status: COMPLETED Source: [place] 8:40 AM [facility] Office Visit (INTMWS) NGOC COTA ([id number]) 1950 F Date Time Provider Department 10/18/17 8:40 AM CHRISTINA VAZQUEZ INTMWS During your visit today, we recorded the following information about you: Pulse Respiration Blood pressure Weight 84/minute 12/minute 134/70 85.3 kg Christina Vazquez MD 11/03/2017 7:15 PM Signed Patient presents with: Recheck: 6 month follow up SUBJECTIVE: Ngoc Cota is a 67 year old year old lady here today for 6 month follow up appointment for review of medical conditions. BP up again. Saw Dr. Lancaster for ARPAN--was told if lost 30 to 40 pounds would not need CPAP. Lost 4 pounds so far. Walking when was on vacation helped, but gained some weight though some fluid retention. Watching salt. Doing better with limiting carbs this summer. Likes iced coffees. PAST MEDICAL HISTORY Diagnosis Date - Anatomical narrow angle borderline glaucoma - Bundle branch block, unspecified 01/12 LBBB - Coronary artery disease involving [place] coronary artery of [place] heart without angina pectoris 2014 Dr. Phillips - DDD (degenerative disc disease), lumbar - Disorder of bone and cartilage, unspecified - Diverticulosis of colon (without mention of hemorrhage) - GERD (gastroesophageal reflux disease) - Irritable bowel syndrome - Lichen Sclerosus et Atrophicus of the Vulva 03/16/2009 - Lumbar radiculopathy - Other combinations of endocrine dysfunction - Plantar fascial fibromatosis - Primary localized osteoarthrosis, lower leg - Right knee DJD - Right sided sciatica - S/P coronary artery stent placement 2014 [facility] Current Outpatient Prescriptions: gabapentin (NEURONTIN) 400 mg capsule Amoxicillin 500 mg tablet Take 4 tablets by mouth. 30 minutes prior to dental procedures. LORazepam (ATIVAN) 1 mg tablet Take 1 tablet by mouth twice daily as needed for up to 180 days. losartan (COZAAR) 25 mg tablet Take 2 tablets by mouth once daily. CPAP Initiate Auto PAP @ 5-20 cm of water with humidification. Mask (per patient preference) optional chin strap (if indicated) , filters, tubing, humidifier and lifetime supplies. ACIPHEX 20 mg tablet Take 1 tablet by mouth twice daily. Do not substitute with generic (not effective) promethazine (PHENERGAN) 25 mg tablet Take 1 tablet by mouth every 6 hours as needed. clobetasol (TEMOVATE) 0.05 % cream Apply to affected skin sparingly once daily as needed nystatin (NYSTOP) powder Apply 1 application to affected area four times daily. As directed metoprolol succinate ER (TOPROL XL) 25 mg 24 hr tablet Take 0.5 tablets by mouth once daily. simvastatin (ZOCOR) 20 mg tablet Take 1 tablet by mouth daily at bedtime. Diclofenac Sodium (VOLTAREN) 1 % gel Use 4 times a day as needed furosemide (LASIX) 20 mg tablet Take 1 tablet by mouth once daily. docusate sodium (COLACE) 100 mg capsule Take 1 capsule by mouth twice daily as needed for Constipation. oxyCODONE-acetaminophen (PERCOCET) 10-325 mg tablet Take 1 tablet by mouth every 8 hours as needed. aspirin, enteric coated (ECOTRIN LOW STRENGTH) 81 mg EC tablet Take 1 tablet by mouth once daily. therapeutic multivitamin ORAL tablet Take 1 tablet by mouth once daily. COMPOUNDED PRESCRIPTION Lab order: Hepatitis C antibody and reflex confirmation test (HCV RNA) if needed Z01.89 bisacodyl EC (DULCOLAX) 5 mg EC tablet Take 1 tablet by mouth once daily as needed. No current facility-administered medications for this visit. OBJECTIVE: BP 150/84 Pulse 84 Resp 12 Wt 85.3 kg (188 lb) BMI 35.52 kg/m? Patient is alert, oriented times 3, no apparent distress, affect is bright, reactive. Last 5 Encounter BP Readings: Date: BP: 10/18/2017 150/84 08/26/2017 139/77 08/19/2017 165/72 08/19/2017 151/61 07/31/2017 120/78 Last 5 Encounter Wt Readings: Date: Wt: 10/18/2017 85.3 kg (188 lb) 08/26/2017 83.9 kg (185 lb) 08/19/2017 84.8 kg (187 lb) 07/31/2017 84.4 kg (186 lb) 07/15/2017 84.8 kg (187 lb) 10/18/17 0923 10/18/17 1002 BP: 150/84 134/70 Pulse: 84 Resp: 12 Weight: 85.3 kg (188 lb) Heart: Regular rate, rhythm, no murmurs, gallops, rubs. Lungs: Clear to auscultation, bilaterally, breathing non labored. Ext: No cyanosis, clubbing; 1 to 2+ ankle and leg edema. ASSESSMENT AND PLAN: Encounter Diagnosis ICD-10-CM 1. Essential hypertension I10 losartan (COZAAR) 50 mg tablet 2. ARPAN (obstructive sleep apnea) G47.33 3. Sciatica, right side M54.31 gabapentin (NEURONTIN) 400 mg capsule 4. Gastroesophageal reflux disease without esophagitis K21.9 controlled with Aciphex; other PPIs not effective 5. Bilateral lower extremity edema R60.0 6. Class 2 obesity due to excess calories with body mass index (BMI) of 35.0 to 35.9 in adult, unspecified whether serious comorbidity present E66.09 Z68.35 .Above issues addressed with patient. Patient involved in shared decision making for management of her medical issues. History and medications reviewed. Epic updated as needed Refills taken care of and meds adjusted as indicated after reviewed history, exam and labs. Health Maintenance reviewed. Updated record and/or ordered tests as recorded. Encouraged on efforts at healthy diet and regular exercise and adequate sleep. Needs to keep working on diet and exercise with lifestyle changes for effective weight loss. GERD controlled with controlled only with Aciphex. Continue present management. Reviewed management of edema. Further evaluation and treatment as indicated. Stable with pain and anxiety control. No signs of diversion or abuse of medication(s); no adverse effects. Continue present management. Gabapentin effective. Gets from Dr. Mendez (pain management). Lorazepam effective without adverse effects. At this time benefits outweigh risks. Continue to monitor for adverse effects and indications for decreasing dose or tapering off. PDMP website checked and validated. All prescriptions have been APPROPRIATELY filled. No suspicious activity was identified. 10/18/2017 by Christina Vazquez MD The majority of the visit was spent counseling and/or coordinating care for the patient. Zepg-zt-fubz time was at least 25 minutes. MD Christina Downing MD 10/18/2017 10:08 AM Signed Consider to help with statin intolerance (muscle aches): Get a bottle of creatine monohydrate powder. Each time you take creatine, you must take it with 8 ounces of water. The first day, take one Tablespoon twice a day and continue for 5 days. If the pain from fibromyalgia/muscle pain from statin improves on creatine, then decrease to one Tablespoon daily. If the pain does not change, then simply stop the creatine. Please let me know what happens with this. Also could try CoQ10 Referring Provider: MARIA ANTONIA KIRBY (NAIL KEGGER) [[id number]] Allergies As of Date: 10/18/2017 Noted Allergy Reaction VOLTAREN (DICLOFENAC SODIUM) 01/02/2010 2 - Rash 7 - Swelling 12 - Shortness of Breath CHLORHEXIDINE 08/26/2017 4 - Hives Comments: Hibicleanse CYCLOBENZAPRINE 09/10/2002 4 - Hives Comments: Flexeril Blurred vision and nausea and vomiting LYRICA (PREGABALIN) 03/17/2010 5 - Intolerance Comments: Fluid retention NSAIDS (NON-STEROIDAL ANTI-INFLAM*09/10/2002 8 - GI Upset Comments: Ibuprofen, naproxen,etc ORPHENADRINE 09/10/2002 4 - Hives Comments: Norflex Nausea and vomiting and blurred vision PIROXICAM 09/10/2002 4 - Hives Comments: Feldene Blurred vision and nausea and vomiting Tape [Other] 09/10/2002 Comments: adhesive Date Reviewed: 10/18/2017 Reviewed by: Jayla Antonio LPN - Fully Assessed Reason for Visit: Recheck [92] Cmt: 6 month follow up Primary Visit Diagnosis:Essential hypertension [I10] Other Visit Diagnoses:ARPAN (obstructive sleep apnea) [G47.33] Sciatica, right side [M54.31] Gastroesophageal reflux disease without esophagitis [K21.9] Comment:controlled with Aciphex; other PPIs not effective Bilateral lower extremity edema [R60.0] Class 2 obesity due to excess calories with body mass index (BMI) of 35.0 to 35.9 in adult, unspecified whether serious comorbidity present [E66.09, Z68.35] Anxiety [F41.9] Order(s):losartan (COZAAR) 50 mg tabletTake 1 tablet by mouth once daily.Disp: 90 tabletRfl: 3 gabapentin (NEURONTIN) 400 mg capsuleTake 1 capsule by mouth daily at bedtime.Disp: Rfl: Prescriptions as of 10/18/2017 Sig: GABAPENTIN 400 MG CAPSULE Take 1 capsule by mouth daily* AMOXICILLIN 500 MG TABLET Take 4 tablets by mouth. 30 m* X LORAZEPAM 1 MG TABLET Take 1 tablet by mouth twice * CPAP Initiate Auto PAP @ 5- 20 cm o* ACIPHEX 20 MG TABLET,DELAYED * Take 1 tablet by mouth twice * PROMETHAZINE 25 MG TABLET Take 1 tablet by mouth every * CLOBETASOL 0.05 % TOPICAL CRE* Apply to affected skin sparin* NYSTATIN 100,000 UNIT/GRAM TO* Apply 1 application to affect* METOPROLOL SUCCINATE ER 25 MG* Take 0.5 tablets by mouth onc* SIMVASTATIN 20 MG TABLET Take 1 tablet by mouth daily * DICLOFENAC 1 % TOPICAL GEL Use 4 times a day as needed FUROSEMIDE 20 MG TABLET Take 1 tablet by mouth once d* DOCUSATE SODIUM 100 MG CAPSULE Take 1 capsule by mouth twice* OXYCODONE-ACETAMINOPHEN 10 MG* Take 1 tablet by mouth every * ASPIRIN 81 MG TABLET,DELAYED * Take 1 tablet by mouth once d* THERAPEUTIC MULTIVITAMIN TABL* Take 1 tablet by mouth once d* LOSARTAN 50 MG TABLET Take 1 tablet by mouth once d* COMPOUNDED PRESCRIPTION Lab order: Hepatitis C antib* BISACODYL 5 MG TABLET,DELAYED* Take 1 tablet by mouth once d* Medication notes this encounter GABAPENTIN 400 MG CAPSULE >> Jayla Antonio LPN 10/18/2017 9:23 AM >> JAYLA ANTONIO LPN SatOct 18, 2017 9:[address] Mendez Problem List As Of Date 10/18/2017 Noted Resolved INGROWING NAIL [L60.0] INVALID FOR* MALFUN PAYMENT COLLECTOR ORTHO DEVICE/ GRAFT NOS [T89.939X]INVALID FOR* Bundle branch block [I45.4] INVALID FOR* PAIN IN LIMB [M79.609] INVALID FOR* OTHER HAMMER TOE [M20.40] INVALID FOR* ENTHESOPATHY, SITE NOS [M77.9] INVALID FOR* GERD (Gastroesophageal Reflux Disease) [K21.9] Right Sided Sciatica [M54.31] Lichen Sclerosus et Atrophicus of the Vulva [N9*INVALID FOR* Porokeratosis [Q82.8] INVALID FOR* Calcaneal Spur [M77.30] INVALID FOR* Plantar fascial fibromatosis [M72.2] INVALID FOR* Hyperlipidemia [E78.5] INVALID FOR* Lumbar radiculopathy [M54.16] INVALID FOR* More... Degenerative joint disease of knee, right [M17.*INVALID FOR* More... Acute gastritis without mention of hemorrhage [*INVALID FOR* Anxiety [F41.9] INVALID FOR* Coronary artery disease involving [place] vann*INVALID FOR* More... Obesity [E66.9] INVALID FOR* Essential hypertension [I10] INVALID FOR* ARPAN (obstructive sleep apnea) [G47.33] INVALID FOR* Digital mucous cyst of finger of left hand [M67*INVALID FOR* More... Other instructions from your clinician: Consider to help with statin intolerance (muscle aches): Get a bottle of creatine monohydrate powder. Each time you take creatine, you must take it with 8 ounces of water. The first day, take one Tablespoon twice a day and continue for 5 days. If the pain from fibromyalgia/muscle pain from statin improves on creatine, then decrease to one Tablespoon daily. If the pain does not change, then simply stop the creatine. Please let me know what happens with this. Also could try CoQ10 Prescriptions ordered this encounter Disp Refills Start End LOSARTAN 25 MG TABLET 30 t* 11 10/18/2017 10/18/2017 Route: ORAL Sig: Take 2 tablets by mouth once daily. LOSARTAN 50 MG TABLET 90 t* 3 10/18/2017 Cmt: This is the correct dosage Route: ORAL Sig: Take 1 tablet by mouth once daily. GABAPENTIN 400 MG CAPSULE 10/18/2017 10/18/2018 Class: Med Update Route: ORAL Sig: Take 1 capsule by mouth daily at bedtime. Medications Discontinued During This Encounter losartan (COZAAR) 25 mg tablet 30 t* 5 06/24/2017 10/18/2017 Route: ORAL Sig: Take 2 tablets by mouth once daily. Disc: Reason for discontinue is not on file. losartan (COZAAR) 25 mg tablet 30 t* 11 10/18/2017 10/18/2017 Route: ORAL Sig: Take 2 tablets by mouth once daily. Disc: Reason for discontinue is not on file. gabapentin (NEURONTIN) 400 mg capsule 1 09/05/2017 10/18/2017 Class: Historical Med Sig: Disc: Reason for discontinue is not on file. Disposition: Return in about 6 months (around 04/20/2018) for 6 months follow up. Follow-up and Disposition History Recorded Encounter Status:Closed by CHRISTINA VAZQUEZ MD on 11/03/17 PROGRESS Observed: 10/07/2017 Status: COMPLETED Source: [place] 8:22 AM [facility] REPOSITORY HNO ID: [id number] Author: Jozef Saleem Service: (none) Author Type: Physician Type: Progress Notes Filed: 10/07/2017 8:23 AM Note Text: Jozef Saleem MD Department of Orthopaedics Orthopaedics [address] [facility] [address] Dept: [phone] Dept October 07, 2017 CHIEF COMPLAINT: Surgical Followup (5 weeks 5 days post op excision ganglion cyst left index finger). ASSESSMENT: M67.442 Digital mucous cyst of finger of left hand (primary encounter diagnosis) SUMMARY/PLAN: patient is just shy of 6 weeks. She has some mild appropriate soreness at 2 out of 10. Otherwise she is very pleased.She can follow- up as needed. Exam: surgical finger looks excellent. Mild and appropriate thickened scar. No signs or symptoms of returning cyst nor infection. Supporting Information Below: Medications: Current Outpatient Prescriptions: Amoxicillin 500 mg tablet Take 4 tablets by mouth. 30 minutes prior to dental procedures. LORazepam (ATIVAN) 1 mg tablet Take 1 tablet by mouth twice daily as needed for up to 180 days. losartan (COZAAR) 25 mg tablet Take 2 tablets by mouth once daily. CPAP Initiate Auto PAP @ 5-20 cm of water with humidification. Mask (per patient preference) optional chin strap (if indicated) , filters, tubing, humidifier and lifetime supplies. COMPOUNDED PRESCRIPTION Lab order: Hepatitis C antibody and reflex confirmation test (HCV RNA) if needed Z01.89 ACIPHEX 20 mg tablet Take 1 tablet by mouth twice daily. Do not substitute with generic (not effective) promethazine (PHENERGAN) 25 mg tablet Take 1 tablet by mouth every 6 hours as needed. clobetasol (TEMOVATE) 0.05 % cream Apply to affected skin sparingly once daily as needed nystatin (NYSTOP) powder Apply 1 application to affected area four times daily. As directed metoprolol succinate ER (TOPROL XL) 25 mg 24 hr tablet Take 0.5 tablets by mouth once daily. simvastatin (ZOCOR) 20 mg tablet Take 1 tablet by mouth daily at bedtime. Diclofenac Sodium (VOLTAREN) 1 % gel Use 4 times a day as needed furosemide (LASIX) 20 mg tablet Take 1 tablet by mouth once daily. docusate sodium (COLACE) 100 mg capsule Take 1 capsule by mouth twice daily as needed for Constipation. bisacodyl EC (DULCOLAX) 5 mg EC tablet Take 1 tablet by mouth once daily as needed. oxyCODONE-acetaminophen (PERCOCET) 10-325 mg tablet Take 1 tablet by mouth every 8 hours as needed. aspirin, enteric coated (ECOTRIN LOW STRENGTH) 81 mg EC tablet Take 1 tablet by mouth once daily. therapeutic multivitamin ORAL tablet Take 1 tablet by mouth once daily. No current facility-administered medications for this visit. Allergies: Voltaren [Diclofenac Sodium]; Chlorhexidine; Cyclobenzaprine; Lyrica [Pregabalin]; Nsaids (Non-Steroidal Anti-Inflammatory Drug); Orphenadrine; Piroxicam; Tape [Other] This note was partially generated using Hitch voice recognition system, and there may be some incorrect words, spellings, and punctuation that were not noted in checking the note before saving. Jozef Saleem MD PROGRESS Observed: 10/07/2017 Status: COMPLETED Source: [place] 8:07 AM [facility] REPOSITORY O ID: [id number] Author: Sue Meng Ma Service: (none) Author Type: (none) Type: Progress Notes Filed: 10/07/2017 8:23 AM Note Text: Patient presents with: Surgical Followup: 5 weeks 5 days post op excision ganglion cyst left index finger AMB ROOMING INTAKE FLOWSHEET DATA Risk Screening Do you have concerns about personal safety or safety in the home?: No Pain Pain Score: 2/10 Pain Location: (left index finger) Description: Burning Duration Amount of Time: 5 Duration Units: Weeks Frequency: Intermittent (Occurs when finger is touched) Patient states she is having a burning pain, tender area on her finger when touched. Taking no med's for the pain. Wants to return to work today. CNOV Observed: 10/07/2017 Status: COMPLETED Source: [place] 8:00 AM [facility] REPOSITORY Office Visit (ORTHWS) NGOC COTA ([id number]) 1950 F Date Time Provider Department 10/07/17 8:00 AM JOZEF SALEEM During your visit today, we recorded the following information about you: Sue Meng Francesco 10/07/2017 8:23 AM Signed Patient presents with: Surgical Followup: 5 weeks 5 days post op excision ganglion cyst left index finger AMB ROOMING INTAKE FLOWSHEET DATA Risk Screening Do you have concerns about personal safety or safety in the home?: No Pain Pain Score: 2/10 Pain Location: (left index finger) Description: Burning Duration Amount of Time: 5 Duration Units: Weeks Frequency: Intermittent (Occurs when finger is touched) Patient states she is having a burning pain, tender area on her finger when touched. Taking no med's for the pain. Wants to return to work today. Jozef Saleem MD 10/07/2017 8:23 AM Signed Jozef Saleem MD Department of Orthopaedics Orthopaedics [address] [facility] [address] Dept: [phone] Dept October 07, 2017 CHIEF COMPLAINT: Surgical Followup (5 weeks 5 days post op excision ganglion cyst left index finger). ASSESSMENT: M67.442 Digital mucous cyst of finger of left hand (primary encounter diagnosis) SUMMARY/PLAN: patient is just shy of 6 weeks. She has some mild appropriate soreness at 2 out of 10. Otherwise she is very pleased.She can follow-up as needed. Exam: surgical finger looks excellent. Mild and appropriate thickened scar. No signs or symptoms of returning cyst nor infection. Supporting Information Below: Medications: Current Outpatient Prescriptions: Amoxicillin 500 mg tablet Take 4 tablets by mouth. 30 minutes prior to dental procedures. LORazepam (ATIVAN) 1 mg tablet Take 1 tablet by mouth twice daily as needed for up to 180 days. losartan (COZAAR) 25 mg tablet Take 2 tablets by mouth once daily. CPAP Initiate Auto PAP @ 5-20 cm of water with humidification. Mask (per patient preference) optional chin strap (if indicated) , filters, tubing, humidifier and lifetime supplies. COMPOUNDED PRESCRIPTION Lab order: Hepatitis C antibody and reflex confirmation test (HCV RNA) if needed Z01.89 ACIPHEX 20 mg tablet Take 1 tablet by mouth twice daily. Do not substitute with generic (not effective) promethazine (PHENERGAN) 25 mg tablet Take 1 tablet by mouth every 6 hours as needed. clobetasol (TEMOVATE) 0.05 % cream Apply to affected skin sparingly once daily as needed nystatin (NYSTOP) powder Apply 1 application to affected area four times daily. As directed metoprolol succinate ER (TOPROL XL) 25 mg 24 hr tablet Take 0.5 tablets by mouth once daily. simvastatin (ZOCOR) 20 mg tablet Take 1 tablet by mouth daily at bedtime. Diclofenac Sodium (VOLTAREN) 1 % gel Use 4 times a day as needed furosemide (LASIX) 20 mg tablet Take 1 tablet by mouth once daily. docusate sodium (COLACE) 100 mg capsule Take 1 capsule by mouth twice daily as needed for Constipation. bisacodyl EC (DULCOLAX) 5 mg EC tablet Take 1 tablet by mouth once daily as needed. oxyCODONE-acetaminophen (PERCOCET) 10-325 mg tablet Take 1 tablet by mouth every 8 hours as needed. aspirin, enteric coated (ECOTRIN LOW STRENGTH) 81 mg EC tablet Take 1 tablet by mouth once daily. therapeutic multivitamin ORAL tablet Take 1 tablet by mouth once daily. No current facility-administered medications for this visit. Allergies: Voltaren [Diclofenac Sodium]; Chlorhexidine; Cyclobenzaprine; Lyrica [Pregabalin]; Nsaids (Non-Steroidal Anti-Inflammatory Drug); Orphenadrine; Piroxicam; Tape [Other] This note was partially generated using Hitch voice recognition system, and there may be some incorrect words, spellings, and punctuation that were not noted in checking the note before saving. Jozef Saleem MD Referring Provider: SELF [200] Allergies As of Date: 10/07/2017 Noted Allergy Reaction VOLTAREN (DICLOFENAC SODIUM) 01/02/2010 2 - Rash 7 - Swelling 12 - Shortness of Breath CHLORHEXIDINE 08/26/2017 4 - Hives Comments: Hibicleanse CYCLOBENZAPRINE 09/10/2002 4 - Hives Comments: Flexeril Blurred vision and nausea and vomiting LYRICA (PREGABALIN) 03/17/2010 5 - Intolerance Comments: Fluid retention NSAIDS (NON-STEROIDAL ANTI-INFLAM*09/10/2002 8 - GI Upset Comments: Ibuprofen, naproxen,etc ORPHENADRINE 09/10/2002 4 - Hives Comments: Norflex Nausea and vomiting and blurred vision PIROXICAM 09/10/2002 4 - Hives Comments: Feldene Blurred vision and nausea and vomiting Tape [Other] 09/10/2002 Comments: adhesive Date Reviewed: 10/07/2017 Reviewed by: Jozef Saleem - Fully Assessed Reason for Visit: Surgical Followup [104] Cmt: 5 weeks 5 days post op excision ganglion cyst left index finger Primary Visit Diagnosis:Digital mucous cyst of finger of left hand [M67.442] Prescriptions as of 10/07/2017 Sig: AMOXICILLIN 500 MG TABLET Take 4 tablets by mouth. 30 m* LORAZEPAM 1 MG TABLET Take 1 tablet by mouth twice * LOSARTAN 25 MG TABLET Take 2 tablets by mouth once * CPAP Initiate Auto PAP @ 5- 20 cm o* COMPOUNDED PRESCRIPTION Lab order: Hepatitis C antib* ACIPHEX 20 MG TABLET,DELAYED * Take 1 tablet by mouth twice * PROMETHAZINE 25 MG TABLET Take 1 tablet by mouth every * CLOBETASOL 0.05 % TOPICAL CRE* Apply to affected skin sparin* NYSTATIN 100,000 UNIT/GRAM TO* Apply 1 application to affect* METOPROLOL SUCCINATE ER 25 MG* Take 0.5 tablets by mouth onc* SIMVASTATIN 20 MG TABLET Take 1 tablet by mouth daily * DICLOFENAC 1 % TOPICAL GEL Use 4 times a day as needed FUROSEMIDE 20 MG TABLET Take 1 tablet by mouth once d* DOCUSATE SODIUM 100 MG CAPSULE Take 1 capsule by mouth twice* BISACODYL 5 MG TABLET,DELAYED* Take 1 tablet by mouth once d* OXYCODONE-ACETAMINOPHEN 10 MG* Take 1 tablet by mouth every * ASPIRIN 81 MG TABLET,DELAYED * Take 1 tablet by mouth once d* THERAPEUTIC MULTIVITAMIN TABL* Take 1 tablet by mouth once d* Problem List As Of Date 10/07/2017 Noted Resolved INGROWING NAIL [L60.0] INVALID FOR* MALFUN PAYMENT COLLECTOR ORTHO DEVICE/ GRAFT NOS [T84.498A]INVALID FOR* Bundle branch block [I45.4] INVALID FOR* PAIN IN LIMB [M79.609] INVALID FOR* OTHER HAMMER TOE [M20.40] INVALID FOR* ENTHESOPATHY, SITE NOS [M77.9] INVALID FOR* GERD (Gastroesophageal Reflux Disease) [K21.9] Right Sided Sciatica [M54.31] Lichen Sclerosus et Atrophicus of the Vulva [N9*INVALID FOR* Porokeratosis [Q82.8] INVALID FOR* Calcaneal Spur [M77.30] INVALID FOR* Plantar fascial fibromatosis [M72.2] INVALID FOR* Hyperlipidemia [E78.5] INVALID FOR* Lumbar radiculopathy [M54.16] INVALID FOR* More... Degenerative joint disease of knee, right [M17.*INVALID FOR* More... Acute gastritis without mention of hemorrhage [*INVALID FOR* Anxiety [F41.9] INVALID FOR* Coronary artery disease involving [place]*INVALID FOR* More... Obesity [E66.9] INVALID FOR* Essential hypertension [I10] INVALID FOR* ARPAN (obstructive sleep apnea) [G47.33] INVALID FOR* Digital mucous cyst of finger of left hand [M67*INVALID FOR* More... Letter Text Ngoc Cota Date of - 1950 [facility] [id number] Jozef Saleem M.D. Department of Orthopaedic Surgery [address] [place] [id number] Office: [phone] 10/07/2017 RE: Ngoc Cota [id number] To Whom It May Concern: I saw Ngoc Cota in the Department of Orthopaedic Surgery at [facility] for follow-up of her excision of ganglion cyst left index finger. Based on physical examination and medical assessment, I feel Ngoc Cota may return to work with not restrictions today. If you have any questions or require additional information, please do not hesitate to contact my office. Sincerely, Jozef Saleem M.D. Encounter Status:Closed by JOZEF SALEEM MD on 10/07/17 PULMONARY VISIT REPORT Observed: 10/03/2017 Status: F Source: [place] 11:[address] [facility] REPOSITORY [facility] [address] [place] [address] OFFICE VISIT Date of Service: 10/02/17 MR#: [id number] Acct: [id number] Name: NGOC COTA Rep #: [id number] : 1950 Provider: Sally Kuo Age/Sex: 67/F Location: [facility].PMW Status: Signed Assessment AND Plan 1. ARPAN (obstructive sleep apnea) G47.33 Plan Trialed on mouthpiece, unable to tolerate. Was benefiting and using Pap therapy, will place back on Pap therapy but will tailor out of pressures down to 5-12 cm of pressure. Follow-up in 1 month to review compliance report, symptoms and to continue to develop a plan. She does have an appointment with her dentist soon and will discuss with him the possibility of a more formal mouthpiece to treat her sleep apnea. She will call the office if she would like to go this route. Plan Detail Follow Up 1 Month HPI HPI Comments Details: This patient presents the office today to follow-up after recently being started on a mouthguard in order to treat her obstructive sleep apnea. The patient is amatory currently in room air. Patient reports that as advised her last office visit she obtained a mouth guard and attempted to use it for 3 nights. Unfortunately, she states that she is a very gaggy person and was unable to tolerate the device. At this point she would like to discuss whether or not she should continue her AutoPap. She reports occasional wheezing, some occasional clear nasal drainage. Denies any cough or sputum production. She denies any fever, chills or body aches. Has not experienced any chest pain or palpitation and denies any lower extremity edema. See complete review of systems. Complaints report for the past 30 days shows 80% compliance, current AutoSet at 5-20 cm of water. AHI is controlled at 3.6 average events per hour. Leaks do not appear to be a common issue. 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: No Accompanied by: Self Is patient in pain?: No Allergies diclofenac sodium [From Voltaren] Allergy (Verified 10/02/17 13:38) Swelling adhesive Adverse Reaction (Verified 10/02/17 13:38) Rash cyclobenzaprine HCl [From Flexeril] Adverse Reaction (Verified 10/02/17 13:38) Nausea/Vom/Diarrhea ibuprofen Adverse Reaction (Verified 10/02/17 13:38) Nausea/Vom/Diarrhea meloxicam [From Mobic] Adverse Reaction (Verified 10/02/17 13:38) Nausea/Vom/Diarrhea orphenadrine citrate [From Norflex] Adverse Reaction (Verified 10/02/17 13:38) Other piroxicam [From Feldene] Adverse Reaction (Verified 10/02/17 13:38) Rash pregabalin [From Lyrica] Adverse Reaction (Verified 10/02/17 13:38) Nausea/Vom/Diarrhea Medications Lorazepam [Ativan] 1 mg PO BID PRN PRN 07/29/13 [History Confirmed 10/02/17] Multivitamins,Therapeutic [Multivitamin] 1 tab PO DAILY 07/29/13 [History Confirmed 10/02/17] Aspirin E.C. [Ecotrin] 81 mg PO DAILY@0800 04/06/15 [History Confirmed 10/02/17] Oxycodone HCl/Acetaminophen [Percocet 5-325] 1 - 2 tab PO TID PRN 12/07/15 [History Confirmed 10/02/17] Tizanidine HCl [Zanaflex] 1 tab PO TID PRN 05/10/16 [History Confirmed 10/02/17] Ipratropium [Atrovent (SP)] 1 puff INHALATION BID 10/29/16 [History Confirmed 10/02/17] proMETHazine suppository [Phenergan] 25 mg RECTAL Q6H PRN PRN #20 suppos. 01/26/17 [Rx Confirmed 10/02/17] metoprolol succinate ER 25 mg tablet,extended release 24 hr 12.5 mg PO DAILY #16 tab 06/14/17 [Rx Confirmed 10/02/17] Dextran 70/Hypromellose [Nature's Tears Eye Drops] 15 ml OP PRN PRN 06/20/17 [History Confirmed 10/02/17] bisacodyl 5 mg tablet,delayed release 5 mg PO QDAY PRN tab 06/29/17 [History Confirmed 10/02/17] cholecalciferol (vitamin D3) 2,000 unit capsule 2,000 unit PO QDAY 06/29/17 [History Confirmed 10/02/17] diphenhydramine 25 mg capsule 25 mg PO BID PRN cap 06/29/17 [History Confirmed 10/02/17] docusate sodium 100 mg capsule 100 mg PO QDAY PRN 06/29/17 [History Confirmed 10/02/17] furosemide 20 mg tablet 20 mg PO .COMPLEX tab 06/29/17 [History Confirmed 10/02/17] nitroglycerin 0.4 mg sublingual tablet 0.4 mg SUBLINGUAL Q5- 15M PRN 06/29/17 [History Confirmed 10/02/17] gabapentin 400 mg capsule 400 mg PO TID 07/01/17 [History Confirmed 10/02/17] losartan 50 mg tablet 50 mg PO QDAY #30 tab 07/01/17 [Rx Confirmed 10/02/17] rabeprazole 20 mg tablet,delayed release 20 mg PO BID 07/01/17 [History Confirmed 10/02/17] simvastatin 20 mg tablet 20 mg PO QHS #90 tab 07/01/17 [Rx Confirmed 10/02/17] PFSH Medical History History of pseudoaneurysm (Chronic) H/O left knee surgery (Chronic) IBS (irritable bowel syndrome) (Chronic) Sciatica (Chronic) Arthritis (Chronic) Hyperlipidemia (Chronic) Hypertension (Chronic) Left bundle branch block (Chronic) Atherosclerotic heart disease of [place] coronary artery without angina pectoris (Chronic) Surgical History Plantar fasciitis of left foot (Chronic) Bunion of left foot (Chronic) Status post right foot surgery (Chronic) Status post right knee replacement (Chronic) Stented coronary artery (Chronic) History of left heart catheterization (Chronic) Family History Mother Breast cancer Father CAD (coronary artery disease) Social History Smoking Status: Never smoker second hand exposure: No alcohol intake: never substance use type: does not use caffeine: Yes what type of physical activity do you participate in: none Review of Systems Const CONSTITUTIONAL: Negative anorexia, body ache, chills, daytime sleepiness, fever(s), night sweats, oral thrush, stops breathing during sleep, weight loss, sleeping in chair, fatigue, weight loss, weight gain, frequent colds, seasonal allergies, other, headache(s) or orthopnea EETM Ear Nose Throat Mouth: Positive hearing normal and nasal discharge; negative hard of hearing, hoarseness, dry mouth in morning, change in vision, itchy eyes, eye pain, swallowing Difficulty, ear pain, nose bleed, headache(s), mouth pain, nasal congestion, post nasal drip, sinus pain, sinus pressure, sore throat or other Cardio Cardiovascular: Negative chest pain, chest pain at rest, chest pain with activity, irregular heart rhythm, edema, shortness of breath when lying down, palpitations, murmur or other Resp Respiratory: Positive as per HPI, wheezing and inhalers; negative shortness of breath, pain with cough, chest congestion, cough, chest tightness, pain on inspiration, increase use of rescue inhalers, snoring, apnea or other Gastro Gastrointestional: Negative bloody stools, change in appetite, difficulty swallowing, reflux, hematemesis, melena stool, loose stool, constipation or other Genitourinary: Negative blood in urine, nocturia, pain with urination or other Musc Musculoskeletal: Negative body pain, back pain, neck pain or other Skin/Breast Skin/Breast: Negative dry skin, itching, rash, unusual bruising, breast lump or other Neuro Neurological: Negative restless legs, confusion, weakness or other Psych Psychocological: Negative abnormal sleep pattern, anxiety, thoughts of hurting self/others, hopelessness or other Lymph Lymphatic: Negative easy bleeding, easy bruising, swollen lymph nodes or other Exam Const Constitutional: Positive obese, conversant, cooperative, in no acute respiratory distress, well developed, well nourished and good hygiene Head Head: Positive normocephalic and atraumatic; negative cyanosis of lips/distal nose Eyes Eye: Positive clear conjunctiva; negative nystagmus or scleral abnormality Ears Ear: Positive hearing normal and external ears normal; negative hard of hearing Nose Nose: Positive external nose normal and no nasal discharge; negative epistaxis Mouth Mouth: Positive oral mucosae normal, no lesions, good dentition and crowded posterior oropharynx; negative post nasal drip, malodorous breath or oral thrush present Mallampati Score: III: Mallampati Score Neck Neck: Positive normal visual inspection, full ROM, trachea midline and thick neck; negative lymphadenopathy, JVD or tender Chest Wall Chest: Positive normal inspection of the chest and symmetric chest movement; negative increased A/P diameter Resp lung sounds: Positive clear to auscultation, good air exchange, normal expiratory time and normal respiratory effort; negative diminished, wheezes, rhonchi, rales, dullness to percussion or wheeze present on forced exhalation Cardio Cardiac: Positive regular rate, regular rhythm, S1 normal and S2 normal; negative murmur GI GI: Positive obese and normal to inspection Genitourinary: Positive deferred Musc Musculoskeletal: Positive steady gait and ROM normal; negative kyphosis or scoliosis Skin Pulmonary Skin Exam: Positive intact; negative rash, lesion, ulcers, erythema or scaly Pulses Pulse: Yes pulses normal x4 extremities Extremities Extremities: Yes capillary refill normal, No clubbing, No cyanosis, No edema Neuro Neurologic: Yes conversant, Yes no focal neuro deficits, Yes normal concentration, Yes understands questions, Yes cooperative, Yes normal coordination, Yes normal cognition Lymph Lymphatic: No lymphadenopathy, No tenderness, No axillary adenopathy, No cervical adenopathy Psych Appearance: Positive grossly normal, eye contact and well kempt Mental Status: Positive mental status grossly normal Mood: Positive congruent mood Affect: Positive normal affect Coding Level of Care Code Off vis,est,level 3 Diagnoses ARPAN (obstructive sleep apnea) G47.33 10/03/17 1120 <Electronically signed by Sally HARMAN> Date Sally HARMAN Cosigner Signature: Date (if applicable) CC: Christina Vazquez MD PULMONARY VISIT REPORT Observed: 09/26/2017 Status: F Source: [place] 4:[address] [facility] [address] [place] [address] OFFICE VISIT Date of Service: 09/26/17 MR#: [id number] Acct: [id number] Name: NGOC COTA Rep #: [id number] : 1950 Provider: Carlos Lancaster MD Age/Sex: 67/F Location: [facility].PMW Status: Signed Assessment AND Plan Problems 1. ARPAN (obstructive sleep apnea) G47.33 2. 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 Obesity (BMI 30.0-34.9) E66.9 Plan Patient's polysomnogram show a mild obstructive sleep apnea with an total AHI of 5.1. However, majority of the arousals were not respiratory related. Clinical suspicion for concomitant sleep phase syndrome from working third shift likely adds to overall condition. Patient does not plan on retiring at this time and it does not appear as though she is going to move from third shift. Did discuss with the patient about the possibility of using a dental appliance instead of AutoPap. Maneuvers to shift sleep back in a normal phase will likely not be fruitful as patient plans on going back to third shift after recovering from hand surgery. Did discuss with the patient on the role of weight loss and the overall disease plan of care. Given minimal AHI, patient may be able to resolve sleep apnea with 30-40 pounds weight loss. Consider dental appliance. Possible discontinuation of AutoPap. Encourage weight loss. Please call if plan needed for sleep phase shift if patient decides to stop working third shift. Plan Detail Follow Up PRN HPI PAP PROBLEMS: Chief Complaint: Sleep apnea questions Details: Patient is a 67-year-old female, currently under the care of Dr. Vazquez, who presents for evaluation secondary to sleep apnea questions. Patient reports that she had some concern secondary to multiple family members with ARPAN and obesity. Patient had a sleep study and came back as mild ARPAN. Patient has been placed on AutoPap and has been struggling for compliance secondary to his sensation of suffocating. Patient reports waking up in the middle the night with the AutoPap off. Patient also reports increase in nasal congestion postnasal drip that she attributes to the use of the AutoPap. 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 Patient believes her daytime fatigue has improved since being off of third shift. Patient will fall asleep while watching TV, but rarely falls asleep while reading, waiting in a waiting room, talking on the phone or riding in a car. Patient's does report snoring, but no witnessed apneas are appreciated. Patient does occasionally take benzodiazepine and opiates following the hand surgery. Patient denies any respiratory complaints at this time. Patient denies any dyspnea on exertion, cough, fever, chills, nausea or vomiting. No hemoptysis is been reported. Patient does suffer from GERD intermittently. Testing personally reviewed with the patient PSG (05/15/2017): Mild ARPAN with an AHI of 5.1, but only 1.7 events per hour were respiratory related Intake Vital Signs09/26/17 Height 5 ft 1 in 09/26/17 Weight: 83.461 kg Intake Visit Reasons: PAP PROBLEMS Chief Complaint: Routine f/u DME Vendor: [employer] Allergies diclofenac sodium [From Voltaren] Allergy (Verified 07/01/17 08:56) Swelling adhesive Adverse Reaction (Verified 07/01/17 08:56) Rash cyclobenzaprine HCl [From Flexeril] Adverse Reaction (Verified 07/01/17 08:56) Nausea/Vom/Diarrhea ibuprofen Adverse Reaction (Verified 07/01/17 08:56) Nausea/Vom/Diarrhea meloxicam [From Mobic] Adverse Reaction (Verified 07/01/17 08:56) Nausea/Vom/Diarrhea orphenadrine citrate [From Norflex] Adverse Reaction (Verified 07/01/17 08:56) Other piroxicam [From Feldene] Adverse Reaction (Verified 07/01/17 08:56) Rash pregabalin [From Lyrica] Adverse Reaction (Verified 07/01/17 08:56) Nausea/Vom/Diarrhea Medications Lorazepam [Ativan] 1 mg PO BID PRN PRN 07/29/13 [History Confirmed 09/09/17] Multivitamins,Therapeutic [Multivitamin] 1 tab PO DAILY 07/29/13 [History Confirmed 09/09/17] Aspirin E.C. [Ecotrin] 81 mg PO DAILY@0800 04/06/15 [History Confirmed 09/09/17] Oxycodone HCl/Acetaminophen [Percocet 5-325] 1 - 2 tab PO TID PRN 12/07/15 [History Confirmed 09/09/17] Tizanidine HCl [Zanaflex] 1 tab PO TID PRN 05/10/16 [History Confirmed 09/09/17] Ipratropium [Atrovent (SP)] 1 puff INHALATION BID 10/29/16 [History Confirmed 09/09/17] proMETHazine suppository [Phenergan] 25 mg RECTAL Q6H PRN PRN #20 suppos. 01/26/17 [Rx Confirmed 09/09/17] metoprolol succinate ER 25 mg tablet,extended release 24 hr 12.5 mg PO DAILY #16 tab 06/14/17 [Rx Confirmed 09/09/17] Dextran 70/Hypromellose [Nature's Tears Eye Drops] 15 ml OP PRN PRN 06/20/17 [History Confirmed 09/09/17] bisacodyl 5 mg tablet,delayed release 5 mg PO QDAY PRN tab 06/29/17 [History Confirmed 09/09/17] cholecalciferol (vitamin D3) 2,000 unit capsule 2,000 unit PO QDAY 06/29/17 [History Confirmed 09/09/17] diphenhydramine 25 mg capsule 25 mg PO BID PRN cap 06/29/17 [History Confirmed 09/09/17] docusate sodium 100 mg capsule 100 mg PO QDAY PRN 06/29/17 [History Confirmed 09/09/17] furosemide 20 mg tablet 20 mg PO .COMPLEX tab 06/29/17 [History Confirmed 09/09/17] nitroglycerin 0.4 mg sublingual tablet 0.4 mg SUBLINGUAL Q5- 15M PRN 06/29/17 [History Confirmed 09/09/17] gabapentin 400 mg capsule 400 mg PO TID 07/01/17 [History Confirmed 09/09/17] losartan 50 mg tablet 50 mg PO QDAY #30 tab 07/01/17 [Rx Confirmed 09/09/17] rabeprazole 20 mg tablet,delayed release 20 mg PO BID 07/01/17 [History Confirmed 09/09/17] simvastatin 20 mg tablet 20 mg PO QHS #90 tab 07/01/17 [Rx Confirmed 09/09/17] [facility] Medical History History of pseudoaneurysm (Chronic) H/O left knee surgery (Chronic) IBS (irritable bowel syndrome) (Chronic) Sciatica (Chronic) Arthritis (Chronic) Hyperlipidemia (Chronic) Hypertension (Chronic) Left bundle branch block (Chronic) Atherosclerotic heart disease of [place] coronary artery without angina pectoris (Chronic) Surgical History Plantar fasciitis of left foot (Chronic) Bunion of left foot (Chronic) Status post right foot surgery (Chronic) Status post right knee replacement (Chronic) Stented coronary artery (Chronic) History of left heart catheterization (Chronic) Family History Mother Breast cancer Father CAD (coronary artery disease) Social History Smoking Status: Never smoker second hand exposure: No alcohol intake: never substance use type: does not use caffeine: Yes what type of physical activity do you participate in: none Review of Systems Const CONSTITUTIONAL: Negative anorexia, body ache, chills, daytime sleepiness, fever(s), night sweats, oral thrush, stops breathing during sleep, weight loss, sleeping in chair, fatigue, weight loss, weight gain, frequent colds, seasonal allergies, other, headache(s) or orthopnea EETM Ear Nose Throat Mouth: Positive hearing normal, nasal discharge and post nasal drip; negative hard of hearing, hoarseness, dry mouth in morning, change in vision, itchy eyes, eye pain, swallowing Difficulty, ear pain, nose bleed, headache(s), mouth pain, nasal congestion, sinus pain, sinus pressure, sore throat or other Cardio Cardiovascular: Negative chest pain, chest pain at rest, chest pain with activity, irregular heart rhythm, edema, shortness of breath when lying down, palpitations, murmur or other Resp Respiratory: Positive as per HPI and wheezing; negative shortness of breath, pain with cough, chest congestion, cough, chest tightness, pain on inspiration, inhalers, increase use of rescue inhalers, snoring, apnea or other Gastro Gastrointestional: Negative bloody stools, change in appetite, difficulty swallowing, reflux, hematemesis, melena stool, loose stool, constipation or other Genitourinary: Negative blood in urine, nocturia, pain with urination or other Musc Musculoskeletal: Negative body pain, back pain, neck pain or other Skin/Breast Skin/Breast: Negative dry skin, itching, rash, unusual bruising, breast lump or other Neuro Neurological: Negative restless legs, confusion, weakness or other Psych Psychocological: Negative abnormal sleep pattern, anxiety, thoughts of hurting self/others, hopelessness or other Lymph Lymphatic: Negative easy bleeding, easy bruising, swollen lymph nodes or other Exam Const Constitutional: Positive conversant, cooperative, in no acute respiratory distress, healthy appearing, well developed, well nourished, good hygiene and obese Head Head: Positive normocephalic and atraumatic; negative cyanosis of lips/distal nose, microcephalic or macrocephalic Eyes Eye: Positive clear conjunctiva; negative nystagmus or scleral abnormality Ears Ear: Positive hearing normal and external ears normal; negative hard of hearing Nose Nose: Positive external nose normal, septum normal and no nasal discharge; negative epistaxis or nasal polyp Mouth Mouth: Positive post nasal drip, oral mucosae normal, no lesions, good dentition and crowded posterior oropharynx; negative malodorous breath or oral thrush present Mallampati Score: III: Mallampati Score Slight retrognathia Neck Neck: Positive normal visual inspection, thick neck, full ROM, trachea midline and female neck greater than 37 cm (15 in); negative lymphadenopathy or JVD Chest Wall Chest: Positive normal inspection of the chest; negative increased A/P diameter, symmetric chest movement, crepitus or tenderness Resp lung sounds: Positive clear to auscultation, good air exchange, normal expiratory time and normal respiratory effort; negative wheezes, rhonchi, rales, wheeze present on forced exhalation or dullness to percussion Cardio Cardiac: Positive regular rate, regular rhythm, S1 normal and S2 normal; negative murmur, rub or gallop GI GI: Positive obese, normal to inspection and normal bowel sounds; negative distended or ascites Genitourinary: Positive deferred Musc Musculoskeletal: Positive steady gait and ROM normal; negative using an assistive device for ambulation, kyphosis or scoliosis Skin Pulmonary Skin Exam: Positive intact; negative rash, lesion, ulcers, erythema or dermal atrophy Pulses Pulse: Yes radial pulses present Extremities Extremities: Yes capillary refill normal, No clubbing, No cyanosis, No edema, No stasis dermatitis Neuro Neurologic: Yes conversant, Yes no focal neuro deficits, Yes normal coordination, Yes normal concentration, Yes cooperative, Yes understands questions, Yes normal cognition Lymph Lymphatic: No lymphadenopathy Psych Appearance: Positive grossly normal Mental Status: Positive mental status grossly normal Mood: Positive congruent mood Affect: Positive normal affect Coding Level of Care Code Off vis,new,level 4 Diagnoses ARPAN (obstructive sleep apnea) G47.33 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 Obesity (BMI 30.0-34.9) E66.9 09/26/17 1650 <Electronically signed by Carlos Lancaster MD> Date Carlos Lancaster MD Cosigner Signature: Date (if applicable) CC: Christina Vazquez MD PROGRESS Observed: 09/12/2017 Status: COMPLETED Source: [place] 9:16 AM [facility] REPOSITORY HNO ID: [id number] Author: Jozef Saleem Service: (none) Author Type: Physician Type: Progress Notes Filed: 09/12/2017 9:17 AM Note Text: Jozef Saleem MD Department of Orthopaedics Orthopaedics [address] [facility] [address] Dept: [phone] Dept September 12, 2017 CHIEF COMPLAINT: Post Op (2 week 1 day post op excision ganglion cyst left index finger). ASSESSMENT: M67.442 Digital mucous cyst of finger of left hand (primary encounter diagnosis) SUMMARY/PLAN: patient is 2 weeks status post excision of a ganglion cyst of her left index finger. She's doing very well and is pleased so far. Clinical appearance is excellent. 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 Exam: surgical site looks excellent after stitches removed. No concerns. Supporting Information Below: Medications: Current Outpatient Prescriptions: LORazepam (ATIVAN) 1 mg tablet Take 1 tablet by mouth twice daily as needed for up to 180 days. losartan (COZAAR) 25 mg tablet Take 2 tablets by mouth once daily. CPAP Initiate Auto PAP @ 5-20 cm of water with humidification. Mask (per patient preference) optional chin strap (if indicated) , filters, tubing, humidifier and lifetime supplies. ACIPHEX 20 mg tablet Take 1 tablet by mouth twice daily. Do not substitute with generic (not effective) promethazine (PHENERGAN) 25 mg tablet Take 1 tablet by mouth every 6 hours as needed. clobetasol (TEMOVATE) 0.05 % cream Apply to affected skin sparingly once daily as needed nystatin (NYSTOP) powder Apply 1 application to affected area four times daily. As directed metoprolol succinate ER (TOPROL XL) 25 mg 24 hr tablet Take 0.5 tablets by mouth once daily. simvastatin (ZOCOR) 20 mg tablet Take 1 tablet by mouth daily at bedtime. Diclofenac Sodium (VOLTAREN) 1 % gel Use 4 times a day as needed furosemide (LASIX) 20 mg tablet Take 1 tablet by mouth once daily. docusate sodium (COLACE) 100 mg capsule Take 1 capsule by mouth twice daily as needed for Constipation. oxyCODONE-acetaminophen (PERCOCET) 10-325 mg tablet Take 1 tablet by mouth every 8 hours as needed. aspirin, enteric coated (ECOTRIN LOW STRENGTH) 81 mg EC tablet Take 1 tablet by mouth once daily. therapeutic multivitamin ORAL tablet Take 1 tablet by mouth once daily. Amoxicillin 500 mg tablet Take 4 tablets by mouth. 30 minutes prior to dental procedures. COMPOUNDED PRESCRIPTION Lab order: Hepatitis C antibody and reflex confirmation test (HCV RNA) if needed Z01.89 bisacodyl EC (DULCOLAX) 5 mg EC tablet Take 1 tablet by mouth once daily as needed. No current facility-administered medications for this visit. Allergies: Voltaren [Diclofenac Sodium]; Chlorhexidine; Cyclobenzaprine; Lyrica [Pregabalin]; Nsaids (Non-Steroidal Anti-Inflammatory Drug); Orphenadrine; Piroxicam; Tape [Other] This note was partially generated using Hitch voice recognition system, and there may be some incorrect words, spellings, and punctuation that were not noted in checking the note before saving. Jozef Saleem MD PROGRESS Observed: 09/12/2017 Status: COMPLETED Source: [place] 8:30 AM [facility] REPOSITORY HNO ID: [id number] Author: Verónica Becerra Ma Service: (none) Author Type: (none) Type: Progress Notes Filed: 09/12/2017 9:17 AM Note Text: AMB ROOMING INTAKE FLOWSHEET DATA Risk Screening Do you have concerns about personal safety or safety in the home?: No Patient here today for 2 week 1 day post op excision ganglion cyst left index finger. Denies any pain at the incision site. Patient presents for suture removal. The wound is well healed without signs of infection. The sutures are removed. Verbal instruction given on how to care for wound. Patient verbalized understanding. CNOV Observed: 09/12/2017 Status: COMPLETED Source: [place] 8:25 AM [facility] REPOSITORY Office Visit (ORTHWS) NGOC COTA ([id number]) 1950 F Date Time Provider Department 09/12/17 8:25 AM JOZEF SALEEM During your visit today, we recorded the following information about you: Verónica Becerra Ma 09/12/2017 9:17 AM Signed [facility] ROOMING [facility] FLOWSHEET DATA Risk Screening Do you have concerns about personal safety or safety in the home?: No Patient here today for 2 week 1 day post op excision ganglion cyst left index finger. Denies any pain at the incision site. Patient presents for suture removal. The wound is well healed without signs of infection. The sutures are removed. Verbal instruction given on how to care for wound. Patient verbalized understanding. Jozef Saleem MD 09/12/2017 9:17 AM Signed Jozef Saleem MD Department of Orthopaedics Orthopaedics [address] [place] [address] Dept: [phone] Dept September 12, 2017 CHIEF COMPLAINT: Post Op (2 week 1 day post op excision ganglion cyst left index finger). ASSESSMENT: M67.442 Digital mucous cyst of finger of left hand (primary encounter diagnosis) SUMMARY/PLAN: patient is 2 weeks status post excision of a ganglion cyst of her left index finger. She's doing very well and is pleased so far. Clinical appearance is excellent. 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 Exam: surgical site looks excellent after stitches removed. No concerns. Supporting Information Below: Medications: Current Outpatient Prescriptions: LORazepam (ATIVAN) 1 mg tablet Take 1 tablet by mouth twice daily as needed for up to 180 days. losartan (COZAAR) 25 mg tablet Take 2 tablets by mouth once daily. CPAP Initiate Auto PAP @ 5-20 cm of water with humidification. Mask (per patient preference) optional chin strap (if indicated) , filters, tubing, humidifier and lifetime supplies. ACIPHEX 20 mg tablet Take 1 tablet by mouth twice daily. Do not substitute with generic (not effective) promethazine (PHENERGAN) 25 mg tablet Take 1 tablet by mouth every 6 hours as needed. clobetasol (TEMOVATE) 0.05 % cream Apply to affected skin sparingly once daily as needed nystatin (NYSTOP) powder Apply 1 application to affected area four times daily. As directed metoprolol succinate ER (TOPROL XL) 25 mg 24 hr tablet Take 0.5 tablets by mouth once daily. simvastatin (ZOCOR) 20 mg tablet Take 1 tablet by mouth daily at bedtime. Diclofenac Sodium (VOLTAREN) 1 % gel Use 4 times a day as needed furosemide (LASIX) 20 mg tablet Take 1 tablet by mouth once daily. docusate sodium (COLACE) 100 mg capsule Take 1 capsule by mouth twice daily as needed for Constipation. oxyCODONE-acetaminophen (PERCOCET) 10-325 mg tablet Take 1 tablet by mouth every 8 hours as needed. aspirin, enteric coated (ECOTRIN LOW STRENGTH) 81 mg EC tablet Take 1 tablet by mouth once daily. therapeutic multivitamin ORAL tablet Take 1 tablet by mouth once daily. Amoxicillin 500 mg tablet Take 4 tablets by mouth. 30 minutes prior to dental procedures. COMPOUNDED PRESCRIPTION Lab order: Hepatitis C antibody and reflex confirmation test (HCV RNA) if needed Z01.89 bisacodyl EC (DULCOLAX) 5 mg EC tablet Take 1 tablet by mouth once daily as needed. No current facility-administered medications for this visit. Allergies: Voltaren [Diclofenac Sodium]; Chlorhexidine; Cyclobenzaprine; Lyrica [Pregabalin]; Nsaids (Non-Steroidal Anti-Inflammatory Drug); Orphenadrine; Piroxicam; Tape [Other] This note was partially generated using Hitch voice recognition system, and there may be some incorrect words, spellings, and punctuation that were not noted in checking the note before saving. Jozef Saleem MD Referring Provider: SELF [200] Allergies As of Date: 09/12/2017 Noted Allergy Reaction VOLTAREN (DICLOFENAC SODIUM) 01/02/2010 2 - Rash 7 - Swelling 12 - Shortness of Breath CHLORHEXIDINE 08/26/2017 4 - Hives Comments: Hibicleanse CYCLOBENZAPRINE 09/10/2002 4 - Hives Comments: Flexeril Blurred vision and nausea and vomiting LYRICA (PREGABALIN) 03/17/2010 5 - Intolerance Comments: Fluid retention NSAIDS (NON-STEROIDAL ANTI-INFLAM*09/10/2002 8 - GI Upset Comments: Ibuprofen, naproxen,etc ORPHENADRINE 09/10/2002 4 - Hives Comments: Norflex Nausea and vomiting and blurred vision PIROXICAM 09/10/2002 4 - Hives Comments: Feldene Blurred vision and nausea and vomiting Tape [Other] 09/10/2002 Comments: adhesive Date Reviewed: 09/12/2017 Reviewed by: Jozef Saleem - Fully Assessed Reason for Visit: Post Op [174] Cmt: 2 week 1 day post op excision ganglion cyst left index finger Primary Visit Diagnosis:Digital mucous cyst of finger of left hand [M67.442] Prescriptions as of 09/12/2017 Sig: LORAZEPAM 1 MG TABLET Take 1 tablet by mouth twice * LOSARTAN 25 MG TABLET Take 2 tablets by mouth once * CPAP Initiate Auto PAP @ 5- 20 cm o* ACIPHEX 20 MG TABLET,DELAYED * Take 1 tablet by mouth twice * PROMETHAZINE 25 MG TABLET Take 1 tablet by mouth every * CLOBETASOL 0.05 % TOPICAL CRE* Apply to affected skin sparin* NYSTATIN 100,000 UNIT/GRAM TO* Apply 1 application to affect* METOPROLOL SUCCINATE ER 25 MG* Take 0.5 tablets by mouth onc* SIMVASTATIN 20 MG TABLET Take 1 tablet by mouth daily * DICLOFENAC 1 % TOPICAL GEL Use 4 times a day as needed FUROSEMIDE 20 MG TABLET Take 1 tablet by mouth once d* DOCUSATE SODIUM 100 MG CAPSULE Take 1 capsule by mouth twice* OXYCODONE-ACETAMINOPHEN 10 MG* Take 1 tablet by mouth every * ASPIRIN 81 MG TABLET,DELAYED * Take 1 tablet by mouth once d* THERAPEUTIC MULTIVITAMIN TABL* Take 1 tablet by mouth once d* AMOXICILLIN 500 MG TABLET Take 4 tablets by mouth. 30 m* COMPOUNDED PRESCRIPTION Lab order: Hepatitis C antib* BISACODYL 5 MG TABLET,DELAYED* Take 1 tablet by mouth once d* Problem List As Of Date 09/12/2017 Noted Resolved INGROWING NAIL [L60.0] INVALID FOR* MALFUN PAYMENT COLLECTOR ORTHO DEVICE/ GRAFT NOS [T84.498A]INVALID FOR* Bundle branch block [I45.4] INVALID FOR* PAIN IN LIMB [M79.609] INVALID FOR* OTHER HAMMER TOE [M20.40] INVALID FOR* ENTHESOPATHY, SITE NOS [M77.9] INVALID FOR* GERD (Gastroesophageal Reflux Disease) [K21.9] Right Sided Sciatica [M54.31] Lichen Sclerosus et Atrophicus of the Vulva [N9*INVALID FOR* Porokeratosis [Q82.8] INVALID FOR* Calcaneal Spur [M77.30] INVALID FOR* Plantar fascial fibromatosis [M72.2] INVALID FOR* Hyperlipidemia [E78.5] INVALID FOR* Lumbar radiculopathy [M54.16] INVALID FOR* More... Degenerative joint disease of knee, right [M17.*INVALID FOR* More... Acute gastritis without mention of hemorrhage [*INVALID FOR* Anxiety [F41.9] INVALID FOR* Coronary artery disease involving [place]ann*INVALID FOR* More... Obesity [E66.9] INVALID FOR* Essential hypertension [I10] INVALID FOR* ARPAN (obstructive sleep apnea) [G47.33] INVALID FOR* Digital mucous cyst of finger of left hand [M67*INVALID FOR* More... Encounter Status:Closed by JOZEF SALEEM MD on 09/12/17 OPERATIVE REPORT Observed: 09/09/2017 Status: F Source: [place] 1:[address] [facility] REPOSITORY [facility] Medical Records Department [address] [place] [address] Operative Report 09/09/17 1328 MR#: [id number] Acct: [id number] Name: NGOC COTA Rep #: [id number] : 1950 67 From: Bautista Mendez MD PCP: Christina Vazquez MD Status: REG SDC Y Location: [place] [address] Problem List (1) DDD (degenerative disc disease), lumbosacral Status: Chronic (2) Lumbosacral radiculopathy Status: Chronic Report of Operation Date of Procedure: 09/09/17 Pre-Operative Diagnosis: Lumbosacral radiculopathy, lumbosacral degenerative disc disease, lumbosacral spinal stenosis Post-Operative Diagnosis: Lumbosacral radiculopathy, lumbosacral degenerative disc disease, lumbosacral spinal stenosis Surgery/Procedure Performed:: Caudal epidural steroid injection Description of Surgical Findings:: PROCEDURE: Caudal epidural steroid injection PREOPERATIVE DIAGNOSIS: Lumbosacral radiculopathy, lumbosacral degenerative disc disease, lumbosacral spinal stenosis POSTOPERATIVE DIAGNOSIS: Lumbosacral radiculopathy, lumbosacral degenerative disc disease, lumbosacral spinal stenosis ANESTHESIA: MAC COMPLICATIONS: None BLOOD LOSS: Minimal PROCEDURE IN DETAIL: History and physical today was reviewed. Risks and benefits of the procedure were explained. The patient understood, agreed to our procedure, and informed consent was obtained. IV inserted per routine protocol. The patient was taken to the operating room, placed in a prone position with a pillow positioned underneath the abdomen. The lower back and tailbone area was prepped and draped in a sterile fashion using iodine 3 under direct visualization fluoroscopy on the lateral view the caudal space was identified the skin and subcutaneous tissue and size approximately 3 cc of 1% lidocaine using a 25-gauge regular needle under direct visualization with fluoroscopy on the lateral view using a 22-gauge 3-1/2 inch spinal needle the needle was advanced via the skin through the sacral hiatus the peroneal passed through the sacrococcygeal ligament advanced approximately S4 area after negative aspiration of blood or CSF a total of 3 cc of contrast were injected to confirm correct placement of the needle as well as cephalad spread spread was followed to approximately L5 area after confirmation AP as well as lateral view and repeated negative aspiration a total of 15 cc of preservative-free 0.125% Marcaine with 80 mg of the portal was injected easily. The needles were then removed intact. The patient experienced no signs or symptoms intrathecal, intravascular injection. The patient experienced no paraesthesia. The procedure was completed without any apparent difficult, any complication. The patient appeared to tolerate well. ASSESSMENT AND PLAN: This is a 67-year-old female with lumbosacral radiculopathy lumbosacral degenerative disc disease lumbosacral spinal stenosis status post caudal epidural steroid injection. The patient will continue his current medications. The patient will follow in approximately 2 weeks for possible repeat of the procedure if indicated. 09/09/17 1330 <Electronically signed by Bautista Mendez MD> Date Bautista Mendez MD CC: Bautista Mendez; Christina Vazquez MD Signed FLUOR GUIDANCE FOR Observed: 09/09/2017 Status: F Source: [facility] 4:[address] [facility] REPOSITORY [facility] Imaging Services [address] [place] [address] Fluor Guidance for Spine Inj MR#: [id number] Acct: [id number] Name: NGOC COTA Rep #: [id number] : 1950 F 67 From: Jayden Byrd MD PCP: Christina Vazquez MD Status: REG [facility] Study: Fluor Guidance for Spine Inj Date of Exam: 09/09/17 Exam# [id number] Ordering Dr: Bautista Mendez MD PROCEDURE: Caudal block. DATE OF EXAMINATION: September 09, 2017. INDICATION: Female, 67 years old. FLUOROSCOPY TIME (if supplied): (0:06) minutes/seconds RADIATION DOSAGE (If Supplied By Facility): CTDIvol = ( ) mGy, DLP = ( ) mGycm Intraoperative imaging provided for caudal block. The spinal needle is seen in the mid posterior aspect of the sacrum. RAD/Fluor Guidance for Spine Inj IMPRESSION: Imaging provided for caudal block. Electronically Signed: Jayden Byrd MD at 14:50 EDT Tel [phone], Service support , CC: Bautista Mendez; Christina Vazquez MD Production Quality Manager: Signed PT ED Observed: 08/28/2017 Status: COMPLETED Source: [place] 4:29 PM [facility] REPOSITORY HNO ID: [id number] Author: Megha DanielsRn) NITHIN Redd Service: Nursing Author Type: Registered Nurse Type: Patient Education Filed: 08/28/2017 4:30 PM Note Text: POST OP LEARNING RESPONSE INSTRUCTION PROVIDED TO: Patient METHOD OF INSTRUCTION: Individual instruction PATIENT / FAMILY RESPONSE: Verbalizes understanding of: POST-OPERATIVE INSTRUCTIONS-Correct actions to take to reduce postoperative complications FOLLOW-UP PLAN: Complete - No need for follow-up SUPPLEMENTAL MATERIAL: None REFERRAL (RECOMMENDATION): None Electronically Signed By: Megha Redd RN In Department: [facility] SURGERY ANES POST Observed: 08/28/2017 Status: COMPLETED Source: [place] 3:57 PM [facility] REPOSITORY HNO ID: [id number] Author: Mendez Reis Service: Anesthesiology Author Type: Anesthesiologist Type: Anesthesia PostOp Filed: 08/28/2017 3:58 PM Note Text: POST ANESTHESIA EVALUATION NOTE SERVICE DATE: 08/28/2017 SERVICE TIME: 3.57 : 1950 Vitals: 08/28/17 1254 08/28/17 1531 Temp: 36.6 ?C (97.9 ?F) 36.2 ?C (97.2 ?F) 08/28/17 1254 08/28/17 1531 08/28/17 1545 BP: 149/68 151/70 163/74 08/28/17 1254 08/28/17 1531 08/28/17 1545 Pulse: 76 77 75 08/28/17 1254 08/28/17 1531 08/28/17 1545 Resp: 16 16 16 08/28/17 1254 08/28/17 1531 08/28/17 1545 SpO2: 96% 95% 96% Validated Vital Signs: Yes POST ANES STATUS: No apparent anesthetic complications. The patient is appropriately hydrated with stable respiratory and cardiovascular status. Patient has safe and adequate airway control. The patient has appropriate pain relief and no significant post operative nausea or vomiting. The patient has achieved baseline mental status. Further assessment by Anesthesia Service: None Other Remarks: SIGNATURE: Mendez Reis MD PATIENT NAME: Ngoc Cota DATE: August 28, 2017 TIME: 3:57 PM PAGER/CONTACT #: anesthesia OPERATIVE NO Observed: 08/28/2017 Status: COMPLETED Source: [place] 3:51 PM [facility] REPOSITORY HNO ID: [id number] Author: Jozef Saleem Service: Orthopaedic Surgery Author Type: Physician Type: Operative Report Filed: 08/30/2017 3:39 PM Note Text: OPERATIVE/PROCEDURE REPORT LOG ID: [id number] SURGERY/PROCEDURE DATE: 08/28/2017 INCISION/PROCEDURE START TIME: 3:07 PM INCISION CLOSE/PROCEDURE END TIME: 3:24 PM SURGEON(S)/PROCEDURALIST(S) AND HANDBAG PARTS CUTTER(S): Surgeon(s) and Role: * Jozef Saleem - Primary Nurse Practitioner: Surekha Flower Registered Nurse Business Records Manager: Niru (Nithin) NITHIN Riggs SURGERY/PROCEDURE(S): Left, index finger, excision of a ganglion cyst Procedure details: This is a pleasant, 67-year-old female who had an area of swelling and irritation on her left index finger at the tip. We reviewed in the office the risks, benefits, alternatives and potential complications involving digital mucous cyst excision. She understood and wished to pursue surgical intervention. On 08/28/2017, the patient was clearly identified in the preoperative area and marked accordingly on the left index finger by myself. She received 2 g of Ancef in the IV within 1 hour of incision or tourniquet. She was taken to the operative suite and placed in the supine position with an arm board on the left. Anesthesia assumed care of the head and neck for the remainder of the case. The left upper extremity was then sterilely prepped and draped in standard fashion. An appropriate timeout was conducted and all in the room were in agreement, signed consent forms on the chart. 1% lidocaine with 1-100,000 epinephrine was provided on the dorsum of the digit for a total of 2-1/2 cc. A medium-sized turnicot was used for the digit for exsanguination and hemostasis. An L-shaped incision was made over the DIP joint extending on the side of the ganglion distally. A 15 blade was used to very gently dissect the ganglion cyst away from what was nearly paper thin skin distally. I was able to dissect completely around cyst and remove it en bloc. There was a tiny rent in the capsule and a small bone spur was taken care with a small bony rongeur. The wound was copiously irrigated and the turnicot was removed. Hemostasis was observed with bipolar electrocautery. I then closed with simple interrupted sutures with 4-0 nylon material. Xeroform gauze, sterile 4 x 4's and a Shane wrap with Coban was used for final bandage. There were no complications during the procedure. She was safely awoken and transferred to the postanesthetic care unit in stable condition. ANESTHESIA: Monitored Anesthesia Care with local PRE-OP/PRE-PROCEDURE DIAGNOSIS: Digital mucous cyst of finger of left hand [M67.442] POST-OP/POST-PROCEDURE DIAGNOSIS: Digital mucous cyst of finger of left hand [M67.442] ESTIMATED BLOOD LOSS: 0 ml SPECIMENS: none sent IMPLANTABLE DEVICES: None DRAINS: None COMPLICATIONS: None PARTICIPATION IN SURGERY/PROCEDURE: I performed the procedure with assistance. No qualified resident/fellow was available. SIGNATURE: Jozef Saleem MD PATIENT NAME: Ngoc Cota DATE: August 28, 2017 TIME: 3:51 PM PAGER/CONTACT #: NURSING PROG Observed: 08/28/2017 Status: COMPLETED Source: [place] 3:31 PM [facility] REPOSITORY HNO ID: [id number] Author: Megha (Rn) NITHIN Redd Service: Nursing Author Type: Registered Nurse Type: Nursing Progress Note Filed: 08/28/2017 4:32 PM Note Text: 1531 pt to PACU. Awakes easily to VS. [place] TCx4. Denies pain. L hand drsg DANDI. L hand elevated on pillow ice pack in place. PIV DANDI. VSS no s/sx of distress. 1611 pt to Phase 2 family @ BS. Pt tolerates PO denies nausea. 1620 d/c instructions given. PIV d/c'd drsg on. 1630 pt d/c'd to home via wheelchair. ANES PREOP Observed: 08/28/2017 Status: COMPLETED Source: [place] 1:59 PM [facility] REPOSITORY HNO ID: [id number] Author: Mendez Reis Service: Anesthesiology Author Type: Anesthesiologist Type: Anesthesia PreOp Filed: 08/28/2017 2:00 PM Note Text: ANESTHESIOLOGY DAY OF SURGERY NOTE SERVICE DATE: 08/28/2017 SERVICE TIME: 14.00 : 1950 Procedure(s) (LRB): EXCISION GANGLION HAND (Left) Surgeon(s): Jozef Saleem Estimated body mass index is 34.96 kg/m? as calculated from the following: Height as of 08/26/17: 154.9 cm (5' 1). Weight as of 08/26/17: 83.9 kg (185 lb). Most recent hematocrit and potassium results: Hematocrit 32.4 07/06/2014 Potassium 3.7 07/06/2014 ANES DOS/PREOP NOTE: Vitals: 08/28/17 1254 BP: 149/68 Pulse: 76 Resp: 16 Temp: 36.6 ?C (97.9 ?F) TempSrc: Temporal Artery SpO2: 96% ACTIVE PROBLEM LIST Ingrowing Nail Unspecified Mechanical Complication of Internal Orthopedic Device, Implant, and Graft Bundle Branch Block Pain in Limb Other Hammer Toe (Acquired) Enthesopathy of Unspecified Site Gerd (Gastroesophageal Reflux Disease) Right Sided Sciatica Lichen Sclerosus Et Atrophicus of [place] Porokeratosis Calcaneal Spur Plantar fascial fibromatosis Hyperlipidemia Lumbar Radiculopathy Degenerative Joint Disease of Knee, Right Acute Gastritis Without Mention of Hemorrhage Anxiety Coronary Artery Disease Involving [place] Coronary Artery of [place] Heart Without Angina Pectoris Obesity Essential Hypertension Arpan (Obstructive Sleep Apnea) Digital Mucous Cyst of Finger of Left Hand PAST MEDICAL HISTORY Diagnosis Date - Anatomical narrow angle borderline glaucoma - Bundle branch block, unspecified 01/12 LBBB - Coronary artery disease involving [place] coronary artery of [place] heart without angina pectoris 2014 Dr. Phillips - DDD (degenerative disc disease), lumbar - Disorder of bone and cartilage, unspecified - Diverticulosis of colon (without mention of hemorrhage) - GERD (gastroesophageal reflux disease) - Irritable bowel syndrome - Lichen Sclerosus et Atrophicus of the [place] 03/16/2009 - Lumbar radiculopathy - Other combinations of endocrine dysfunction - Plantar fascial fibromatosis - Primary localized osteoarthrosis, lower leg - Right knee DJD - Right sided sciatica - S/P coronary artery stent placement 2014 LAD PAST SURGICAL HISTORY Procedure Laterality Date - CARDIAC CATH 06/2014 stent - COLONOSCOP W/ OR W/O BRSH SPEC 03/20/2011 Colonoscopy - CORRECT BUNION,SIMPLE 1999 Bunion both- left was nonunion - EGD W/O OR W/BRUSH/WASH 03/20/2011 EGD - KNEE SCOPE,DIAGNOSTIC prior to 2003 right knee X 3 - PART REMOVAL COLON W ANASTOMOSIS [id number] sigmoid resection - PAST SURGICAL HISTORY OF 1998 endochondroma right knee - PAST SURGICAL HISTORY OF 1998 laser both eyes for glaucoma - PAST SURGICAL HISTORY OF 1998 left plantar fasciotomy - PAST SURGICAL HISTORY OF 1982 hysterectomy with one ovary removed - PAST SURGICAL HISTORY OF 08/11/2013 Total Right Knee replacement - REMOVAL OF TONSILS,<12 Y/O Tonsillectomy - TOTAL KNEE REPLACEMENT 2003 Knee replacement, total right FAMILY HISTORY Problem Relation Age of Onset - Breast Cancer Mother also uterine cancer - Diabetes Mother - Heart Father Social History: Social History Substance Use Topics - Smoking status: Never Smoker - Smokeless tobacco: Never Used - Alcohol use No No current facility-administered medications on file prior to encounter. Current Outpatient Prescriptions on File Prior to Encounter: Amoxicillin 500 mg tablet Take 4 tablets by mouth. 30 minutes prior to dental procedures. losartan (COZAAR) 25 mg tablet Take 2 tablets by mouth once daily. ACIPHEX 20 mg tablet Take 1 tablet by mouth twice daily. Do not substitute with generic (not effective) metoprolol succinate ER (TOPROL XL) 25 mg 24 hr tablet Take 0.5 tablets by mouth once daily. furosemide (LASIX) 20 mg tablet Take 1 tablet by mouth once daily. oxyCODONE-acetaminophen (PERCOCET) 10-325 mg tablet Take 1 tablet by mouth every 8 hours as needed. therapeutic multivitamin ORAL tablet Take 1 tablet by mouth once daily. LORazepam (ATIVAN) 1 mg tablet Take 1 tablet by mouth twice daily as needed for up to 180 days. CPAP Initiate Auto PAP @ 5-20 cm of water with humidification. Mask (per patient preference) optional chin strap (if indicated) , filters, tubing, humidifier and lifetime supplies. COMPOUNDED PRESCRIPTION Lab order: Hepatitis C antibody and reflex confirmation test (HCV RNA) if needed Z01.89 promethazine (PHENERGAN) 25 mg tablet Take 1 tablet by mouth every 6 hours as needed. clobetasol (TEMOVATE) 0.05 % cream Apply to affected skin sparingly once daily as needed nystatin (NYSTOP) powder Apply 1 application to affected area four times daily. As directed simvastatin (ZOCOR) 20 mg tablet Take 1 tablet by mouth daily at bedtime. Diclofenac Sodium (VOLTAREN) 1 % gel Use 4 times a day as needed docusate sodium (COLACE) 100 mg capsule Take 1 capsule by mouth twice daily as needed for Constipation. bisacodyl EC (DULCOLAX) 5 mg EC tablet Take 1 tablet by mouth once daily as needed. aspirin, enteric coated (ECOTRIN LOW STRENGTH) 81 mg EC tablet Take 1 tablet by mouth once daily. Current Facility-Administered Medications: lactated ringers infusion 5-30 mL/hr INTRAVENOUS CONTINUOUS Marlyn (Pa) Vetovitz Last Rate: 30 mL/hr at 08/28/17 1317 30 mL/hr at 08/28/17 1317 ceFAZolin iv piggyback 2 g in D5W (iso-osmotic) 100 mL (ANCEF) 2 g INTRAVENOUS Pre-Op Once Marlyn (Pa) Vetovitz Allergies: ALLERGIES Allergen Reactions - Voltaren [Diclofena* Rash, Swelling, Shortness of Breath - Chlorhexidine Hives Hibicleanse - Cyclobenzaprine Hives Flexeril Blurred vision and nausea and vomiting - Lyrica [Pregabalin] Intolerance Fluid retention - Nsaids (Non-Steroid* GI Upset Ibuprofen, naproxen,etc - Orphenadrine Hives Norflex Nausea and vomiting and blurred vision - Piroxicam Hives Feldene Blurred vision and nausea and vomiting - Tape [Other] adhesive DOS EXAM: Adequate NPO status: Yes Anesthetic risks, benefits, alternatives, personnel and consent discussed: Yes Patient agrees to proceed: Yes Previous Anesthesia: No history of adverse event. Airway Assessment: MP 2; Neck ROM: Full ROM without neurologic symptoms; Airway Evaluation: No significant abnormalities Symptoms of Sleep Apnea: None Dentition: Poor dentition Additional Physical Exam: Lungs: Patient health status unchanged since recent history and physical. See history and physical for exam findings. Lungs clear to auscultation. Good diaphragmatic excursion. Cardiac: Patient health status unchanged since recent history and physical. See history and physical for exam findings. normal S1 and S2; no rubs, no murmurs, and no gallops Additional Pertinent Findings: N/A Blood Products: Not anticipated for this procedure. Anesthetic Plan: MAC with Sedation Pain Management Plan: Parenteral or Oral ASA Class: 2 Other Medical Problems: None Chronic Beta [place] medication administered within 24 hours: N/A I have interviewed and examined the patient. I have reviewed the medical record and/or the pre-anesthesia evaluation, pertinent labs, and test results. Significant changes in the patient's condition since the History and Physical, not otherwise documented in primary service progress notes: No This contains updated information obtained within 48 hours of Surgery/Procedure. SIGNATURE: Mendez Reis MD PATIENT NAME: Ngoc Cota DATE: August 28, 2017 TIME: 1:59 PM CSN: [id number] PT ED Observed: 08/28/2017 Status: COMPLETED Source: [place] 12:35 PM [facility] REPOSITORY HNO ID: [id number] Author: Live DanielsRn) NITHIN Sigala Service: Nursing Author Type: Registered Nurse Type: Patient Education Filed: 08/28/2017 12:36 PM Note Text: PRE OP LEARNING ASSESSMENT PROCEDURE/SURGERY: SURGERY: Left, index finger, excision of ganglion cyst. READINESS TO LEARN COGNITIVE ABILITY: Alert and oriented MOTIVATION TO LEARN: Eager FAMILY SUPPORT: High - Very involved in pt care PATIENT LEARNS BEST BY: Individual Instruction Verbal Instruction FACTORS AFFECTING LEARNING: None PHYSICAL LIMITATIONS AFFECTING LEARNING: None Electronically Signed By: Live Sigala RN In Department: [facility] SURGERY NURSING PROG Observed: 08/27/2017 Status: COMPLETED Source: [place] 8:47 AM [facility] REPOSITORY HNO ID: [id number] Author: Shari DanielsRnSandy Topete RN Service: (none) Author Type: Registered Nurse Type: Nursing Progress Note Filed: 08/27/2017 8:51 AM Note Text: PACC Nurse Progress Note History AND Physical: PACC Visit Date: 08/26/17 Original HANDP Date: 08/26/17 ED visit Date: N/A Outside HANDP Scanned Date: N/A Labs Within Last 6 Months: N/A Imaging Within Last 12 Months: N/A Cardiac Testing: EKG in last 12 Months: Yes: Date: 01/26/17, Comment:scanned in [facility], similar to EKG from 06/17/14 Stress echo 07/02/14, scanned in EPIC Last Menstrual Period: LMP Date: N/A Postmenopausal >1yr: Yes, S/P Hysterectomy: Yes BMI Percentile (PEDS): N/A Risk Assessment: N/A Anesthesia Review: N/A Narrative: N/A Pre-op Considerations: ARPAN on CPAP Chart Check: COMPLETED Shari Topete RN August 27, 2017 8:47 AM HISTORY PHYSICAL Observed: 08/26/2017 Status: COMPLETED Source: [place] 8:13 AM [facility] REPOSITORY HNO ID: [id number] Author: Ursula Ordoñez (Pa) Service: (none) Author Type: Physician Operations Leader Type: HANDP Filed: 08/26/2017 8:49 AM Note Text: HISTORY AND PHYSICAL EXAMINATION SERVICE DATE: 08/26/2017 SERVICE TIME: 8:13 AM PRIMARY CARE PHYSICIAN: Christina Vazquez MD REASON FOR VISIT: Ngoc Cota is a 67 year old female who is scheduled for excision ganglion cyst left hand at the request of Dr. Jozef Saleem for consultation. My final recommendation will be communicated back to the requesting physician by way of shared medical record or letter. The patient has the following: ACTIVE PROBLEM LIST Ingrowing Nail Unspecified Mechanical Complication of Internal Orthopedic Device, Implant, and Graft Bundle branch block, unspecified Pain in Limb Other Hammer Toe (Acquired) Enthesopathy of Unspecified Site Gerd (Gastroesophageal Reflux Disease) Right Sided Sciatica Lichen Sclerosus Et Atrophicus of [place] Porokeratosis Calcaneal Spur Plantar fascial fibromatosis Hyperlipidemia Lumbar Radiculopathy Degenerative Joint Disease of Knee, Right Acute Gastritis Without Mention of Hemorrhage Anxiety Coronary Artery Disease Involving [place] Coronary Artery of [place] Heart Without Angina Pectoris Obesity Essential Hypertension Arpan (Obstructive Sleep Apnea) Digital Mucous Cyst of Finger of Left Hand Subjective CHIEF COMPLAINT: left hand ganglion cyst HPI: HPI Ngoc Cota is a 67 year old female that presents c/o a 2 month history of ganglion cyst on left index finger that has worsened with time. No previous ganglion cyst. Pain is intermittent and described as dull and shooting in nature. Pain does not radiate. 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 Alleviated by nothing. Previous treatments include warm compresses. Scheduled for excision on 08/28. Denies recent illness, fever or chills. PAST MEDICAL HISTORY Diagnosis Date - Anatomical narrow angle borderline glaucoma - Bundle branch block, unspecified 01/12 LBBB - Coronary artery disease involving [place] coronary artery of [place] heart without angina pectoris 2014 Dr. Phillips - DDD (degenerative disc disease), lumbar - Disorder of bone and cartilage, unspecified - Diverticulosis of colon (without mention of hemorrhage) - GERD (gastroesophageal reflux disease) - Irritable bowel syndrome - Lichen Sclerosus et Atrophicus of the [place] 03/16/2009 - Lumbar radiculopathy - Other combinations of endocrine dysfunction - Plantar fascial fibromatosis - Primary localized osteoarthrosis, lower leg - Right knee DJD - Right sided sciatica - S/P coronary artery stent placement 2014 LAD PAST SURGICAL HISTORY Procedure Laterality Date - CARDIAC CATH 06/2014 stent - COLONOSCOP W/ OR W/O BRSH SPEC 03/20/2011 Colonoscopy - CORRECT BUNION,SIMPLE 1999 Bunion both- left was nonunion - EGD W/O OR W/BRUSH/WASH 03/20/2011 EGD - KNEE SCOPE,DIAGNOSTIC prior to 2003 right knee X 3 - PART REMOVAL COLON W ANASTOMOSIS [id number] sigmoid resection - PAST SURGICAL HISTORY OF 1998 endochondroma right knee - PAST SURGICAL HISTORY OF 1998 laser both eyes for glaucoma - PAST SURGICAL HISTORY OF 1998 left plantar fasciotomy - PAST SURGICAL HISTORY OF 1982 hysterectomy with one ovary removed - PAST SURGICAL HISTORY OF 08/11/2013 Total Right Knee replacement - REMOVAL OF TONSILS,<12 Y/O Tonsillectomy - TOTAL KNEE REPLACEMENT 2003 Knee replacement, total right FAMILY HISTORY Problem Relation Age of Onset - Breast Cancer Mother also uterine cancer - Diabetes Mother - Heart Father SOCIAL HISTORY: Social History Marital status: Spouse name: Years of education: Number of children: Social History Main Topics Smoking status: Never Smoker Smokeless tobacco: Never Used Alcohol use: No Drug use: No Prior to Admission medications as of 08/26/17 0838 Medication Sig Last Dose Taking Amoxicillin 500 mg tablet Take 4 tablets by mouth. 30 minutes prior to dental procedures. Yes LORazepam (ATIVAN) 1 mg tablet Take 1 tablet by mouth twice daily as needed for up to 180 days. Yes losartan (COZAAR) 25 mg tablet Take 2 tablets by mouth once daily. Yes CPAP Initiate Auto PAP @ 5-20 cm of water with humidification. Mask (per patient preference) optional chin strap (if indicated) , filters, tubing, humidifier and lifetime supplies. Yes COMPOUNDED PRESCRIPTION Lab order: Hepatitis C antibody and reflex confirmation test (HCV RNA) if needed Z01.89 Yes ACIPHEX 20 mg tablet Take 1 tablet by mouth twice daily. Do not substitute with generic (not effective) Yes promethazine (PHENERGAN) 25 mg tablet Take 1 tablet by mouth every 6 hours as needed. Yes clobetasol (TEMOVATE) 0.05 % cream Apply to affected skin sparingly once daily as needed Yes nystatin (NYSTOP) powder Apply 1 application to affected area four times daily. As directed Yes metoprolol succinate ER (TOPROL XL) 25 mg 24 hr tablet Take 0.5 tablets by mouth once daily. Yes simvastatin (ZOCOR) 20 mg tablet Take 1 tablet by mouth daily at bedtime. Yes Diclofenac Sodium (VOLTAREN) 1 % gel Use 4 times a day as needed Yes furosemide (LASIX) 20 mg tablet Take 1 tablet by mouth once daily. Yes docusate sodium (COLACE) 100 mg capsule Take 1 capsule by mouth twice daily as needed for Constipation. Yes bisacodyl EC (DULCOLAX) 5 mg EC tablet Take 1 tablet by mouth once daily as needed. Yes oxyCODONE-acetaminophen (PERCOCET) 10-325 mg tablet Take 1 tablet by mouth every 8 hours as needed. Yes aspirin, enteric coated (ECOTRIN LOW STRENGTH) 81 mg EC tablet Take 1 tablet by mouth once daily. Yes therapeutic multivitamin ORAL tablet Take 1 tablet by mouth once daily. Yes Medication Comments documented by Lupis Russo) NITHIN Horne on 03/20/2011 at 0857. ALLERGIES Allergen Reactions - Voltaren [Diclofena* Rash, Swelling, Shortness of Breath - Cyclobenzaprine Hives Flexeril Blurred vision and nausea and vomiting - Lyrica [Pregabalin] Intolerance Fluid retention - Nsaids (Non-Steroid* GI Upset Ibuprofen, naproxen,etc - Orphenadrine Hives Norflex Nausea and vomiting and blurred vision - Piroxicam Hives Feldene Blurred vision and nausea and vomiting - Tape [Other] adhesive REVIEW OF SYSTEMS: PAIN ASSESSMENT: General: No weight loss, malaise or fevers. Neuro: Postive for Impaired Sensorium -left small finger; No history of TIAs, stroke, headaches, tremors, NAIL KEGGER tumor, hemiplegia, paraplegia, quadriplegia. Respiratory: Chronic sinus drainage; ARPAN on CPAP; No history of current cough, dyspnea, bronchitis or pneumonia in the last 6 weeks. No history of asthma or COPD. Cardiovascular: CAD h/o OR s/p stent in 06/2014 on ASA; HTN-treated; HLD-treated; Known LBBB; Followed by Dr. Phillips every 6 months with last visit 07/2017. Pt denies any new sxs since visit; +BLE edema; +OR; Negative for chest pain, orthopnea, PND, dizziness, lightheadedness or syncope. Negative for heart murmur. Negative for palpitations or arrhythmia. Negative for h/o DVT/PE. GI: GERD-Aciphex; No PUD or liver disease.No ETOH use. : No history of dysuria, frequency or incontinence,, stones or chronic kidney disease SOCIAL MEDIA EXECUTIVE: Negative for abnormal vaginal bleeding, abnormal vaginal discharge. : Denies, No LMP recorded. Patient has had a hysterectomy. Endocrine: No history of diabetes. Has not taken steroids within the past 30 days. No history of endocrinological symptoms or problems. Hematology: Chronic anti-coagulation / platelet meds (Aspirin) Oncology: No history of CA metastasis, chemo within 30 days, or radiotherapy within 90 days. Has not lost 10% of body wt in 6 months. No history of oncological symptoms or problems. Psych: No history of psychiatric symptoms or problems. Musculoskeletal: +varicose veins; +back pain-receives injections Skin: Negative for lesions, rash and itching. Objective PHYSICAL EXAM: VITALS: BP 139/77 Pulse 89 Temp 98.3 Ht 5' 1 (1.55m) Wt 185 lb (83.9kg) SpO2 96% BMI 34.97 kg/(m2). General: Alert and oriented, No acute distress, Obese Skin: Normal color, no rash, no lesions. HEENT: EOM, pupils equal, round and reactive., No carotid bruits Cardiovascular: Normal S1 AND S2, no rubs, murmurs or gallops. No JVD. Pulse regular. Lungs: Normal breath sounds, no wheezes or crackles., No chest deformities or chest wall tenderness. Abdomen: Soft, non-tender, no rigidity., No masses or organomegaly. Extremities: BLE +1 non-pitting edema; +varicosities left leg Neurological: Normal cognition and motor skills. Gait normal. No weakness or sensory deficit. Pulses: Carotid and radial pulses normal +2. Diagnostic tests reviewed for today's visit: Lab Value Units Date High Low HB No results within date range. HCT No results within date range. WBC No results within date range. PLT No results within date range. NA No results within date range. K No results within date range. GLUC No results within date range. BUN No results within date range. CREAT No results within date range. PTSEC No results within date range. INR No results within date range. APTT No results within date range. ALT No results within date range. AST No results within date range. TBILI No results within date range. TSH No results within date range. Lab Value Units Date High Low HCGQT No results within date range. UHCG No results within date range. HCG, BODY* No results within date range. Lab Value Units Date High Low ABORHD No results within date range. ABSCREEN No results within date range. No results found for: HBA1C Most recent labs Most recent EKG: sinus tachycardia at 107 beats per minute, normal axis, left bundle branch block, reviewed by vp care management. Most recent stress test Epic AND outside labs AND EKG Assessment ASSESSMENT Patient has the following medical conditions: ARPAN on CPAP Obesity-BMI 34.97 CAD h/o OR s/p stent in 2014 on ASA Known LBBB HTN-treated HLD-treated GERD-treated Chronic LBP-Percocet TID prn s/p B/L TKA METS: Climb a flight of stairs or walk up a hill (5.50 METs) Patient denies any chest pain or undue shortness of breath with the above physical activity. ASA Class: 3 ANESTHESIA FINDINGS: Intubation History: No history of difficult intubation Significant Anesthesia Considerations: None and Difficult IV/Vein Access: NO Airway Exam: General: Normal appearance Mallampati Score is CLASS III ULBT: Class I - Lower incisors can bite the upper lip above the angelique line Neck: Normal appearance and function, Distance from hyoid to mentum during neck extension is at least 3 finger breaths Mouth: Normal tongue size and Mouth opening greater than 2 finger breaths Dentition: Caps/crowns and posts for implants Airway History: No history of difficult intubation STOP BANG Score: ARPAN uses CPAP/BiPAP PLAN This patient is optimally prepared for surgery. CONSULTS: Patient does not require consults for optimization at this time. The Following Tests/Procedures Have Been Initiated: Labs not indicated per PACC protocol, EKG not indicated per PACC protocol Planned Anesthetic: MAC Instructions Given to Patient: Patient given verbal and written preop instructions and voices comprehension and compliance. SIGNATURE: Ursula Ordoñez PA-C PATIENT NAME: Ngoc Cota DATE: August 26, 2017 TIME: 8:13 AM PAGER/CONTACT #: LIVER PROFILE Collected: 08/21/2017 Status: F Source: [place] 8:[address] [facility] REPOSITORY TYPE CODE TESTS RESULT OUT OF RANGE REFERENCE UNITS LAB L501.1500 6.4-8.2 g/dL Normal T PROT 7.4 LAB L501.1800 3.2-5.0 g/dL Normal ALB 3.8 LAB L501.1950 2.2-4.2 g/dL Normal GLOB 3.6 LAB L501.4100 15-37 U/L Normal AST 24 LAB L501.4305 45-117 U/L Normal ALK P 109 LAB L501.4405 13-56 U/L Normal ALT 32 LAB L501.4600 0.20-1.00 mg/dL Normal T BILI 0.50 LAB L501.4700 0.00-0.30 mg/dL Normal D BILI 0.09 Performed By: #### L500.3400, L500.4100 #### [facility] [address] [place], [place], [address] LIPID PROFILE Collected: 08/21/2017 Status: F Source: [place] 8:[address] [facility] REPOSITORY TYPE CODE TESTS RESULT OUT OF RANGE REFERENCE UNITS LAB L501.4900 200 mg/dL Normal CHOL 149 Result Comment: <200 mg/dL Desirable 200-240 mg/dL Borderline >240 mg/dL High Risk LAB L501.5000 mg/dL High TRIG 234 Result Comment: The drugs N-Acetylcysteine and Metamizole may falsely depress this assay. Serum Triglycerides Reference Interval Normal <150 mg/dL Borderline high 150 - 199 mg/dL High 200 - 499 mg/dL Very High > or = 500 mg/dL LAB L501.6400 mg/dL Normal HDL 42 Result Comment: The drugs N-Acetylcysteine and Metamizole may falsely depress this assay. Reference Range HDL <40 mg/dL Low HDL Cholesterol HDL >or= 60 mg/dL High HDL Cholesterol LAB L501.6500 0-130 mg/dL Normal LDL 60 LAB L501.6600 5-40 mg/dL High VLDL 47 Performed By: #### L500.3400, L500.4100 #### [facility] [address] [place], [address] PROGRESS Observed: 08/19/2017 Status: COMPLETED Source: [place] 8:52 AM [facility] REPOSITORY HNO ID: [id number] Author: Jozef Saleem Service: (none) Author Type: Physician Type: Progress Notes Filed: 08/19/2017 9:17 AM Note Text: Jozef Saleem MD Department of Orthopaedics Orthopaedics [address] [facility] [address] Dept: [phone] Dept August 19, 2017 CHIEF COMPLAINT: New Patient (Cyst left index finger REF: N. 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 She developed some swelling on the left index finger about 2 months ago. 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 3 out 10 intermittent pain again when she bumps it. ASSESSMENT: M67.442 Digital mucous cyst of finger of left hand (primary encounter diagnosis) PLAN: we reviewed both operative and nonoperative options. The risks, benefits, alternatives and potential complications were discussed and she would like to pursue surgical excision of the cyst. We'll get her scheduled accordingly. FOLLOW UP INSTRUCTIONS: as above OBJECTIVE: Ms. Ngoc Cota is a pleasant 67 year old in no apparent distress. Gen:BP 151/61 Pulse 67 Ht 5' 1 (1.55m) Wt 187 lb (84.8kg) BMI 35.35 kg/(m2). nl development, obese, no deformities ENT: Normocephalic, normal hearing, moist mucosa CV: Pulses:Radial= 2+ and symmetric, capillary refill < 2 secs, no peripheral edema/varicosities Skin: no rash, bruising or lesions. Good turgor. Psych: cooperative and appropriate, alert and oriented x 3, good mood and affect. Musculoskeletal: left index finger with a dorsal prominence just distal to the DIP joint consistent with a digital mucous cyst. Positive transillumination. No redness and no drainage. Neurovascular exam intact. IMAGING: deferred Supporting Subjective Information Below: Past Medical History: PAST MEDICAL HISTORY Diagnosis Date - Anatomical narrow angle borderline glaucoma - Bundle branch block, unspecified 01/12 LBBB - Coronary artery disease involving mesa grande coronary artery of mesa grande heart without angina pectoris 2014 Dr. Phillips - DDD (degenerative disc disease), lumbar - Disorder of bone and cartilage, unspecified - Diverticulosis of colon (without mention of hemorrhage) - GERD (gastroesophageal reflux disease) - Irritable bowel syndrome - Lichen Sclerosus et Atrophicus of the Vulva 03/16/2009 - Lumbar radiculopathy - Other combinations of endocrine dysfunction - Plantar fascial fibromatosis - Primary localized osteoarthrosis, lower leg - Right knee DJD - Right sided sciatica - S/P coronary artery stent placement 2014 LAD Past Surgical History: PAST SURGICAL HISTORY Procedure Laterality Date - COLONOSCOP W/ OR W/O [facility] SPEC 03/20/2011 Colonoscopy - CORRECT BUNION,SIMPLE 1999 Bunion both- left was nonunion - EGD W/O OR W/BRUSH/WASH 03/20/2011 EGD - KNEE SCOPE,DIAGNOSTIC prior to 2003 right knee X 3 - PART REMOVAL COLON W ANASTOMOSIS [id number] sigmoid resection - PAST SURGICAL HISTORY OF 1998 endochondroma right knee - PAST SURGICAL HISTORY OF 1998 laser both eyes for glaucoma - PAST SURGICAL HISTORY OF 1998 left plantar fasciotomy - PAST SURGICAL HISTORY OF 1982 hysterectomy with one ovary removed - PAST SURGICAL HISTORY OF 08/11/2013 Total Right Knee replacement - REMOVAL OF TONSILS,<12 Y/O Tonsillectomy - TOTAL KNEE REPLACEMENT 2004 Knee replacement, total right Family History: FAMILY HISTORY Problem Relation Age of Onset - Breast Cancer Mother also uterine cancer - Heart Father - Diabetes Mother Social History:Social History Marital status: Spouse name: Years of education: Number of children: Social History Main Topics Smoking status: Never Smoker Smokeless tobacco: Never Used Alcohol use: No Drug use: No Medications: Current Outpatient Prescriptions: LORazepam (ATIVAN) 1 mg tablet Take 1 tablet by mouth twice daily as needed for up to 180 days. losartan (COZAAR) 25 mg tablet Take 2 tablets by mouth once daily. CPAP Initiate Auto PAP @ 5-20 cm of water with humidification. Mask (per patient preference) optional chin strap (if indicated) , filters, tubing, humidifier and lifetime supplies. ACIPHEX 20 mg tablet Take 1 tablet by mouth twice daily. Do not substitute with generic (not effective) nystatin (NYSTOP) powder Apply 1 application to affected area four times daily. As directed metoprolol succinate ER (TOPROL XL) 25 mg 24 hr tablet Take 0.5 tablets by mouth once daily. simvastatin (ZOCOR) 20 mg tablet Take 1 tablet by mouth daily at bedtime. Diclofenac Sodium (VOLTAREN) 1 % gel Use 4 times a day as needed furosemide (LASIX) 20 mg tablet Take 1 tablet by mouth once daily. docusate sodium (COLACE) 100 mg capsule Take 1 capsule by mouth twice daily as needed for Constipation. oxyCODONE-acetaminophen (PERCOCET) 10-325 mg tablet Take 1 tablet by mouth every 8 hours as needed. aspirin, enteric coated (ECOTRIN LOW STRENGTH) 81 mg EC tablet Take 1 tablet by mouth once daily. therapeutic multivitamin ORAL tablet Take 1 tablet by mouth once daily. Amoxicillin 500 mg tablet Take 4 tablets by mouth. 30 minutes prior to dental procedures. COMPOUNDED PRESCRIPTION Lab order: Hepatitis C antibody and reflex confirmation test (HCV RNA) if needed Z01.89 promethazine (PHENERGAN) 25 mg tablet Take 1 tablet by mouth every 6 hours as needed. clobetasol (TEMOVATE) 0.05 % cream Apply to affected skin sparingly once daily as needed bisacodyl EC (DULCOLAX) 5 mg EC tablet Take 1 tablet by mouth once daily as needed. No current facility-administered medications for this visit. Allergies: Voltaren [Diclofenac Sodium]; Cyclobenzaprine; Lyrica [Pregabalin]; Nsaids (Non-Steroidal Anti-Inflammatory Drug); Orphenadrine; Piroxicam; Tape [Other] ROS: General (negative for fatigue, malaise, weight loss/gain) HEENT (negative for headache, earache, recent vision changes, sinus pain, sore throat) Respiratory (no recent shortness of breath, hemoptysis) CV (negative for chest tightness, palpitations) Musculoskeletal (see HPI) Psych (no depression, anxiety) REFERRING PHYSICIAN: Derrek Ngoc Cota was referred to me for consultation by the following physician. This consultation note will be sent to the following physician by either mail or electronic medical record. Karol Burroughs, PRE K SPECIAL EDUCATION TEACHER.WEDDING CONSULTANT [address] [facility] [address] Christina Vazquez MD [address] [facility] [address] This note was partially generated using Dragon voice recognition system, and there may be some incorrect words, spellings, and punctuation that were not noted in checking the note before saving. Jozef Saleem MD PROGRESS Observed: 08/19/2017 Status: COMPLETED Source: [place] 8:22 AM [facility] REPOSITORY HNO ID: [id number] Author: Verónica Becerra Ma Service: (none) Author Type: (none) Type: Progress Notes Filed: 08/19/2017 9:17 AM Note Text: AMB ROOMING INTAKE FLOWSHEET DATA Risk Screening Do you have concerns about personal safety or safety in the home?: No Pain Pain Score: 3/10 Pain Location: Hand-Left Description: Other: See comment, Sore (zings) Duration Amount of Time: 2 Duration Units: Months Frequency: Intermittent Intervention: Other: See comment (none) Patient here today for evaluation of cyst on left index finger. Has been present about 2 months. Does bother her when it is touched or when she has to use it. 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 CNOV Observed: 08/19/2017 Status: COMPLETED Source: [place] 7:55 AM [facility] REPOSITORY Office Visit (RODRIGO) NGOC COTA ([id number]) 1950 F Date Time Provider Department 08/19/17 7:55 AM JOZEF SALEEM During your visit today, we recorded the following information about you: Pulse Blood pressure Weight Height 67/minute 151/61 84.8 kg 1.549 m Verónica Becerra Ma 08/19/2017 9:17 AM Signed AMB ROOMING INTAKE FLOWSHEET DATA Risk Screening Do you have concerns about personal safety or safety in the home?: No Pain Pain Score: 3/10 Pain Location: Hand-Left Description: Other: See comment, Sore (zings) Duration Amount of Time: 2 Duration Units: Months Frequency: Intermittent Intervention: Other: See comment (none) Patient here today for evaluation of cyst on left index finger. Has been present about 2 months. Does bother her when it is touched or when she has to use it. 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 Jozef Saleem MD 08/19/2017 9:17 AM Signed Jozef Saleem MD Department of Orthopaedics Orthopaedics [address] [place] [address] Dept: [phone] Dept August 19, 2017 CHIEF COMPLAINT: New Patient (Cyst left index finger REF: N. 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 She developed some swelling on the left index finger about 2 months ago. 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 3 out 10 intermittent pain again when she bumps it. ASSESSMENT: M67.442 Digital mucous cyst of finger of left hand (primary encounter diagnosis) PLAN: we reviewed both operative and nonoperative options. The risks, benefits, alternatives and potential complications were discussed and she would like to pursue surgical excision of the cyst. We'll get her scheduled accordingly. FOLLOW UP INSTRUCTIONS: as above OBJECTIVE: Ms. Ngoc Cota is a pleasant 67 year old in no apparent distress. Gen:BP 151/61 Pulse 67 Ht 5' 1 (1.55m) Wt 187 lb (84.8kg) BMI 35.35 kg/(m2). nl development, obese, no deformities ENT: Normocephalic, normal hearing, moist mucosa CV: Pulses:Radial= 2+ and symmetric, capillary refill < 2 secs, no peripheral edema/varicosities Skin: no rash, bruising or lesions. Good turgor. Psych: cooperative and appropriate, alert and oriented x 3, good mood and affect. Musculoskeletal: left index finger with a dorsal prominence just distal to the DIP joint consistent with a digital mucous cyst. Positive transillumination. No redness and no drainage. Neurovascular exam intact. IMAGING: deferred Supporting Subjective Information Below: Past Medical History: PAST MEDICAL HISTORY Diagnosis Date - Anatomical narrow angle borderline glaucoma - Bundle branch block, unspecified 01/12 LBBB - Coronary artery disease involving mesa grande coronary artery of mesa grande heart without angina pectoris 2014 Dr. Phillips - DDD (degenerative disc disease), lumbar - Disorder of bone and cartilage, unspecified - Diverticulosis of colon (without mention of hemorrhage) - GERD (gastroesophageal reflux disease) - Irritable bowel syndrome - Lichen Sclerosus et Atrophicus of the Vulva 03/16/2009 - Lumbar radiculopathy - Other combinations of endocrine dysfunction - Plantar fascial fibromatosis - Primary localized osteoarthrosis, lower leg - Right knee DJD - Right sided sciatica - S/P coronary artery stent placement 2014 LAD Past Surgical History: PAST SURGICAL HISTORY Procedure Laterality Date - COLONOSCOP W/ OR W/O [facility] SPEC 03/20/2011 Colonoscopy - CORRECT BUNION,SIMPLE 1999 Bunion both- left was nonunion - EGD W/O OR W/BRUSH/WASH 03/20/2011 EGD - KNEE SCOPE,DIAGNOSTIC prior to 2003 right knee X 3 - PART REMOVAL COLON W ANASTOMOSIS [id number] sigmoid resection - PAST SURGICAL HISTORY OF 1998 endochondroma right knee - PAST SURGICAL HISTORY OF 1998 laser both eyes for glaucoma - PAST SURGICAL HISTORY OF 1998 left plantar fasciotomy - PAST SURGICAL HISTORY OF 1982 hysterectomy with one ovary removed - PAST SURGICAL HISTORY OF 08/11/2013 Total Right Knee replacement - REMOVAL OF TONSILS,<12 Y/O Tonsillectomy - TOTAL KNEE REPLACEMENT 2004 Knee replacement, total right Family History: FAMILY HISTORY Problem Relation Age of Onset - Breast Cancer Mother also uterine cancer - Heart Father - Diabetes Mother Social History:Social History Marital status: Spouse name: Years of education: Number of children: Social History Main Topics Smoking status: Never Smoker Smokeless tobacco: Never Used Alcohol use: No Drug use: No Medications: Current Outpatient Prescriptions: LORazepam (ATIVAN) 1 mg tablet Take 1 tablet by mouth twice daily as needed for up to 180 days. losartan (COZAAR) 25 mg tablet Take 2 tablets by mouth once daily. CPAP Initiate Auto PAP @ 5-20 cm of water with humidification. Mask (per patient preference) optional chin strap (if indicated) , filters, tubing, humidifier and lifetime supplies. ACIPHEX 20 mg tablet Take 1 tablet by mouth twice daily. Do not substitute with generic (not effective) nystatin (NYSTOP) powder Apply 1 application to affected area four times daily. As directed metoprolol succinate ER (TOPROL XL) 25 mg 24 hr tablet Take 0.5 tablets by mouth once daily. simvastatin (ZOCOR) 20 mg tablet Take 1 tablet by mouth daily at bedtime. Diclofenac Sodium (VOLTAREN) 1 % gel Use 4 times a day as needed furosemide (LASIX) 20 mg tablet Take 1 tablet by mouth once daily. docusate sodium (COLACE) 100 mg capsule Take 1 capsule by mouth twice daily as needed for Constipation. oxyCODONE-acetaminophen (PERCOCET) 10-325 mg tablet Take 1 tablet by mouth every 8 hours as needed. aspirin, enteric coated (ECOTRIN LOW STRENGTH) 81 mg EC tablet Take 1 tablet by mouth once daily. therapeutic multivitamin ORAL tablet Take 1 tablet by mouth once daily. Amoxicillin 500 mg tablet Take 4 tablets by mouth. 30 minutes prior to dental procedures. COMPOUNDED PRESCRIPTION Lab order: Hepatitis C antibody and reflex confirmation test (HCV RNA) if needed Z01.89 promethazine (PHENERGAN) 25 mg tablet Take 1 tablet by mouth every 6 hours as needed. clobetasol (TEMOVATE) 0.05 % cream Apply to affected skin sparingly once daily as needed bisacodyl EC (DULCOLAX) 5 mg EC tablet Take 1 tablet by mouth once daily as needed. No current facility-administered medications for this visit. Allergies: Voltaren [Diclofenac Sodium]; Cyclobenzaprine; Lyrica [Pregabalin]; Nsaids (Non-Steroidal Anti-Inflammatory Drug); Orphenadrine; Piroxicam; Tape [Other] ROS: General (negative for fatigue, malaise, weight loss/gain) HEENT (negative for headache, earache, recent vision changes, sinus pain, sore throat) Respiratory (no recent shortness of breath, hemoptysis) CV (negative for chest tightness, palpitations) Musculoskeletal (see HPI) Psych (no depression, anxiety) REFERRING PHYSICIAN: Ms. Ngoc Cota was referred to me for consultation by the following physician. This consultation note will be sent to the following physician by either mail or electronic medical record. Karol Burroughs APRN.WEDDING CONSULTANT [address] [facility] [address] Christina Vazquez MD [address] [facility] [address] This note was partially generated using Hitch voice recognition system, and there may be some incorrect words, spellings, and punctuation that were not noted in checking the note before saving. Jozef Saleem MD Referring Provider: KAROL BURROUGHS ([facility]) [[id number]] Allergies As of Date: 08/19/2017 Noted Allergy Reaction VOLTAREN (DICLOFENAC SODIUM) 01/02/2010 2 - Rash 7 - Swelling 12 - Shortness of Breath CYCLOBENZAPRINE 09/10/2002 4 - Hives Comments: Flexeril Blurred vision and nausea and vomiting LYRICA (PREGABALIN) 03/17/2010 5 - Intolerance Comments: Fluid retention NSAIDS (NON-STEROIDAL ANTI-INFLAM*09/10/2002 8 - GI Upset Comments: Ibuprofen, naproxen,etc ORPHENADRINE 09/10/2002 4 - Hives Comments: Norflex Nausea and vomiting and blurred vision PIROXICAM 09/10/2002 4 - Hives Comments: Feldene Blurred vision and nausea and vomiting Tape [Other] 09/10/2002 Comments: adhesive Date Reviewed: 08/19/2017 Reviewed by: Jozef Saleem - Fully Assessed Reason for Visit: New Patient [172] Cmt: Cyst left index finger REF: N. Older Primary Visit Diagnosis:Digital mucous cyst of finger of left hand [M67.442] Prescriptions as of 08/19/2017 Sig: LORAZEPAM 1 MG TABLET Take 1 tablet by mouth twice * LOSARTAN 25 MG TABLET Take 2 tablets by mouth once * CPAP Initiate Auto PAP @ 5- 20 cm o* ACIPHEX 20 MG TABLET,DELAYED * Take 1 tablet by mouth twice * NYSTATIN 100,000 UNIT/GRAM TO* Apply 1 application to affect* METOPROLOL SUCCINATE ER 25 MG* Take 0.5 tablets by mouth onc* SIMVASTATIN 20 MG TABLET Take 1 tablet by mouth daily * DICLOFENAC 1 % TOPICAL GEL Use 4 times a day as needed FUROSEMIDE 20 MG TABLET Take 1 tablet by mouth once d* DOCUSATE SODIUM 100 MG CAPSULE Take 1 capsule by mouth twice* OXYCODONE-ACETAMINOPHEN 10 MG* Take 1 tablet by mouth every * ASPIRIN 81 MG TABLET,DELAYED * Take 1 tablet by mouth once d* THERAPEUTIC MULTIVITAMIN TABL* Take 1 tablet by mouth once d* AMOXICILLIN 500 MG TABLET Take 4 tablets by mouth. 30 m* COMPOUNDED PRESCRIPTION Lab order: Hepatitis C antib* PROMETHAZINE 25 MG TABLET Take 1 tablet by mouth every * CLOBETASOL 0.05 % TOPICAL CRE* Apply to affected skin sparin* BISACODYL 5 MG TABLET,DELAYED* Take 1 tablet by mouth once d* Problem List As Of Date 08/19/2017 Noted Resolved INGROWING NAIL [L60.0] INVALID FOR* MALFUN PAYMENT COLLECTOR ORTHO DEVICE/ GRAFT NOS [T84.005X]INVALID FOR* LEFT BB BLOCK NEC [I44.7] INVALID FOR* PAIN IN LIMB [M79.609] INVALID FOR* OTHER HAMMER TOE [M20.40] INVALID FOR* ENTHESOPATHY, SITE NOS [M77.9] INVALID FOR* GERD (Gastroesophageal Reflux Disease) [K21.9] Right Sided Sciatica [M54.31] Lichen Sclerosus et Atrophicus of the Vulva [N9*INVALID FOR* Porokeratosis [Q82.8] INVALID FOR* Calcaneal Spur [M77.30] INVALID FOR* Plantar fascial fibromatosis [M72.2] INVALID FOR* Hyperlipidemia [E78.5] INVALID FOR* Lumbar radiculopathy [M54.16] INVALID FOR* More... Degenerative joint disease of knee, right [M17.*INVALID FOR* More... Acute gastritis without mention of hemorrhage [*INVALID FOR* Anxiety [F41.9] INVALID FOR* Coronary artery disease involving mesa grande vann*INVALID FOR* More... Obesity [E66.9] INVALID FOR* Essential hypertension [I10] INVALID FOR* ARPAN (obstructive sleep apnea) [G47.33] INVALID FOR* Encounter Status:Closed by JOZEF SALEEM MD on 08/19/17 HOSP Observed: 08/19/2017 Status: COMPLETED Source: [place] 12:00 AM [facility] REPOSITORY Patient:Ngoc Cota MRN: <[id number]> Height:5' 1(1.549 m) Weight:185 lb (83.915 kg) Outpatient Medications as of 08/28/17: Amoxicillin 500 mg tablet LORazepam (ATIVAN) 1 mg tablet losartan (COZAAR) 25 mg tablet CPAP COMPOUNDED PRESCRIPTION ACIPHEX 20 mg tablet promethazine (PHENERGAN) 25 mg tablet clobetasol (TEMOVATE) 0.05 % cream nystatin (NYSTOP) powder metoprolol succinate ER (TOPROL XL) 25 mg 24 hr tablet simvastatin (ZOCOR) 20 mg tablet Diclofenac Sodium (VOLTAREN) 1 % gel furosemide (LASIX) 20 mg tablet docusate sodium (COLACE) 100 mg capsule bisacodyl EC (DULCOLAX) 5 mg EC tablet oxyCODONE-acetaminophen (PERCOCET) 10-325 mg tablet aspirin, enteric coated (ECOTRIN LOW STRENGTH) 81 mg EC tablet therapeutic multivitamin ORAL tablet Admission/Clinic Administered Medications as of 08/28/17: lactated ringers infusion ceFAZolin iv piggyback 2 g in D5W (iso-osmotic) 100 mL (ANCEF) Problem List: Ingrowing nail [L60.0] Unspecified mechanical complication of internal orthopedic device, implant, and graft [T84.498A] Bundle branch block [I45.4] Pain in limb [M79.609] Other hammer toe (acquired) [M20.40] Enthesopathy of unspecified site [M77.9] GERD (gastroesophageal reflux disease) [K21.9] Right sided sciatica [M54.31] Lichen sclerosus et atrophicus of the vulva [N90.4] Porokeratosis [Q82.8] Calcaneal spur [M77.30] Plantar fascial fibromatosis [M72.2] Hyperlipidemia [E78.5] Lumbar radiculopathy [M54.16] Degenerative joint disease of knee, right [M17.11] Acute gastritis without mention of hemorrhage [K29.00] Anxiety [F41.9] Coronary artery disease involving mesa grande coronary artery of mesa grande heart without angina pectoris [I25.10] Obesity [E66.9] Essential hypertension [I10] ARPAN (obstructive sleep apnea) [G47.33] Digital mucous cyst of finger of left hand [M67.442] Allergies: Voltaren [Diclofenac Sodium] Chlorhexidine Cyclobenzaprine Lyrica [Pregabalin] Nsaids (Non-Steroidal Anti-Inflammatory Drug) Orphenadrine Piroxicam Tape [Other] Date Verified: 08/28/17 Lab Values No results within the last 30 days for the following basenames: K,HCT [facility] Verónica Becerra Ma 08/28/2017 10:31 AM Signed Received [facility] paperwork by fax on 08/26/2017. Paperwork completed and waiting for physician signature. Progress Notes ([facility]): Sue Meng Ma 08/27/2017 10:43 AM Signed Vianca from patient's insurance company calling and her surgery for tomorrow has been authorized. Authorization # [id number] for tomorrow only. GRECIA Observed: 08/19/2017 Status: COMPLETED Source: [place] 12:00 AM [facility] REPOSITORY Telephone (STEPHENWS) NGOC COTA ([id number]) 1950 F Date Time Provider Department 08/19/17 JOZEF SALEEM During your visit today, we recorded the following information about you: Verónica Becerra Ma 08/19/2017 9:09 AM Signed Please schedule patient for left index finger ganglion cyst excision at [facility] on 08/28/2017. MAC anesthesia. She would like posts ops in [place], seat mender[facility]19[facility] 3:17 PM Signed Surgical request completed, post ops made and mailed. Verónica Becerra Ma 08/19/2017 5:13 PM Signed Patient has been scheduled as requested. Allergies As of Date: 08/19/2017 Noted Allergy Reaction VOLTAREN (DICLOFENAC SODIUM) 01/02/2010 2 - Rash 7 - Swelling 12 - Shortness of Breath CYCLOBENZAPRINE 09/10/2002 4 - Hives Comments: Flexeril Blurred vision and nausea and vomiting LYRICA (PREGABALIN) 03/17/2010 5 - Intolerance Comments: Fluid retention NSAIDS (NON-STEROIDAL ANTI-INFLAM*09/10/2002 8 - GI Upset Comments: Ibuprofen, naproxen,etc ORPHENADRINE 09/10/2002 4 - Hives Comments: Norflex Nausea and vomiting and blurred vision PIROXICAM 09/10/2002 4 - Hives Comments: Feldene Blurred vision and nausea and vomiting Tape [Other] 09/10/2002 Comments: adhesive Date Reviewed: 08/19/2017 Reviewed by: Jozef Saleem - Fully Assessed Reason for Visit: Schedule Surgery [1330] Prescriptions as of 08/19/2017 Sig: AMOXICILLIN 500 MG TABLET Take 4 tablets by mouth. 30 m* LORAZEPAM 1 MG TABLET Take 1 tablet by mouth twice * LOSARTAN 25 MG TABLET Take 2 tablets by mouth once * CPAP Initiate Auto PAP @ 5- 20 cm o* COMPOUNDED PRESCRIPTION Lab order: Hepatitis C antib* ACIPHEX 20 MG TABLET,DELAYED * Take 1 tablet by mouth twice * PROMETHAZINE 25 MG TABLET Take 1 tablet by mouth every * CLOBETASOL 0.05 % TOPICAL CRE* Apply to affected skin sparin* NYSTATIN 100,000 UNIT/GRAM TO* Apply 1 application to affect* METOPROLOL SUCCINATE ER 25 MG* Take 0.5 tablets by mouth onc* SIMVASTATIN 20 MG TABLET Take 1 tablet by mouth daily * DICLOFENAC 1 % TOPICAL GEL Use 4 times a day as needed FUROSEMIDE 20 MG TABLET Take 1 tablet by mouth once d* DOCUSATE SODIUM 100 MG CAPSULE Take 1 capsule by mouth twice* BISACODYL 5 MG TABLET,DELAYED* Take 1 tablet by mouth once d* OXYCODONE-ACETAMINOPHEN 10 MG* Take 1 tablet by mouth every * ASPIRIN 81 MG TABLET,DELAYED * Take 1 tablet by mouth once d* THERAPEUTIC MULTIVITAMIN TABL* Take 1 tablet by mouth once d* Problem List As Of Date 08/19/2017 Noted Resolved INGROWING NAIL [L60.0] INVALID FOR* MALFUN PAYMENT COLLECTOR ORTHO DEVICE/ GRAFT NOS [T84.923A]INVALID FOR* LEFT BB BLOCK NEC [I44.7] INVALID FOR* PAIN IN LIMB [M79.609] INVALID FOR* OTHER HAMMER TOE [M20.40] INVALID FOR* ENTHESOPATHY, SITE NOS [M77.9] INVALID FOR* GERD (Gastroesophageal Reflux Disease) [K21.9] Right Sided Sciatica [M54.31] Lichen Sclerosus et Atrophicus of the Vulva [N9*INVALID FOR* Porokeratosis [Q82.8] INVALID FOR* Calcaneal Spur [M77.30] INVALID FOR* Plantar fascial fibromatosis [M72.2] INVALID FOR* Hyperlipidemia [E78.5] INVALID FOR* Lumbar radiculopathy [M54.16] INVALID FOR* More... Degenerative joint disease of knee, right [M17.*INVALID FOR* More... Acute gastritis without mention of hemorrhage [*INVALID FOR* Anxiety [F41.9] INVALID FOR* Coronary artery disease involving [place] vann*INVALID FOR* More... Obesity [E66.9] INVALID FOR* Essential hypertension [I10] INVALID FOR* ARPAN (obstructive sleep apnea) [G47.33] INVALID FOR* Digital mucous cyst of finger of left hand [M67*INVALID FOR* More... Encounter Status:Closed by MELVIN CACERES PATSY on 08/19/17 CNCO Observed: 08/09/2017 Status: COMPLETED Source: [place] 12:00 AM [facility] REPOSITORY Letter Text [address] [place] [address] [phone] 08/09/2017 Ngoc Cota [address] [facility] [address] Dear Ms. Cota: Due to a change in the provider's schedule, it has been necessary to reschedule your appointment. Enclosed please find a new appointment reminder that will replace the one previously sent to you. Your appointment on 10/15/17 at 9:40am with Dr. Vazquez has been rescheduled Your appointment is now on 10/21/17 at 9:00am with Maria Antonia Kirby (APRYL) If this appointment is not convenient for you, please contact our office at [phone]. Thank you for choosing the [facility] as your Healthcare Provider. Sincerely, Appointment Office PROGRESS Observed: 07/31/2017 Status: COMPLETED Source: [place] 8:02 AM [facility] REPOSITORY HNO ID: [id number] Author: Karol (Apryl) Older Service: (none) Author Type: Nurse Practitioner Type: Progress Notes Filed: 07/31/2017 8:06 AM Note Text: CC: Patient presents with: skin nodules: left index finger-pain with rubbing against things HPI Ngoc Cota is a 67 year old female who presents today for cyst on her left index finger. Patient states it has been there for a while but becoming larger and more bothersome. Looks like it may be fluid filled. She works with her hands a lot and it is starting to interfere with work. REVIEW OF SYSTEMS See HPI PAST MEDICAL HISTORY Diagnosis Date - Anatomical narrow angle borderline glaucoma - Bundle branch block, unspecified 01/12 LBBB - Coronary artery disease involving [place] coronary artery of [place] heart without angina pectoris 2014 Dr. Phillips - DDD (degenerative disc disease), lumbar - Disorder of bone and cartilage, unspecified - Diverticulosis of colon (without mention of hemorrhage) - GERD (gastroesophageal reflux disease) - Irritable bowel syndrome - Lichen Sclerosus et Atrophicus of the Vulva 03/16/2009 - Lumbar radiculopathy - Other combinations of endocrine dysfunction - Plantar fascial fibromatosis - Primary localized osteoarthrosis, lower leg - Right knee DJD - Right sided sciatica - S/P coronary artery stent placement 2014 LAD PAST SURGICAL HISTORY Procedure Laterality Date - COLONOSCOP W/ OR W/O BRSH SPEC 03/20/2011 Colonoscopy - CORRECT BUNION,SIMPLE 1999 Bunion both- left was nonunion - EGD W/O OR W/BRUSH/WASH 03/20/2011 EGD - KNEE SCOPE,DIAGNOSTIC prior to 2003 right knee X 3 - PART REMOVAL COLON W ANASTOMOSIS [id number] sigmoid resection - PAST SURGICAL HISTORY OF 1998 endochondroma right knee - PAST SURGICAL HISTORY OF 1998 laser both eyes for glaucoma - PAST SURGICAL HISTORY OF 1998 left plantar fasciotomy - PAST SURGICAL HISTORY OF 1982 hysterectomy with one ovary removed - PAST SURGICAL HISTORY OF 08/11/2013 Total Right Knee replacement - REMOVAL OF TONSILS,<12 Y/O Tonsillectomy - TOTAL KNEE REPLACEMENT 2003 Knee replacement, total right ALLERGIES Voltaren [Diclofenac Sodium]; Cyclobenzaprine; Lyrica [Pregabalin]; Nsaids (Non-Steroidal Anti-Inflammatory Drug); Orphenadrine; Piroxicam; Tape [Other] MEDICATIONS Amoxicillin 500 mg tablet Take 4 tablets by mouth. 30 minutes prior to dental procedures. LORazepam (ATIVAN) 1 mg tablet Take 1 tablet by mouth twice daily as needed for up to 180 days. losartan (COZAAR) 25 mg tablet Take 2 tablets by mouth once daily. CPAP Initiate Auto PAP @ 5-20 cm of water with humidification. Mask (per patient preference) optional chin strap (if indicated) , filters, tubing, humidifier and lifetime supplies. ACIPHEX 20 mg tablet Take 1 tablet by mouth twice daily. Do not substitute with generic (not effective) promethazine (PHENERGAN) 25 mg tablet Take 1 tablet by mouth every 6 hours as needed. clobetasol (TEMOVATE) 0.05 % cream Apply to affected skin sparingly once daily as needed nystatin (NYSTOP) powder Apply 1 application to affected area four times daily. As directed metoprolol succinate ER (TOPROL XL) 25 mg 24 hr tablet Take 0.5 tablets by mouth once daily. simvastatin (ZOCOR) 20 mg tablet Take 1 tablet by mouth daily at bedtime. Diclofenac Sodium (VOLTAREN) 1 % gel Use 4 times a day as needed furosemide (LASIX) 20 mg tablet Take 1 tablet by mouth once daily. docusate sodium (COLACE) 100 mg capsule Take 1 capsule by mouth twice daily as needed for Constipation. oxyCODONE-acetaminophen (PERCOCET) 10-325 mg tablet Take 1 tablet by mouth every 8 hours as needed. aspirin, enteric coated (ECOTRIN LOW STRENGTH) 81 mg EC tablet Take 1 tablet by mouth once daily. therapeutic multivitamin ORAL tablet Take 1 tablet by mouth once daily. COMPOUNDED PRESCRIPTION Lab order: Hepatitis C antibody and reflex confirmation test (HCV RNA) if needed Z01.89 bisacodyl EC (DULCOLAX) 5 mg EC tablet Take 1 tablet by mouth once daily as needed. FAMILY HISTORY Problem Relation Age of Onset - Breast Cancer Mother also uterine cancer - Heart Father - Diabetes Mother Social History Substance Use Topics - Smoking status: Never Smoker - Smokeless tobacco: Never Used - Alcohol use No PHYSICAL EXAM BP 120/78 Pulse 89 Temp 36.6 ?C (97.8 ?F) (Temporal Artery) Wt 84.4 kg (186 lb) SpO2 95% BMI 37.14 kg/m? General Appearance: well appearing, in no acute distress, alert Left index finger: small, firm cyst on top of skin located on the medial side of her DIP joint. Surrounded by faint erythema. Tender with palpation. Full ROM of finger with mild discomfort. ASSESSMENT/PLAN: 1. Skin cyst - ICD9: 706.2, ICD10: L72.9 Appearance consistent with myxoid pseudocyst, other possibilities include ganglion cyst or arthritic nodes Patient given the options of continued monitoring or consult with hand surgeon to discuss possible removal - CONSULT TO ORTHOPAEDICS per patient preference Follow-up in office as needed Prescription instructions reviewed with patient as applicable. Potential red flag symptoms discussed with the patient. Reviewed appropriate action plan to take if red flag symptoms occur. Patient agreeable to treatment plan. Karol Burroughs APRN.APRYL CNOV Observed: 07/31/2017 Status: COMPLETED Source: [place] 7:40 AM [facility] REPOSITORY Office Visit (INTMWS) NGOC COTA ([id number]) 1950 F Date Time Provider Department 07/31/17 7:40 AM KAROL BURROUGHS (APRYL) INTMWS During your visit today, we recorded the following information about you: Temperature Pulse Blood pressure Weight 97.8 degrees 89/minute 120/78 84.4 kg Karol Burroughs [facility] [employer] [facility] 07/31/2017 7:57 AM Signed Digital myxoid pseudocyst Karol Older [facility] [employer] 07/31/2017 8:06 AM Signed CC: Patient presents with: skin nodules: left index finger-pain with rubbing against things HPI Ngoc Cota is a 67 year old female who presents today for cyst on her left index finger. Patient states it has been there for a while but becoming larger and more bothersome. Looks like it may be fluid filled. She works with her hands a lot and it is starting to interfere with work. REVIEW OF SYSTEMS See HPI PAST MEDICAL HISTORY Diagnosis Date - Anatomical narrow angle borderline glaucoma - Bundle branch block, unspecified 01/12 LBBB - Coronary artery disease involving [place] coronary artery of [place] heart without angina pectoris 2014 Dr. Phillips - DDD (degenerative disc disease), lumbar - Disorder of bone and cartilage, unspecified - Diverticulosis of colon (without mention of hemorrhage) - GERD (gastroesophageal reflux disease) - Irritable bowel syndrome - Lichen Sclerosus et Atrophicus of the Vulva 03/16/2009 - Lumbar radiculopathy - Other combinations of endocrine dysfunction - Plantar fascial fibromatosis - Primary localized osteoarthrosis, lower leg - Right knee DJD - Right sided sciatica - S/P coronary artery stent placement 2014 LAD PAST SURGICAL HISTORY Procedure Laterality Date - COLONOSCOP W/ OR W/O [facility] SPEC 03/20/2011 Colonoscopy - CORRECT BUNION,SIMPLE 1999 Bunion both- left was nonunion - EGD W/O OR W/BRUSH/WASH 03/20/2011 EGD - KNEE SCOPE,DIAGNOSTIC prior to 2003 right knee X 3 - PART REMOVAL COLON W ANASTOMOSIS [id number] sigmoid resection - PAST SURGICAL HISTORY OF 1998 endochondroma right knee - PAST SURGICAL HISTORY OF 1998 laser both eyes for glaucoma - PAST SURGICAL HISTORY OF 1998 left plantar fasciotomy - PAST SURGICAL HISTORY OF 1982 hysterectomy with one ovary removed - PAST SURGICAL HISTORY OF 08/11/2013 Total Right Knee replacement - REMOVAL OF TONSILS,<12 Y/O Tonsillectomy - TOTAL KNEE REPLACEMENT 2004 Knee replacement, total right ALLERGIES Voltaren [Diclofenac Sodium]; Cyclobenzaprine; Lyrica [Pregabalin]; Nsaids (Non-Steroidal Anti-Inflammatory Drug); Orphenadrine; Piroxicam; Tape [Other] MEDICATIONS Amoxicillin 500 mg tablet Take 4 tablets by mouth. 30 minutes prior to dental procedures. LORazepam (ATIVAN) 1 mg tablet Take 1 tablet by mouth twice daily as needed for up to 180 days. losartan (COZAAR) 25 mg tablet Take 2 tablets by mouth once daily. CPAP Initiate Auto PAP @ 5-20 cm of water with humidification. Mask (per patient preference) optional chin strap (if indicated) , filters, tubing, humidifier and lifetime supplies. ACIPHEX 20 mg tablet Take 1 tablet by mouth twice daily. Do not substitute with generic (not effective) promethazine (PHENERGAN) 25 mg tablet Take 1 tablet by mouth every 6 hours as needed. clobetasol (TEMOVATE) 0.05 % cream Apply to affected skin sparingly once daily as needed nystatin (NYSTOP) powder Apply 1 application to affected area four times daily. As directed metoprolol succinate ER (TOPROL XL) 25 mg 24 hr tablet Take 0.5 tablets by mouth once daily. simvastatin (ZOCOR) 20 mg tablet Take 1 tablet by mouth daily at bedtime. Diclofenac Sodium (VOLTAREN) 1 % gel Use 4 times a day as needed furosemide (LASIX) 20 mg tablet Take 1 tablet by mouth once daily. docusate sodium (COLACE) 100 mg capsule Take 1 capsule by mouth twice daily as needed for Constipation. oxyCODONE-acetaminophen (PERCOCET) 10-325 mg tablet Take 1 tablet by mouth every 8 hours as needed. aspirin, enteric coated (ECOTRIN LOW STRENGTH) 81 mg EC tablet Take 1 tablet by mouth once daily. therapeutic multivitamin ORAL tablet Take 1 tablet by mouth once daily. COMPOUNDED PRESCRIPTION Lab order: Hepatitis C antibody and reflex confirmation test (HCV RNA) if needed Z01.89 bisacodyl EC (DULCOLAX) 5 mg EC tablet Take 1 tablet by mouth once daily as needed. FAMILY HISTORY Problem Relation Age of Onset - Breast Cancer Mother also uterine cancer - Heart Father - Diabetes Mother Social History Substance Use Topics - Smoking status: Never Smoker - Smokeless tobacco: Never Used - Alcohol use No PHYSICAL EXAM BP 120/78 Pulse 89 Temp 36.6 ?C (97.8 ?F) (Temporal Artery) Wt 84.4 kg (186 lb) SpO2 95% BMI 37.14 kg/m? General Appearance: well appearing, in no acute distress, alert Left index finger: small, firm cyst on top of skin located on the medial side of her DIP joint. Surrounded by faint erythema. Tender with palpation. Full ROM of finger with mild discomfort. ASSESSMENT/PLAN: 1. Skin cyst - ICD9: 706.2, ICD10: L72.9 Appearance consistent with myxoid pseudocyst, other possibilities include ganglion cyst or arthritic nodes Patient given the options of continued monitoring or consult with hand surgeon to discuss possible removal - CONSULT TO ORTHOPAEDICS per patient preference Follow-up in office as needed Prescription instructions reviewed with patient as applicable. Potential red flag symptoms discussed with the patient. Reviewed appropriate action plan to take if red flag symptoms occur. Patient agreeable to treatment plan. Karol Burroughs APRN.WEDDING CONSULTANT Referring Provider: SELF [[id number]] Allergies As of Date: 07/31/2017 Noted Allergy Reaction VOLTAREN (DICLOFENAC SODIUM) 01/02/2010 2 - Rash 7 - Swelling 12 - Shortness of Breath CYCLOBENZAPRINE 09/10/2002 4 - Hives Comments: Flexeril Blurred vision and nausea and vomiting LYRICA (PREGABALIN) 03/17/2010 5 - Intolerance Comments: Fluid retention NSAIDS (NON-STEROIDAL ANTI-INFLAM*09/10/2002 8 - GI Upset Comments: Ibuprofen, naproxen,etc ORPHENADRINE 09/10/2002 4 - Hives Comments: Norflex Nausea and vomiting and blurred vision PIROXICAM 09/10/2002 4 - Hives Comments: Feldene Blurred vision and nausea and vomiting Tape [Other] 09/10/2002 Comments: adhesive Date Reviewed: 07/31/2017 Reviewed by: Cheyanne Ty Shank Sorter - Fully Assessed Reason for Visit: skin nodules [Other] Cmt: left index finger-pain with rubbing against things Reason For Visit History Recorded Primary Visit Diagnosis:Skin cyst [L72.9] Order(s):CONSULT TO ORTHOPAEDICS [5688] Order #: [id number]: 1 Prescriptions as of 07/31/2017 Sig: AMOXICILLIN 500 MG TABLET Take 4 tablets by mouth. 30 m* LORAZEPAM 1 MG TABLET Take 1 tablet by mouth twice * LOSARTAN 25 MG TABLET Take 2 tablets by mouth once * CPAP Initiate Auto PAP @ 5- 20 cm o* ACIPHEX 20 MG TABLET,DELAYED * Take 1 tablet by mouth twice * PROMETHAZINE 25 MG TABLET Take 1 tablet by mouth every * CLOBETASOL 0.05 % TOPICAL CRE* Apply to affected skin sparin* NYSTATIN 100,000 UNIT/GRAM TO* Apply 1 application to affect* METOPROLOL SUCCINATE ER 25 MG* Take 0.5 tablets by mouth onc* SIMVASTATIN 20 MG TABLET Take 1 tablet by mouth daily * DICLOFENAC 1 % TOPICAL GEL Use 4 times a day as needed FUROSEMIDE 20 MG TABLET Take 1 tablet by mouth once d* DOCUSATE SODIUM 100 MG CAPSULE Take 1 capsule by mouth twice* OXYCODONE-ACETAMINOPHEN 10 MG* Take 1 tablet by mouth every * ASPIRIN 81 MG TABLET,DELAYED * Take 1 tablet by mouth once d* THERAPEUTIC MULTIVITAMIN TABL* Take 1 tablet by mouth once d* COMPOUNDED PRESCRIPTION Lab order: Hepatitis C antib* BISACODYL 5 MG TABLET,DELAYED* Take 1 tablet by mouth once d* Problem List As Of Date 07/31/2017 Noted Resolved INGROWING NAIL [L60.0] INVALID FOR* MALFUN PAYMENT COLLECTOR ORTHO DEVICE/ GRAFT NOS [T88.321I]INVALID FOR* LEFT BB BLOCK NEC [I44.7] INVALID FOR* PAIN IN LIMB [M79.609] INVALID FOR* OTHER HAMMER TOE [M20.40] INVALID FOR* ENTHESOPATHY, SITE NOS [M77.9] INVALID FOR* GERD (Gastroesophageal Reflux Disease) [K21.9] Right Sided Sciatica [M54.31] Lichen Sclerosus et Atrophicus of the Vulva [N9*INVALID FOR* Porokeratosis [Q82.8] INVALID FOR* Calcaneal Spur [M77.30] INVALID FOR* Plantar fascial fibromatosis [M72.2] INVALID FOR* Hyperlipidemia [E78.5] INVALID FOR* Lumbar radiculopathy [M54.16] INVALID FOR* More... Degenerative joint disease of knee, right [M17.*INVALID FOR* More... Acute gastritis without mention of hemorrhage [*INVALID FOR* Anxiety [F41.9] INVALID FOR* Coronary artery disease involving [place] vann*INVALID FOR* More... Obesity [E66.9] INVALID FOR* Essential hypertension [I10] INVALID FOR* ARPAN (obstructive sleep apnea) [G47.33] INVALID FOR* Other instructions from your clinician: Digital myxoid pseudocyst Encounter Status:Closed by KAROL BURROUGHS CNP on 07/31/17 PROGRESS Observed: 07/15/2017 Status: COMPLETED Source: [place] 8:02 AM [facility] REPOSITORY O ID: [id number] Author: Bill Munroe (Apryl) Service: (none) Author Type: Nurse Practitioner Type: Progress Notes Filed: 07/15/2017 8:43 AM Note Text: CC: Patient presents with: Recheck: Follow up BP and sleep machine HPI Ngoc Cota is a 66 year old female who presents today for BP follow up and cpap follow up. Patient reports she is wearing her cpap regularly since obtaining it only a couple of weeks ago. Machine seals well and she has no issues falling asleep, however she notes that when she wakes the machine reads that her wear time is a lot less than what she slept.She is concerned as she knows there is a minimum amount of time she must wear the machine for insurance coverage. She has not worn her machine the past few nights following a tooth extraction and bone graft to her right lower jaw. She is unable to report improvement in energy or sleep quality. She notes some increased axiety over the past week she has been accompanying her brother to his medical appointments where he was diagnosed with another bladder tumor and cirrhosis. HTN: Ms. Cota indicates that she is feeling well and denies any symptoms referable to elevated blood pressure. Specifically denies headache, chest pain, palpitations, dyspnea and peripheral edema. Patient denies any side effects of her medication(s) and is compliant with their regimen. She does not check BP's generally. She denies regular exercise but Is down 5 lbs. She watches her diet for sodium, low fat and low cholesterol all of the time. Last 3 Encounter BP Readings: Date: BP: 06/18/2017 148/75[BP luis enrique[ 06/07/2017 172/94 05/15/2017 138/88 REVIEW OF SYSTEMS General: no fevers, no chills, no night sweats, no recurrent infections, no change in appetite, no change in energy and no significant changes in weight HEENT: no frequent or significant headaches, no changes in hearing, no visual changes, no nose bleeds, no sinus or nasal problems Respiratory: no cough, no wheezing, no shortness of breath, no hemoptysis Cardiovascular: no chest pain, no chest pressure and no palpitations + chronic intermittent edema Neurologic: No headache, weakness, numbness, tingling, neck stiffness, tremor, vertigo, dizziness, memory loss, syncope. PAST MEDICAL HISTORY Diagnosis Date - Anatomical narrow angle borderline glaucoma - Bundle branch block, unspecified 01/12 LBBB - Coronary artery disease involving [place] coronary artery of [place] heart without angina pectoris 2014 Dr. Phillips - DDD (degenerative disc disease), lumbar - Disorder of bone and cartilage, unspecified - Diverticulosis of colon (without mention of hemorrhage) - GERD (gastroesophageal reflux disease) - Irritable bowel syndrome - Lichen Sclerosus et Atrophicus of the Vulva 03/16/2009 - Lumbar radiculopathy - Other combinations of endocrine dysfunction - Plantar fascial fibromatosis - Primary localized osteoarthrosis, lower leg - Right knee DJD - Right sided sciatica - S/P coronary artery stent placement 2014 LAD PAST SURGICAL HISTORY Procedure Laterality Date - COLONOSCOP W/ OR W/O [facility] SPEC 03/20/2011 Colonoscopy - CORRECT BUNION,SIMPLE 2000 Bunion both- left was nonunion - EGD W/O OR W/BRUSH/WASH 03/20/2011 EGD - KNEE SCOPE,DIAGNOSTIC prior to 2003 right knee X 3 - PART REMOVAL COLON W ANASTOMOSIS [id number] sigmoid resection - PAST SURGICAL HISTORY OF 1998 endochondroma right knee - PAST SURGICAL HISTORY OF 1998 laser both eyes for glaucoma - PAST SURGICAL HISTORY OF 1998 left plantar fasciotomy - PAST SURGICAL HISTORY OF 1982 hysterectomy with one ovary removed - PAST SURGICAL HISTORY OF 08/11/2013 Total Right Knee replacement - REMOVAL OF TONSILS,<12 Y/O Tonsillectomy - TOTAL KNEE REPLACEMENT 2003 Knee replacement, total right ALLERGIES Voltaren [Diclofenac Sodium]; Cyclobenzaprine; Lyrica [Pregabalin]; Nsaids (Non-Steroidal Anti-Inflammatory Drug); Orphenadrine; Piroxicam; Tape [Other] MEDICATIONS Amoxicillin 500 mg tablet Take 4 tablets by mouth. 30 minutes prior to dental procedures. LORazepam (ATIVAN) 1 mg tablet Take 1 tablet by mouth twice daily as needed for up to 180 days. losartan (COZAAR) 25 mg tablet Take 2 tablets by mouth once daily. CPAP Initiate Auto PAP @ 5-20 cm of water with humidification. Mask (per patient preference) optional chin strap (if indicated) , filters, tubing, humidifier and lifetime supplies. COMPOUNDED PRESCRIPTION Lab order: Hepatitis C antibody and reflex confirmation test (HCV RNA) if needed Z01.89 ACIPHEX 20 mg tablet Take 1 tablet by mouth twice daily. Do not substitute with generic (not effective) promethazine (PHENERGAN) 25 mg tablet Take 1 tablet by mouth every 6 hours as needed. clobetasol (TEMOVATE) 0.05 % cream Apply to affected skin sparingly once daily as needed nystatin (NYSTOP) powder Apply 1 application to affected area four times daily. As directed metoprolol succinate ER (TOPROL XL) 25 mg 24 hr tablet Take 0.5 tablets by mouth once daily. simvastatin (ZOCOR) 20 mg tablet Take 1 tablet by mouth daily at bedtime. Diclofenac Sodium (VOLTAREN) 1 % gel Use 4 times a day as needed furosemide (LASIX) 20 mg tablet Take 1 tablet by mouth once daily. docusate sodium (COLACE) 100 mg capsule Take 1 capsule by mouth twice daily as needed for Constipation. bisacodyl EC (DULCOLAX) 5 mg EC tablet Take 1 tablet by mouth once daily as needed. oxyCODONE-acetaminophen (PERCOCET) 10-325 mg tablet Take 1 tablet by mouth every 8 hours as needed. aspirin, enteric coated (ECOTRIN LOW STRENGTH) 81 mg EC tablet Take 1 tablet by mouth once daily. therapeutic multivitamin ORAL tablet Take 1 tablet by mouth once daily. FAMILY HISTORY Problem Relation Age of Onset - Breast Cancer Mother also uterine cancer - Heart Father - Diabetes Mother Social History Substance Use Topics - Smoking status: Never Smoker - Smokeless tobacco: Never Used - Alcohol use No PHYSICAL EXAM BP 150/74 Pulse 78 Temp 36.3 ?C (97.3 ?F) (Temporal Artery) Resp 16 Wt 84.8 kg (187 lb) SpO2 97% BMI 37.34 kg/m? General Appearance: well appearing, in no acute distress, alert Pysch: affect is anxious Skin: Skin color, texture, turgor normal for age; Head: normocephalic, atraumatic Eyes: conjunctiva pink and moist, no icterus, sclera white, non-injected Heart: RRR without murmur, gallop, or rubs. No ectopy Abdomen: Abdomen soft, non-tender. Bowel sounds normal. No masses, organomegaly Bilateral Lower Extremities: No deformities, edema, skin discoloration, clubbing or cyanosis. HEPATITIS C SCREENING due on 1994 MAMMOGRAM due on 02/19/2018 DIABETES SCREEN due on 10/25/2018 LIPID SCREEN due on 10/25/2020 COLORECTAL CANCER SCREENING,SEE MODIFIER due on 03/20/2021 DTAP,TDAP,TD(2 - Td) due on 04/12/2027 BONE DENSITY Completed ADULT PREVNAR-13 Completed INFLUENZA Completed PNEUMOVAX AGE 65 AND OVER WITH 5YR LOOKBACK Completed ASSESSMENT/PLAN: 1. Essential hypertension - ICD9: 401.9, ICD10: I10 (primary diagnosis) - suboptimal control, possibly related to patient current anxiety d/t brother's medical condition as patient saw her vp care management in the past few weeks and BP was optimized at that time - Continue current medication(s) - Recommended regular aerobic exercise. - Recommend home blood pressure monitoring, to bring results in on next visit - Follow up in 1 month for BP recheck. - Goal of BP <140/90 - Recommended no refined sugar, low refined starch, healthy oil intake (olive oil), healthy protein (fish) along the lines of the Mediterranean diet. 2. ARPAN (obstructive sleep apnea) - ICD9: 327.23, ICD10: G47.33 - Continue current therapy - Suggest patient contact documentation manager related to wear time readings, possible defect? - Follow up with sleep medicine as scheduled Bill Munroe APRN.CNP Prescription instructions reviewed with patient as applicable. Potential red flag symptoms discussed with the patient. Reviewed appropriate action plan to take if red flag symptoms occur. Patient agreeable to treatment plan. MELLISSA Observed: 07/15/2017 Status: COMPLETED Source: [place] 8:00 AM [facility] REPOSITORY Office Visit (INTMWS) NGOC COTA ([id number]) 1950 F Date Time Provider Department 07/15/17 8:00 AM BILL MUNROE ([facility]) INTM[facility] During your visit today, we recorded the following information about you: Temperature Pulse Respiration Blood pressure 97.3 degrees 78/minute 16/minute 150/74 Weight 84.8 kg Bill Munroe ([facility]) 07/15/2017 8:43 AM Signed CC: Patient presents with: Recheck: Follow up BP and sleep machine HPI Ngoc Cota is a 66 year old female who presents today for BP follow up and cpap follow up. Patient reports she is wearing her cpap regularly since obtaining it only a couple of weeks ago. Machine seals well and she has no issues falling asleep, however she notes that when she wakes the machine reads that her wear time is a lot less than what she slept.She is concerned as she knows there is a minimum amount of time she must wear the machine for insurance coverage. She has not worn her machine the past few nights following a tooth extraction and bone graft to her right lower jaw. She is unable to report improvement in energy or sleep quality. She notes some increased axiety over the past week she has been accompanying her brother to his medical appointments where he was diagnosed with another bladder tumor and cirrhosis. HTN: Ms. Cota indicates that she is feeling well and denies any symptoms referable to elevated blood pressure. Specifically denies headache, chest pain, palpitations, dyspnea and peripheral edema. Patient denies any side effects of her medication(s) and is compliant with their regimen. She does not check BP's generally. She denies regular exercise but Is down 5 lbs. She watches her diet for sodium, low fat and low cholesterol all of the time. Last 3 Encounter BP Readings: Date: BP: 06/18/2017 148/75[BP luis enrique[ 06/07/2017 172/94 05/15/2017 138/88 REVIEW OF SYSTEMS General: no fevers, no chills, no night sweats, no recurrent infections, no change in appetite, no change in energy and no significant changes in weight HEENT: no frequent or significant headaches, no changes in hearing, no visual changes, no nose bleeds, no sinus or nasal problems Respiratory: no cough, no wheezing, no shortness of breath, no hemoptysis Cardiovascular: no chest pain, no chest pressure and no palpitations + chronic intermittent edema Neurologic: No headache, weakness, numbness, tingling, neck stiffness, tremor, vertigo, dizziness, memory loss, syncope. PAST MEDICAL HISTORY Diagnosis Date - Anatomical narrow angle borderline glaucoma - Bundle branch block, unspecified 01/12 LBBB - Coronary artery disease involving [place] coronary artery of [place] heart without angina pectoris 2014 Dr. Phillips - DDD (degenerative disc disease), lumbar - Disorder of bone and cartilage, unspecified - Diverticulosis of colon (without mention of hemorrhage) - GERD (gastroesophageal reflux disease) - Irritable bowel syndrome - Lichen Sclerosus et Atrophicus of the Vulva 03/16/2009 - Lumbar radiculopathy - Other combinations of endocrine dysfunction - Plantar fascial fibromatosis - Primary localized osteoarthrosis, lower leg - Right knee DJD - Right sided sciatica - S/P coronary artery stent placement 2014 [facility] PAST SURGICAL HISTORY Procedure Laterality Date - COLONOSCOP W/ OR W/O BRSH SPEC 03/20/2011 Colonoscopy - CORRECT BUNION,SIMPLE 2000 Bunion both- left was nonunion - EGD W/O OR W/BRUSH/WASH 03/20/2011 EGD - KNEE SCOPE,DIAGNOSTIC prior to 2003 right knee X 3 - PART REMOVAL COLON W ANASTOMOSIS [id number] sigmoid resection - PAST SURGICAL HISTORY OF 1998 endochondroma right knee - PAST SURGICAL HISTORY OF 1998 laser both eyes for glaucoma - PAST SURGICAL HISTORY OF 1998 left plantar fasciotomy - PAST SURGICAL HISTORY OF 1982 hysterectomy with one ovary removed - PAST SURGICAL HISTORY OF 08/11/2013 Total Right Knee replacement - REMOVAL OF TONSILS,<12 Y/O Tonsillectomy - TOTAL KNEE REPLACEMENT 2003 Knee replacement, total right ALLERGIES Voltaren [Diclofenac Sodium]; Cyclobenzaprine; Lyrica [Pregabalin]; Nsaids (Non-Steroidal Anti-Inflammatory Drug); Orphenadrine; Piroxicam; Tape [Other] MEDICATIONS Amoxicillin 500 mg tablet Take 4 tablets by mouth. 30 minutes prior to dental procedures. LORazepam (ATIVAN) 1 mg tablet Take 1 tablet by mouth twice daily as needed for up to 180 days. losartan (COZAAR) 25 mg tablet Take 2 tablets by mouth once daily. CPAP Initiate Auto PAP @ 5-20 cm of water with humidification. Mask (per patient preference) optional chin strap (if indicated) , filters, tubing, humidifier and lifetime supplies. COMPOUNDED PRESCRIPTION Lab order: Hepatitis C antibody and reflex confirmation test (HCV RNA) if needed Z01.89 ACIPHEX 20 mg tablet Take 1 tablet by mouth twice daily. Do not substitute with generic (not effective) promethazine (PHENERGAN) 25 mg tablet Take 1 tablet by mouth every 6 hours as needed. clobetasol (TEMOVATE) 0.05 % cream Apply to affected skin sparingly once daily as needed nystatin (NYSTOP) powder Apply 1 application to affected area four times daily. As directed metoprolol succinate ER (TOPROL XL) 25 mg 24 hr tablet Take 0.5 tablets by mouth once daily. simvastatin (ZOCOR) 20 mg tablet Take 1 tablet by mouth daily at bedtime. Diclofenac Sodium (VOLTAREN) 1 % gel Use 4 times a day as needed furosemide (LASIX) 20 mg tablet Take 1 tablet by mouth once daily. docusate sodium (COLACE) 100 mg capsule Take 1 capsule by mouth twice daily as needed for Constipation. bisacodyl EC (DULCOLAX) 5 mg EC tablet Take 1 tablet by mouth once daily as needed. oxyCODONE-acetaminophen (PERCOCET) 10-325 mg tablet Take 1 tablet by mouth every 8 hours as needed. aspirin, enteric coated (ECOTRIN LOW STRENGTH) 81 mg EC tablet Take 1 tablet by mouth once daily. therapeutic multivitamin ORAL tablet Take 1 tablet by mouth once daily. FAMILY HISTORY Problem Relation Age of Onset - Breast Cancer Mother also uterine cancer - Heart Father - Diabetes Mother Social History Substance Use Topics - Smoking status: Never Smoker - Smokeless tobacco: Never Used - Alcohol use No PHYSICAL EXAM BP 150/74 Pulse 78 Temp 36.3 ?C (97.3 ?F) (Temporal Artery) Resp 16 Wt 84.8 kg (187 lb) SpO2 97% BMI 37.34 kg/m? General Appearance: well appearing, in no acute distress, alert Pysch: affect is anxious Skin: Skin color, texture, turgor normal for age; Head: normocephalic, atraumatic Eyes: conjunctiva pink and moist, no icterus, sclera white, non-injected Heart: RRR without murmur, gallop, or rubs. No ectopy Abdomen: Abdomen soft, non-tender. Bowel sounds normal. No masses, organomegaly Bilateral Lower Extremities: No deformities, edema, skin discoloration, clubbing or cyanosis. HEPATITIS C SCREENING due on 1994 MAMMOGRAM due on 02/19/2018 DIABETES SCREEN due on 10/25/2018 LIPID SCREEN due on 10/25/2020 COLORECTAL CANCER SCREENING,SEE MODIFIER due on 03/20/2021 DTAP,TDAP,TD(2 - Td) due on 04/12/2027 BONE DENSITY Completed ADULT PREVNAR-13 Completed INFLUENZA Completed PNEUMOVAX AGE 65 AND OVER WITH 5YR LOOKBACK Completed ASSESSMENT/PLAN: 1. Essential hypertension - ICD9: 401.9, ICD10: I10 (primary diagnosis) - suboptimal control, possibly related to patient current anxiety d/t brother's medical condition as patient saw her vp care management in the past few weeks and BP was optimized at that time - Continue current medication(s) - Recommended regular aerobic exercise. - Recommend home blood pressure monitoring, to bring results in on next visit - Follow up in 1 month for BP recheck. - Goal of BP <140/90 - Recommended no refined sugar, low refined starch, healthy oil intake (olive oil), healthy protein (fish) along the lines of the Mediterranean diet. 2. ARPAN (obstructive sleep apnea) - ICD9: 327.23, ICD10: G47.33 - Continue current therapy - Suggest patient contact documentation manager related to wear time readings, possible defect? - Follow up with sleep medicine as scheduled Bill Munroe APRN.[employer] Prescription instructions reviewed with patient as applicable. Potential red flag symptoms discussed with the patient. Reviewed appropriate action plan to take if red flag symptoms occur. Patient agreeable to treatment plan. Referring Provider: SELF [[id number]] Allergies As of Date: 07/15/2017 Noted Allergy Reaction VOLTAREN (DICLOFENAC SODIUM) 01/02/2010 2 - Rash 7 - Swelling 12 - Shortness of Breath CYCLOBENZAPRINE 09/10/2002 4 - Hives Comments: Flexeril Blurred vision and nausea and vomiting LYRICA (PREGABALIN) 03/17/2010 5 - Intolerance Comments: Fluid retention NSAIDS (NON-STEROIDAL ANTI-INFLAM*09/10/2002 8 - GI Upset Comments: Ibuprofen, naproxen,etc ORPHENADRINE 09/10/2002 4 - Hives Comments: Norflex Nausea and vomiting and blurred vision PIROXICAM 09/10/2002 4 - Hives Comments: Feldene Blurred vision and nausea and vomiting Tape [Other] 09/10/2002 Comments: adhesive Date Reviewed: 07/15/2017 Reviewed by: Jossie Cuba Ma - Fully Assessed Reason for Visit: Recheck [92] Cmt: Follow up BP and sleep machine Primary Visit Diagnosis:Essential hypertension [I10] Other Visit Diagnosis:ARPAN (obstructive sleep apnea) [G47.33] Prescriptions as of 07/15/2017 Sig: AMOXICILLIN 500 MG TABLET Take 4 tablets by mouth. 30 m* LORAZEPAM 1 MG TABLET Take 1 tablet by mouth twice * LOSARTAN 25 MG TABLET Take 2 tablets by mouth once * CPAP Initiate Auto PAP @ 5- 20 cm o* COMPOUNDED PRESCRIPTION Lab order: Hepatitis C antib* ACIPHEX 20 MG TABLET,DELAYED * Take 1 tablet by mouth twice * PROMETHAZINE 25 MG TABLET Take 1 tablet by mouth every * CLOBETASOL 0.05 % TOPICAL CRE* Apply to affected skin sparin* NYSTATIN 100,000 UNIT/GRAM TO* Apply 1 application to affect* METOPROLOL SUCCINATE ER 25 MG* Take 0.5 tablets by mouth onc* SIMVASTATIN 20 MG TABLET Take 1 tablet by mouth daily * DICLOFENAC 1 % TOPICAL GEL Use 4 times a day as needed FUROSEMIDE 20 MG TABLET Take 1 tablet by mouth once d* DOCUSATE SODIUM 100 MG CAPSULE Take 1 capsule by mouth twice* BISACODYL 5 MG TABLET,DELAYED* Take 1 tablet by mouth once d* OXYCODONE-ACETAMINOPHEN 10 MG* Take 1 tablet by mouth every * ASPIRIN 81 MG TABLET,DELAYED * Take 1 tablet by mouth once d* THERAPEUTIC MULTIVITAMIN TABL* Take 1 tablet by mouth once d* Problem List As Of Date 07/15/2017 Noted Resolved INGROWING NAIL [L60.0] INVALID FOR* MALFUN PAYMENT COLLECTOR ORTHO DEVICE/ GRAFT NOS [I37.916Y]INVALID FOR* LEFT BB BLOCK NEC [I44.7] INVALID FOR* PAIN IN LIMB [M79.609] INVALID FOR* OTHER HAMMER TOE [M20.40] INVALID FOR* ENTHESOPATHY, SITE NOS [M77.9] INVALID FOR* GERD (Gastroesophageal Reflux Disease) [K21.9] Right Sided Sciatica [M54.31] Lichen Sclerosus et Atrophicus of the Vulva [N9*INVALID FOR* Porokeratosis [Q82.8] INVALID FOR* Calcaneal Spur [M77.30] INVALID FOR* Plantar fascial fibromatosis [M72.2] INVALID FOR* Hyperlipidemia [E78.5] INVALID FOR* Lumbar radiculopathy [M54.16] INVALID FOR* More... Degenerative joint disease of knee, right [M17.*INVALID FOR* More... Acute gastritis without mention of hemorrhage [*INVALID FOR* Anxiety [F41.9] INVALID FOR* Coronary artery disease involving [place] vann*INVALID FOR* More... Obesity [E66.9] INVALID FOR* Essential hypertension [I10] INVALID FOR* ARPAN (obstructive sleep apnea) [G47.33] INVALID FOR* Encounter Status:Closed by BILL MUNROE CNP on 07/15/17 AYANNA Observed: 07/02/2017 Status: COMPLETED Source: [place] 12:00 AM [facility] REPOSITORY Patient Outreach (INT[facility]) NGOC COTA ([id number]) 1950 F Date Time Provider Department 07/02/17 CHRISTINA VAZQUEZ INT[facility] During your visit today, we recorded the following information about you: Allergies As of Date: 07/02/2017 Noted Allergy Reaction VOLTAREN (DICLOFENAC SODIUM) 01/02/2010 2 - Rash 7 - Swelling 12 - Shortness of Breath CYCLOBENZAPRINE 09/10/2002 4 - Hives Comments: Flexeril Blurred vision and nausea and vomiting LYRICA (PREGABALIN) 03/17/2010 5 - Intolerance Comments: Fluid retention NSAIDS (NON-STEROIDAL ANTI-INFLAM*09/10/2002 8 - GI Upset Comments: Ibuprofen, naproxen,etc ORPHENADRINE 09/10/2002 4 - Hives Comments: Norflex Nausea and vomiting and blurred vision PIROXICAM 09/10/2002 4 - Hives Comments: Piero Blurred vision and nausea and vomiting Tape [Other] 09/10/2002 Comments: adhesive Date Reviewed: 06/18/2017 Reviewed by: Jossie Cuba Ma - Fully Assessed Visit Diagnosis:Medication management [Z79.899] Order(s):HGB A1C [HXTEE8G] Order #: [id number] FUTURE Prescriptions as of 07/02/2017 Sig: X LOSARTAN 25 MG TABLET Take 2 tablets by mouth once * CPAP Initiate Auto PAP @ 5- 20 cm o* COMPOUNDED PRESCRIPTION Lab order: Hepatitis C antib* ACIPHEX 20 MG TABLET,DELAYED * Take 1 tablet by mouth twice * X AMOXICILLIN 500 MG TABLET Take 4 tablets by mouth. 30 m* X LORAZEPAM 1 MG TABLET Take 1 tablet by mouth twice * PROMETHAZINE 25 MG TABLET Take 1 tablet by mouth every * CLOBETASOL 0.05 % TOPICAL CRE* Apply to affected skin sparin* NYSTATIN 100,000 UNIT/GRAM TO* Apply 1 application to affect* METOPROLOL SUCCINATE ER 25 MG* Take 0.5 tablets by mouth onc* SIMVASTATIN 20 MG TABLET Take 1 tablet by mouth daily * DICLOFENAC 1 % TOPICAL GEL Use 4 times a day as needed FUROSEMIDE 20 MG TABLET Take 1 tablet by mouth once d* DOCUSATE SODIUM 100 MG CAPSULE Take 1 capsule by mouth twice* BISACODYL 5 MG TABLET,DELAYED* Take 1 tablet by mouth once d* OXYCODONE-ACETAMINOPHEN 10 MG* Take 1 tablet by mouth every * ASPIRIN 81 MG TABLET,DELAYED * Take 1 tablet by mouth once d* THERAPEUTIC MULTIVITAMIN TABL* Take 1 tablet by mouth once d* Problem List As Of Date 07/02/2017 Noted Resolved INGROWING NAIL [L60.0] INVALID FOR* MALFUN PAYMENT COLLECTOR ORTHO DEVICE/ GRAFT NOS [T82.834U]INVALID FOR* LEFT BB BLOCK NEC [I44.7] INVALID FOR* PAIN IN LIMB [M79.609] INVALID FOR* OTHER HAMMER TOE [M20.40] INVALID FOR* ENTHESOPATHY, SITE NOS [M77.9] INVALID FOR* GERD (Gastroesophageal Reflux Disease) [K21.9] Right Sided Sciatica [M54.31] Lichen Sclerosus et Atrophicus of the Vulva [N9*INVALID FOR* Porokeratosis [Q82.8] INVALID FOR* Calcaneal Spur [M77.30] INVALID FOR* Plantar fascial fibromatosis [M72.2] INVALID FOR* Hyperlipidemia [E78.5] INVALID FOR* Lumbar radiculopathy [M54.16] INVALID FOR* More... Degenerative joint disease of knee, right [M17.*INVALID FOR* More... Acute gastritis without mention of hemorrhage [*INVALID FOR* Anxiety [F41.9] INVALID FOR* Coronary artery disease involving [place] vann*INVALID FOR* More... Obesity [E66.9] INVALID FOR* Encounter Status:Closed by GIOVANI GARCIAUSER on 12/20/17 CARDIOLOGY VISIT Observed: 07/01/2017 Status: F Source: [place] REPORT 9:[address] [facility] REPOSITORY [facility] [address] [place] [address] OFFICE VISIT Date of Service: 07/01/17 MR#: [id number] Acct: [id number] Name: NGOC COTA Rep #: [id number] : 1950 Provider: Carmelo Phillips MD Age/Sex: 66/F Location: [facility] Status: Signed HPI HPI Chief Complaint: Routine f/u Details: Mrs. 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 this precipitated a treadmill echocardiogram supervised by myself at [facility] on 07/01/14. This was markedly abnormal which required a diagnostic coronary angiogram. Patient was found to have 2 tandem lesions in her proximal and mid LAD, followed by a Stable lesion in the proximal RCA. Patient had her sheath removed and then transferred to [facility] 3 days later after an inpatient stay with IV nitroglycerin. We then proceeded with successful angioplasty and drug-eluting stenting to the proximal LAD with a 3.0X 32 Promus stent, postdilated proximally with 3.5 and 4.0 noncompliant balloons. An FFR of her RCA was negative at 0.95 so no additional stenting was performed. The patient developed a pseudoaneurysm in the right groin, with successful thrombin injection. Repeat ultrasound demonstrated no evidence of continued pseudoaneurysm and the patient was discharged home. since her last visit, the patient has been doing rather well. She denies any chest pain, angina, shortness of breath or dyspnea on exertion. 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 In our office her blood pressure is 126/72, and pulse is 76 and regular. Her physical exam is as below. Her lipids as of 11/2014 show an HDL of 40 and LDL of 76. Her lipids as of 06/21/17 show an LDL of 82, and an HDL of 46 Intake Vital Signs07/01/17 Height 5 ft 1 in 07/01/17 Weight: 187 lb 07/01/17 Body Mass Index (BMI) 35.3 07/01/17 Blood Pressure 126/72 Intake Visit Reasons: 1 Y FU Accompanied by: Is patient in pain?: No Allergies diclofenac sodium [From Voltaren] Allergy (Verified 07/01/17 08:56) Swelling adhesive Adverse Reaction (Verified 07/01/17 08:56) Rash cyclobenzaprine HCl [From Flexeril] Adverse Reaction (Verified 07/01/17 08:56) Nausea/Vom/Diarrhea ibuprofen Adverse Reaction (Verified 07/01/17 08:56) Nausea/Vom/Diarrhea meloxicam [From Mobic] Adverse Reaction (Verified 07/01/17 08:56) Nausea/Vom/Diarrhea orphenadrine citrate [From Norflex] Adverse Reaction (Verified 07/01/17 08:56) Other piroxicam [From Feldene] Adverse Reaction (Verified 07/01/17 08:56) Rash pregabalin [From Lyrica] Adverse Reaction (Verified 07/01/17 08:56) Nausea/Vom/Diarrhea Medications Lorazepam [Ativan] 1 mg PO BID PRN PRN 07/29/13 [History Confirmed 06/29/17] Multivitamins,Therapeutic [Multivitamin] 1 tab PO DAILY 07/29/13 [History Confirmed 06/29/17] Aspirin E.C. [Ecotrin] 81 mg PO DAILY@0800 04/06/15 [History Confirmed 06/29/17] Oxycodone HCl/Acetaminophen [Percocet 5-325] 1 - 2 tab PO TID PRN 12/07/15 [History Confirmed 06/29/17] Tizanidine HCl [Zanaflex] 1 tab PO TID PRN 05/10/16 [History Confirmed 06/20/17] Ipratropium [Atrovent (SP)] 1 puff INHALATION BID 10/29/16 [History Confirmed 06/20/17] proMETHazine suppository [Phenergan] 25 mg RECTAL Q6H PRN PRN #20 suppos. 01/26/17 [Rx Confirmed 06/20/17] metoprolol succinate ER 25 mg tablet,extended release 24 hr 12.5 mg PO DAILY #16 tab 06/14/17 [Rx Confirmed 06/29/17] Dextran 70/Hypromellose [Nature's Tears Eye Drops] 15 ml OP PRN PRN 06/20/17 [History Confirmed 06/20/17] bisacodyl 5 mg tablet,delayed release 5 mg PO QDAY PRN tab 06/29/17 [History Confirmed 06/29/17] cholecalciferol (vitamin D3) 2,000 unit capsule 2,000 unit PO QDAY 06/29/17 [History Confirmed 06/29/17] diphenhydramine 25 mg capsule 25 mg PO BID PRN cap 06/29/17 [History Confirmed 06/29/17] docusate sodium 100 mg capsule 100 mg PO QDAY PRN 06/29/17 [History Confirmed 06/29/17] furosemide 20 mg tablet 20 mg PO .COMPLEX tab 06/29/17 [History Confirmed 06/29/17] nitroglycerin 0.4 mg sublingual tablet 0.4 mg SUBLINGUAL Q5- 15M PRN 06/29/17 [History Confirmed 06/29/17] gabapentin 400 mg capsule 400 mg PO TID 07/01/17 [History Confirmed 07/01/17] losartan 50 mg tablet 50 mg PO QDAY #30 tab 07/01/17 [Rx Confirmed 07/01/17] rabeprazole 20 mg tablet,delayed release 20 mg PO BID 07/01/17 [History Confirmed 07/01/17] simvastatin 20 mg tablet 20 mg PO QHS #90 tab 07/01/17 [Rx Confirmed 07/01/17] PFSH Medical History History of pseudoaneurysm (Chronic) H/O left knee surgery (Chronic) IBS (irritable bowel syndrome) (Chronic) Sciatica (Chronic) Arthritis (Chronic) Hyperlipidemia (Chronic) Hypertension (Chronic) Left bundle branch block (Chronic) Atherosclerotic heart disease of [place] coronary artery without angina pectoris (Chronic) Surgical History Plantar fasciitis of left foot (Chronic) Bunion of left foot (Chronic) Status post right foot surgery (Chronic) Status post right knee replacement (Chronic) Stented coronary artery (Chronic) History of left heart catheterization (Chronic) Family History Mother Breast cancer Father CAD (coronary artery disease) Social History Smoking Status: Never smoker ROS Const Const: Positive for other (Just dx with ARPAN, has CPAP: bp has been up.); negative for fatigue, weakness, body ache, fever(s), headache(s), chills, frequent falls, night sweats, daytime sleepiness, difficulty sleeping, excessive sweating, weight gain, weight loss, increased appetite, poor appetite or anorexia Eyes Eyes: Negative for blind spots, loss of peripheral vision, transient loss of vision, blurry vision, change in vision, double vision, floaters, tunnel vision or other ENT ENT: Negative for headache(s), dizziness, hearing loss, tinnitus, Nosebleed/epistaxis, balance problems, post nasal drip, lip swelling, tongue swelling, bleeding gums, hoarseness, neck pain, dry mouth or other Cardio Chest Pain: No Palpitations: No Edema: Bilateral (nonpitting) Muscle aches with walking: None Resp Respiratory: Negative for SOB with activity, SOB at rest, SOB orthopnea\SOB lying down, Coughing up blood/hemoptysis, chest congestion, pain on inspiration, snoring, stridor, wheezing, crackles, paroxysmal nocturnal dyspnea or other GI GI: Negative nausea, vomiting, heartburn, constipation, belching, bloating, cramping, vomiting blood/hematemesis, bright, red blood in stools, black,tarry stools, loose stools, Difficulty Swallowing or other : Negative for hematuria, frequent nighttime urination/ nocturia, erectile dysfunction or abnormal vaginal bleeding Musc Musc: Negative for balance problems, muscle aches/ myalgia, muscle weakness or joint pain Skin Skin: Negative redness, non-healing lesions, rash, unusual bruising, skin ulcer, wounds, jaundice or other Neuro Neuro: Negative for weakness, headache(s), frequent falls, blurry vision, double vision, dizziness, lightheadedness, near syncope, syncope, orthostatic symptoms, confusion, memory loss, restless legs, vertigo, seizures, lack of coordination or other Anoop Hematologic/Lymphatic: Negative for easy bleeding, easy bruising, enlarged lymph nodes or other Endo Endo: Negative for fatigue, excessive sweating, cold intolerance, heat intolerance, flushing, increased thirst/drinking, increased hunger, hair loss, hair growth or other Psych Psych: Negative for anxiety, depression, thoughts of harming anyone, thoughts of harming yourself, visual hallucinations, panic attacks or audible hallucinations Allergy Allergy/Immunology: Negative for lip swelling, Negative for tongue swelling, Negative for rash, Negative for throat swelling, Negative for hives Cardiology Exam Const Appearance: cooperative, healthy appearing and no acute distress Nutritional Appearance: well nourished Orientation: alert, oriented x3 and oriented to person Head Head: normal to inspection, atraumatic and normocephalic Nose: external nose normal Face and Sinus: face symmetric Mouth: oral mucosae normal Eyes General: appearance normal, both eyes and all related structures Eyelids: eyelids normal Conjunctivae: conjunctivae normal Pupils: PERRL and normal by confrontation EOM: EOM intact bilaterally Neck Neck: normal visual inspection and full ROM Carotids: normal carotid upstroke Chest Chest inspection: normal inspection of the chest Auscultation: Bilateral: Clear to Auscultation Cardio Palpation: normal PMI Rate: regular rate Rhythm: regular rhythm Heart sounds: S1 normal and S2 normal GI GI: normal to inspection, no hepatosplenomegaly and bowel sounds present Neuro General: alert, oriented x3, awake, CN's II-XI intact bilaterally and moves all extremities Skin Skin: no rashes or lesions noted Extremities Pulses: Normal: Right Femoral Pulse, Left Femoral Pulse, Right Dorsalis Pedis Pulse, Left Dorsalis Pedis Pulse, Right Posterior Tibial Pulse, Left Posterior Tibial Pulse, Right Radial Pulse, Left Radial Pulse Lower Extremity Edema: None: Bilateral Psych Psychological: normal affect Assessment AND Plan 1. Atherosclerotic heart disease of [place] coronary artery without angina pectoris I25.10 PTCA and ALESSANDRA to LAD 07/05/[address] Phillips [facility] Plan 1. Coronary artery disease: No exertional anginal symptoms at this time. Patient has a remaining coronary stenosis in her RCA which was negative by FFR R. 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 Her blood pressure and heart rate are well-controlled. I recommended that she continue her baby aspirin, Lasix, losartan, Lopressor. Should the patient require any cardiac axis would not recommend using her right groin given her previous pseudoaneurysm. Would not recommend stress testing at this time as she is asymptomatic. 2. Hyperlipidemia E78.5 Plan 2. Hyperlipidemia: Her LDL and HDL cholesterol are fairly well-controlled but her LDL is still above 70. Recommend increasing her Zocor to 20 mg p.o. nightly as she was taking only 10 mg at home. Patient has been on vitamin D and has had no myalgias. If she tolerates the 20 mg tablet we will repeat her lipid profile in 6 weeks time. If she does not we will revert back to 10 mg p.o. nightly and go from there. 3. Return office in 6 months. This note was generated using a voice recognition system and there may be incorrect words, spelling or punctuation that were not noted when reviewing the office note prior to saving. Orders Orders: Plan Detail Other Medications New: Refilled: Discontinued: losartan Discontinued Reason: Discontinued by PCP/other phys25 mg PO DAILY Renetta mccormick clopidogrel (Plavix) Discontinued Reason: Pt no longer takin75 mg PO QDAY Renetta altamirano Follow Up +6m (Alan) Coding Level of Care Code Off vis,est,level 3 Diagnoses Atherosclerotic heart disease of [place] coronary artery without angina pectoris I25.10 Hyperlipidemia E78.5 Coding Level of Care Code Off vis,est,level 3 Diagnoses Atherosclerotic heart disease of [place] coronary artery without angina pectoris I25.10 Hyperlipidemia E78.5 07/01/17 0925 <Electronically signed by Carmelo Phillips MD> Date Carmelo Phillips MD Cosigner Signature: Date (if applicable) CC: Christina Vazquez MD OPERATIVE REPORT Observed: 06/24/2017 Status: F Source: [place] 3:[address] [facility] REPOSITORY [facility] Medical Records Department [address] [place] [address] Operative Report 06/24/17 1549 MR#: [id number] Acct: [id number] Name: NGOC COTA Rep #: [id number] : 1950 66 From: Bautista Mendez MD PCP: Christina Vazquez MD Status: DEP [facility] Y Location: [facility] Problem List (1) DDD (degenerative disc disease), lumbosacral Status: Chronic (2) Lumbosacral radiculopathy Status: Chronic (3) Lumbosacral spinal stenosis Status: Chronic Report of Operation Date of Procedure: 06/24/17 Pre-Operative Diagnosis: Lumbosacral radiculopathy, lumbosacral degenerative disc disease, lumbosacral spinal stenosis Post-Operative Diagnosis: Lumbosacral radiculopathy, lumbosacral degenerative disc disease, lumbosacral spinal stenosis Surgery/Procedure Performed:: Caudal epidural steroid injection Description of Surgical Findings:: Procedure: Caudal epidural steroid injection Preoperative diagnosis: Lumbosacral radiculopathy, lumbosacral degenerative disc disease, lumbosacral spinal stenosis Postoperative diagnosis:Lumbosacral radiculopathy, lumbosacral degenerative disc disease, lumbosacral spinal stenosis Anesthesia: MAC Blood loss: Minimal Complications: None Procedure in detail: History and physical today was reviewed risk and benefits of procedure explained the patient understood and agreed to procedure informed consent was obtained IV inserted per routine protocol patient was taken to the operating room placed in the prone position with a pillow position underneath the abdomen the lower back and tailbone area was prepped and draped in a sterile fashion using iodine 3 under direct visualization with fluoroscopy on the lateral view the caudal space was identified skin and subcutaneous tissue anesthetized approximately 3 cc of 1% lidocaine using a 25-gauge regular needle under direct visualization fluoroscopy on the lateral view using a 22-gauge 3-1/2 inch spinal needle the needle was advanced via the skin through the sacral hiatus tip of needle passed through the sacrococcygeal ligament advanced approximately S4 area after negative aspiration for blood or CSF a total of 3 cc of contrast were injected to confirm correct placement of the needle as well as cephalad spread the spread was followed to approximately L5 area after repeated confirmation AP as well as lateral view and repeated negative aspiration a total of 15 cc of preservative- free 0.125% Marcaine with 80 mg of Depo-Medrol were injected easily the needle was then removed intact patient experienced no sinus symptoms intrathecal or intravascular injection patient experienced no paresthesia the procedure was completed without any apparent difficulty any complication the patient appeared to tolerate well. Assessment and plan: This is a 66-year-old female with lumbosacral radiculopathy lumbosacral degenerative disc disease lumbosacral spinal stenosis status post caudal epidural steroid injection patient will continue her current medications patient will follow approximately 2 weeks for possible repeat of the procedure if indicated. 06/24/17 1550 <Electronically signed by Bautista Mendez MD> Date Bautista Mendez MD CC: Bautista Mendez; Christina Vazquez MD Signed FLUOR GUIDANCE FOR Observed: 06/24/2017 Status: F Source: [place] [facility] 3:[address] [facility] REPOSITORY [facility] Imaging Services [address] [place] [address] [facility] MR#: [id number] Acct: [id number] Name: NGOC COTA Rep #: [id number] : 1950 F 66 From: Jayden Byrd MD PCP: Christina Vazquez MD Status: [facility] Study: Fluor Guidance for Spine Inj Date of Exam: 06/24/17 Exam# [id number] Ordering Dr: Bautista Mendez MD PROCEDURE: Caudal block. DATE OF EXAMINATION: June 24, 2017. INDICATION: Female, 66 years old. Chronic low back pain. FLUOROSCOPY TIME (if supplied): (0:07) minutes/seconds Imaging provided for caudal block. RAD/Fluor Guidance for Spine Inj IMPRESSION: Imaging provided for caudal block. Electronically Signed: Jayden Byrd MD at 10:05 EDT Tel [phone], Service support , CC: Bautista Mendez; Christina Vazquez MD Production Quality Manager: Signed VITAMIN D,25 HYDROXY Collected: 06/21/2017 Status: F Source: [place] 9:[address] [facility] REPOSITORY TYPE CODE TESTS RESULT OUT OF RANGE REFERENCE UNITS LAB L506.1000 29.95-100.01 ng/mL Normal Vitamin D 45.0 25-OH Result Comment: Vitamin D 25(OH) Status Range Deficiency <20 ng/mL (50nmol/L) Insuffciency 20 - 30 ng/mL (50 - 75 nmol/L) Sufficiency 30 - 100 ng/mL (75 - 250 nmol/L) Toxicity >100 ng/mL (>250 nmol/L) Performed By: #### L506.1000 #### [facility] [address] [place], [address] LIPID PROFILE Collected: 06/21/2017 Status: F Source: [place] 9:[address] [facility] REPOSITORY TYPE CODE TESTS RESULT OUT OF RANGE REFERENCE UNITS LAB L501.4900 200 mg/dL Normal CHOL 166 Result Comment: <200 mg/dL Desirable 200-240 mg/dL Borderline >240 mg/dL High Risk LAB L501.5000 mg/dL Normal TRIG 189 Result Comment: The drugs N-Acetylcysteine and Metamizole may falsely depress this assay. Serum Triglycerides Reference Interval Normal <150 mg/dL Borderline high 150 - 199 mg/dL High 200 - 499 mg/dL Very High > or = 500 mg/dL LAB L501.6400 mg/dL Normal HDL 46 Result Comment: The drugs N-Acetylcysteine and Metamizole may falsely depress this assay. Reference Range HDL <40 mg/dL Low HDL Cholesterol HDL >or= 60 mg/dL High HDL Cholesterol LAB L501.6500 0-130 mg/dL Normal LDL 82 LAB L501.6600 5-40 mg/dL Normal VLDL 38 Performed By: #### L500.4100, L501.9520 #### [facility] [address] [place], [address] THYROID STIM HORMONE Collected: 06/21/2017 Status: F Source: [place] (TSH) 9:[address] [facility] REPOSITORY TYPE CODE TESTS RESULT OUT OF RANGE REFERENCE UNITS LAB L501.9520 0.358-3.74 uIU/mL Normal TSH 1.50 Performed By: #### L500.4100, L501.9520 #### [facility] [address] [place], [address] CNNURSE Observed: 06/18/2017 Status: COMPLETED Source: [place] 9:00 AM [facility] REPOSITORY Nurse Visit (FAMPWS) NGOC COTA ([id number]) 1950 F Date Time Provider Department 06/18/17 9:00 AM [facility] During your visit today, we recorded the following information about you: Pulse Blood pressure 68/minute 148/75 Jossie Bereket Maya 06/18/2017 11:30 AM Signed Manual Readin/82 Pulse: 68 ? BP Luis Enrique average: 148/75 P: 68 ? Reason for blood pressure check - Last BP elevated ? Patient is: Taking medication as prescribed Yes Took medication today Yes? If no, date medication last taken N/A Experiencing side effects No ? BP was elevated at last appt 06/07/17. No BP medication changes were made at that time. Taking all medications as prescribed. Denies any chest pain, shortness of breath, dizziness, or headaches. Daily caffeine use. No personal history of tobacco use; no current exposure. Alert and oriented. ? Pt has been identified by name and birthdate: Yes ? Allergies reviewed: Yes Latex allergy: no. ? Medication - prescribed and OTC reviewed and updated: Yes Do you need any prescription refills prior to your next visit: No ? Health Maintenance: Reviewed and not up to date and provider notified ? Patient advised to continue with current medications and would be contacted with any further instructions after review by PCP. ? Referring Provider: BILL MUNROE ([facility]) [[id number]] Allergies As of Date: 06/18/2017 Noted Allergy Reaction VOLTAREN (DICLOFENAC SODIUM) 01/02/2010 2 - Rash 7 - Swelling 12 - Shortness of Breath CYCLOBENZAPRINE 09/10/2002 4 - Hives Comments: Flexeril Blurred vision and nausea and vomiting LYRICA (PREGABALIN) 03/17/2010 5 - Intolerance Comments: Fluid retention NSAIDS (NON-STEROIDAL ANTI-INFLAM*09/10/2002 8 - GI Upset Comments: Ibuprofen, naproxen,etc ORPHENADRINE 09/10/2002 4 - Hives Comments: Norflex Nausea and vomiting and blurred vision PIROXICAM 09/10/2002 4 - Hives Comments: Feldene Blurred vision and nausea and vomiting Tape [Other] 09/10/2002 Comments: adhesive Date Reviewed: 06/18/2017 Reviewed by: Jossie Cuba Ma - Fully Assessed Reason for Visit: Recheck [92] Cmt: BP follow up Primary Visit Diagnosis:Coronary artery disease without angina pectoris, unspecified vessel or lesion type, unspecified whether [place] or transplanted heart [I25.10] Prescriptions as of 06/18/2017 Sig: CPAP Initiate Auto PAP @ 5- 20 cm o* COMPOUNDED PRESCRIPTION Lab order: Hepatitis C antib* ACIPHEX 20 MG TABLET,DELAYED * Take 1 tablet by mouth twice * AMOXICILLIN 500 MG TABLET Take 4 tablets by mouth. 30 m* LORAZEPAM 1 MG TABLET Take 1 tablet by mouth twice * PROMETHAZINE 25 MG TABLET Take 1 tablet by mouth every * CLOBETASOL 0.05 % TOPICAL CRE* Apply to affected skin sparin* NYSTATIN 100,000 UNIT/GRAM TO* Apply 1 application to affect* METOPROLOL SUCCINATE ER 25 MG* Take 0.5 tablets by mouth onc* LOSARTAN 25 MG TABLET Take 1 tablet by mouth once d* SIMVASTATIN 20 MG TABLET Take 1 tablet by mouth daily * DICLOFENAC 1 % TOPICAL GEL Use 4 times a day as needed FUROSEMIDE 20 MG TABLET Take 1 tablet by mouth once d* DOCUSATE SODIUM 100 MG CAPSULE Take 1 capsule by mouth twice* BISACODYL 5 MG TABLET,DELAYED* Take 1 tablet by mouth once d* OXYCODONE-ACETAMINOPHEN 10 MG* Take 1 tablet by mouth every * ASPIRIN 81 MG TABLET,DELAYED * Take 1 tablet by mouth once d* THERAPEUTIC MULTIVITAMIN TABL* Take 1 tablet by mouth once d* Problem List As Of Date 06/18/2017 Noted Resolved INGROWING NAIL [L60.0] INVALID FOR* MALFUN PAYMENT COLLECTOR ORTHO DEVICE/ GRAFT NOS [T84.283W]INVALID FOR* LEFT BB BLOCK NEC [I44.7] INVALID FOR* PAIN IN LIMB [M79.609] INVALID FOR* OTHER HAMMER TOE [M20.40] INVALID FOR* ENTHESOPATHY, SITE NOS [M77.9] INVALID FOR* GERD (Gastroesophageal Reflux Disease) [K21.9] Right Sided Sciatica [M54.31] Lichen Sclerosus et Atrophicus of the Vulva [N9*INVALID FOR* Porokeratosis [Q82.8] INVALID FOR* Calcaneal Spur [M77.30] INVALID FOR* Plantar fascial fibromatosis [M72.2] INVALID FOR* Hyperlipidemia [E78.5] INVALID FOR* Lumbar radiculopathy [M54.16] INVALID FOR* More... Degenerative joint disease of knee, right [M17.*INVALID FOR* More... Acute gastritis without mention of hemorrhage [*INVALID FOR* Anxiety [F41.9] INVALID FOR* Coronary artery disease involving [place] vann*INVALID FOR* More... Obesity [E66.9] INVALID FOR* Visit Notes: >> Jossie Cote Jun 18, 2017 11:27 AM Status: Signed Manual Readin/82 Pulse: 68 ? BP Luis Enrique average: 148/75 P: 68 ? Reason for blood pressure check - Last BP elevated ? Patient is: Taking medication as prescribed Yes Took medication today Yes? If no, date medication last taken N/A Experiencing side effects No ? BP was elevated at last appt 06/07/17. No BP medication changes were made at that time. Taking all medications as prescribed. Denies any chest pain, shortness of breath, dizziness, or headaches. Daily caffeine use. No personal history of tobacco use; no current exposure. Alert and oriented. ? Pt has been identified by name and birthdate: Yes ? Allergies reviewed: Yes Latex allergy: no. ? Medication - prescribed and OTC reviewed and updated: Yes Do you need any prescription refills prior to your next visit: No ? Health Maintenance: Reviewed and not up to date and provider notified ? Patient advised to continue with current medications and would be contacted with any further instructions after review by PCP. ? Follow-up and Disposition History Recorded Encounter Status:Closed by JOSSIE CUBA MA on 06/19/17 PROGRESS Observed: 06/07/2017 Status: COMPLETED Source: [place] 8:18 AM [facility] REPOSITORY HNO ID: [id number] Author: Bill (Apryl) Sumit Service: (none) Author Type: Nurse Practitioner Type: Progress Notes Filed: 06/07/2017 8:54 AM Note Text: CC: Patient presents with: Recheck: Review Sleep Study HPI Ngoc Cota is a 66 year old female who presents today for follow up on sleep study results and to discuss treatment plan. Patient with complaint of fatigue, daytime sleepiness, trouble sleeping and trouble staying asleep for years. 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 Average duration of sleep 4 hrs/night with multiple wakenings/night. Reports symptoms of snoring loudly. Bed partner has not noted apneas and leg symptoms of cramping. Patient had undergone a sleep study on 05/15/17. Report reveals a diagnosis of Mild ARPAN. Per the report patient experienced 3 apneas in total. Mean oxygen saturation 92.7% with the lowest reading 86%. Patient experienced 40 arousals for an arousal index of 5.6 arousals/hour, 12 of which were respiratory in nature. Average heart rate: 61.9 bpm. AHI 5.1 events/hour. REVIEW OF SYSTEMS General: no fevers, no chills, no night sweats, no recurrent infections, no change in appetite and no significant changes in weight. Significant fatigue see HPI HEENT: no frequent or significant headaches, no changes in hearing, no visual changes, no nose bleeds, no sinus or nasal problems Respiratory: no cough, no wheezing, no shortness of breath, no hemoptysis Cardiovascular: no chest pain, no chest pressure, no palpitations and no swelling GI: No nausea, vomiting, or diarrhea Neurologic: No headache, weakness, numbness, tingling, neck stiffness, tremor, vertigo, dizziness, memory loss, syncope. PAST MEDICAL HISTORY Diagnosis Date - Anatomical narrow angle borderline glaucoma - Bundle branch block, unspecified 01/12 LBBB - Coronary artery disease involving [place] coronary artery of [place] heart without angina pectoris 2014 Dr. Phillips - DDD (degenerative disc disease), lumbar - Disorder of bone and cartilage, unspecified - Diverticulosis of colon (without mention of hemorrhage) - GERD (gastroesophageal reflux disease) - Irritable bowel syndrome - Lichen Sclerosus et Atrophicus of the Vulva 03/16/2009 - Lumbar radiculopathy - Other combinations of endocrine dysfunction - Plantar fascial fibromatosis - Primary localized osteoarthrosis, lower leg - Right knee DJD - Right sided sciatica - S/P coronary artery stent placement 2014 [facility] PAST SURGICAL HISTORY Procedure Laterality Date - COLONOSCOP W/ OR W/O BRSH SPEC 03/20/2011 Colonoscopy - CORRECT BUNION,SIMPLE 1999 Bunion both- left was nonunion - EGD W/O OR W/BRUSH/WASH 03/20/2011 EGD - KNEE SCOPE,DIAGNOSTIC prior to 2003 right knee X 3 - PART REMOVAL COLON W ANASTOMOSIS 7828-2610 sigmoid resection - PAST SURGICAL HISTORY OF 1998 endochondroma right knee - PAST SURGICAL HISTORY OF 1998 laser both eyes for glaucoma - PAST SURGICAL HISTORY OF 1998 left plantar fasciotomy - PAST SURGICAL HISTORY OF 1982 hysterectomy with one ovary removed - PAST SURGICAL HISTORY OF 08/11/2013 Total Right Knee replacement - REMOVAL OF TONSILS,<12 Y/O Tonsillectomy - TOTAL KNEE REPLACEMENT 2003 Knee replacement, total right ALLERGIES Voltaren [Diclofenac Sodium]; Cyclobenzaprine; Lyrica [Pregabalin]; Nsaids (Non-Steroidal Anti-Inflammatory Drug); Orphenadrine; Piroxicam; Tape [Other] MEDICATIONS COMPOUNDED PRESCRIPTION Lab order: Hepatitis C antibody and reflex confirmation test (HCV RNA) if needed Z01.89 ACIPHEX 20 mg tablet Take 1 tablet by mouth twice daily. Do not substitute with generic (not effective) Amoxicillin 500 mg tablet Take 4 tablets by mouth. 30 minutes prior to dental procedures. LORazepam (ATIVAN) 1 mg tablet Take 1 tablet by mouth twice daily as needed. promethazine (PHENERGAN) 25 mg tablet Take 1 tablet by mouth every 6 hours as needed. clobetasol (TEMOVATE) 0.05 % cream Apply to affected skin sparingly once daily as needed nystatin (NYSTOP) powder Apply 1 application to affected area four times daily. As directed metoprolol succinate ER (TOPROL XL) 25 mg 24 hr tablet Take 0.5 tablets by mouth once daily. losartan (COZAAR) 25 mg tablet Take 1 tablet by mouth once daily. simvastatin (ZOCOR) 20 mg tablet Take 1 tablet by mouth daily at bedtime. Diclofenac Sodium (VOLTAREN) 1 % gel Use 4 times a day as needed furosemide (LASIX) 20 mg tablet Take 1 tablet by mouth once daily. docusate sodium (COLACE) 100 mg capsule Take 1 capsule by mouth twice daily as needed for Constipation. bisacodyl EC (DULCOLAX) 5 mg EC tablet Take 1 tablet by mouth once daily as needed. oxyCODONE-acetaminophen (PERCOCET) 10-325 mg tablet Take 1 tablet by mouth every 8 hours as needed. aspirin, enteric coated (ECOTRIN LOW STRENGTH) 81 mg EC tablet Take 1 tablet by mouth once daily. therapeutic multivitamin ORAL tablet Take 1 tablet by mouth once daily. FAMILY HISTORY Problem Relation Age of Onset - Breast Cancer Mother also uterine cancer - Heart Father - Diabetes Mother Social History Substance Use Topics - Smoking status: Never Smoker - Smokeless tobacco: Never Used - Alcohol use No PHYSICAL EXAM BP 172/94 Pulse 97 Temp 36.5 ?C (97.7 ?F) (Temporal Artery) Resp 16 Wt 85.7 kg (189 lb) SpO2 98% BMI 37.74 kg/m2 General Appearance: well appearing, in no acute distress, alert Pysch: mood and affect broad and appropriate Skin: Skin color, texture, turgor normal for age; Head: normocephalic, atraumatic Eyes: conjunctiva pink and moist, no icterus, sclera white, non-injected Lungs: Lungs clear to auscultation. No wheezing, rhonchi, rales Heart: RRR without murmur, gallop, or rubs. No ectopy HEPATITIS C SCREENING due on 1994 MAMMOGRAM due on 02/19/2018 DIABETES SCREEN due on 10/25/2018 LIPID SCREEN due on 10/25/2020 COLORECTAL CANCER SCREENING,SEE MODIFIER due on 03/20/2021 TETANUS due on 04/12/2027 BONE DENSITY Completed ADULT PREVNAR-13 Completed INFLUENZA Completed PNEUMOVAX AGE 65 AND OVER WITH 5YR LOOKBACK Completed ASSESSMENT/PLAN: 1. ARPAN (obstructive sleep apnea) - ICD9: 327.23, ICD10: G47.33 (primary diagnosis) - Reviewed in detail the results of sleep study with patient. Based on sleep study results, patient's symptoms, body habitus and significant family history of ARPAN- recommend starting auto pap therapy - AHI 5.1 events/hour. - CPAP - Schedule appointment with Sleep Medicine for further evaluation and compliance - Follow up in 3 months 2. Elevated blood pressure reading - ICD9: 796.2, ICD10: R03.0 - Encouraged dietary sodium restriction/DASH diet - Recommended regular aerobic exercise. - Recheck in 1 week, sooner if needed. - Goal of BP <140/90 Prescription instructions reviewed with patient as applicable. Potential red flag symptoms discussed with the patient. Reviewed appropriate action plan to take if red flag symptoms occur. Patient agreeable to treatment plan. NELLIE BrownOV Observed: 06/07/2017 Status: COMPLETED Source: [place] 8:00 AM [facility] REPOSITORY Office Visit (INTMWS) NGOC COTA ([id number]) 1950 F Date Time Provider Department 06/07/17 8:00 AM BILL MUNROE ([facility]) INTMWS During your visit today, we recorded the following information about you: Temperature Pulse Respiration Blood pressure 97.7 degrees 97/minute 16/minute 172/94 Weight 85.7 kg Bill Munroe APRN.CNP 06/07/2017 8:54 AM Addendum CC: Patient presents with: Recheck: Review Sleep Study HPI Ngoc Cota is a 66 year old female who presents today for follow up on sleep study results and to discuss treatment plan. Patient with complaint of fatigue, daytime sleepiness, trouble sleeping and trouble staying asleep for years. 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 Average duration of sleep 4 hrs/night with multiple wakenings/night. Reports symptoms of snoring loudly. Bed partner has not noted apneas and leg symptoms of cramping. Patient had undergone a sleep study on 05/15/17. Report reveals a diagnosis of Mild ARPAN. Per the report patient experienced 3 apneas in total. Mean oxygen saturation 92.7% with the lowest reading 86%. Patient experienced 40 arousals for an arousal index of 5.6 arousals/hour, 12 of which were respiratory in nature. Average heart rate: 61.9 bpm. AHI 5.1 events/hour. REVIEW OF SYSTEMS General: no fevers, no chills, no night sweats, no recurrent infections, no change in appetite and no significant changes in weight. Significant fatigue see HPI HEENT: no frequent or significant headaches, no changes in hearing, no visual changes, no nose bleeds, no sinus or nasal problems Respiratory: no cough, no wheezing, no shortness of breath, no hemoptysis Cardiovascular: no chest pain, no chest pressure, no palpitations and no swelling GI: No nausea, vomiting, or diarrhea Neurologic: No headache, weakness, numbness, tingling, neck stiffness, tremor, vertigo, dizziness, memory loss, syncope. PAST MEDICAL HISTORY Diagnosis Date - Anatomical narrow angle borderline glaucoma - Bundle branch block, unspecified 01/12 LBBB - Coronary artery disease involving [place] coronary artery of [place] heart without angina pectoris 2014 Dr. Phillips - DDD (degenerative disc disease), lumbar - Disorder of bone and cartilage, unspecified - Diverticulosis of colon (without mention of hemorrhage) - GERD (gastroesophageal reflux disease) - Irritable bowel syndrome - Lichen Sclerosus et Atrophicus of the Vulva 03/16/2009 - Lumbar radiculopathy - Other combinations of endocrine dysfunction - Plantar fascial fibromatosis - Primary localized osteoarthrosis, lower leg - Right knee DJD - Right sided sciatica - S/P coronary artery stent placement 2014 [facility] PAST SURGICAL HISTORY Procedure Laterality Date - COLONOSCOP W/ OR W/O [facility] SPEC 03/20/2011 Colonoscopy - CORRECT BUNION,SIMPLE 1999 Bunion both- left was nonunion - EGD W/O OR W/BRUSH/WASH 03/20/2011 EGD - KNEE SCOPE,DIAGNOSTIC prior to 2003 right knee X 3 - PART REMOVAL COLON W ANASTOMOSIS [id number] sigmoid resection - PAST SURGICAL HISTORY OF 1998 endochondroma right knee - PAST SURGICAL HISTORY OF 1998 laser both eyes for glaucoma - PAST SURGICAL HISTORY OF 1998 left plantar fasciotomy - PAST SURGICAL HISTORY OF 1982 hysterectomy with one ovary removed - PAST SURGICAL HISTORY OF 08/11/2013 Total Right Knee replacement - REMOVAL OF TONSILS,ANDlt;12 Y/O Tonsillectomy - TOTAL KNEE REPLACEMENT 2004 Knee replacement, total right ALLERGIES Voltaren [Diclofenac Sodium]; Cyclobenzaprine; Lyrica [Pregabalin]; Nsaids (Non-Steroidal Anti-Inflammatory Drug); Orphenadrine; Piroxicam; Tape [Other] MEDICATIONS COMPOUNDED PRESCRIPTION Lab order: Hepatitis C antibody and reflex confirmation test (HCV RNA) if needed Z01.89 ACIPHEX 20 mg tablet Take 1 tablet by mouth twice daily. Do not substitute with generic (not effective) Amoxicillin 500 mg tablet Take 4 tablets by mouth. 30 minutes prior to dental procedures. LORazepam (ATIVAN) 1 mg tablet Take 1 tablet by mouth twice daily as needed. promethazine (PHENERGAN) 25 mg tablet Take 1 tablet by mouth every 6 hours as needed. clobetasol (TEMOVATE) 0.05 % cream Apply to affected skin sparingly once daily as needed nystatin (NYSTOP) powder Apply 1 application to affected area four times daily. As directed metoprolol succinate ER (TOPROL XL) 25 mg 24 hr tablet Take 0.5 tablets by mouth once daily. losartan (COZAAR) 25 mg tablet Take 1 tablet by mouth once daily. simvastatin (ZOCOR) 20 mg tablet Take 1 tablet by mouth daily at bedtime. Diclofenac Sodium (VOLTAREN) 1 % gel Use 4 times a day as needed furosemide (LASIX) 20 mg tablet Take 1 tablet by mouth once daily. docusate sodium (COLACE) 100 mg capsule Take 1 capsule by mouth twice daily as needed for Constipation. bisacodyl EC (DULCOLAX) 5 mg EC tablet Take 1 tablet by mouth once daily as needed. oxyCODONE-acetaminophen (PERCOCET) 10-325 mg tablet Take 1 tablet by mouth every 8 hours as needed. aspirin, enteric coated (ECOTRIN LOW STRENGTH) 81 mg EC tablet Take 1 tablet by mouth once daily. therapeutic multivitamin ORAL tablet Take 1 tablet by mouth once daily. FAMILY HISTORY Problem Relation Age of Onset - Breast Cancer Mother also uterine cancer - Heart Father - Diabetes Mother Social History Substance Use Topics - Smoking status: Never Smoker - Smokeless tobacco: Never Used - Alcohol use No PHYSICAL EXAM BP 172/94 Pulse 97 Temp 36.5 ?C (97.7 ?F) (Temporal Artery) Resp 16 Wt 85.7 kg (189 lb) SpO2 98% BMI 37.74 kg/m2 General Appearance: well appearing, in no acute distress, alert Pysch: mood and affect broad and appropriate Skin: Skin color, texture, turgor normal for age; Head: normocephalic, atraumatic Eyes: conjunctiva pink and moist, no icterus, sclera white, non-injected Lungs: Lungs clear to auscultation. No wheezing, rhonchi, rales Heart: RRR without murmur, gallop, or rubs. No ectopy HEPATITIS C SCREENING due on 1994 MAMMOGRAM due on 02/19/2018 DIABETES SCREEN due on 10/25/2018 LIPID SCREEN due on 10/25/2020 COLORECTAL CANCER SCREENING,SEE MODIFIER due on 03/20/2021 TETANUS due on 04/12/2027 BONE DENSITY Completed ADULT PREVNAR-13 Completed INFLUENZA Completed PNEUMOVAX AGE 65 AND OVER WITH 5YR LOOKBACK Completed ASSESSMENT/PLAN: 1. ARPAN (obstructive sleep apnea) - ICD9: 327.23, ICD10: G47.33 (primary diagnosis) - Reviewed in detail the results of sleep study with patient. Based on sleep study results, patient's symptoms, body habitus and significant family history of ARPAN- recommend starting auto pap therapy - AHI 5.1 events/hour. - CPAP - Schedule appointment with Sleep Medicine for further evaluation and compliance - Follow up in 3 months 2. Elevated blood pressure reading - ICD9: 796.2, ICD10: R03.0 - Encouraged dietary sodium restriction/DASH diet - Recommended regular aerobic exercise. - Recheck in 1 week, sooner if needed. - Goal of BP ANDlt;140/90 Prescription instructions reviewed with patient as applicable. Potential red flag symptoms discussed with the patient. Reviewed appropriate action plan to take if red flag symptoms occur. Patient agreeable to treatment plan. Bill Munroe APRN.[facility] [employer] Referring Provider: SELF [[id number]] Allergies As of Date: 06/07/2017 Noted Allergy Reaction VOLTAREN (DICLOFENAC SODIUM) 01/02/2010 2 - Rash 7 - Swelling 12 - Shortness of Breath CYCLOBENZAPRINE 09/10/2002 4 - Hives Comments: Flexeril Blurred vision and nausea and vomiting LYRICA (PREGABALIN) 03/17/2010 5 - Intolerance Comments: Fluid retention NSAIDS (NON-STEROIDAL ANTI-INFLAM*09/10/2002 8 - GI Upset Comments: Ibuprofen, naproxen,etc ORPHENADRINE 09/10/2002 4 - Hives Comments: Norflex Nausea and vomiting and blurred vision PIROXICAM 09/10/2002 4 - Hives Comments: Feldene Blurred vision and nausea and vomiting Tape [Other] 09/10/2002 Comments: adhesive Date Reviewed: 05/15/2017 Reviewed by: Jossie Cuba Ma - Fully Assessed Reason for Visit: Recheck [92] Cmt: Review Sleep Study Primary Visit Diagnosis:ARPAN (obstructive sleep apnea) [G47.33] Other Visit Diagnosis:Elevated blood pressure reading [R03.0] Order(s):CPAPInitiate Auto PAP @ 5-20 cm of water with humidification. Mask (per patient preference) optional chin strap (if indicated) , filters, tubing, humidifier and lifetime supplies.Disp: 1 DeviceRfl: 0 Prescriptions as of 06/07/2017 Sig: CPAP Initiate Auto PAP @ 5- 20 cm o* COMPOUNDED PRESCRIPTION Lab order: Hepatitis C antib* ACIPHEX 20 MG TABLET,DELAYED * Take 1 tablet by mouth twice * AMOXICILLIN 500 MG TABLET Take 4 tablets by mouth. 30 m* LORAZEPAM 1 MG TABLET Take 1 tablet by mouth twice * PROMETHAZINE 25 MG TABLET Take 1 tablet by mouth every * CLOBETASOL 0.05 % TOPICAL CRE* Apply to affected skin sparin* NYSTATIN 100,000 UNIT/GRAM TO* Apply 1 application to affect* METOPROLOL SUCCINATE ER 25 MG* Take 0.5 tablets by mouth onc* LOSARTAN 25 MG TABLET Take 1 tablet by mouth once d* SIMVASTATIN 20 MG TABLET Take 1 tablet by mouth daily * DICLOFENAC 1 % TOPICAL GEL Use 4 times a day as needed FUROSEMIDE 20 MG TABLET Take 1 tablet by mouth once d* DOCUSATE SODIUM 100 MG CAPSULE Take 1 capsule by mouth twice* BISACODYL 5 MG TABLET,DELAYED* Take 1 tablet by mouth once d* OXYCODONE-ACETAMINOPHEN 10 MG* Take 1 tablet by mouth every * ASPIRIN 81 MG TABLET,DELAYED * Take 1 tablet by mouth once d* THERAPEUTIC MULTIVITAMIN TABL* Take 1 tablet by mouth once d* Problem List As Of Date 06/07/2017 Noted Resolved INGROWING NAIL [L60.0] INVALID FOR* MALFUN PAYMENT COLLECTOR ORTHO DEVICE/ GRAFT NOS [T84.498A]INVALID FOR* LEFT BB BLOCK NEC [I44.7] INVALID FOR* PAIN IN LIMB [M79.609] INVALID FOR* OTHER HAMMER TOE [M20.40] INVALID FOR* ENTHESOPATHY, SITE NOS [M77.9] INVALID FOR* GERD (Gastroesophageal Reflux Disease) [K21.9] Right Sided Sciatica [M54.31] Lichen Sclerosus et Atrophicus of the Vulva [N9*INVALID FOR* Porokeratosis [Q82.8] INVALID FOR* Calcaneal Spur [M77.30] INVALID FOR* Plantar fascial fibromatosis [M72.2] INVALID FOR* Hyperlipidemia [E78.5] INVALID FOR* Lumbar radiculopathy [M54.16] INVALID FOR* More... Degenerative joint disease of knee, right [M17.*INVALID FOR* More... Acute gastritis without mention of hemorrhage [*INVALID FOR* Anxiety [F41.9] INVALID FOR* Coronary artery disease involving [place] vann*INVALID FOR* More... Obesity [E66.9] INVALID FOR* Prescriptions ordered this encounter Disp Refills Start End CPAP 1 De* 0 06/07/2017 Class: Print RX Sig: Initiate Auto PAP @ 5-20 cm of water with humidification. Mask (per patient preference) optional chin strap (if indicated) , filters, tubing, humidifier and lifetime supplies. Disposition: Return in about 3 months (around 09/07/2017). Follow-up and Disposition History Recorded Encounter Status:Closed by BILL MUNROE CNP on 06/07/17 CNOV Observed: 05/15/2017 Status: COMPLETED Source: [place] 9:00 AM [facility] REPOSITORY Office Visit (INTMWS) NGOC COTA ([id number]) 1950 F Date Time Provider Department 05/15/17 9:00 AM BILL MUNROE) INTMWS During your visit today, we recorded the following information about you: Temperature Pulse Respiration Blood pressure 97.6 degrees 82/minute 16/minute 138/88 Weight 84.4 kg Bill Munroe CNP 05/15/2017 9:18 AM Signed CC: Patient presents with: Recheck: Sleep study and needs face to face HPI Ngoc Cota is a 66 year old female who presents today for upcoming sleep study appointment. Patient is concerned she may have sleep apnea. Reports longtime history of snoring and waking in the middle of sleep choking. Uncertain if she stops breathing at night as she states her is a sound sleeper. Patient state she does not wake feeling rested and is increasingly fatigued. 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 Sleep is broken and she wakes frequently. Reports a significant family history of sleep apnea- 4 siblings have been diagnosed, 2 of which are now . REVIEW OF SYSTEMS General: no fevers, no chills, no night sweats, no change in appetite and no significant changes in weight HEENT: no frequent or significant headaches, no changes in hearing, no visual changes, no nose bleeds Neck: no lumps, no pain , no swelling and Positive for: no lumps, no pain , no swelling and some difficulty swallowing when she takes a second Zanaflex for her sciatica. Respiratory: no cough, no shortness of breath, no hemoptysis. Intermittent wheezing was put on atrovent. May need allergy testing. Cardiovascular: no chest pain, no chest pressure and no palpitations Skin: Negative for lesions, rash, and itching. Increasingly dry skin, notes peeling skin to hands and legs Endocrine: no weight gain, no weight loss, no hair loss, no heat intolerance, no neck pain/pressure, no polyuria, no polyphagia and no polydipsia. Notes increasing cold intolerance and excessively dry skin. Neurologic: No headache, weakness, numbness, tingling, neck stiffness, tremor, vertigo, memory loss, syncope. Intermittent dizziness. PAST MEDICAL HISTORY Diagnosis Date - Anatomical narrow angle borderline glaucoma - Bundle branch block, unspecified 01/12 LBBB - Coronary artery disease involving [place] coronary artery of [place] heart without angina pectoris 2014 Dr. Phillips - DDD (degenerative disc disease), lumbar - Disorder of bone and cartilage, unspecified - Diverticulosis of colon (without mention of hemorrhage) - GERD (gastroesophageal reflux disease) - Irritable bowel syndrome - Lichen Sclerosus et Atrophicus of the Vulva 03/16/2009 - Lumbar radiculopathy - Other combinations of endocrine dysfunction - Plantar fascial fibromatosis - Primary localized osteoarthrosis, lower leg - Right knee DJD - Right sided sciatica - S/P coronary artery stent placement 2014 LAD PAST SURGICAL HISTORY Procedure Laterality Date - COLONOSCOP W/ OR W/O BRSH SPEC 03/20/2011 Colonoscopy - CORRECT BUNION,SIMPLE 1999 Bunion both- left was nonunion - EGD W/O OR W/BRUSH/WASH 03/20/2011 EGD - KNEE SCOPE,DIAGNOSTIC prior to 2003 right knee X 3 - PART REMOVAL COLON W ANASTOMOSIS [id number] sigmoid resection - PAST SURGICAL HISTORY OF 1998 endochondroma right knee - PAST SURGICAL HISTORY OF 1998 laser both eyes for glaucoma - PAST SURGICAL HISTORY OF 1998 left plantar fasciotomy - PAST SURGICAL HISTORY OF 1982 hysterectomy with one ovary removed - PAST SURGICAL HISTORY OF 08/11/2013 Total Right Knee replacement - REMOVAL OF TONSILS,ANDlt;12 Y/O Tonsillectomy - TOTAL KNEE REPLACEMENT 2003 Knee replacement, total right ALLERGIES Voltaren [Diclofenac Sodium]; Cyclobenzaprine; Lyrica [Pregabalin]; Nsaids (Non-Steroidal Anti-Inflammatory Drug); Orphenadrine; Piroxicam; Tape [Other] MEDICATIONS COMPOUNDED PRESCRIPTION Lab order: Hepatitis C antibody and reflex confirmation test (HCV RNA) if needed Z01.89 ACIPHEX 20 mg tablet Take 1 tablet by mouth twice daily. Do not substitute with generic (not effective) Amoxicillin 500 mg tablet Take 4 tablets by mouth. 30 minutes prior to dental procedures. LORazepam (ATIVAN) 1 mg tablet Take 1 tablet by mouth twice daily as needed. promethazine (PHENERGAN) 25 mg tablet Take 1 tablet by mouth every 6 hours as needed. clobetasol (TEMOVATE) 0.05 % cream Apply to affected skin sparingly once daily as needed nystatin (NYSTOP) powder Apply 1 application to affected area four times daily. As directed metoprolol succinate ER (TOPROL XL) 25 mg 24 hr tablet Take 0.5 tablets by mouth once daily. losartan (COZAAR) 25 mg tablet Take 1 tablet by mouth once daily. simvastatin (ZOCOR) 20 mg tablet Take 1 tablet by mouth daily at bedtime. Diclofenac Sodium (VOLTAREN) 1 % gel Use 4 times a day as needed furosemide (LASIX) 20 mg tablet Take 1 tablet by mouth once daily. docusate sodium (COLACE) 100 mg capsule Take 1 capsule by mouth twice daily as needed for Constipation. bisacodyl EC (DULCOLAX) 5 mg EC tablet Take 1 tablet by mouth once daily as needed. oxyCODONE-acetaminophen (PERCOCET) 10-325 mg tablet Take 1 tablet by mouth every 8 hours as needed. aspirin, enteric coated (ECOTRIN LOW STRENGTH) 81 mg EC tablet Take 1 tablet by mouth once daily. therapeutic multivitamin ORAL tablet Take 1 tablet by mouth once daily. FAMILY HISTORY Problem Relation Age of Onset - Breast Cancer Mother also uterine cancer - Heart Father - Diabetes Mother Social History Substance Use Topics - Smoking status: Never Smoker - Smokeless tobacco: Never Used - Alcohol use No PHYSICAL EXAM BP 138/88 Pulse 82 Temp 36.4 ?C (97.6 ?F) (Temporal Artery) Resp 16 Wt 84.4 kg (186 lb) SpO2 98% BMI 37.14 kg/m2 General Appearance: well appearing, in no acute distress, alert Skin: Skin color normal, + dryness and some scaling noted to bilateral hands Head: normocephalic, atraumatic Eyes: conjunctiva pink and moist, no icterus, sclera white, non-injected Lungs: Lungs clear to auscultation. No wheezing, rhonchi, rales Heart: RRR without murmur, gallop, or rubs. No ectopy HEPATITIS C SCREENING due on 1994 MAMMOGRAM due on 02/19/2018 DIABETES SCREEN due on 10/25/2018 LIPID SCREEN due on 10/25/2020 COLORECTAL CANCER SCREENING,SEE MODIFIER due on 03/20/2021 TETANUS due on 04/12/2027 BONE DENSITY Completed ADULT PREVNAR-13 Completed INFLUENZA Completed PNEUMOVAX AGE 65 AND OVER WITH 5YR LOOKBACK Completed ASSESSMENT/PLAN: 1. Sleep apnea-like behavior - ICD9: 780.59, ICD10: G47.39 (primary diagnosis) - No concerning exam findings this visit. - Significant family history of sleep apnea- 4 siblings - Patient scheduled for sleep study this evening - Follow up to be determined by sleep study results, sooner if new or worsening symptoms - Appointment with PCP scheduled 10/2017 2. Fatigue, unspecified type - ICD9: 780.79, ICD10: R53.83 - Positive symptoms of sleep apnea - Patient to have sleep study completed this evening - Significant family history of sleep apnea and thyroid disease - TSH BLD - VITAMIN D 25 HYDROXY - Follow up to be determined by sleep study results, sooner if new or worsening symptoms - Appointment with PCP scheduled 10/2017 3. Cold intolerance - ICD9: 780.99, ICD10: R68.89 - Significant family history of thyroid disease, last TSH ~15 years ago, will repeat - TSH BLD - Follow up to be determined by laboratory results, sooner if new or worsening symptoms - Appointment with PCP scheduled 10/2017 Prescription instructions reviewed with patient as applicable. Potential red flag symptoms discussed with the patient. Reviewed appropriate action plan to take if red flag symptoms occur. Patient agreeable to treatment plan. Bill Munroe CNP Referring Provider: SELF [[id number]] Allergies As of Date: 05/15/2017 Noted Allergy Reaction VOLTAREN (DICLOFENAC SODIUM) 01/02/2010 2 - Rash 7 - Swelling 12 - Shortness of Breath CYCLOBENZAPRINE 09/10/2002 4 - Hives Comments: Flexeril Blurred vision and nausea and vomiting LYRICA (PREGABALIN) 03/17/2010 5 - Intolerance Comments: Fluid retention NSAIDS (NON-STEROIDAL ANTI-INFLAM*09/10/2002 8 - GI Upset Comments: Ibuprofen, naproxen,etc ORPHENADRINE 09/10/2002 4 - Hives Comments: Norflex Nausea and vomiting and blurred vision PIROXICAM 09/10/2002 4 - Hives Comments: Feldene Blurred vision and nausea and vomiting Tape [Other] 09/10/2002 Comments: adhesive Date Reviewed: 05/15/2017 Reviewed by: Jossie Cuba Ma - Fully Assessed Reason for Visit: Recheck [92] Cmt: Sleep study and needs face to face Primary Visit Diagnosis:Sleep apnea-like behavior [G47.39] Other Visit Diagnoses:Fatigue, unspecified type [R53.83] Cold intolerance [R68.89] Order(s):TSH BLD [SQTSH] Order #: [id number] FUTURE VITAMIN D 25 HYDROXY [SQVITD] Order #: [id number] FUTURE Prescriptions as of 05/15/2017 Sig: COMPOUNDED PRESCRIPTION Lab order: Hepatitis C antib* ACIPHEX 20 MG TABLET,DELAYED * Take 1 tablet by mouth twice * AMOXICILLIN 500 MG TABLET Take 4 tablets by mouth. 30 m* LORAZEPAM 1 MG TABLET Take 1 tablet by mouth twice * PROMETHAZINE 25 MG TABLET Take 1 tablet by mouth every * CLOBETASOL 0.05 % TOPICAL CRE* Apply to affected skin sparin* NYSTATIN 100,000 UNIT/GRAM TO* Apply 1 application to affect* METOPROLOL SUCCINATE ER 25 MG* Take 0.5 tablets by mouth onc* LOSARTAN 25 MG TABLET Take 1 tablet by mouth once d* SIMVASTATIN 20 MG TABLET Take 1 tablet by mouth daily * DICLOFENAC 1 % TOPICAL GEL Use 4 times a day as needed FUROSEMIDE 20 MG TABLET Take 1 tablet by mouth once d* DOCUSATE SODIUM 100 MG CAPSULE Take 1 capsule by mouth twice* BISACODYL 5 MG TABLET,DELAYED* Take 1 tablet by mouth once d* OXYCODONE-ACETAMINOPHEN 10 MG* Take 1 tablet by mouth every * ASPIRIN 81 MG TABLET,DELAYED * Take 1 tablet by mouth once d* THERAPEUTIC MULTIVITAMIN TABL* Take 1 tablet by mouth once d* Problem List As Of Date 05/15/2017 Noted Resolved INGROWING NAIL [L60.0] INVALID FOR* MALFUN PAYMENT COLLECTOR ORTHO DEVICE/ GRAFT NOS [T89.995F]INVALID FOR* LEFT BB BLOCK NEC [I44.7] INVALID FOR* PAIN IN LIMB [M79.609] INVALID FOR* OTHER HAMMER TOE [M20.40] INVALID FOR* ENTHESOPATHY, SITE NOS [M77.9] INVALID FOR* GERD (Gastroesophageal Reflux Disease) [K21.9] Right Sided Sciatica [M54.31] Lichen Sclerosus et Atrophicus of the Vulva [N9*INVALID FOR* Porokeratosis [Q82.8] INVALID FOR* Calcaneal Spur [M77.30] INVALID FOR* Plantar fascial fibromatosis [M72.2] INVALID FOR* Hyperlipidemia [E78.5] INVALID FOR* Lumbar radiculopathy [M54.16] INVALID FOR* More... Degenerative joint disease of knee, right [M17.*INVALID FOR* More... Acute gastritis without mention of hemorrhage [*INVALID FOR* Anxiety [F41.9] INVALID FOR* Coronary artery disease involving [place] vann*INVALID FOR* More... Obesity [E66.9] INVALID FOR* Encounter Status:Closed by BILL MUNROE CNP on 05/15/17 PROGRESS Observed: 05/15/2017 Status: COMPLETED Source: [place] 8:48 AM [facility] REPOSITORY O ID: [id number] Author: Bill (Apryl) Sumit Service: (none) Author Type: Nurse Practitioner Type: Progress Notes Filed: 05/15/2017 9:18 AM Note Text: CC: Patient presents with: Recheck: Sleep study and needs face to face HPI Ngoc Cota is a 66 year old female who presents today for upcoming sleep study appointment. Patient is concerned she may have sleep apnea. Reports longtime history of snoring and waking in the middle of sleep choking. Uncertain if she stops breathing at night as she states her is a sound sleeper. Patient state she does not wake feeling rested and is increasingly fatigued. 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 Sleep is broken and she wakes frequently. Reports a significant family history of sleep apnea- 4 siblings have been diagnosed, 2 of which are now . REVIEW OF SYSTEMS General: no fevers, no chills, no night sweats, no change in appetite and no significant changes in weight HEENT: no frequent or significant headaches, no changes in hearing, no visual changes, no nose bleeds Neck: no lumps, no pain , no swelling and Positive for: no lumps, no pain , no swelling and some difficulty swallowing when she takes a second Zanaflex for her sciatica. Respiratory: no cough, no shortness of breath, no hemoptysis. Intermittent wheezing was put on atrovent. May need allergy testing. Cardiovascular: no chest pain, no chest pressure and no palpitations Skin: Negative for lesions, rash, and itching. Increasingly dry skin, notes peeling skin to hands and legs Endocrine: no weight gain, no weight loss, no hair loss, no heat intolerance, no neck pain/pressure, no polyuria, no polyphagia and no polydipsia. Notes increasing cold intolerance and excessively dry skin. Neurologic: No headache, weakness, numbness, tingling, neck stiffness, tremor, vertigo, memory loss, syncope. Intermittent dizziness. PAST MEDICAL HISTORY Diagnosis Date - Anatomical narrow angle borderline glaucoma - Bundle branch block, unspecified 01/12 LBBB - Coronary artery disease involving [place] coronary artery of [place] heart without angina pectoris 2014 Dr. Phillips - DDD (degenerative disc disease), lumbar - Disorder of bone and cartilage, unspecified - Diverticulosis of colon (without mention of hemorrhage) - GERD (gastroesophageal reflux disease) - Irritable bowel syndrome - Lichen Sclerosus et Atrophicus of the Vulva 03/16/2009 - Lumbar radiculopathy - Other combinations of endocrine dysfunction - Plantar fascial fibromatosis - Primary localized osteoarthrosis, lower leg - Right knee DJD - Right sided sciatica - S/P coronary artery stent placement 2014 LAD PAST SURGICAL HISTORY Procedure Laterality Date - COLONOSCOP W/ OR W/O BRSH SPEC 03/20/2011 Colonoscopy - CORRECT BUNION,SIMPLE 1999 Bunion both- left was nonunion - EGD W/O OR W/BRUSH/WASH 03/20/2011 EGD - KNEE SCOPE,DIAGNOSTIC prior to 2003 right knee X 3 - PART REMOVAL COLON W ANASTOMOSIS [id number] sigmoid resection - PAST SURGICAL HISTORY OF 1998 endochondroma right knee - PAST SURGICAL HISTORY OF 1998 laser both eyes for glaucoma - PAST SURGICAL HISTORY OF 1998 left plantar fasciotomy - PAST SURGICAL HISTORY OF 1982 hysterectomy with one ovary removed - PAST SURGICAL HISTORY OF 08/11/2013 Total Right Knee replacement - REMOVAL OF TONSILS,<12 Y/O Tonsillectomy - TOTAL KNEE REPLACEMENT 2003 Knee replacement, total right ALLERGIES Voltaren [Diclofenac Sodium]; Cyclobenzaprine; Lyrica [Pregabalin]; Nsaids (Non-Steroidal Anti-Inflammatory Drug); Orphenadrine; Piroxicam; Tape [Other] MEDICATIONS COMPOUNDED PRESCRIPTION Lab order: Hepatitis C antibody and reflex confirmation test (HCV RNA) if needed Z01.89 ACIPHEX 20 mg tablet Take 1 tablet by mouth twice daily. Do not substitute with generic (not effective) Amoxicillin 500 mg tablet Take 4 tablets by mouth. 30 minutes prior to dental procedures. LORazepam (ATIVAN) 1 mg tablet Take 1 tablet by mouth twice daily as needed. promethazine (PHENERGAN) 25 mg tablet Take 1 tablet by mouth every 6 hours as needed. clobetasol (TEMOVATE) 0.05 % cream Apply to affected skin sparingly once daily as needed nystatin (NYSTOP) powder Apply 1 application to affected area four times daily. As directed metoprolol succinate ER (TOPROL XL) 25 mg 24 hr tablet Take 0.5 tablets by mouth once daily. losartan (COZAAR) 25 mg tablet Take 1 tablet by mouth once daily. simvastatin (ZOCOR) 20 mg tablet Take 1 tablet by mouth daily at bedtime. Diclofenac Sodium (VOLTAREN) 1 % gel Use 4 times a day as needed furosemide (LASIX) 20 mg tablet Take 1 tablet by mouth once daily. docusate sodium (COLACE) 100 mg capsule Take 1 capsule by mouth twice daily as needed for Constipation. bisacodyl EC (DULCOLAX) 5 mg EC tablet Take 1 tablet by mouth once daily as needed. oxyCODONE-acetaminophen (PERCOCET) 10-325 mg tablet Take 1 tablet by mouth every 8 hours as needed. aspirin, enteric coated (ECOTRIN LOW STRENGTH) 81 mg EC tablet Take 1 tablet by mouth once daily. therapeutic multivitamin ORAL tablet Take 1 tablet by mouth once daily. FAMILY HISTORY Problem Relation Age of Onset - Breast Cancer Mother also uterine cancer - Heart Father - Diabetes Mother Social History Substance Use Topics - Smoking status: Never Smoker - Smokeless tobacco: Never Used - Alcohol use No PHYSICAL EXAM BP 138/88 Pulse 82 Temp 36.4 ?C (97.6 ?F) (Temporal Artery) Resp 16 Wt 84.4 kg (186 lb) SpO2 98% BMI 37.14 kg/m2 General Appearance: well appearing, in no acute distress, alert Skin: Skin color normal, + dryness and some scaling noted to bilateral hands Head: normocephalic, atraumatic Eyes: conjunctiva pink and moist, no icterus, sclera white, non-injected Lungs: Lungs clear to auscultation. No wheezing, rhonchi, rales Heart: RRR without murmur, gallop, or rubs. No ectopy HEPATITIS C SCREENING due on 1994 MAMMOGRAM due on 02/19/2018 DIABETES SCREEN due on 10/25/2018 LIPID SCREEN due on 10/25/2020 COLORECTAL CANCER SCREENING,SEE MODIFIER due on 03/20/2021 TETANUS due on 04/12/2027 BONE DENSITY Completed ADULT PREVNAR-13 Completed INFLUENZA Completed PNEUMOVAX AGE 65 AND OVER WITH 5YR LOOKBACK Completed ASSESSMENT/PLAN: 1. Sleep apnea-like behavior - ICD9: 780.59, ICD10: G47.39 (primary diagnosis) - No concerning exam findings this visit. - Significant family history of sleep apnea- 4 siblings - Patient scheduled for sleep study this evening - Follow up to be determined by sleep study results, sooner if new or worsening symptoms - Appointment with PCP scheduled 10/2017 2. Fatigue, unspecified type - ICD9: 780.79, ICD10: R53.83 - Positive symptoms of sleep apnea - Patient to have sleep study completed this evening - Significant family history of sleep apnea and thyroid disease - TSH BLD - VITAMIN D 25 HYDROXY - Follow up to be determined by sleep study results, sooner if new or worsening symptoms - Appointment with PCP scheduled 10/2017 3. Cold intolerance - ICD9: 780.99, ICD10: R68.89 - Significant family history of thyroid disease, last TSH ~15 years ago, will repeat - TSH BLD - Follow up to be determined by laboratory results, sooner if new or worsening symptoms - Appointment with PCP scheduled 10/2017 Prescription instructions reviewed with patient as applicable. Potential red flag symptoms discussed with the patient. Reviewed appropriate action plan to take if red flag symptoms occur. Patient agreeable to treatment plan. Bill Munroe CNP OPERATIVE REPORT Observed: 04/29/2017 Status: F Source: [place] 4:[address] [facility] REPOSITORY [facility] Medical Records Department [address] [place] [address] Operative Report 04/29/17 1615 MR#: [id number] Acct: [id number] Name: NGOC COTA Rep #: [id number] : 1950 66 From: Bautista Mendez MD PCP: Christina Vazquez MD Status: [facility] [place] [facility] [place] List (1) DDD (degenerative disc disease), lumbosacral Status: Chronic (2) Lumbar facet arthropathy Status: Chronic (3) Lumbosacral spondylosis Status: Chronic Report of Operation Date of Procedure: 04/29/17 Pre-Operative Diagnosis: Lumbosacral spondylosis, lumbosacral degenerative disc disease, lumbar facet arthropathy Post-Operative Diagnosis: Lumbosacral spondylosis, lumbosacral degenerative disc disease, lumbar facet arthropathy Surgery/Procedure Performed:: Right sided lumbar radiofrequency ablation of the medial branch at L3, L4, L5, S1 Description of Surgical Findings:: PROCEDURE: Right-sided radiofrequency ablation of the medial branch L3, L4, L5, S1 PREOPERATIVE DIAGNOSES: Lumbosacral spondylosis, lumbosacral degenerative disc disease, lumbar facet arthropathy POSTOPERATIVE DIAGNOSES: Lumbosacral spondylosis, lumbosacral degenerative disc disease, lumbar facet arthropathy ANESTHESIA: MAC COMPLICATIONS: None BLOOD LOSS: Minimal PROCEDURE IN DETAIL: History and physical today was reviewed. Risks and benefits of procedure explained. The patient understood, agreed to the procedure and informed consent was obtained. IV inserted per routine protocol. The patient was taken to the operating room, placed in the prone position with a pillow positioned underneath the abdomen. The right side of the lower back was prepped and draped in a sterile fashion using iodine x 3. Under fluoroscopy guidance, on an oblique view, the L3 through S1 vertebral bodies were visualized. The skin and subcutaneous tissue was anesthetized with approximately 10 mL of 1% lidocaine using a 25-gauge regular needle. Under direct visualization with fluoroscopy at approximately 25-degree angle, starting on the right L3, ending on the right S1 passing through the L4-L5 using a 20-gauge 15 cm with a 10 mm curved active tip radiofrequency ablation needle the needle passed through the skin. The tip of the needle was maneuvered and directed towards the superior and medial gutter of the transverse process at the vicinity of the medial branch. Once the tip of the needle was in contact with the bone, the needle pulled approximately 2 mm up the bone. The stylet of each needle was then removed. After negative aspiration of blood with CSF and confirmation of AP as well as oblique view, radiofrequency ablation probe was then inserted at each level. Impedance was then recorded at L3 to be 233, at L4 233, at L5 201, at S1 284 ohm. Motor-evoked potential was then initiated to 1.5 volt without any motor response at each corresponding level. The probe was then removed intact and a total of 6 mL preservative- free 1% lidocaine was injected in divided doses between those 4 levels after negative aspiration of blood with CSF. The radiofrequency ablation probe was then reinserted after confirmation of AP, oblique as well as lateral view. Radiofrequency ablation was then initiated to 80 degrees Celsius for 90 seconds at each level. Once concluded, the probe was then removed intact and a total of 6 mL of preservative-free 0.25% Marcaine with 40 mg Depo-Medrol was injected in divided doses between those 4 levels. The needles were then removed intact. The patient experienced no signs or symptoms of intrathecal, intravascular injection. The patient experienced no paraesthesia. The procedure was completed without any apparent difficulty, any complication. The patient appeared to tolerate well. Sensory as well as motor exam was unchanged from prior to procedure. ASSESSMENT AND PLAN: This is a 66-year-old Female with lumbosacral spondylosis, lumbosacral degenerative disc disease, lumbar facet arthropathy, status post right-sided radiofrequency ablation of the medial branch L3 through S1. The patient will continue her current medications. The patient will follow up in approximately 2 weeks for reevaluation. 04/29/17 1618 <Electronically signed by Bautista Mendez MD> Date Bautista Mendez MD CC: Bautista Mendez; Christina Vazquez MD Signed LUMBAR SPINE 2 OR 3 Observed: 04/29/2017 Status: F Source: [place] VIEWS 12:[address] [facility] REPOSITORY [facility] Imaging Services [address] [place] [id number] Lumbar Spine 2 or 3 Views MR#: [id number] Acct: [id number] Name: NGOC COTA Rep #: [id number] : 1950 F 66 From: Kelly Brasher MD PCP: Christina Vazquez MD Status: [facility] Study: Lumbar Spine 2 or 3 Views Date of Exam: 04/29/17 Exam# [id number] Ordering Dr: Bautista Mendez MD STUDY: X-RAY - LUMBAR SPINE REASON FOR EXAM: Female, 66 years old. Radiofrequency ablation L3-S1 right side. TECHNIQUE: 8 view(s) of the lumbar spine were obtained. COMPARISON: None FINDINGS: 8 views were performed , as radiology support for c-arm imaging in the operating room. This is not a diagnostic examination. Images for for documentation purposes only. The cumulative dose is 7.0 mGy, 19.7 seconds fluoroscopy time used. RAD/Lumbar Spine 2 or 3 Views IMPRESSION: Fluoroscopic image guidance. Electronically Signed: Kelly Brasher MD at 6:09 EST , Service support , CC: Bautista Mendez; Christina Vazquez MD Production Quality Manager: Signed PROGRESS Observed: 04/12/2017 Status: COMPLETED Source: [place] 8:43 AM [facility] REPOSITORY HNO ID: [id number] Author: Christina Vazquez Service: (none) Author Type: Physician Type: Progress Notes Filed: 05/14/2017 12:49 PM Note Text: Patient presents with: Recheck SUBJECTIVE: Ngoc Cota is a 66 year old year old lady here today for 6 month follow up appointment for review of medical conditions. Wants to work on losing weight. Sciatica contributes. Long days at work. Some stressors. Likes bread. Working on cutting back on carbs to help with weight loss. PAST MEDICAL HISTORY Diagnosis Date - Anatomical narrow angle borderline glaucoma - Bundle branch block, unspecified 01/12 LBBB - Coronary artery disease involving [place] coronary artery of mes[place] grande heart without angina pectoris 2014 Dr. Phillips - DDD (degenerative disc disease), lumbar - Disorder of bone and cartilage, unspecified - Diverticulosis of colon (without mention of hemorrhage) - GERD (gastroesophageal reflux disease) - Irritable bowel syndrome - Lichen Sclerosus et Atrophicus of the Vulva 03/16/2009 - Lumbar radiculopathy - Other combinations of endocrine dysfunction - Plantar fascial fibromatosis - Primary localized osteoarthrosis, lower leg - Right knee DJD - Right sided sciatica - S/P coronary artery stent placement 2014 [facility] Current Outpatient Prescriptions: ACIPHEX 20 mg tablet Take 1 tablet by mouth twice daily. Do not substitute with generic (not effective) Amoxicillin 500 mg tablet Take 4 tablets by mouth. 30 minutes prior to dental procedures. LORazepam (ATIVAN) 1 mg tablet Take 1 tablet by mouth twice daily as needed. promethazine (PHENERGAN) 25 mg tablet Take 1 tablet by mouth every 6 hours as needed. clobetasol (TEMOVATE) 0.05 % cream Apply to affected skin sparingly once daily as needed nystatin (NYSTOP) powder Apply 1 application to affected area four times daily. As directed metoprolol succinate ER (TOPROL XL) 25 mg 24 hr tablet Take 0.5 tablets by mouth once daily. losartan (COZAAR) 25 mg tablet Take 1 tablet by mouth once daily. simvastatin (ZOCOR) 20 mg tablet Take 1 tablet by mouth daily at bedtime. Diclofenac Sodium (VOLTAREN) 1 % gel Use 4 times a day as needed furosemide (LASIX) 20 mg tablet Take 1 tablet by mouth once daily. docusate sodium (COLACE) 100 mg capsule Take 1 capsule by mouth twice daily as needed for Constipation. bisacodyl EC (DULCOLAX) 5 mg EC tablet Take 1 tablet by mouth once daily as needed. oxyCODONE-acetaminophen (PERCOCET) 10-325 mg tablet Take 1 tablet by mouth every 8 hours as needed. aspirin, enteric coated (ECOTRIN LOW STRENGTH) 81 mg EC tablet Take 1 tablet by mouth once daily. therapeutic multivitamin ORAL tablet Take 1 tablet by mouth once daily. No current facility-administered medications for this visit. OBJECTIVE: BP 130/82 Pulse 82 Resp 16 Wt 83.9 kg (185 lb) BMI 36.94 kg/m2 Patient is alert, oriented times 3, no apparent distress, affect is bright, reactive. Last 5 Encounter BP Readings: Date: BP: 04/12/2017 130/82 10/05/2016 128/78 04/10/2016 126/76 10/29/2015 110/80[RA manual recheck[ 12/06/2014 118/70 Last 10 Encounter Wt Readings: Date: Wt: 04/12/2017 83.9 kg (185 lb) 10/05/2016 82.6 kg (182 lb) 04/10/2016 82.1 kg (181 lb) 10/29/2015 80.1 kg (176 lb 9.6 oz) 12/06/2014 84 kg (185 lb 3.2 oz) 11/29/2014 83.5 kg (184 lb) 06/17/2014 84.8 kg (187 lb) 05/05/2014 82.1 kg (181 lb) 12/22/2013 83.9 kg (185 lb) 12/08/2013 83 kg (183 lb) Heart: Regular rate, rhythm, no murmurs, gallops, rubs. Lungs: Clear to auscultation, bilaterally, breathing non labored. Ext: No cyanosis, clubbing, or edema. ASSESSMENT AND PLAN: Encounter Diagnosis ICD-10-CM 1. Mixed hyperlipidemia E78.2 2. Obesity due to excess calories, unspecified classification, unspecified whether serious comorbidity present E66.09 3. Lumbar radiculopathy M54.16 4. Anxiety F41.9 5. Gastroesophageal reflux disease without esophagitis K21.9 6. Need for vaccination Z23 TDAP VACCINE AGE 7+ IM 7. Laboratory test Z01.89 Above issues addressed with patient. Patient involved in shared decision making for management of her medical issues. History and medications reviewed. Epic updated as needed Refills taken care of and meds adjusted as indicated after reviewed history, exam and labs. Health Maintenance reviewed. Updated record and/or ordered tests as recorded. Encouraged on efforts at healthy diet and regular exercise and adequate sleep. Needs to keep working on diet and exercise with lifestyle changes for effective weight loss and help with control of GERD. Adjust meds as indicated. Needs PPI to control GERD (Aciphex the only PPI that has been effective). Discussed stressors, including issues with health of family members. Anxiety under fair control. Continue present management. Further evaluation and treatment as indicated. The majority of the visit was spent counseling and/or coordinating care for the patient. Jbet-vz-rlay time was at least 25 minutes. Christina Vazquez MD ADDENDUM Reports fatigue and snoring. Does have history of hypertension and Coronary Artery Disease and BMI is 36.94. Patient also has a strong hx of severe sleep apnea in the family (4 of the 5 of them wear a CPap) CNOV Observed: 04/12/2017 Status: COMPLETED Source: [place] 8:20 AM [facility] REPOSITORY Office Visit (INTMWS) NGOC COTA ([id number]) 1950 F Date Time Provider Department 04/12/17 8:20 AM CHRISTINA VAZQUEZ IN[facility]WS During your visit today, we recorded the following information about you: Pulse Respiration Blood pressure Weight 82/minute 16/minute 130/82 83.9 kg Christina Vazquez MD 04/28/2017 9:35 PM Addendum Patient presents with: Recheck SUBJECTIVE: Ngoc Cota is a 66 year old year old lady here today for 6 month follow up appointment for review of medical conditions. Wants to work on losing weight. Sciatica contributes. Long days at work. Some stressors. Likes bread. Working on cutting back on carbs to help with weight loss. PAST MEDICAL HISTORY Diagnosis Date - Anatomical narrow angle borderline glaucoma - Bundle branch block, unspecified 01/12 LBBB - Coronary artery disease involving mes[place] grande coronary artery of [place] grande heart without angina pectoris 2014 Dr. Phillips - DDD (degenerative disc disease), lumbar - Disorder of bone and cartilage, unspecified - Diverticulosis of colon (without mention of hemorrhage) - GERD (gastroesophageal reflux disease) - Irritable bowel syndrome - Lichen Sclerosus et Atrophicus of the Vulva 03/16/2009 - Lumbar radiculopathy - Other combinations of endocrine dysfunction - Plantar fascial fibromatosis - Primary localized osteoarthrosis, lower leg - Right knee DJD - Right sided sciatica - S/P coronary artery stent placement 2014 [facility] Current Outpatient Prescriptions: ACIPHEX 20 mg tablet Take 1 tablet by mouth twice daily. Do not substitute with generic (not effective) Amoxicillin 500 mg tablet Take 4 tablets by mouth. 30 minutes prior to dental procedures. LORazepam (ATIVAN) 1 mg tablet Take 1 tablet by mouth twice daily as needed. promethazine (PHENERGAN) 25 mg tablet Take 1 tablet by mouth every 6 hours as needed. clobetasol (TEMOVATE) 0.05 % cream Apply to affected skin sparingly once daily as needed nystatin (NYSTOP) powder Apply 1 application to affected area four times daily. As directed metoprolol succinate ER (TOPROL XL) 25 mg 24 hr tablet Take 0.5 tablets by mouth once daily. losartan (COZAAR) 25 mg tablet Take 1 tablet by mouth once daily. simvastatin (ZOCOR) 20 mg tablet Take 1 tablet by mouth daily at bedtime. Diclofenac Sodium (VOLTAREN) 1 % gel Use 4 times a day as needed furosemide (LASIX) 20 mg tablet Take 1 tablet by mouth once daily. docusate sodium (COLACE) 100 mg capsule Take 1 capsule by mouth twice daily as needed for Constipation. bisacodyl EC (DULCOLAX) 5 mg EC tablet Take 1 tablet by mouth once daily as needed. oxyCODONE-acetaminophen (PERCOCET) 10-325 mg tablet Take 1 tablet by mouth every 8 hours as needed. aspirin, enteric coated (ECOTRIN LOW STRENGTH) 81 mg EC tablet Take 1 tablet by mouth once daily. therapeutic multivitamin ORAL tablet Take 1 tablet by mouth once daily. No current facility-administered medications for this visit. OBJECTIVE: BP 130/82 Pulse 82 Resp 16 Wt 83.9 kg (185 lb) BMI 36.94 kg/m2 Patient is alert, oriented times 3, no apparent distress, affect is bright, reactive. Last 5 Encounter BP Readings: Date: BP: 04/12/2017 130/82 10/05/2016 128/78 04/10/2016 126/76 10/29/2015 110/80[RA manual recheck[ 12/06/2014 118/70 Last 10 Encounter Wt Readings: Date: Wt: 04/12/2017 83.9 kg (185 lb) 10/05/2016 82.6 kg (182 lb) 04/10/2016 82.1 kg (181 lb) 10/29/2015 80.1 kg (176 lb 9.6 oz) 12/06/2014 84 kg (185 lb 3.2 oz) 11/29/2014 83.5 kg (184 lb) 06/17/2014 84.8 kg (187 lb) 05/05/2014 82.1 kg (181 lb) 12/22/2013 83.9 kg (185 lb) 12/08/2013 83 kg (183 lb) Heart: Regular rate, rhythm, no murmurs, gallops, rubs. Lungs: Clear to auscultation, bilaterally, breathing non labored. Ext: No cyanosis, clubbing, or edema. ASSESSMENT AND PLAN: Encounter Diagnosis ICD-10-CM 1. Mixed hyperlipidemia E78.2 2. Obesity due to excess calories, unspecified classification, unspecified whether serious comorbidity present E66.09 3. Lumbar radiculopathy M54.16 4. Anxiety F41.9 5. Gastroesophageal reflux disease without esophagitis K21.9 6. Need for vaccination Z23 TDAP VACCINE AGE 7+ IM 7. Laboratory test Z01.89 Above issues addressed with patient. Patient involved in shared decision making for management of her medical issues. History and medications reviewed. Epic updated as needed Refills taken care of and meds adjusted as indicated after reviewed history, exam and labs. Health Maintenance reviewed. Updated record and/or ordered tests as recorded. Encouraged on efforts at healthy diet and regular exercise and adequate sleep. Needs to keep working on diet and exercise with lifestyle changes for effective weight loss and help with control of GERD. Adjust meds as indicated. Needs PPI to control GERD (Aciphex the only PPI that has been effective). Discussed stressors, including issues with health of family members. Anxiety under fair control. Continue present management. Further evaluation and treatment as indicated. The majority of the visit was spent counseling and/or coordinating care for the patient. Jkov-zs-hlbf time was at least 25 minutes. Christina Vazquez MD ADDENDUM Reports fatigue and snoring. Does have history of hypertension and Coronary Artery Disease and BMI is 36.94. Patient also has a strong hx of severe sleep apnea in the family (4 of the 5 of them wear a CPap) Referring Provider: MARIA ANTONIA KIRBY (NAIL KEGGER) [[id number]] Allergies As of Date: 04/12/2017 Noted Allergy Reaction VOLTAREN (DICLOFENAC SODIUM) 01/02/2010 2 - Rash 7 - Swelling 12 - Shortness of Breath CYCLOBENZAPRINE 09/10/2002 4 - Hives Comments: Flexeril Blurred vision and nausea and vomiting LYRICA (PREGABALIN) 03/17/2010 5 - Intolerance Comments: Fluid retention NSAIDS (NON-STEROIDAL ANTI-INFLAM*09/10/2002 8 - GI Upset Comments: Ibuprofen, naproxen,etc ORPHENADRINE 09/10/2002 4 - Hives Comments: Norflex Nausea and vomiting and blurred vision PIROXICAM 09/10/2002 4 - Hives Comments: Feldene Blurred vision and nausea and vomiting Tape [Other] 09/10/2002 Comments: adhesive Date Reviewed: 04/12/2017 Reviewed by: Aby Bueno Shank Sorter - Fully Assessed Reason for Visit: Recheck [92] Primary Visit Diagnosis:Mixed hyperlipidemia [E78.2] Other Visit Diagnoses:Obesity due to excess calories, unspecified classification, unspecified whether serious comorbidity present [E66.09] Lumbar radiculopathy [M54.16] Anxiety [F41.9] Gastroesophageal reflux disease without esophagitis [K21.9] Need for vaccination [Z23] Laboratory test [Z0189] Order(s):TDAP VACCINE AGE 7+ IM [[id number]] Order #: [id number] COMPOUNDED PRESCRIPTIONLab order: Hepatitis C antibody and reflex confirmation test (HCV RNA) if needed Disp: 1 EachRfl: 0 Prescriptions as of 04/12/2017 Sig: COMPOUNDED PRESCRIPTION Lab order: Hepatitis C antib* ACIPHEX 20 MG TABLET,DELAYED * Take 1 tablet by mouth twice * AMOXICILLIN 500 MG TABLET Take 4 tablets by mouth. 30 m* LORAZEPAM 1 MG TABLET Take 1 tablet by mouth twice * PROMETHAZINE 25 MG TABLET Take 1 tablet by mouth every * CLOBETASOL 0.05 % TOPICAL CRE* Apply to affected skin sparin* NYSTATIN 100,000 UNIT/GRAM TO* Apply 1 application to affect* METOPROLOL SUCCINATE ER 25 MG* Take 0.5 tablets by mouth onc* LOSARTAN 25 MG TABLET Take 1 tablet by mouth once d* SIMVASTATIN 20 MG TABLET Take 1 tablet by mouth daily * DICLOFENAC 1 % TOPICAL GEL Use 4 times a day as needed FUROSEMIDE 20 MG TABLET Take 1 tablet by mouth once d* DOCUSATE SODIUM 100 MG CAPSULE Take 1 capsule by mouth twice* BISACODYL 5 MG TABLET,DELAYED* Take 1 tablet by mouth once d* OXYCODONE-ACETAMINOPHEN 10 MG* Take 1 tablet by mouth every * ASPIRIN 81 MG TABLET,DELAYED * Take 1 tablet by mouth once d* THERAPEUTIC MULTIVITAMIN TABL* Take 1 tablet by mouth once d* Problem List As Of Date 04/12/2017 Noted Resolved INGROWING NAIL [L60.0] INVALID FOR* MALFUN PAYMENT COLLECTOR ORTHO DEVICE/ GRAFT NOS [T80.950Z]INVALID FOR* LEFT BB BLOCK NEC [I44.7] INVALID FOR* PAIN IN LIMB [M79.609] INVALID FOR* OTHER HAMMER TOE [M20.40] INVALID FOR* ENTHESOPATHY, SITE NOS [M77.9] INVALID FOR* GERD (Gastroesophageal Reflux Disease) [K21.9] Right Sided Sciatica [M54.31] Lichen Sclerosus et Atrophicus of the Vulva [N9*INVALID FOR* Porokeratosis [Q82.8] INVALID FOR* Calcaneal Spur [M77.30] INVALID FOR* Plantar fascial fibromatosis [M72.2] INVALID FOR* Hyperlipidemia [E78.5] INVALID FOR* Lumbar radiculopathy [M54.16] INVALID FOR* More... Degenerative joint disease of knee, right [M17.*INVALID FOR* More... Acute gastritis without mention of hemorrhage [*INVALID FOR* Anxiety [F41.9] INVALID FOR* Coronary artery disease involving [place] vann*INVALID FOR* More... Obesity [E66.9] INVALID FOR* Prescriptions ordered this encounter Disp Refills Start End COMPOUNDED PRESCRIPTION 1 Ea* 0 04/12/2017 Class: Print RX Sig: Lab order: Hepatitis C antibody and reflex confirmation test (HCV RNA) if needed Z01.89 Disposition: Return in about 6 months (around 10/10/2017) for Yearly exam and follow up (40 min). Follow-up and Disposition History Recorded Letter Text [facility] Christina Vazquez MD [address], [place] [address] April 12, 2017 Ngoc Cota : 1950 Prescription Massotherapy Evaluate and treat Diagnosis: Neck and back strain with history of lumbar disc disease with sciatica Christina Vazquez MD Encounter Status:Closed by CHRISTINA VAZQUEZ MD on 04/28/17 ALLERGIES ALLERGIES DATE TYPE / CODE NAME / CODE REACTION SEVERITY SOURCE 04/04/19 Drug piroxicam/[id number] Rash Unknown [place] [facility] Allergy/[id number] 9(RXNORM) [facility] (SNOMED CT) Hospital Repository 04/03/19 Drug orphenadrine Other Unknown [place] [facility] Allergy/[id number] citrate/[id number]( [facility] (SNOMED CT) RXNORM) Hospital Repository 04/03/19 Drug cyclobenzaprine Nausea/Vom/Diar Unknown [place] [facility] Allergy/[id number] HCl/[id number](RXNO preet [facility] (SNOMED CT) RM) Hospital Repository 04/03/19 Drug diclofenac Swelling Unknown [place] [facility] Allergy/146899437 sodium/[id number](R [facility] (SNOMED CT) XNORM) Hospital Repository 04/03/19 Drug ibuprofen/[id number] Nausea/Vom/Diar Unknown [place] [facility] Allergy/437503638 7(RXNORM) [facility] Rep[facility] 04/03/19 Drug adhesive/[id number] Rash Unknown [place] [facility] Allergy/098254922 (RXNORM) [facility] (SNOMED CT) Hospital Repository 04/03/19 Drug simvastatin/[id number] [place] [facility] Allergy/748386194 621(RXNORM) [facility] (SNOMED CT) Hospital Repository 04/03/19 Drug chlorhexidine/F0060 Hives Unknown [place] 19 Allergy/164080860 63512(RXNORM) [facility] (SNOMED CT) Hospital Repository 04/03/19 Drug meloxicam/[id number] Nausea/Vom/Diar Unknown [place] [facility] Allergy/650056435 2(RXNORM) [facility] (SNOMED CT) Hospital Repository 04/03/19 Drug pregabalin/[id number] Nausea/Vom/Diar Unknown [place] [facility] Allergy/164314412 83(RXNORM) [facility] (SNOMED CT) Hospital Repository 08/27/19 [facility] [place] [facility] INGREDI/[id number] Clinic Other (SNOMED CT) [place] Repository 03/17/19 DRUG PREGABALIN INTOLERANCE [place] 11 INGREDI/[id number] Clinic Other (SNOMED CT) [place] Repository 01/03/20 DRUG DICLOFENAC SODIUM R[facility] [place] 10 INGREDI/[id number] Clinic Other (SNOMED CT) [place] Repository 09/11/19 DRUG CYCLOBENZAPRINE [facility] 03 INGREDI/[id number] Clinic Other (SNOMED CT) [place] Repository 09/11/19 Drug NSAIDS GI UPSET [place] 03 Class/[id number](S (NON-STEROIDAL Clinic Other NOMED CT) ANTI-INFLAMMATORY [place] DRUG) Repository 09/11/19 DRUG ORPHENADRINE [facility] 03 INGREDI/[id number] Clinic Other (SNOMED CT) [place] Repository 09/11/19 DRUG PIROXICAM HIVES [place] 03 INGREDI/[id number] Clinic Other (SNOMED CT) [place] Repository 09/11/19 Miscellaneous OTHER [place] 03 Allergy/[id number] Clinic Other (SNOMED CT) [place] Repository ENCOUNTERS ENCOUNTERS ADMIT/DISCHARGE ACCOUNT ADMITTING ENCOUNTER LOCATION SOURCE NUMBER CLASS 04/04/2018/04/04/19 [id number] Ambulatory Emanuel Emanuel[address] Hospital ing:CLSP Repository 04/01/2018 [id number] Ambulatory [facility] Hospital ing:CVS Repository 03/28/2018 [id number] Ambulatory [facility] Hospital ing:SDC Repository 03/25/2018/03/25/19 [id number] Ambulatory BMSBuilding:B [place] 19 MS.WSA [facility] Hospital Repository 03/13/2018/03/14/19 [id number] Ambulatory [address] Main [place] Repository 03/13/2018/03/13/19 [id number] Ambulatory BMSBuilding:B [place] 19 MS.PMW [facility] Repository 03/08/2018/03/08/20 [id number] Emergency [facility] 18 [facility] Hospital ing:ED Repository 02/26/2018/02/28/20 [id number] Ambulatory [address] Main [place] Repository 02/26/2018/02/27/20 [id number] Ambulatory [address] Main [place] Repository 02/19/2018/02/20/20 [id number] Ambulatory [address] Main [place] Repository 02/18/2018/02/20/20 [id number] Ambulatory [address] Main [place] Repository 02/17/2018/02/18/20 [id number] Ambulatory BMSBuilding:B [place] 18 MS.[facility] Repository 02/14/2018 [id number] Ambulatory [facility] Main [place] Repository 02/06/2018/02/08/20 [id number] Ambulatory [address] Main [place] Repository 02/05/2018/02/06/20 [id number] Ambulatory [address] Main [place] Repository 02/05/2018/02/12/20 [id number] Ambulatory [address] Main [place] Repository 01/31/2018 [id number] Ambulatory [facility] Hospital ing:OPBI Repository 01/29/2018/02/04/20 [id number] Ambulatory [address] Main [place] Repository 01/27/2018/01/28/20 [id number] Ambulatory [address] ing:SDCRoom: Repository AC08 01/20/2018/01/21/20 [id number] WEN, Ambulatory [address] Main [place] Repository 01/07/2018/01/08/20 [id number] Ambulatory [address] Repository 01/03/2018/01/07/20 [id number] Ambulatory [address] Repository 12/27/2017/12/31/19 [id number] Ambulatory [address] Repository 12/27/2017/12/28/19 [id number] Ambulatory [address] Repository 12/23/2017/12/24/19 [id number] Ambulatory Emanuel[address] ing:SDCRoom: Repository AC07 11/14/2017 [id number] Ambulatory [facility] ing:EMPH Repository 11/04/2017/11/05/19 [id number] Ambulatory BMSBuilding:B [place] 18 MS.W [facility] Repository 10/18/2017/11/05/19 [id number] Ambulatory [address] Repository 10/07/2017/10/10/19 [id number] Ambulatory [address] Repository 10/02/2017/10/03/19 [id number] Ambulatory BMSBuilding:B [place] 18 MS.PMW [facility] Repository 09/26/2017/09/27/19 [id number] Ambulatory BMSBuilding:B [place] 18 MS.W [facility] Repository 09/12/2017/09/17/19 [id number] Ambulatory [address] Repository 09/09/2017/09/10/19 [id number] Ambulatory [address] ing:SDC Repository 08/28/2017/08/29/19 [id number] STIVEN, Ambulatory [address] Repository 08/26/2017/08/27/19 [id number] Ambulatory [address] Repository 08/21/2017 [id number] [facility] ing:LAB Repository 08/19/2017/08/21/19 [id number] Ambulatory [address] [place] Repository 07/31/2017/08/27/19 [id number] Ambulatory [address] Repository 07/15/2017/08/20/19 [id number] Ambulatory [address] Repository 07/01/2017/07/02/19 [id number] Ambulatory BMSBuilding:B [place] 18 MS.[facility] Repository 06/24/2017/06/25/19 [id number] Ambulatory [place] 18 [facility] ing:SDC Repository 06/21/2017 [id number] [facility] Repository E 06/18/2017/06/19/19 [id number] Ambulatory [address] Repository 06/07/2017/06/08/19 [id number] Ambulatory [address] Repository 05/15/2017 [id number] Ambulatory [place] [facility] ing:SL Repository 05/15/2017/05/21/19 [id number] Ambulatory [address] Repository 04/29/2017/04/29/19 [id number] Ambulatory [place] [address] ing:SDCRoom: Repository AC15 04/12/2017/04/30/19 [id number] Ambulatory [address] Repository PAYERS PAYERS ENCOUNTER GUARANTOR PAYER SUBSCRIBER SOURCE 04/04/2018 NGOC Rosenthal Primary Insurance:[facility] NGOC Castellanos [id number] [facility] TE[facility]: [facility] [id number] [place] [id number]: [phone]) Number: Repository [phone] () [id number] Date:8318-22-15GF [address] [address]EDXTJAWWC, [place] [address]YH: CHECK WEBSITE 04/04/2018 Secondary NOT GIVENUNK [place] Insurance:SELF PAY [facility] Number: Effective Repository Date:2018-04-02 04/01/2018 NGOC Rosenthal Primary Insurance:[facility] NGOC Castellanos [id number] [facility] TE[facility]: [facility] [id number] Hospital [address]Qeu: [phone]) Number: Repository [phone] () [id number] Date:1234-50-98YL [address] [address]WFFVWNKKW, [place] [address]JM: CHECK WEBSITE 04/01/2018 Secondary NOT GIVENUNK [place] Insurance:SELF PAY [facility] Number: Effective Repository Date:2018-03-28 03/28/2018 NGOC Rosenthal Primary Insurance:[facility] NGOC Rosenthal Emanuel [id number] [facility] TEAC[facility]: [facility] [id number] Ville [id number]: [phone]) Number: Repository [phone] () [id number] Date:3144-02-34DH [address] [address]NOHXAQNDA, [place] [address]XS: CHECK WEBSITE 03/28/2018 Secondary NOT GIVENUNK E[place] Insurance:SELF PAY [facility] Number: Effective Repository Date:2018-03-25 03/25/2018 NGOC Rosenthal Primary Insurance:[facility] NGOC Rosenthal Emanuel [id number] [facility] TEACHD[facility]: [facility] [id number] Ville [id number]: [phone]) Number: Repository [phone] () [id number] Date:7262-47-55ON [address] [address]OJDNPAPPN, [place] [address]OH: CHECK WEBSITE 03/25/2018 Secondary NOT GIVENUNK Emanuel Insurance:SELF PAY [facility] Number: Effective Repository Date:2018-02-28 03/13/2018 NGOC Rosenthal Primary Insurance:[facility] NGOC Rosenthal [place] [id number] [facility] TEACHDOB: [facility] [id number] Ville [id number]: [phone]) Number: Repository [phone] () [id number] Date:0918-79-08OE [address] [address]HIZMCAHHZ, [place] [address]CH: CHECK WEBSITE 03/13/2018 Secondary NOT GIVENUNK Emanuel Insurance:SELF PAY [facility] Number: Effective Repository Date:2018-01-06 03/08/2018 NGOC A Primary Insurance:[facility] NGOC Roesnthal [place] [id number] [facility] TEACHDOB: [facility] [id number] Ville [id number]: [phone]) Number: Repository [phone] () [id number] Date:7102-58-00LB [address] [address]ENHFVHLWQ, [place] [address]YS: CHECK WEBSITE 03/08/2018 Secondary NOT GIVENUNK Emanuel Insurance:SELF PAY [facility] Number: Effective Repository Date:2018-03-08 02/17/2018 NGOC A Primary Insurance:[facility] NGOC Rosenthal Emanuel [id number] [facility] TE[facility]: [facility] [id number] Hospital [address]Ese: [phone]) Number: Repository [phone] () [id number] Date:8112-75-95HD [address] [address]CMOXMHNCI, [place] [address]RN: CHECK WEBSITE 02/17/2018 Secondary NOT GIVENUNK [place] Insurance:SELF PAY [facility] Number: Effective Repository Date:2018-02-12 01/31/2018 NGOC A Primary Insurance:[facility] NGOC Rosenthal [place] [id number] [facility] TEAC[facility]OB: [facility] [id number] Hospital [address]Mrh: (330) Number: Repository [phone] () [id number] Date:9774-74-22HI [address] [address]XKQYUFBNE, [place] [address]EE: CHECK WEBSITE 01/31/2018 Secondary NOT GIVENUNK E[place] Insurance:SELF PAY [facility] Number: Effective Repository Date:2017-12-25 01/27/2018 NGOC A Primary Insurance:[facility] NGOC Rosenthal Emanuel [id number] [facility] TEACHDOB: [facility] [id number] Hospital [address]Qrs: (330) Number: Repository [phone] () [id number] Date:9589-74-03UT [address] [address]WFOYKFICB, [place] [address]UP: CHECK WEBSITE 01/27/2018 Secondary NOT GIVENUNK [place] Insurance:SELF PAY [facility] Number: Effective Repository Date:2018-01-24 12/23/2017 NGOC A Primary Insurance:[facility] NGOC Rosenthal [place] [id number] [facility] TEACHDOB: [facility] [id number] Hospital [address]Aen: (330) Number: Repository [phone] () [id number] Date:0592-83-98DE [address] [address]EPBGUQUEF, [place] [address]QC: CHECK WEBSITE 12/23/2017 Secondary NOT GIVENUNK [place] Insurance:SELF PAY [facility] Number: Effective Repository Date:2017-12-17 11/14/2017 NGOC A Primary NOT GIVENUNK [place] [id number] [place] Insurance:SELF PAY [place] [address]Tel: (330) Number: Effective Repository [phone] () Date:2017-11-14 11/04/2017 NGOC Rosenthal Primary Insurance:[facility] NGOC Rosenthal Emanuel [id number] [facility] TEACHDOB: [facility] [id number] Hospital [address]Wuq: (330) Number: Repository [phone] () [id number] Date:6366-95-28TK [address] [address]YAXUBBMKF, [place] [address]CO: CHECK WEBSITE 11/04/2017 Secondary NOT GIVENUNK [place] Insurance:SELF PAY [facility] Number: Effective Repository Date:2017-10-28 10/02/2017 NGOC Rosenthal Primary Insurance:[facility] NGOC Rosenthal [place] [id number] [facility] TEACHDOB: [facility] [id number] Hospital [address]Kdw: (330) Number: Repository [phone] () [id number] Date:2296-92-95EQ [address] [address]BYLVTKELM, [place] [address]UO: CHECK WEBSITE 10/02/2017 Secondary NOT GIVENUNK [place] Insurance:SELF PAY [facility] Number: Effective Repository Date:2017-10-02 09/26/2017 NGOC Rosenthal Primary Insurance:[facility] NGOC Rosenthal Emanuel [id number] [facility] TEACHDOB: [facility] [id number] Ville [address]Tel: (330) Number: Repository [phone] () [id number] Date:8744-79-66FQ [address] [address]VVHCSOBXZ, [place] [address]NU: CHECK WEBSITE 09/26/2017 Secondary NOT GIVENUNK [place] Insurance:SELF PAY [facility] Number: Effective Repository Date:2017-09-19 09/09/2017 NGOC A Primary Insurance:[facility] NGOC Rosenthal [place] [id number] [facility] TEAC[facility]OB: [facility] [id number] Hospital [address]Mis: [phone]) Number: Repository [phone] () [id number] Date:0253-55-08HU [address] [address]ICNMPVYOX, [place] [address]LZ: CHECK WEBSITE 09/09/2017 Secondary NOT GIVENUNK [place] Insurance:SELF PAY [facility] Number: Effective Repository Date:2017-08-30 08/21/2017 NGOC A Primary Insurance:[facility] NGOC Rosenthal [place] [id number] [facility] TE[facility]: [facility] [id number] Hospital [address]Msy: Number: Repository [phone] [id number] () Date:3543-92-61PG [address] [address]KJQHKRRIF, [place] [address]ZA: CHECK WEBSITE 08/21/2017 Secondary NOT GIVENUNK [place] Insurance:SELF PAY [facility] Number: Effective Repository Date:2017-08-21 07/01/2017 NGOC A Primary Insurance:[facility] NGOC Rosenthal Emanuel [id number] [facility] TE[facility]: [facility] [id number] Hospital [address]Iry: Number: Repository [phone] [id number] () Date:5088-56-28KL [address] [address]CHQXWKDOC, [place] [address]YN: CHECK WEBSITE 07/01/2017 Secondary NOT GIVENUNK [place] Insurance:SELF PAY [facility] Number: Effective Repository Date:2017-07-01 06/24/2017 NGOC A Primary Insurance:[facility] NGOC A [place] [id number] [facility] TEACHDOB: [facility] [id number] Hospital [address]Ipx: Number: Repository [phone] [id number] (HP) Date:9651-80-72YC [address] [address]QLBIPWUFA, [place] [address]QH: CHECK WEBSITE 06/24/2017 Secondary NOT GIVENUNK [place] Insurance:SELF PAY [facility] Number: Effective Repository Date:2017-06-18 06/21/2017 NGOC A Primary Insurance:[facility] NGOC Castellanos [id number] [facility] TEAC[facility]: [facility] [id number] Ville [id number]: Number: Repository [phone] [id number] -7 (HP) Date:8004-56-77CT [address] [address]IEHTDYWCK, [place] [address]HS: CHECK WEBSITE 06/21/2017 Secondary NOT GIVENUNK [place] Insurance:SELF PAY [facility] Number: Effective Repository Date:2017-05-16 05/15/2017 NGOC A Primary Insurance:[facility] NGOC Castellanos [id number] [facility] TEAC[facility]: [facility] [id number] Ville [id number]: Number: Repository [phone] [id number] (HP) Date:6283-15-28DN [address] [address]PMRXNCBMI, [place] [address]PZ: CHECK WEBSITE 05/15/2017 Secondary NOT GIVENUNK [place] Insurance:SELF PAY [facility] Number: Effective Repository Date:2017-05-01 04/29/2017 NGOCPATRIA [id number] Primary Insurance:[facility] NGOC Castellanos [facility]: [facility] [id number] Hospital [address]Nxp: Number: Repository [phone] [id number] -7 (HP) Date:3820-79-77UX [address] [address]ETOTNJEEV, [place] [address]GA: CHECK WEBSITE 04/29/2017 Secondary NOT GIVENUNK [place] Insurance[facility]: Effective Repository Date:2017-04-24
== END ==
PROVIDERS: Family Provider Internal Medicine; PCP Internal Medicine; Referring Provider Internal Medicine Cardiovascular Disease; Visit Provider Internal Medicine Cardiovascular Disease
DX: Z01.810 Encounter for preprocedural cardiovascular examination (principal); Z95.5 Presence of coronary angioplasty implant and graft; I25.10 Atherosclerotic heart disease of native coronary artery without angina pectoris; I44.7 Left bundle-branch block, unspecified
CPT/HCPCS: 93017; 93350

== ENCOUNTER 2018-04-04 06:37 | Day surgery (SDC) | payer OTHER, SELFPAY ==
[2018-03-25 07:39] VITALS: BMI 34.9
--- NOTE | 2018-04-03 07:19 | RAD_ITS ---
STUDY: X-RAY CHEST REASON FOR EXAM: Female, 67 years old. Preoperative evaluation. Shortness of breath. TECHNIQUE: PA and lateral views of the chest. COMPARISON: None. FINDINGS: The lungs are clear and expanded. Scattered calcified granulomas. There is no demonstrated pleural abnormality. Normal size heart. Normal mediastinum and marck. Normal visualized pulmonary arteries. Normal visualized aortic arch and descending thoracic aorta. There is demineralization of the osseous structures. Normal visualized ribs, clavicles, and shoulders. Surgical clips are seen in the left upper quadrant. RAD/Chest PA and Lateral IMPRESSION: No acute abnormality is seen. Electronically Signed: Jaydne Byrd MD at 9:52 EST , Service support ,
--- NOTE | 2018-04-03 07:33 | EKG12_ITS ---
Test Reason : PRE CATH Blood Pressure : / mmHG Vent. Rate : 072 BPM Atrial Rate : 072 BPM P-R Int : 154 ms QRS Dur : 110 ms QT Int : 436 ms P-R-T Axes : 060 017 072 degrees QTc Int : 477 ms Normal sinus rhythm Septal infarct , age undetermined Abnormal ECG Confirmed by MARLEN MARIEE, RYNE ([id number]), editor publications [employer] ([id number]) on 04/04/2018 2:34:53 PM Referred By: Carmelo Phillips Confirmed By:RYNE GEE MD
[2018-04-03 09:28] VITALS: BMI 35.3
--- NOTE | 2018-04-04 08:48 | CL.D_ITS ---
Patient Name: NGOC COTA Study Date: 04/04/2018 Performing: Carmelo Phillips MD Ht: 61.02 inches 155 cm : 1950 Wt: 187.39 lbs 85 kg Age: 67 Gender: female BSA: 1.84 PROCEDURE(S) PERFORMED [id number]/LV CLINICAL PROFILE AND INDICATIONS Indications: Stable Known CAD, Pre-Operative Evaluation Heart Failure: None Stress/Imaging Stress Echocardiogram: Yes Result: Positive Low RiskStress Echocardiogram: Positiv e Low Risk Angina Classification Anginal Classification w/in 2 Weeks: No symptoms CAD Presentations: No Sxs, no angina. Comorbidities/Risk Factors: Hypertension Dyslipidemia Prior PCI Chronic Lung Disease CONCLUSIONS Normal LV size, wall motion,and systolic function Non obstructive coronary arteries RECOMMENDATIONS ASA Indefinitely Management as per referring It Telecom Technician D/c plavix Pt may proceed with gallbladder surgery; pt at low risk for non-cardiac surgery. DESCRIPTION OF PROCEDURE The patient arrived to the procedure lab. The risks and benefits of the procedure as well as a full d escription of our services here and current unavailability of surgical backup were fully explained to the patient and/or their significant other prior to the catheterization. The Timeout was completed, verifying the correct patient and procedure. The patient's procedural site was prepped and draped in the usual fashion. Local anesthetic was given subcutaneously to left groin region with Lidocaine 2%. Using a modified Seldinger technique, arterial access was obtained via the left femoral artery, a 4Fr sheath was inserted Left Coronary Artery selective angiography was performed in multiple views usin g a 4 Fr. JL5 catheter. Right Coronary Artery selective angiography was then performed in multiple vi ews using a 4 Fr. 3DRC catheter. Left Ventriculography was performed in HOPPER projection using a 4 Fr. Pigtail catheter. LV to AO pullback pressures were then recorded.The arterial sheath was pulled and manual compression applied until hemostasis is achieved. CORONARY ANGIOGRAPHY DOMINANCE: Right Dominant LEFT HEART ASSESSMENT Left Ventricular Ejection Fraction: by LV Gram 65 % Normal LV wall motion Normal Left Ventricular systolic function LVEDP: 23 mmHg Elevated Left Ventricular End Diastolic Pressure LEFT MAIN: Angiographically normal LEFT ANTERIOR DECENDING ARTERY: PROX LAD: Previously placed stent is patent CIRCUMFLEX ARTERY: Angiographically normal RIGHT CORONARY ARTERY: PROX RCA: Mild luminal irregularities less than 30% COMPLICATIONS No Complications PROCEDURE MEDICATIONS Versed 1 mg IV Oxygen: 2 L/min via nasal cannula SUMMARY OF HEMODYNAMIC DATA Time AIR REST ECG 07:08:02 AO 160/76 (109) SA 08:31:45 LV 167/-5, 23 08:37:45 LV 173/-8, 26 08:37:52 LVp 172/-7, 25 08:37:57 AOp 169/80 (117) 08:38:02 Signed By Carmelo Phillips MD On 04/04/2018 08:47:41 Carmelo Phillips MD
== END 2018-04-04 13:05 | disposition home or self-care (01) ==
LOC: CLSP 06:37
PROVIDERS: Family Provider Internal Medicine; PCP Internal Medicine; Referring Provider Internal Medicine Cardiovascular Disease; Visit Provider Internal Medicine Cardiovascular Disease
DX: I25.10 Atherosclerotic heart disease of native coronary artery without angina pectoris (principal); E78.5 Hyperlipidemia, unspecified; I10 Essential (primary) hypertension; J98.4 Other disorders of lung; E66.01 Morbid (severe) obesity due to excess calories; Z68.34 Body mass index [BMI] 34.0-34.9, adult; I44.7 Left bundle-branch block, unspecified; K58.9 Irritable bowel syndrome, unspecified; M19.90 Unspecified osteoarthritis, unspecified site; Z86.79 Personal history of other diseases of the circulatory system; Z95.5 Presence of coronary angioplasty implant and graft; Z79.82 Long term (current) use of aspirin; Z79.899 Other long term (current) drug therapy
CPT/HCPCS: 71046; 93005; 93458; 99152; J7040; C1769; Q9967

== ENCOUNTER 2018-04-17 06:30 | Day surgery (SDC) | payer OTHER, SELFPAY ==
[2018-04-03 09:28] VITALS: BMI 35.3
[2018-04-17] VITALS (9 sets, daily range): BP systolic 128–171; BP diastolic 69–92; PULSE 72–80; RESP 16–18; TEMP 36.3–36.7; O2SAT 93–97; BMI 35.0
--- NOTE | 2018-04-17 08:50 | GALL_PTH ---
PATIENT: NGOC COTA [place] [facility] [id number] AGE/SX: 67/F ROOM: RE04/17/[address]: Dr. Carmelo Lancaster MD : 1950 BED: DIS: 04/17/2018 SPEC #: [id number] RECD: 04/17/18 10:28 STATUS: KATIE JAZMINE #: [id number] CANELO: 04/17/18 08:[address]: Carmelo Lancaster DEPT: SURGICAL PATHOLOGY RECD BY: Live Chow ENTERED: 04/17/18 11:39 SP TYPE: CARINA KEENE DR: Dr. Helen Bartlett MD Tissues: Gallbladder, NOS Procedures: Surgery Specimen Level III HEADER OPERATION: Laparoscopic cholecystectomy PRE-OP DIAGNOSIS: Right upper quadrant pain, abnormal biliary HIDA scan TISSUE SUBMITTED: Gallbladder MICROSCOPIC DIAGNOSIS Gallbladder: Chronic cholecystitis. No stones are identified in the container or in the gallbladder. SJ:mahendra 04/18/18 MICROSCOPIC DESCRIPTION Slides are reviewed. GROSS DESCRIPTION Received is one container labeled with the patient's name and designated gallbladder. The specimen consists of a gallbladder measuring 7.5 cm in length and up to 2.5 cm in diameter. The external surface is pink-bliss, smooth and glistening for the most part. Focally it is granular, hemorrhagic and contains cautery artifact. The gallbladder contains green-yellow mucoid bile. No stones are identified in the container or in the gallbladder. The mucosa is bile-stained and without any mass lesions. The gallbladder wall measures up to 0.2 cm in thickness. Surgical Device Sales Representative sections from the gallbladder and the cystic duct are submitted in one cassette. / SJ:mahendra 04/17/18 TC:3 CPT: 94235
--- NOTE | 2018-04-17 09:12 | DCINST_ITS ---
Discharge Diet: Light diet - advance as tolerated Discharge Activity: May Not Drive - for 2-3 days or while taking narcotic pain medications., - - Do not drive, work heavy equipment or sign legal documents for 24 hours. May shower in (days): 1 - with the bandage in place. Additional Activity Instructions:: Pain medication may cause nausea. You should typically eat light foods as you take your pain medications. Pain medication may also cause constipation. If this is a problem for you, please discuss with your doctor. Call your doctor if your incision/area has: Continuous Slow Oozing, Sudden Increased Bleeding, Increased Pain/ Swelling, Increased Redness, Foul Smelling Discharge Call your doctor if you observe: Fever of 101 or Higher Suture Line Care: Avoid Pulling/Pushing, Avoid Pinching/Bending Additional Dressing/Incision Instructions:: Leave operative bandaids on for 2 days. When you remove dressing, leave Steri-Strips on until your follow-up appointment, or until the Steri-Strips fall off on their own. Allergies/Adverse Reactions: Allergies chlorhexidine Allergy (Verified 04/11/18 14:19) Hives diclofenac sodium [From Voltaren] Allergy (Verified 04/11/18 14:19) Swelling piroxicam [From Feldene] Allergy (Verified 04/11/18 14:19) Rash simvastatin Adverse Reaction (Intermediate, Verified 04/11/18 14:19) Myalgias adhesive Adverse Reaction (Verified 04/11/18 14:19) Rash cyclobenzaprine HCl [From Flexeril] Adverse Reaction (Verified 04/11/18 14:19) Nausea/Vom/Diarrhea ibuprofen Adverse Reaction (Verified 04/11/18 14:19) Nausea/Vom/Diarrhea meloxicam [From Mobic] Adverse Reaction (Verified 04/11/18 14:19) Nausea/Vom/Diarrhea orphenadrine citrate [From Norflex] Adverse Reaction (Verified 04/11/18 14:19) Other BLURRED VISION pregabalin [From Lyrica] Adverse Reaction (Verified 04/11/18 14:19) Nausea/Vom/Diarrhea Medications to take at Discharge Lorazepam [Ativan] 1 mg PO BID PRN PRN 07/29/13 Multivitamins,Therapeutic [Multivitamin] 1 tab PO QHS 07/29/13 Aspirin E.C. [Ecotrin] 81 mg PO DAILY@0800 04/06/15 Oxycodone HCl/Acetaminophen [Percocet 5-325] 1 - 2 tab PO TID PRN 12/07/15 Tizanidine HCl [Zanaflex] 1 tab PO TID PRN 05/10/16 Ipratropium [Atrovent (SP)] 1 puff INHALATION BID 10/29/16 Dextran 70/Hypromellose [Nature's Tears Eye Drops] 15 ml OP 4X/DAY 06/20/17 cholecalciferol (vitamin D3) 2,000 unit capsule 2,000 unit PO QDAY 06/29/17 docusate sodium 100 mg capsule 100 mg PO QDAY PRN 06/29/17 nitroglycerin 0.4 mg sublingual tablet 0.4 mg SUBLINGUAL Q5-15M PRN 06/29/17 gabapentin 400 mg capsule 400 mg PO QHS 07/01/17 Rabeprazole Sodium [Aciphex] 20 mg PO BID 01/27/18 fluticasone 50 mcg/actuation nasal spray,suspension 1 spray INTRANASAL BID g 02/17/18 Dicyclomine HCl [Bentyl] 10 mg PO TIDAC 03/26/18 Losartan Potassium [Cozaar] 50 mg PO QDAY 03/26/18 Metoprolol(XL)Succ [Toprol Xl (Beta [place])] 12.5 mg PO DAILY 03/26/18 Ondansetron HCl [Zofran] 4 mg PO TID 03/26/18 Rosuvastatin Calcium [Crestor] 10 mg PO QHS 03/26/18 furosemide 20 mg tablet 20 mg PO DAILY #90 tab 04/11/18 Primary Care Physician: Helen Bartlett MD [Primary Care Provider] - Test Results: Test results from this visit will be discussed in further detail at your follow- up appointment, if applicable. Please Follow Up With: Carmelo Lancaster MD - Please call [phone] to schedule an appointment. When: 7 days after your surgery.
--- NOTE | 2018-04-17 09:14 | OP.PCM_ITS ---
Problem List (1) Right upper quadrant abdominal pain Status: Acute (2) Abnormal biliary HIDA scan Status: Acute Report of Operation Date of Procedure: 04/17/18 Pre-Operative Diagnosis: 1. Right upper quadrant abdominal pain. 2. Abnormal biliary HIDA scan Post-Operative Diagnosis: Same Surgery/Procedure Performed:: Laparoscopic cholecystectomy Type of Anesthesia:: General Anesthesiologist: Ilya Almaraz Specimen's removed: Gallbladder Drains: None Estimated Blood Loss (mL): < 25 cc Description of Procedure: Patient was brought into the operating room. Placed in the supine position. Under excellent general endotracheal intubation the abdomen was sterilely prepped and draped in the usual fashion. Local was injected in the right upper quadrant incision was made Visiport was used to gain access to the intra-abd ominal cavity without difficulty or injury to underlying structures. Patient was noted to have significant amount of adhesions in the midline it was spared in the subxiphoid area and I was able to place another #5 trocar. Laterally from the first #5 trocar I was able to place another. I then placed a 10/12 trocar in the right lower quadrant avoiding all of the adhesions. All the trochars were placed under direct visualization without injury to underlying structures. Patient was placed in the head up and rotated to the left position. Fundus of the gallbladder was grasped retracted in a cephalad direction infundibulum was grasped and retracted laterally I dissected significant amount of adhesions from the gallbladder and the duodenum and dissected the cystic duct free. I placed hemoclips proximally and distally and ligated the duct. Identified the cystic artery placed hemoclips proximally and distally and ligated the artery I deliver the gallbladder from the gallbladder bed with use of electrocautery. Placed a specimen specimen bag delivered through the 10/12 trocar. I used electrocautery on the liver bed. I removed the trochars under direct visualization good hemostasis was noted. Close the fascia the 10/12 trocar port with a [id number] stitch of 0 Vicryl. Skin incisions were closed with septicum stitches of 4-0 Monocryl. Steri-Strips are applied sterile dressings were applied and the patient tolerated the procedure well. - Admit VTE Documentation VTE Present on Admission: No VTE Mechan Device Prophylaxis: SCD's VTE Pharm Prophylaxis ordered?: No Reason prophylaxis not ordered:: Treatment Not Indicated
[2018-04-17] MEDS: Cefazolin 2 GM in 0.9% Normal Saline 100 ML IV (09:16)
[2018-04-17] MEDS: Bupivacaine Mpf 0.5% 30 ML VIAL (09:43)
== END 2018-04-17 12:13 | disposition home or self-care (01) ==
LOC: SDC 06:31 → AC 06:32
PROVIDERS: Family Provider Internal Medicine; PCP Internal Medicine; Referring Provider Surgery; Visit Provider Surgery
PROC: (CPT 47562; principal; 2018-04-17 08:30)
DX: K81.1 Chronic cholecystitis (principal); I10 Essential (primary) hypertension; G47.30 Sleep apnea, unspecified; G25.81 Restless legs syndrome; K21.9 Gastro-esophageal reflux disease without esophagitis; F41.9 Anxiety disorder, unspecified; K58.9 Irritable bowel syndrome, unspecified; Z79.899 Other long term (current) drug therapy; Z79.82 Long term (current) use of aspirin; E78.5 Hyperlipidemia, unspecified; M19.90 Unspecified osteoarthritis, unspecified site; I25.10 Atherosclerotic heart disease of native coronary artery without angina pectoris; Z95.5 Presence of coronary angioplasty implant and graft; R94.8 Abnormal results of function studies of other organs and systems
CPT/HCPCS: 00790; 47562; 88304; J7120; A4216; J2405

== ENCOUNTER 2018-06-23 09:16 | Day surgery (SDC) | payer OTHER, SELFPAY ==
[2018-04-17 06:48] VITALS: BMI 35.0
[2018-06-23] VITALS (7 sets, daily range): BP systolic 111–133; BP diastolic 43–59; PULSE 68–71; RESP 16; TEMP 36.1–36.3; O2SAT 92–100; BMI 35.3
--- NOTE | 2018-06-23 10:30 | RAD_ITS ---
PROCEDURE: Caudal block. DATE OF EXAMINATION: June 23, 2018. INDICATION: Female, 67 years old. Low back pain. FLUOROSCOPY TIME (if supplied): (0:09) minutes/seconds. 2 coned-down views were obtained. Intraoperative imaging provided for caudal block. RAD/Fluor Guidance for Spine Inj IMPRESSION: Intraoperative imaging provided for caudal block. Electronically Signed: Jayden Byrd, at 11:24 EDT , Service support ,
[2018-06-23] MEDS: Bupivacaine 0.25% 30 ML Vial (10:46)
[2018-06-23] MEDS: MethylPREDNISolone Acetate 80 MG/ML Vial (10:46)
--- NOTE | 2018-06-23 10:49 | PCM.OPRPT ---
Problem List (1) DDD (degenerative disc disease), lumbosacral Status: Chronic (2) Lumbosacral radiculopathy Status: Chronic (3) Lumbosacral spinal stenosis Status: Chronic Report of Operation Date of Procedure: 06/23/18 Pre-Operative Diagnosis: Lumbosacral radiculopathy, lumbosacral degenerative disc disease, lumbosacral spinal stenosis Post-Operative Diagnosis: Lumbosacral radiculopathy, lumbosacral degenerative disc disease, lumbosacral spinal stenosis Surgery/Procedure Performed:: Caudal epidural steroid injection Description of Surgical Findings:: PROCEDURE: Caudal epidural steroid injection PREOPERATIVE DIAGNOSIS: Lumbosacral radiculopathy, lumbosacral degenerative disc disease, lumbosacral spinal stenosis POSTOPERATIVE DIAGNOSIS: Lumbosacral radiculopathy, lumbosacral degenerative disc disease, lumbosacral spinal stenosis ANESTHESIA: MAC COMPLICATIONS: None BLOOD LOSS: Minimal PROCEDURE IN DETAIL: History and physical today was reviewed. Risks and benefits of the procedure were explained. The patient understood, agreed to our procedure, and informed consent was obtained. IV inserted per routine protocol. The patient was taken to the operating room, placed in a prone position with a pillow positioned underneath the abdomen. The lower back and tailbone area was prepped and draped in a sterile fashion using iodine ?3 under fluoroscopy guidance on the lateral view the caudal space was identified the skin and subcutaneous tissue and size approximately 3 cc of 1% lidocaine using a 25-gauge regular needle under direct visualization fluoroscopy using the lateral approach using a 22-gauge 3-1/2 inch spinal needle the needle was advanced via the skin through the sacral hiatus, tip of the needle passed through the sacrococcygeal ligament advanced approximately S4 area after negative aspiration for blood or CSF a total of 3 cc of contrast were injected to confirm correct placement of the needle as well as cephalad spread the spread was followed to approximately L5 area after confirmation on AP as well as lateral view and repeated negative aspiration, a total of 15 cc of preservative-free 0.125% Marcaine with 80 mg of the Depo-Medrol was injected easily. The needle was then removed intact. The patient experienced no signs or symptoms of intrathecal, intravascular injection. The patient experienced no paraesthesia. The procedure was completed without any apparent difficult, any complication. The patient appeared to tolerate well. ASSESSMENT AND PLAN: This is a 67-year-old female with lumbosacral radiculopathy, lumbosacral degenerative disc disease, lumbosacral spinal stenosis status post caudal epidural steroid injection. The patient will continue his current medications. The patient will follow in approximately 2 weeks for reevaluation.
== END 2018-06-23 11:41 | disposition home or self-care (01) ==
LOC: SDC 09:16 → AC 09:19
PROVIDERS: Family Provider Internal Medicine; PCP Internal Medicine; Referring Provider Anesthesiology Pain Medicine; Visit Provider Anesthesiology Pain Medicine
PROC: 3E0S3BZ Introduction of Anesthetic Agent into Epidural Space, Percutaneous Approach (ICD-10-PCS; CPT 62282; principal; 2018-06-23 10:25)
DX: M48.07 Spinal stenosis, lumbosacral region (principal); M51.17 Intervertebral disc disorders with radiculopathy, lumbosacral region; F41.9 Anxiety disorder, unspecified; E78.00 Pure hypercholesterolemia, unspecified; K21.9 Gastro-esophageal reflux disease without esophagitis; Z79.899 Other long term (current) drug therapy; Z79.82 Long term (current) use of aspirin; I10 Essential (primary) hypertension; Z79.891 Long term (current) use of opiate analgesic
CPT/HCPCS: 01992; 62323; 64483; 77003; J3490

== ENCOUNTER → 2018-07-08 | Outpatient (CLI) | payer OTHER, SELFPAY ==
[2018-06-23 09:37] VITALS: BMI 35.3
--- NOTE | 2018-07-08 08:10 | RAD_ITS ---
STUDY: X-RAY - CERVICAL SPINE REASON FOR EXAM: Female, 67 years old. Neck pain TECHNIQUE: 6 view(s) of the cervical spine were obtained. COMPARISON: None FINDINGS: Normal anterior atlantoaxial articulation. Normal odontoid process. Normal cervical lordosis. Normal vertebral bodies and endplates. Normal disc space heights. Normal visualized intervertebral neuroforamina. The soft tissue structures are unremarkable. RAD/Cerv Spine 4 or 5 Views IMPRESSION: Normal x-ray examination of the visualized cervical spine. Electronically Signed: Romulo Arroyo DO at 14:08 EDT Tel , Service support ,
== END | disposition home or self-care (01) ==
LOC: RAD 08:01
PROVIDERS: Family Provider Internal Medicine; PCP Internal Medicine; Referring Provider Anesthesiology Pain Medicine; Visit Provider Anesthesiology Pain Medicine
DX: M54.2 Cervicalgia (principal); M79.601 Pain in right arm
CPT/HCPCS: 72050

== ENCOUNTER 2018-08-15 10:00 | Outpatient (RCR) | payer OTHER, SELFPAY ==
[2018-06-23 09:37] VITALS: BMI 35.3
--- NOTE | 2018-07-15 09:01 | HP.PTEVAL ---
Patient's Visit Information NGOC COTA is a 67 year old F referred to Physical Therapy by Bautista Mendez MD with a diagnosis of Neck pain. Date of Evaluation: 07/15/18 Physical Therapist: Xavi Gonzalez, PT, ATC - Visit Plan Frequency: 2x /Week Duration: 4 Weeks Plan: Postural edu, cervical retraction ex's, DTR, scap stab ex's, UBE, and HEP - Subjective Findings: Pt reports she has had neck pain for about one month. Pt reports she had abdominal surgery 04/21/17 and was off work until June. 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 Pt reports most of the legs are very heavy, and she blieves the constant lifting may be attributing to her pain. Pt also reports she gets tingling in her 4th and 5th digits of her R hand. Pt reports she is on a computer a lot at work, and then sometimes at home, and believes this may also be contributing to her symptoms. Pt had recent neck x rays, but has not received the results yet. Pt reports she has never had neck problems in the past. Pt reports her pain is worse in the morning after a long day of work. Pt reports sleep difficulty at times secondary to pain. 4/10 pain at rest, 8/10 at worst (in the morning after work) - Pain Neck pain Pain Intensity (Out of 10): 4 Pain Intensity Range: 8 - Objective Neuro: B UE sensation is WNL to light touch. B bicepital reflex= 2/3. Palpation: Pt presents with significant guarding throughout the cervical spine. Pt is very tender along the R scalene muscle group. MMT: B UE's are grossly rated at 5/5 throughout. ROM: Pt is moderately limited with ext and retraction. Pt is minimally limited with R rotation. All other movements are WNL. Repeated movements: RPIS 10x3 NE, RRIS 10x3 NE. Special tests: negative compression and distraction tests. - Goals Goal 1:: Decrease neck pain x 50% to aid with sleep Goal Time Frame: 2-4 Weeks Goal 2:: Decrease the frequency and intensity of R UE radiculopathy x 50% to aid with work duties Goal Time Frame: 2-4 Weeks Goal 3:: Pt will both verbally and physically display proper posture to aid with preventing future episodes of neck pain Goal Time Frame: 2-4 Weeks Goal 4:: I with HEP Goal Time Frame: 2-4 Weeks - Rehabilitation Potential Physical Therapy Diagnosis: Pt has neck pain, decreased c/s ROM, and R UE tingling secondary to c/s disc derrangement Rehabilitation Potential: Good - Anticipated Interventions Patient/Client Instruction: Educate patient on: Condition, Plan of Care For the Purpose of:: To improve self management Therapeutic Exercise to Include: Strength training, Body mechanics, Postural training, Flexibilty training, Scapular Strength/Stabilization For the Purpose of:: To decrease pain, To increase ROM, To improve muscle performance and motor function Manual Therapy Techniques to Include: Soft tissue mobilization For the Purpose of:: To decrease pain Thermo therapy (hot pack): Yes Ultrasound (thermal/non thermal): Yes For the Purpose of:: To decrease pain Thank you for the opportunity to evaluate your patient. For Medicare and Medicare HMO plans, please review the plan of care and approve it. It will need to be FAXED BACK to us at [phone] for Medicare purposes. For Medicare only, by signing this I certify the plan of care. Please let me know if there are questions or concerns regarding this plan of care. Physician Signature: Date:
--- NOTE | 2019-01-12 16:27 | HP.PT.NRP ---
HP - Discharge Summary (1) - Patient Information [facility] COTA was seen in my office for initial evaluation on 07/15/18. The following Plan of Care was established for this patient: Initial Frequency: 2x /Week Initial Duration: 4 Weeks - Anticipated Interventions Patient/Client Instruction: Educate patient on: Condition, Plan of Care For the Purpose of:: To improve self management Therapeutic Exercise to Include: Strength training, Body mechanics, Postural training, Flexibilty training, Scapular Strength/Stabilization For the Purpose of:: To decrease pain, To increase ROM, To improve muscle performance and motor function Manual Therapy Techniques to Include: Soft tissue mobilization For the Purpose of:: To decrease pain Thermo therapy (hot pack): Yes Ultrasound (thermal/non thermal): Yes For the Purpose of:: To decrease pain This patient was last seen in our office . Pertinent comments regarding their Physical therapy will appear below: Pt was treated for 8 PT visits for her neck pain through the date of 08/15/18. Pt has not returned through todays date, and is discontinued at this time. At this point I will be discontinuing this patient from physical therapy. I would be happy to see this patient again in the future if found appropriate by the physician. Thank you! Xavi Gonzalez, PT, ATC
== END 2018-08-15 19:00 | disposition home or self-care (01) ==
LOC: PT 10:00
PROVIDERS: Family Provider Internal Medicine; PCP Internal Medicine; Referring Provider Anesthesiology Pain Medicine; Visit Provider Anesthesiology Pain Medicine
DX: M54.2 Cervicalgia (principal)
CPT/HCPCS: 97140; 97161; 97530

== ENCOUNTER → 2018-09-12 | Outpatient (CLI) | payer OTHER, SELFPAY ==
[2018-08-21 08:02] VITALS: BMI 35.3
[2018-09-12 11:46] LABS: AST(SGOT) 29 U/L (15-37); Alanine Aminotransfer ALT/SGPT 28 U/L (13-56); Albumin, Serum 3.9 g/dL (3.2-5.0); Alkaline Phosphatase 114 U/L (45-117); Bilirubin, Direct 0.06 mg/dL (0.00-0.30); Cholesterol 154 mg/dL (200); Globulin 3.7 g/dL (2.2-4.2); High Density Lipoprotein 47 mg/dL; Protein, Total 7.6 g/dL (6.4-8.2); Triglycerides 189 mg/dL; Very Low Density Lipoprotein 38 mg/dL (5-40)
== END | disposition home or self-care (01) ==
LOC: LAB 09:04
PROVIDERS: Family Provider Internal Medicine; PCP Internal Medicine; Referring Provider Nurse Practitioner Family; Visit Provider Nurse Practitioner Family
DX: E78.5 Hyperlipidemia, unspecified (principal)
CPT/HCPCS: 36415; 80061; 80076

== ENCOUNTER 2018-10-13 06:27 | Day surgery (SDC) | payer OTHER, SELFPAY ==
[2018-09-15 13:19] VITALS: BMI 34.7
[2018-10-13] VITALS (8 sets, daily range): BP systolic 87–133; BP diastolic 36–65; PULSE 62–68; RESP 16; TEMP 36.1–36.6; O2SAT 92–98; BMI 34.0
--- NOTE | 2018-10-13 07:40 | RAD_ITS ---
STUDY: X-RAY - LUMBAR SPINE REASON FOR EXAM: Female, 68 years old. Radiofrequency ablation of the right L3-S1 facet joints. TECHNIQUE: 7 cone-down intraoperative view(s) of the lumbar spine were obtained. COMPARISON: None FINDINGS: Intraoperative imaging was provided for right L3-S1 facet joint ablation. RAD/Lumbar Spine 2 or 3 Views IMPRESSION: Intraoperative imaging provided for right L3-S1 facet joint ablation. Electronically Signed: Jayden Byrd, at 9:01 EDT , Service support ,
[2018-10-13] MEDS: Bupivacaine 0.25% 30 ML Vial (07:46)
[2018-10-13] MEDS: MethylPREDNISolone Acetate 80 MG/ML Vial (07:47)
--- NOTE | 2018-10-13 17:26 | OP.PCM_ITS ---
Problem List (1) DDD (degenerative disc disease), lumbosacral Status: Chronic (2) Lumbar facet arthropathy Status: Chronic (3) Lumbosacral spondylosis Status: Chronic Report of Operation Date of Procedure: 10/13/18 Pre-Operative Diagnosis: Lumbosacral spondylosis, lumbar sacral degenerative disc disease, lumbar facet arthropathy Post-Operative Diagnosis: Lumbosacral spondylosis, lumbosacral degenerative disc disease, lumbar facet arthropathy Surgery/Procedure Performed:: Right sided lumbar radio frequency ablation of the medial branch at L3, L4, L5, S1 Description of Surgical Findings:: PROCEDURE: Right-sided lumbar radiofrequency ablation of the medial branch L3, L4, L5, S1 PREOPERATIVE DIAGNOSES: Lumbosacral spondylosis, lumbosacral degenerative disc disease, lumbar facet arthropathy POSTOPERATIVE DIAGNOSES: Lumbosacral spondylosis, lumbosacral degenerative disc disease, lumbar facet arthropathy ANESTHESIA: MAC COMPLICATIONS: None BLOOD LOSS: Minimal PROCEDURE IN DETAIL: History and physical today was reviewed. Risks and benefits of procedure explained. The patient understood, agreed to the procedure and informed consent was obtained. IV inserted per routine protocol. The patient was taken to the operating room, placed in the prone position with a pillow positioned underneath the abdomen. The right side of the lower back was prepped and draped in a sterile fashion using iodine x 3. Under fluoroscopy guidance, on an oblique view, the L3 through S1 vertebral bodies were visu alized. The skin and subcutaneous tissue was anesthetized with approximately 10 mL of 1% lidocaine using a 25-gauge regular needle. Under direct visualization with fluoroscopy at approximately 25-degree angle, starting on the right L3, ending on the right S1 passing through the L4-L5 using a 20-gauge 15 cm with a 10 mm curved active tip radiofrequency ablation needle the needle passed through the skin. The tip of the needle was maneuvered and directed towards the superior and medial gutter of the transverse process at the vicinity of the medial branch. Once the tip of the needle was in contact with the bone, the needle pulled approximately 2 mm up the bone. The stylet of each needle was then removed. After negative aspiration of blood with CSF and confirmation of AP as well as oblique view, radiofrequency ablation probe was then inserted at each level. Impedance was then recorded at L3 to be 205, at L4 270, at L5 282, at S1 271 ohm. Motor-evoked potential was then initiated to 1.5 volt without any motor response at each corresponding level. The probe was then removed intact and a total of 6 mL preservative-free 1% lidocaine was injected in divided doses between those 4 levels after negative aspiration of blood with CSF. The radiofrequency ablation probe was then reinserted after confirmation of AP, oblique as well as lateral view. Radiofrequency ablation was then initiated to 80 degrees Celsius for 90 seconds at each level. Once concluded, the probe was then removed intact and a total of 6 mL of preservative-free 0.25% Marcaine with 40 mg Depo-Medrol was injected in divided doses between those 4 levels. The needles were then removed intact. The patient experienced no signs or symptoms of intrathecal, intravascular injection. The patient experienced no paraesthesia. The procedure was completed without any apparent difficulty, any complication. The patient appeared to tolerate well. Sensory as well as motor exam was unchanged from prior to procedure. ASSESSMENT AND PLAN: This is a 68-year-old female with lumbosacral spondylosis, lumbosacral degenerative disc disease, lumbar facet arthropathy, status post right-sided radiofrequency ablation of the medial branch L3 through S1. The patient will continue her current medications. The patient will follow up in approximately 2 weeks for reevaluation.
--- NOTE | 2018-10-27 17:22 | PCM.OPRPT ---
Problem List (1) DDD (degenerative disc disease), lumbosacral Status: Chronic (2) Lumbar facet arthropathy Status: Chronic (3) Lumbosacral spondylosis Status: Chronic Report of Operation Date of Procedure: 10/27/18 Description of Surgical Findings:: PROCEDURE: Left-sided lumbar radiofrequency ablation of the medial branch L3, L4, L5, S1 PREOPERATIVE DIAGNOSES: Lumbosacral spondylosis, lumbosacral degenerative disc disease, lumbar facet arthropathy POSTOPERATIVE DIAGNOSES: Lumbosacral spondylosis, lumbosacral degenerative disc disease, lumbar facet arthropathy ANESTHESIA: MAC COMPLICATIONS: None BLOOD LOSS: Minimal PROCEDURE IN DETAIL: History and physical today was reviewed. Risks and benefits of procedure explained. The patient understood, agreed to the procedure and informed consent was obtained. IV inserted per routine protocol. The patient was taken to the operating room, placed in the prone position with a pillow positioned underneath the abdomen. The left side of the lower back was prepped and draped in a sterile fashion using iodine x 3. Under fluoroscopy guidance, on an oblique view, the L3 through S1 vertebral bodies were visualized. The skin and subcutaneous tissue was anesthetized with approximately 10 mL of 1% lidocaine using a 25-gauge regular needle. Under direct visualization with fluoroscopy at approximately 25-degree angle, starting on the left L3, ending on the left S1 passing through the L4-L5 using a 20-gauge 15 cm with a 10 mm curved active tip radiofrequency ablation needle the needle passed through the skin. The tip of the needle was maneuvered and directed towards the superior and medial gutter of the transverse process at the vicinity of the medial branch. Once the tip of the needle was in contact with the bone, the needle pulled approximately 2 mm up the bone. The stylet of each needle was then removed. After negative aspiration of blood with CSF and confirmation of AP as well as oblique view, radiofrequency ablation probe was then inserted at each level. Impedance was then recorded at L3 to be 204, at L4 201, at L5 232, at S1 206 ohm. Motor-evoked potential was then initiated to 1.5 volt without any motor response at each corresponding level. The probe was then removed intact and a total of 6 mL preservative-free 1% lidocaine was injected in divided doses between those 4 levels after negative aspiration of blood with CSF. The radiofrequency ablation probe was then reinserted after confirmation of AP, oblique as well as lateral view. Radiofrequency ablation was then initiated to 80 degrees Celsius for 90 seconds at each level. Once concluded, the probe was then removed intact and a total of 6 mL of preservative-free 0.25% Marcaine with 40 mg Depo-Medrol was injected in divided doses between those 4 levels. The needles were then removed intact. The patient experienced no signs or symptoms of intrathecal, intravascular injection. The patient experienced no paraesthesia. The procedure was completed without any apparent difficulty, any complication. The patient appeared to tolerate well. Sensory as well as motor exam was unchanged from prior to procedure. ASSESSMENT AND PLAN: This is a 68-year-old female with lumbosacral spondylosis, lumbosacral degenerative disc disease, lumbar facet arthropathy, status post left-sided radiofrequency ablation of the medial branch L3 through S1. The patient will continue her current medications. The patient will follow up in approximately 2 weeks for reevaluation.
== END 2018-10-13 08:47 | disposition home or self-care (01) ==
LOC: SDC 06:28 → AC 06:28
PROVIDERS: Family Provider Internal Medicine; PCP Internal Medicine; Referring Provider Anesthesiology Pain Medicine; Visit Provider Anesthesiology Pain Medicine
PROC: (CPT 64635; principal; 2018-10-13 07:25)
DX: M47.27 Other spondylosis with radiculopathy, lumbosacral region (principal); M51.37 Other intervertebral disc degeneration, lumbosacral region; M46.96 Unspecified inflammatory spondylopathy, lumbar region; M17.10 Unilateral primary osteoarthritis, unspecified knee; M51.36 Other intervertebral disc degeneration, lumbar region; F41.9 Anxiety disorder, unspecified; I10 Essential (primary) hypertension; J45.909 Unspecified asthma, uncomplicated; G47.30 Sleep apnea, unspecified; G25.81 Restless legs syndrome; K21.9 Gastro-esophageal reflux disease without esophagitis; E78.00 Pure hypercholesterolemia, unspecified; Z86.2 Personal history of diseases of the blood and blood-forming organs and certain disorders involving the immune mechanism; Z78.0 Asymptomatic menopausal state; Z79.82 Long term (current) use of aspirin; Z79.899 Other long term (current) drug therapy; Z79.891 Long term (current) use of opiate analgesic
CPT/HCPCS: 01992; 64635; 64636 ×3; 72100; 76000; J7120

== ENCOUNTER 2018-10-27 07:16 | Day surgery (SDC) | payer OTHER, SELFPAY ==
[2018-10-13 06:47] VITALS: BMI 34.0
[2018-10-27 07:29] VITALS: BP 144/84; PULSE 74; RESP 16; TEMP 36.3; O2SAT 98; BMI 34.7
--- NOTE | 2018-10-27 08:50 | RAD_ITS ---
STUDY: X-RAY - LUMBAR SPINE REASON FOR EXAM: Female, 68 years old. Radiofrequency ablation. TECHNIQUE: 8 fluoroscopic spot images were obtained. COMPARISON: October 27, 2018 FINDINGS: Radiologist not present at the time of examination. Multilevel nerve root localization. No obvious lumbar spine fracture. No dislocation. No cortical destruction. Limited soft tissue evaluation. Limited bowel evaluation. RAD/L/S Spine Min 4 Views IMPRESSION: Multilevel nerve root localization No acute bone abnormalities See postoperative report for additional details Radiologist not present at the time of examination Electronically Signed: Ilya Perez DO at 10:17 EDT Tel , Service support ,
[2018-10-27] MEDS: MethylPREDNISolone Acetate 80 MG/ML Vial (08:54)
[2018-10-27] MEDS: Bupivacaine 0.25% 30 ML Vial (08:54)
[2018-10-27 09:12] VITALS: BP 111/66; BP 144/84; PULSE 61; RESP 16; TEMP 35.9; O2SAT 95
[2018-10-27 09:17] VITALS: BP 119/71; BP 144/84; PULSE 60; RESP 16; O2SAT 94
[2018-10-27 09:21] VITALS: BP 120/71; BP 144/84; PULSE 59; RESP 16; O2SAT 96
[2018-10-27 09:24] VITALS: BP 136/71; BP 144/84; PULSE 61; RESP 16; TEMP 35.9; O2SAT 97
[2018-10-27 09:37] VITALS: BP 144/84
== END 2018-10-27 09:47 | disposition home or self-care (01) ==
LOC: SDC 07:16 → AC 07:17
PROVIDERS: Family Provider Internal Medicine; PCP Internal Medicine; Referring Provider Anesthesiology Pain Medicine; Visit Provider Anesthesiology Pain Medicine
PROC: (CPT 64635; principal; 2018-10-27 08:45)
DX: M47.27 Other spondylosis with radiculopathy, lumbosacral region (principal); M51.17 Intervertebral disc disorders with radiculopathy, lumbosacral region; M46.96 Unspecified inflammatory spondylopathy, lumbar region; M17.10 Unilateral primary osteoarthritis, unspecified knee; M51.36 Other intervertebral disc degeneration, lumbar region; F41.9 Anxiety disorder, unspecified; D64.9 Anemia, unspecified; I10 Essential (primary) hypertension; I44.7 Left bundle-branch block, unspecified; J45.909 Unspecified asthma, uncomplicated; G47.30 Sleep apnea, unspecified; G25.81 Restless legs syndrome; K21.9 Gastro-esophageal reflux disease without esophagitis; E78.00 Pure hypercholesterolemia, unspecified; Z78.0 Asymptomatic menopausal state; Z95.5 Presence of coronary angioplasty implant and graft; Z79.82 Long term (current) use of aspirin; Z79.891 Long term (current) use of opiate analgesic; Z79.899 Other long term (current) drug therapy
CPT/HCPCS: 01992; 64635; 64636 ×3; 72110; 76000; J7120

== ENCOUNTER → 2018-12-01 10:15 | Outpatient (CLI) | payer OTHER, SELFPAY ==
[2018-12-01 11:05] LABS: Hemoglobin 14.4 g/dL (12.0-15.0); Mean Corpuscular Hgb 32.2 pg (27.0-32.0); Mean Corpuscular Volume 100.7 fL (81-99); Mean Platelet Vol. 10.5 fl (6.2-12.0); Platelet Count 184 K/mm3 (150-450); RBC Distribution Width CV 13.3 % (11.6-14.6); RBC Distribution Width SD 49.2 fl (35.1-43.9); Red Blood Count 4.47 M/mm3 (4.2-5.4); White Blood Count 6.4 K/mm3 (4.4-11.0)
[2018-12-01 11:37] LABS: AST(SGOT) 24 U/L (15-37); Alanine Aminotransfer ALT/SGPT 38 U/L (13-56); Albumin, Serum 4.1 g/dL (3.2-5.0); Alkaline Phosphatase 130 U/L (45-117); Anion Gap 6 (5-15); BUN 15 mg/dL (7-18); BUN/Creat Ratio 15.2 RATIO (10-20); Chloride 103 mmol/L (98-107); Cholesterol 201 mg/dL (200); Creatinine, Serum 0.99 mg/dL (0.55-1.02); EST Glomerular Filtration Rate 60 mL/min (>60); Est Glom Filt Rate - Afr Amer 72 mL/min (>60); Glucose 113 mg/dL (74-106); High Density Lipoprotein 51 mg/dL; Potassium 4.1 mmol/L (3.5-5.1); Protein, Total 8.1 g/dL (6.4-8.2); Sodium Level 142 mmol/L (136-145); Triglycerides 214 mg/dL; Very Low Density Lipoprotein 43 mg/dL (5-40)
[2018-12-01 12:54] LABS: Hepatitis C Antibody Non-Reactive (Nonreactive)
== END ==
PROVIDERS: Family Provider Internal Medicine; PCP Internal Medicine; Referring Provider Internal Medicine; Visit Provider Internal Medicine
DX: Z01.89 Encounter for other specified special examinations (principal); E78.2 Mixed hyperlipidemia; I10 Essential (primary) hypertension; Z79.899 Other long term (current) drug therapy
CPT/HCPCS: 36415; 80053; 80061; 83036; 85027; 86803

== ENCOUNTER → 2018-12-26 10:11 | Outpatient (CLI) | payer MEDICARE, OTHER, SELFPAY ==
--- NOTE | 2018-12-26 10:20 | RAD_ITS ---
STUDY: X-RAY - LEFT SHOULDER REASON FOR EXAM: Female, 68 years old. Left shoulder pain with limited range of motion after falling 4 weeks ago onto concrete TECHNIQUE: 4 view(s) of the shoulder. COMPARISON: None. FINDINGS: Normal glenohumeral articulation. Normal acromioclavicular joint. Normal acromion. Normal humeral head and visualized proximal humerus. The soft tissue structures are unremarkable. Normal visualized pulmonary apex. RAD/Shoulder min 2 Views IMPRESSION: Normal x-ray examination of the shoulder. Electronically Signed: Chandler Mcginnis MD ([place]) at 15:11 EDT , Service support ,
== END ==
PROVIDERS: Family Provider Internal Medicine; PCP Internal Medicine; Referring Provider Anesthesiology Pain Medicine; Visit Provider Anesthesiology Pain Medicine
DX: M25.512 Pain in left shoulder (principal); W19.XXXA Unspecified fall, initial encounter; Y93.9 Activity, unspecified; Y92.9 Unspecified place or not applicable
CPT/HCPCS: 73030

== ENCOUNTER → 2019-02-13 07:19 | Outpatient (CLI) | payer MEDICARE, OTHER, SELFPAY ==
--- NOTE | 2019-02-13 07:22 | RAD_ITS ---
STUDY: X-RAY - PELVIS AND RIGHT HIP REASON FOR EXAM: Female, 68 years old. Hip pain. TECHNIQUE: 3 views of the pelvis and hip. COMPARISON: None. FINDINGS: There is a non-specific bowel gas pattern. Normal visualized soft tissue structures. Normal bilateral iliac wings, sacroiliac joints and visualized sacrum. Normal bilateral superior and inferior pubic rami. Normal pubic symphysis. Normal bilateral ischial tuberosities. Normal visualized femoral head. Normal acetabulum. Normal hip joint. RAD/HIP, UNI W/ Pelvis 2-3 Views IMPRESSION: Normal x-ray examination of the pelvis and hip. Electronically Signed: Lior Whitaker MD at 21:38 EST , Service support ,
== END ==
PROVIDERS: Family Provider Internal Medicine; PCP Internal Medicine; Referring Provider Nurse Practitioner Family; Visit Provider Nurse Practitioner Family
DX: M25.551 Pain in right hip (principal)
CPT/HCPCS: 73502

== ENCOUNTER → 2019-03-19 11:29 | Outpatient (CLI) | payer MEDICARE, OTHER, SELFPAY ==
--- NOTE | 2019-03-19 11:35 | RAD_ITS ---
STUDY: X-RAY - LEFT KNEE REASON FOR EXAM: Female, 68 years old. MEDIAL PAIN AFTER HEARING A POPPING SOUND WHILE WALKING X3 WEEKS AGO -- HX PARTIAL REPLACEMENT X3 YRS AGO TECHNIQUE: 4 view(s) of the knee. COMPARISON: 22 Jul 2014 FINDINGS: The right knee is intact and located. There is stable expected appearance of medial compartment arthroplasty. Hardware is intact and in the expected location. There is no joint effusion. Soft tissues are unremarkable with severe enlargement of subcutaneous lipoid compartment. Appearance is similar to prior. RAD/Knee 4 or More Views IMPRESSION: 1. No acute findings or change since prior. 2. Expected appearance of medial compartment hemiarthroplasty. Electronically Signed: Guillermina Mclean, at 18:12 EST Tel , Service support ,
== END ==
PROVIDERS: Family Provider Internal Medicine; PCP Internal Medicine; Referring Provider Anesthesiology Pain Medicine; Visit Provider Anesthesiology Pain Medicine
DX: M17.12 Unilateral primary osteoarthritis, left knee (principal)
CPT/HCPCS: 73564

== ENCOUNTER → 2019-04-08 09:40 | Outpatient (CLI) | payer MEDICARE, OTHER, SELFPAY ==
[2019-04-08 11:00] LABS: AST(SGOT) 39 U/L (15-37); Alanine Aminotransfer ALT/SGPT 55 U/L (13-56); Albumin, Serum 3.7 g/dL (3.2-5.0); Alkaline Phosphatase 89 U/L (45-117); Cholesterol 159 mg/dL (200); Globulin 3.7 g/dL (2.2-4.2); High Density Lipoprotein 46 mg/dL; Protein, Total 7.4 g/dL (6.4-8.2); Triglycerides 273 mg/dL; Very Low Density Lipoprotein 55 mg/dL (5-40)
== END ==
PROVIDERS: PCP Internal Medicine; Referring Provider Nurse Practitioner Family; Visit Provider Nurse Practitioner Family
DX: E78.5 Hyperlipidemia, unspecified (principal)
CPT/HCPCS: 36415; 80061; 80076

== ENCOUNTER → 2019-04-24 11:27 | Outpatient (CLI) | payer MEDICARE, OTHER, SELFPAY ==
[2019-04-10 13:53] VITALS: BMI 34.9
[2019-04-22 05:55] VITALS: BMI 35.3
--- NOTE | 2019-04-24 11:30 | BI_ITS ---
MAMMOGRAPHY - BILATERAL SCREENING REASON FOR EXAM: Female, 68 years old. Routine annual screening examination. PERTINENT HISTORY: Mother with breast cancer. TECHNIQUE: Digital bilateral breast ulices (3D mammographic acquisition) in the CC and MLO projections. 2-D mediolateral oblique (MLO) and craniocaudad (CC) views of both breasts were obtained. CAD: Full Field Digital Mammography with Computer Added Detection was performed. COMPARISON: Comparison is made with prior study dated March 02, 2018 and February 19, 2017. FINDINGS: Breast Composition: There are scattered areas of fibroglandular density. There are no dominant masses or suspicious calcifications. No other significant abnormalities are identified. There has been no significant change since the prior study. BI/SCREEN MAMM (CAD) W/ULICES BILAT IMPRESSION: Stable bilateral screening mammogram. Yearly follow-up mammogram recommended. (A) ASSESSMENT CATEGORY: BIRADS Category 1: Negative. A letter regarding these results will be sent to the patient by the facility within 30 days. Approximately 10% of breast cancers are not detected by mammography. A normal mammogram should not delay biopsy of a clinically suspicious abnormality. [id number] Electronically Signed: Jayden Byrd, at 12:21 EST , Service support ,
== END ==
PROVIDERS: PCP Internal Medicine; Referring Provider Internal Medicine; Visit Provider Clinical Nurse Specialist
DX: Z12.31 Encounter for screening mammogram for malignant neoplasm of breast (principal)
CPT/HCPCS: 77063; 77067

== ENCOUNTER → 2019-05-01 07:50 | Outpatient (CLI) | payer MEDICARE, OTHER, SELFPAY ==
[2019-04-10 13:53] VITALS: BMI 34.9
[2019-04-22 05:55] VITALS: BMI 35.3
--- NOTE | 2019-05-01 07:51 | ECHOCS_ITS ---
Reason For Study: PHTN Procedure This was a 2D Doppler, Color Flow transthoracic echocardiogram. Technically difficult due to patient body habitus. Contrast injection was performed. Exam performed in department. Left Ventricle Normal LV size. Moderate concentric left ventricular hypertrophy. The estimated ejection fraction is 65 %. Stage 1 diastolic dysfunction. Septal motion consistent with IVCD. No regional wall motion abnormalities noted. Right Ventricle Normal size and thickness. Normal systolic function. Atria Normal left atrium. Normal right atrium. Normal atrial septum. Mitral Valve The mitral valve is structurally normal. No prolapse or stenosis seen. Tricuspid Valve Normal tricuspid valve. Trivial tricuspid valve insufficiency. Right ventricular systolic pressure estimated to be 37 mmHg. Mild pulmonary hypertension. Aortic Valve Normal aortic valve. Trisinus/trileaflet aortic valve. Pulmonic Valve Normal pulmonic valve. Great Vessels Normal aortic root. Normal arch. Normal inferior vena cava. Pericardium/Pleural No pericardial effusion. Medication 22 gauge I.V. with prn adaptor inserted into right arm. Diluted definity 2ml given slow IV push to enhance endocardial definition. MMode/2D Measurements & Calculations LVIDd: 4.1 cm IVSd: 1.4 cm Ao root diam: 2.8 cm LVIDs: 2.5 cm LVPWd: 1.2 cm LA dimension: 3.5 cm RVDd: 3.5 cm FS: 39.4 % LAV(MOD-bp): 46.4 ml LA A4 area: 17.5 cm2 RA A4 area: 11.5 cm2 LAV(MOD-bp) Indexed: 25.8 ml/m2 LAV(MOD-sp2): 38.9 ml LAV(MOD-sp4): 46.5 ml Time Measurements MV dec time: 0.16 sec Doppler Measurements & Calculations MV E max braden: 71.1 cm/sec Lat Peak E' Braden: 8.9 cm/sec Med Peak E' Braden: 7.6 cm/sec MV A max braden: 97.4 cm/sec E/E' lat: 8.0 E/E' med: 9.3 MV E/A: 0.73 MV V2 max: 117.8 cm/sec MV P1/2t max braden: 93.6 cm/sec Ao V2 max: 143.5 cm/sec MV max P.5 mmHg MV P1/2t: 79.6 msec Ao max P.2 mmHg MV V2 mean: 68.1 cm/sec MV dec slope: 344.5 cm/sec2 Ao V2 mean: 94.6 cm/sec MV mean P.2 mmHg Ao mean P.1 mmHg MV V2 VTI: 23.7 cm MVA(P1/2t): 2.8 cm2 Ao V2 VTI: 28.2 cm LV V1 max: 106.6 cm/sec PA V2 max: 123.1 cm/sec TR max braden: 283.6 cm/sec LV V1 max P.5 mmHg TR max P.2 mmHg LV V1 mean P.9 mmHg LV V1 mean: 81.0 cm/sec LV V1 VTI: 24.7 cm Interpretation Summary Moderate concentric left ventricular hypertrophy. The estimated ejection fraction is 65 %. Stage 1 diastolic dysfunction. Trivial tricuspid valve insufficiency. Right ventricular systolic pressure estimated to be 37 mmHg. Mild pulmonary hypertension. The study was technically difficult. There is no comparison study available. Contrast injection was performed. Ordering Physician: Carmelo Phillips Referring Physician: Helen Bartlett M.D. Performed By: Avinash Malloy RCS
== END ==
PROVIDERS: PCP Internal Medicine; Referring Provider Internal Medicine Cardiovascular Disease; Visit Provider Internal Medicine Cardiovascular Disease
DX: I25.10 Atherosclerotic heart disease of native coronary artery without angina pectoris (principal)
CPT/HCPCS: 93306; Q9957; A4216; C8929

== ENCOUNTER → 2019-05-08 20:42 | Outpatient (CLI) | payer MEDICARE, OTHER, SELFPAY ==
[2019-04-22 05:55] VITALS: BMI 35.3
== END ==
PROVIDERS: PCP Internal Medicine; Referring Provider Internal Medicine Critical Care Medicine; Visit Provider Internal Medicine Critical Care Medicine
DX: G47.21 Circadian rhythm sleep disorder, delayed sleep phase type (principal); G47.33 Obstructive sleep apnea (adult) (pediatric)
CPT/HCPCS: 95811

== ENCOUNTER 2019-05-13 09:30 | Outpatient (RCR) | payer MEDICARE, OTHER, SELFPAY ==
[2019-04-10 13:53] VITALS: BMI 34.9
[2019-04-22 05:55] VITALS: BMI 35.3
--- NOTE | 2019-04-27 08:42 | HP.PTEVAL_ITS ---
Patient's Visit Information [facility] COTA is a 68 year old F referred to Physical Therapy by Kb Hagen PA-C with a diagnosis of L knee pain presence of prosthesis, OA. Date of Evaluation: 04/27/19 Physical Therapist: Ilya Storey, SARAT, OCS, CSCS - Visit Plan Frequency: 2x /Week Duration: 4-6 Weeks Plan: 2x/week for 4-6 weeks for aquatic therapy for quad and ITB stretches, knee ROM, LE strength and postural strength, calorie burning ex adn progress to I. - Subjective Findings: H/o R total and L partial years ago. 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 Fell down college steps last November last year and had therapy on shoulder. Realized knee wasn't working good. Now L knee hurts. Pain is medial and anterior. It is most of time and worse walking and bearing weight on it. Gets 4/10, 1/10 sitting. took pain pill this morning as it typically will wake her up at night. Warm water seems to help . Had x ray and integrity of joint prosthesis is OK medial L knee. Activitiy is effected as she cannto walk for fitness anymore. Steps are challenging as she has 13 steps in her old house and it hurts. Is able to do basics at home but getting into tub is hard. Hobbies include knitting which she can do. No regular exercises. Has silver sneakers. - Pain L knee Pain Intensity (Out of 10): 1 Pain Intensity Range: 1, 5 - Objective Walks slow with wide WILFRIDO and mild L antalgia. R knee is very limtied in ROM and effects steps more than L knee. Has been this way for over 10 years as initial prosthesis was to big. Steps reciprocal with rail. AROM R knee 0-70 and L knee is 0-105. PROM to 110. Hip aROM WFL except ext limited to neutral due to tightness in hip flexor/quad B. ITB also tight B. HS is 0 90/90 test and looking good. reflexes 2/3 L patella and achilles adn R achilles. previous surgical history of resection in R knee has given much scar tissue anteriorly an d limited reflex patella. Sensation WNL to gross light touch B LE. Strength is 4-/5 B knees and hips and 4/5 ankles. Tender to palpation l medial knee at pes anserine adn joint line. - Goals Goal 1:: Pain L knee 2/10 at worst and 75% improved. Goal Time Frame: 4-6 Weeks Goal 2:: I appropriate I ex program to limit future problems Goal Time Frame: 4-6 Weeks Goal 3:: LEFS < 40% disability Goal Time Frame: 4-6 Weeks Goal 4:: Sleep without waking at night due to pain. Goal Time Frame: 4-6 Weeks - Rehabilitation Potential Physical Therapy Diagnosis: L knee pain. Rehabilitation Potential: Fair - Anticipated Interventions Patient/Client Instruction: Educate patient on: Condition, Plan of Care For the Purpose of:: To decrease pain, To increase ROM, To improve muscle performance and motor function, To increase tolerance to activity/condition/position Therapeutic Exercise to Include: Strength training, Flexibilty training, Gait and locomotor training, Neuromotor development, In an aquatic setting, Passive ROM, Active ROM For the Purpose of:: To decrease pain, To increase ROM, To improve muscle performance and motor function, To increase tolerance to activity/condition/position, To improve ability of physical actions for home/community/work/leisure, To improve gait and locomotor functions Thank you for the opportunity to evaluate your patient. For Medicare and Medicare HMO plans, please review the plan of care and approve it. It will need to be FAXED BACK to us at [phone] for Medicare purposes. For Medicare only, by signing this I certify the plan of care. Please let me know if there are questions or concerns regarding this plan of care. Physician Signature: Date:
--- NOTE | 2019-07-08 14:40 | HP.PTDCSUM_ITS ---
It has been my pleasure to treat [facility] COTA referred by Kb Hagen PA-C, with the diagnosis of L knee pain presence of prosthesis, OA for a total of 5 visit(s). Discharge Date: 07/08/19 Please see the following information for a summary of their discharge status. Subjective: Feeling better recently. No new c/o's. L knee Pain Intensity (Out of 10): 1 R knee Pain Intensity (Out of 10): 1 Sciatic Pain Intensity (Out of 10): 3 Objective/Function: Adding ambulation variations with some unsteadiness noted, however, able to self-correct with stepping strategies. Adding stretches with education on good technique. Some difficulty with R hip flexor/quad stretch in 3 ft, needing to move to 4 ft with reduced knee flexion to tolerate d/t tightness. Goal 1:: Pain L knee 2/10 at worst and 75% improved. Goal 2:: I appropriate I ex program to limit future problems Goal 3:: LEFS < 40% disability Goal 4:: Sleep without waking at night due to pain. Plan: Called patient due to multiple cancels. She is still dealing with brother in hospital and does nto wish to return at this point to complete POC. Will c ontact doctor in the future as needed. If there are questions or concerns regarding this patient's physical therapy, please feel free to call me at [phone]. Thank you for the referral of this patient. Sincerely, Ilya Storey, DPT, OCS, CSCS
== END 2019-05-13 19:00 | disposition home or self-care (01) ==
LOC: PT 09:30
PROVIDERS: PCP Internal Medicine; Referring Provider Physician Assistant Surgical; Visit Provider Physician Assistant Surgical
DX: M17.12 Unilateral primary osteoarthritis, left knee (principal); Z96.652 Presence of left artificial knee joint
CPT/HCPCS: 97113; 97161

== ENCOUNTER → 2019-10-13 11:57 | Outpatient (CLI) | payer MEDICARE, OTHER, SELFPAY ==
[2019-04-22 05:55] VITALS: BMI 35.3
[2019-10-13 13:15] LABS: AST(SGOT) 42 U/L (15-37); Alanine Aminotransfer ALT/SGPT 58 U/L (13-56); Albumin, Serum 4.1 g/dL (3.2-5.0); Alkaline Phosphatase 99 U/L (45-117); Bilirubin, Direct 0.15 mg/dL (0.00-0.30); Cholesterol 150 mg/dL (200); High Density Lipoprotein 53 mg/dL; Protein, Total 8.1 g/dL (6.4-8.2); Triglycerides 161 mg/dL; Very Low Density Lipoprotein 32 mg/dL (5-40)
== END ==
PROVIDERS: PCP Internal Medicine; Referring Provider Internal Medicine Cardiovascular Disease; Visit Provider Internal Medicine Cardiovascular Disease
DX: E78.00 Pure hypercholesterolemia, unspecified (principal); E78.5 Hyperlipidemia, unspecified
CPT/HCPCS: 36415; 80061; 80076

== ENCOUNTER → 2020-04-15 08:51 | Outpatient (CLI) | payer MEDICARE, OTHER, SELFPAY ==
[2019-10-19 10:57] VITALS: BMI 35.3
[2020-04-15 09:38] LABS: Cholesterol 130 mg/dL (200); High Density Lipoprotein 46 mg/dL; Triglycerides 187 mg/dL; Very Low Density Lipoprotein 37 mg/dL (5-40)
[2020-04-15 10:04] LABS: AST(SGOT) 103 U/L (15-37); Alanine Aminotransfer ALT/SGPT 103 U/L (13-56); Albumin, Serum 3.8 g/dL (3.2-5.0); Alkaline Phosphatase 112 U/L (45-117); Bilirubin, Direct 0.12 mg/dL (0.00-0.30); Globulin 3.8 g/dL (2.2-4.2); Protein, Total 7.6 g/dL (6.4-8.2)
== END ==
PROVIDERS: Nurse Practitioner Family; PCP Internal Medicine; Visit Provider Physician Assistant Medical
DX: E78.5 Hyperlipidemia, unspecified (principal)
CPT/HCPCS: 36415; 80061; 80076

== ENCOUNTER → 2020-05-16 08:44 | Outpatient (CLI) | payer MEDICARE, OTHER, SELFPAY ==
[2020-04-25 13:40] VITALS: BMI 35.3
[2020-05-16 11:43] LABS: AST(SGOT) 81 U/L (15-37); Alanine Aminotransfer ALT/SGPT 84 U/L (13-56); Albumin, Serum 3.7 g/dL (3.2-5.0); Alkaline Phosphatase 122 U/L (45-117); Bilirubin, Direct 0.08 mg/dL (0.00-0.30); Cholesterol 217 mg/dL (200); Globulin 3.8 g/dL (2.2-4.2); High Density Lipoprotein 37 mg/dL; Protein, Total 7.5 g/dL (6.4-8.2); Triglycerides 214 mg/dL; Very Low Density Lipoprotein 43 mg/dL (5-40)
== END ==
PROVIDERS: PCP Internal Medicine; Referring Provider Nurse Practitioner Family; Visit Provider Nurse Practitioner Family
DX: I25.10 Atherosclerotic heart disease of native coronary artery without angina pectoris (principal); E78.5 Hyperlipidemia, unspecified
CPT/HCPCS: 36415; 80061; 80076

== ENCOUNTER → 2020-06-17 06:58 | Outpatient (CLI) | payer MEDICARE, OTHER, SELFPAY ==
[2020-04-25 13:40] VITALS: BMI 35.3
[2020-06-17 07:41] LABS: AST(SGOT) 91 U/L (15-37); Alanine Aminotransfer ALT/SGPT 109 U/L (13-56); Albumin, Serum 3.7 g/dL (3.2-5.0); Alkaline Phosphatase 125 U/L (45-117); Cholesterol 177 mg/dL (200); Globulin 3.6 g/dL (2.2-4.2); High Density Lipoprotein 38 mg/dL; Protein, Total 7.3 g/dL (6.4-8.2); Triglycerides 234 mg/dL; Very Low Density Lipoprotein 47 mg/dL (5-40)
== END ==
PROVIDERS: PCP Internal Medicine; Referring Provider Nurse Practitioner Family; Visit Provider Nurse Practitioner Family
DX: E78.5 Hyperlipidemia, unspecified (principal); I25.10 Atherosclerotic heart disease of native coronary artery without angina pectoris; R74.8 Abnormal levels of other serum enzymes
CPT/HCPCS: 36415; 80061; 80076

== ENCOUNTER → 2020-07-20 07:54 | Outpatient (CLI) | payer MEDICARE, OTHER, SELFPAY ==
[2020-04-25 13:40] VITALS: BMI 35.3
--- NOTE | 2020-07-20 07:57 | BI_ITS ---
MAMMOGRAPHY - BILATERAL SCREENING REASON FOR EXAM: Female, 69 years old. Routine annual screening examination. PERTINENT HISTORY: Mother with breast cancer. TECHNIQUE: Digital bilateral breast ulices (3D mammographic acquisition) in the CC and MLO projections. 2-D mediolateral oblique (MLO) and craniocaudad (CC) views of both breasts were obtained. CAD: Full Field Digital Mammography with Computer Added Detection was performed. COMPARISON: Comparison is made with prior study dated 04/24/2019 and 01/31/2018 FINDINGS: Breast Composition: There are scattered areas of fibroglandular density. There are no dominant masses or suspicious calcifications. Stable mild asymmetry of breast tissue where more breast tissue is seen in the retroareolar region of the left breast as compared to the right side. No other significant abnormalities are identified. There has been no significant change since the prior study. BI/SCRN MAMM (CAD)W/ULICES BILAT IMPRESSION: Stable bilateral screening mammogram. Yearly follow-up mammogram recommended. (A) ASSESSMENT CATEGORY: BIRADS Category 2: Benign. A letter regarding these results will be sent to the patient by the facility within 30 days. Approximately 10% of breast cancers are not detected by mammography. A normal mammogram should not delay biopsy of a clinically suspicious abnormality. [id number] Electronically Signed: Jayden Byrd MD at 8:40 EDT , Service support ,
== END ==
PROVIDERS: PCP Internal Medicine; Referring Provider Internal Medicine; Visit Provider Internal Medicine
DX: Z12.31 Encounter for screening mammogram for malignant neoplasm of breast (principal)
CPT/HCPCS: 77063; 77067

== ENCOUNTER → 2020-10-19 06:04 | Outpatient (CLI) | payer MEDICARE, OTHER, SELFPAY ==
[2020-09-29 09:52] VITALS: BMI 34.2
--- NOTE | 2020-10-19 08:06 | STRESSREP ---
Stress Test Report Date: 10-19-2020 Procedure: Exercise tolerance test/imaging study Indications: Chest pain; CAD; PCI Consent: Per the patient Procedure: The patient exercised on a Carlos protocol for 6 minutes completing Stage II achieving a peak heart rate of 147 bpm (97% predicted maximal heart rate) with a peak blood pressure 174/72 mmHg and a peak MET capacity of 7 METs. The baseline ECG demonstrated normal sinus rhythm; incomplete left bundle branch block pattern. The peak exercise ECG demonstrated continued incomplete left bundle branch block pattern with associated ST/T wave abnormality. There were no cardiac dysrhythmias pretest, during exercise, or recovery. The functional capacity was considered average. There was no complaint of chest discomfort during exercise or recovery. The examination was discontinued secondary to dyspnea. Impression: 1. Technically adequate (percent predicted maximal heart rate greater than 85%) exercise tolerance test 2. Peak exercise ECG with continued incomplete left bundle branch block pattern with associated ST/T wave abnormality 3. There were no cardiac dysrhythmias pretest, during exercise, or recovery 4. Nuclear images pending Myocardial perfusion imaging study: Technique: The patient was injected with 15.0 mCi of technetium 99m Cardiolite and subsequently rest SPECT Cardiolite nuclear imaging was obtained in the horizontal long, vertical long, and short axis views. The patient exercised on a Carlos protocol for 6 minutes completing Stage II achieving a peak heart rate of 147 bpm (97% predicted maximal heart rate) with a peak blood pressure 174/72 mmHg and a peak MET capacity of 7 METs. The patient was injected with 45.0 mCi of technetium 99m Cardiolite and subsequently stress SPECT Cardiolite nuclear imaging was obtained in the horizontal long, vertical long, and short axis views. A gated Cardiolite study at peak stress was obtained. Interpretation: Rest and stress SPECT Cardiolite nuclear imaging status post realignment, normalization, and attenuation correction, demonstrates the appearance of relative uniform tracer uptake and myocardial perfusion appearing within normal limits. There is end systolic thickening and brightening. The gated Cardiolite study demonstrates myocardial thickening and inward wall motion. The reported LVEF is 84%. Impression: 1. Rest and stress SPECT Cardiolite nuclear imaging demonstrate relative uniform tracer uptake and myocardial perfusion appearing within normal limits. 2. The gated Cardiolite study reports an LVEF of 84%. This note was generated with Infor[employer] software. It may contain incorrect words, spelling, and punctuation that were not noted in checking the note before signing.
== END ==
PROVIDERS: PCP Internal Medicine; Referring Provider Internal Medicine Cardiovascular Disease; Visit Provider Internal Medicine Cardiovascular Disease
DX: I25.10 Atherosclerotic heart disease of native coronary artery without angina pectoris (principal)
CPT/HCPCS: 78452; 93017; A9500; A4216

== ENCOUNTER → 2021-01-31 | Outpatient (CLI) | payer MEDICARE, OTHER, SELFPAY | END | disposition home or self-care (01) | PROVIDERS: PCP Internal Medicine; Visit Provider Urology | DX: N39.0 Urinary tract infection, site not specified (principal) | CPT/HCPCS: 87086; 87088; 87186 ==

== ENCOUNTER 2021-04-17 11:14 | Outpatient (CLI) | payer MEDICARE, OTHER, SELFPAY ==
[2021-04-17 12:18] LABS: NATERA MAILED SPECIMEN
== END 2021-04-17 23:59 | disposition home or self-care (01) ==
LOC: LAB 11:16
PROVIDERS: PCP Internal Medicine; Visit Provider Obstetrics & Gynecology
DX: Z13.79 Encounter for other screening for genetic and chromosomal anomalies (principal); Z80.3 Family history of malignant neoplasm of breast
CPT/HCPCS: 36415

== ENCOUNTER 2021-05-18 17:00 | Emergency (ER) | payer MEDICARE, OTHER, SELFPAY ==
[2021-05-18 17:03] VITALS: BP 121/100; PULSE 117; RESP 14; TEMP 36.2; O2SAT 97; BMI 32.5
--- NOTE | 2021-05-18 17:19 | CT_ITS ---
STUDY: CT Abdomen And Pelvis W/ Contrast Injection 05/18/2021 6:37 PM REASON FOR EXAM: Female, 70 years old. ABDOMINAL PAIN abdominal pain TECHNIQUE: Transaxial images were obtained without oral contrast, and IV 100mL Isovue-300 intravenous contrast. Individualized dose optimization techniques were used for this CT. COMPARISON: None. FINDINGS: The visualized lung bases are unremarkable. The visualized portions of the heart are within normal limits. Normal liver. There is non-visualization of the gallbladder, which may be secondary to either contraction or a prior cholecystectomy. Normal spleen. Normal pancreas. Calcified splenic artery aneurysm. Normal bilateral adrenal glands. No acute findings of the right kidney. No acute findings of the left kidney. Focal wall thickening of the antrum of stomach. This can suggest a gastritis. Normal small intestine. Stool throughout the colon. There is non-visualization of the appendix. There are no acute findings of the abdominal aorta. Normal inferior vena cava. Subcentimeter mesenteric lymph nodes. Normal urinary bladder. There is absence of the uterus consistent with a prior hysterectomy. Normal abdominal wall. Normal osseous structures. IMPRESSION: (NOT LISTED IN ORDER OF SIGNIFICANCE) Gastritis. There are no acute findings. Other findings as above. Electronically Signed: Xavi Hancock MD at 18:39 EST , CT/Abdomen/Pelvis W IV Cont ONLY
--- NOTE | 2021-05-18 17:22 | EX.ED.DYSGE1 ---
HPI <CLIF Hudson - Last Filed: 05/18/21 19:00> History of Present Illness Chief Complaint: Abd Pain Narrative Narrative: 70-year-old female with PMH of HTN, HLD, prediabetes, CAD, extensive abdominal surgical history presents with 3-day history of N/V/D. She states whenever she tries to eat or drink anything she vomits. She has also had continuous diarrhea. Denies hematemesis or blood in stool. She did not have abdominal pain except soreness in her muscles from vomiting. No fever or chills. No chest pain, shortness of breath, or cough. No sick contacts. She denies recent antibiotic use or travel. Previous abdominal surgical history includes cholecystectomy, appendectomy, hysterectomy. She also has history of 2 remote bowel obstructions and in 1984 had a colostomy which was later reversed. PFSH <CLIF Hudson - Last Filed: 05/18/21 19:00> [facility] Medical History Anxiety Arthritis Atherosclerotic heart disease of [place] coronary artery without angina pectoris Genetic testing of female Hemorrhoids History of pseudoaneurysm Hyperlipidemia Hypertension IBS (irritable bowel syndrome) Left bundle branch block Sciatica Home Medications aspirin 81 mg PO DAILY@0800 04/06/15 [History Last Taken 04/11/18] oxycodone-acetaminophen 1 tab PO Q6H PRN PRN 10/23/18 [History Last Taken Unknown] lisinopril 10 mg tablet 10 mg PO DAILY #90 tab 08/15/20 [Rx Last Taken Unknown] furosemide 20 mg tablet 10 mg PO DAILY tab 09/29/20 [History Last Taken Unknown] gabapentin 400 mg capsule 400 mg PO QHS PRN cap 09/29/20 [History Last Taken Unknown] ezetimibe 10 mg tablet 10 mg PO DAILY #90 tab 10/27/20 [Rx Last Taken Unknown] clobetasol 0.05 % topical ointment 1 applic TOPICAL QHS #30 g 04/10/21 [Rx Last Taken Unknown] trazodone 50 mg tablet 50 mg PO QHS PRN 04/10/21 [History Last Taken Unknown] venlafaxine 37.5 mg capsule,extended release 24 hr 37.5 mg PO BID 04/10/21 [History Last Taken Unknown] estradiol See Rx Instructions VAGINAL .COMPLEX #42.5 g 04/13/21 [Rx Last Taken Unknown] amoxicillin 500 mg tablet 2,000 mg PO .COMPLEX tab 05/11/21 [History Last Taken Unknown] lorazepam 1 mg tablet 1 mg PO DAILY PRN 05/11/21 [History Last Taken Unknown] nitroglycerin 0.4 mg sublingual tablet 0.4 mg SUBLINGUAL Q5-15M PRN #25 tab 05/11/21 [Rx Last Taken Unknown] tizanidine 4 mg capsule 4 mg PO QHS PRN 05/11/21 [History Last Taken Unknown] loperamide 2 mg PO Q6H PRN 3 Days #12 cap 05/18/21 [Rx Last Taken Unknown] ondansetron 4 mg PO Q6H PRN 5 Days #20 tab 05/18/21 [Rx Last Taken Unknown] promethazine [Promethegan] 25 mg LA Q6H PRN PRN 2 Days #6 ea NS 05/18/21 [Rx Last Taken Unknown] rabeprazole [AcipHex] 20 mg PO DAILY 05/18/21 [History Last Taken Unknown] vibegron [Gemtesa] 75 mg PO DAILY 05/18/21 [History Last Taken Unknown] Allergy/AdvReac Type Severity Reaction Status Date / Time chlorhexidine Allergy Hives Verified 05/18/21 17:02 diclofenac sodium Allergy Swelling Verified 05/18/21 17:02 [From Voltaren] piroxicam [From Feldene] Allergy Rash Verified 05/18/21 17:02 simvastatin AdvReac Intermediate Myalgias Verified 05/18/21 17:02 adhesive AdvReac Rash Verified 05/18/21 17:02 cyclobenzaprine HCl AdvReac Nausea/Vom/ Verified 05/18/21 17:02 [From Flexeril] Diarrhea ibuprofen AdvReac Nausea/Vom/ Verified 05/18/21 17:02 Diarrhea meloxicam [From Mobic] AdvReac Nausea/Vom/ Verified 05/18/21 17:02 Diarrhea orphenadrine citrate AdvReac Other Verified 05/18/21 17:02 [From Norflex] pregabalin [From Lyrica] AdvReac Nausea/Vom/ Verified 05/18/21 17:02 Diarrhea Family History Mother Breast cancer Uterine cancer Father CAD (coronary artery disease) Heart disease Pancreatic cancer Brother Diabetes Heart disease Hypertension Stomach cancer Sister Diabetes Hypertension Fibromyalgia Sister Fibromyalgia Heart disease Renal failure Surgical History Bunion of left foot H/O left knee surgery H/O: hysterectomy History of laparoscopic cholecystectomy (04/17/18) History of left heart catheterization (04/04/18) History of tubal ligation Plantar fasciitis of left foot Status post right foot surgery Status post right knee replacement Stented coronary artery Social History Smoking Status: Never smoker second hand exposure: No alcohol intake: never substance use type: does not use caffeine: Yes what type of physical activity do you participate in: none seatbelt use: always do you feel safe at home: Yes ROS <CLIF Hudson - Last Filed: 05/18/21 19:00> ROS ED ROS Narrative Constitutional: Negative for fever, chills, malaise. Eyes: Negative for visual change. ENT: Negative for sore throat, ear pain, rhinorrhea. CVS: Negative for palpitations, chest pain, syncope. Respiratory: Negative for shortness of breath, cough, orthopnea. GI: Positive for abdominal pain, nausea, vomiting, diarrhea. Negative for constipation, melena, hematochezia. : Negative for dysuria, hematuria or frequency. Neuro: Negative for headache, motor/sensory dysfunction. Skin: Negative for rash, abscess, or wound. Musc: Negative for joint pain, swelling, trauma. Heme: Negative for easy bruising, bleeding, lymphadenopathy. EXAM <CLIF Hudson - Last Filed: 05/18/21 19:00> Physical Exam Narrative Exam Narrative: CONST: Patient sitting in no acute distress. EYES: Normal inspection. ENT: Normal inspection, moist mucous membranes. NECK: Normal inspection. RESP: No respiratory distress, CTAB. CVS: Regular rate and rhythm, no murmur, no gallop. ABD: Soft with mild diffuse tenderness, no guarding or rebound, nondistended. Bowel sounds x4. SKIN: Color normal, no rash, warm, dry, intact. EXTREMITIES: Normal appearance, no pedal edema. NEURO: Oriented x4. PSYCH: Normal affect. Const Vital Signs: 05/18/21 17:03 05/18/21 19:04 Temperature 97.2 F L Temperature Source Temporal Pulse Rate 117 H Respiratory Rate 14 18 Blood Pressure 121/100 H Blood Pressure Mean 107 Pulse Ox 97 Oxygen Delivery Method Room Air <Dr. Rodríguez Garza MD - Last Filed: 05/18/21 19:42> Physical Exam Const Vital Signs: 05/18/21 17:03 05/18/21 19:04 Temperature 97.2 F L Temperature Source Temporal Pulse Rate 117 H Respiratory Rate 14 18 Blood Pressure 121/100 H Blood Pressure Mean 107 Pulse Ox 97 Oxygen Delivery Method Room Air MDM <CLIF Hudson - Last Filed: 05/18/21 19:00> MDM MDM Narrative Medical decision making narrative: Patient presents with 3-day history of N/V/D. She appears ill but nontoxic. Vital signs within normal limits. On exam she has slightly dry mucous membranes. Heart is rapid but regular. Lungs are clear. Abdomen is soft with minimal diffuse tenderness with no peritoneal signs or distention. There is normal bowel sounds throughout. CBC has a normal white count and slightly hemoconcentrated at 15.3. Electrolytes show mild hypokalemia of 3.3. Renal function is normal. She also has transaminitis which is slightly elevated from previous but does appear chronic since 2019. CT abdomen/pelvis was essentially unremarkable other than gastritis she already takes rabeprazole at home. Her symptoms are most consistent with gastroenteritis and she will be prescribed Zofran and Imodium. She was given oral potassium replacement here. Patient was counseled to return for new or worsening symptoms and was discharged in stable condition. Diagnoses 1. Gastroenteritis 2. Hypokalemia 3. Chronic elevated liver enzymes Lab Data Labs: Laboratory Results - last 24 hr 05/18/21 05/18/21 17:23 17:23 WBC 5.2 RBC 4.77 Hgb 15.3 H Hct 46.4 MCV 97.3 MCH 32.1 H MCHC 33.0 RDW Std Deviation 52.6 H RDW Coeff of Carlos 14.6 Plt Count 196 MPV 10.6 Immature Gran % (Auto) 0.400 Neut % (Auto) 69.0 Lymph % (Auto) 18.5 L [place] % (Auto) 11.5 H Eos % (Auto) 0.4 Baso % (Auto) 0.2 Absolute Neuts (auto) 3.6 Absolute Lymphs (auto) 0.96 Nucleated RBC % 0 Sodium 140 Potassium 3.3 L Chloride 107 Carbon Dioxide 24.0 Anion Gap 9 BUN 16 Creatinine 0.98 Estim Creat Clear Calc 40.31 Est GFR (MDRD) Af Amer 72 Est GFR (MDRD) Non-Af 59 L BUN/Creatinine Ratio 16.2 Glucose 157 H Calcium 10.1 Total Bilirubin 0.40 AST 206 H ALT 161 H Alkaline Phosphatase 116 Total Protein 8.1 Albumin 3.9 Globulin 4.2 Albumin/Globulin Ratio 0.9 Radiography Diagnostic Testing: Clinical Impression(s) from Imaging Studies Abdomen/Pelvis CT 05/18/21 17:19 <Dr. Rodríguez Garza MD - Last Filed: 05/18/21 19:42> MDM MDM Narrative Medical decision making narrative: Patient presents because of abdominal pain with nausea, vomiting and diarrhea that started 2 to 3 days ago. She last ate something solid on Saturday when she went to the barn with her . Her is not ill. The food did not taste unusual to her. She denies history of IBD. Brother has history of Crohn's. 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 She was scoped by him within the past 5 years and there was no significant abnormality. She denies fever, chills night sweats. She has vomited 5-10 times per day since onset and greater than 10 loose watery stools. She has not noted any mucus or blood. She is on a baby aspirin. She is on no anticoagulant. She states she has not been on any antibiotic in the past month. She does have history of prior partial bowel obstruction. She denies any urologic or gynecologic symptoms. Patient appears ill. Clinically she is dehydrated. Heart is rapid and regular. Lungs are clear. Abdomen is soft minimal tenderness no guarding or rebound or peritoneal findings. There is no inguinal mass or fullness noted right or left. With profuse diarrhea will obtain appropriate blood work to assess white count, H&H and differential. Also electrolyte panel to assess renal function and specifically potassium because of concern for hypokalemia. With generalized tenderness and profuse diarrhea that lasted several days will obtain CT to assess for evidence of colitis. Patient was medicated for her pain and nausea. Lab Data Labs: Laboratory Results - last 24 hr 05/18/21 05/18/21 17:23 17:23 WBC 5.2 RBC 4.77 Hgb 15.3 H Hct 46.4 MCV 97.3 MCH 32.1 H MCHC 33.0 RDW Std Deviation 52.6 H RDW Coeff of Carlos 14.6 Plt Count 196 MPV 10.6 Immature Gran % (Auto) 0.400 Neut % (Auto) 69.0 Lymph % (Auto) 18.5 L [place] % (Auto) 11.5 H Eos % (Auto) 0.4 Baso % (Auto) 0.2 Absolute Neuts (auto) 3.6 Absolute Lymphs (auto) 0.96 Nucleated RBC % 0 Sodium 140 Potassium 3.3 L Chloride 107 Carbon Dioxide 24.0 Anion Gap 9 BUN 16 Creatinine 0.98 Estim Creat Clear Calc 40.31 Est GFR (MDRD) Af Amer 72 Est GFR (MDRD) Non-Af 59 L BUN/Creatinine Ratio 16.2 Glucose 157 H Calcium 10.1 Total Bilirubin 0.40 AST 206 H ALT 161 H Alkaline Phosphatase 116 Total Protein 8.1 Albumin 3.9 Globulin 4.2 Albumin/Globulin Ratio 0.9 Radiography Diagnostic Testing: Clinical Impression(s) from Imaging Studies Abdomen/Pelvis CT 05/18/21 17:19 Discharge Plan Triage Chief Complaint: Abd Pain ED Provider: Shobha Prajapati Dx/Rx/DC Orders Clinical Impression: Gastroenteritis, Gastritis, Abdominal pain, Acute hypokalemia, Acute dehydration Instructions: ED Gastritis (Adult), ED Gastroenteritis, Noninfectious Prescriptions: New ondansetron 4 mg tablet,disintegrating 4 mg PO Q6H PRN (Reason: nausea and vomiting) 5 Days Qty: 20 RF: 0 loperamide 2 mg capsule 2 mg PO Q6H PRN (Reason: loose stool) 3 Days Qty: 12 RF: 0 promethazine [Promethegan] 25 mg suppository 25 mg LA Q6H PRN PRN (Reason: Nausea) 2 Days Qty: 6 RF: 0 No Action gabapentin 400 mg capsule 400 mg PO QHS PRN (Reason: PAIN) RF: 0 amoxicillin 500 mg tablet 2,000 mg PO .COMPLEX RF: 0 ezetimibe [Zetia] 10 mg tablet 10 mg PO DAILY Qty: 90 RF: 3 furosemide 20 mg tablet 10 mg PO DAILY RF: 0 tizanidine 4 mg capsule 4 mg PO QHS PRN (Reason: Sleep) RF: 0 lorazepam [Ativan] 1 mg tablet 1 mg PO DAILY PRN (Reason: Anxiety) RF: 0 nitroglycerin 0.4 mg tablet, sublingual 0.4 mg SUBLINGUAL Q5-15M PRN (Reason: chest pain) Qty: 25 RF: 3 trazodone 50 mg tablet 50 mg PO QHS PRN (Reason: Sleep) RF: 0 venlafaxine [Effexor XR] 37.5 mg capsule,extended release 24hr 37.5 mg PO BID RF: 0 clobetasol 0.05 % ointment 1 applic topical QHS Qty: 30 RF: 3 estradiol [Estrace] 0.01 % (0.1 mg/gram) cream See Rx Instructions vaginal .COMPLEX Qty: 42.5 RF: 3 aspirin 81 MG tablet 81 mg PO DAILY@0800 RF: 0 oxycodone-acetaminophen 1 EACH tablet 1 tab PO Q6H PRN PRN (Reason: Pain) RF: 0 rabeprazole [AcipHex] 20 mg tablet,delayed release (DR/EC) 20 mg PO DAILY RF: 0 Gemtesa 75 mg tablet 75 mg PO DAILY RF: 0 lisinopril 10 mg tablet 10 mg PO DAILY Qty: 90 RF: 3 Primary Care Provider: Anne Hagen Referrals: Anne Hagen MD [Primary Care Provider] - Activity Restrictions/Additional Instructions: Your blood work showed that your potassium was slightly low so this was replaced here. Your liver enzymes are also high. It looks like they have been high in the past. This will need monitoring by your primary care doctor. The CAT scan looked normal other than gastritis which is irritation of your stomach lining. You already take a Aciphex for stomach acid. I prescribed Zofran for nausea and vomiting and Imodium to help decrease your diarrhea. At this time your symptoms are most likely from a viral gastroenteritis and should improve with time. Continue to drink fluids and if you are not improving over the weekend please follow-up with your doctor next week. Disposition Disposition: Home, Self Care
[2021-05-18] MEDS: Morphine 4 MG/ML Syringe IV (17:33)
[2021-05-18] MEDS: 0.9% Normal Saline 1,000 ML 1000 ML IV (17:35)
[2021-05-18] MEDS: Ondansetron 4 MG/2 ML Vial IV (17:35)
[2021-05-18 17:45] LABS: Absolute Lymphocyte Count 0.96 X10^3/uL (0.83-4.51); Absolute Neutrophil Count 3.6 X10^3/uL (2.0-7.7); Basophil# 0.01 X10^3/uL; Basophil% 0.2 % (0-1); Eosinophil# 0.02 X10^3/uL; Eosinophils% 0.4 % (0-5); Hematocrit 46.4 % (37-47); Hemoglobin 15.3 g/dL (12.0-15.0); Lymphocyte # 0.96 X10^3/ul (0.83-4.51); Lymphocyte % 18.5 % (19-41); Mean Corpuscular Hgb 32.1 pg (27.0-32.0); Mean Corpuscular Volume 97.3 fL (81-99); Mean Platelet Vol. 10.6 fl (6.2-12.0); Monocyte% 11.5 % (0-10); NRBC Flagged by Analyzer 0 % (0-5); Neutrophil # 3.59 X10^3/uL (2.7-7.7); Platelet Count 196 K/mm3 (150-450); RBC Distribution Width CV 14.6 % (11.6-14.6); RBC Distribution Width SD 52.6 fl (35.1-43.9); Red Blood Count 4.77 M/mm3 (4.2-5.4); White Blood Count 5.2 K/mm3 (4.4-11.0)
[2021-05-18 18:04] LABS: ALB/GLOB Ratio 0.9 RATIO (0.9-2.4); AST(SGOT) 206 U/L (15-37); Alanine Aminotransfer ALT/SGPT 161 U/L (13-56); Albumin, Serum 3.9 g/dL (3.2-5.0); Alkaline Phosphatase 116 U/L (45-117); Anion Gap 9 (5-15); BUN 16 mg/dL (7-18); BUN/Creat Ratio 16.2 RATIO (10-20); Calcium,Total 10.1 mg/dL (8.5-10.1); Chloride 107 mmol/L (98-107); Creatinine, Serum 0.98 mg/dL (0.55-1.02); EST Glomerular Filtration Rate 59 mL/min (>60); Est Glom Filt Rate - Afr Amer 72 mL/min (>60); Estimated Creatinine Clearance 40.31 ml/min; Globulin 4.2 g/dL (2.2-4.2); Glucose 157 mg/dL (74-106); Potassium 3.3 mmol/L (3.5-5.1); Protein, Total 8.1 g/dL (6.4-8.2); Sodium Level 140 mmol/L (136-145)
[2021-05-18 19:04] VITALS: RESP 18
[2021-05-18] MEDS: Potassium Chloride Oral Tablet 20 MEQ PO (19:26)
[2021-05-18] MEDS: proMETHazine 25 MG/ML Syringe 6.25 MG IM (19:27)
== END 2021-05-18 20:38 | disposition home or self-care (01) ==
PROVIDERS: Emergency Provider Physician Assistant; PCP Internal Medicine; Visit Provider Physician Assistant
DX: K29.70 Gastritis, unspecified, without bleeding (principal); K52.9 Noninfective gastroenteritis and colitis, unspecified; I10 Essential (primary) hypertension; E87.6 Hypokalemia; I25.10 Atherosclerotic heart disease of native coronary artery without angina pectoris; R74.8 Abnormal levels of other serum enzymes; E86.0 Dehydration; E78.5 Hyperlipidemia, unspecified; K58.9 Irritable bowel syndrome, unspecified; M19.90 Unspecified osteoarthritis, unspecified site; F41.9 Anxiety disorder, unspecified; Z79.82 Long term (current) use of aspirin; Z79.899 Other long term (current) drug therapy; Z87.19 Personal history of other diseases of the digestive system; Z90.49 Acquired absence of other specified parts of digestive tract; Z95.5 Presence of coronary angioplasty implant and graft
CPT/HCPCS: 74177; 80053; 85025; 96361; 96372; 96374; 96375; 99283; J7030; Q9967; J2405

== ENCOUNTER 2021-05-23 11:51 | Outpatient (CLI) | payer MEDICARE, OTHER, SELFPAY | END 2021-05-23 23:59 | disposition home or self-care (01) | LOC: PSN 11:53 | PROVIDERS: PCP Internal Medicine; Referring Provider Nurse Practitioner Gerontology; Visit Provider Nurse Practitioner Gerontology | DX: R00.2 Palpitations (principal) | CPT/HCPCS: 93225; 93226 ==

== ENCOUNTER 2021-05-30 09:07 | Outpatient (CLI) | payer MEDICARE, OTHER, SELFPAY ==
[2021-05-30 10:12] LABS: AST(SGOT) 55 U/L (15-37); Alanine Aminotransfer ALT/SGPT 65 U/L (13-56); Albumin, Serum 3.6 g/dL (3.2-5.0); Alkaline Phosphatase 111 U/L (45-117); Bilirubin, Direct 0.13 mg/dL (0.00-0.30); Cholesterol 178 mg/dL (200); Globulin 3.5 g/dL (2.2-4.2); High Density Lipoprotein 47 mg/dL; Protein, Total 7.1 g/dL (6.4-8.2); Triglycerides 168 mg/dL; Very Low Density Lipoprotein 34 mg/dL (5-40)
== END 2021-05-30 23:59 | disposition home or self-care (01) ==
LOC: LAB 09:09
PROVIDERS: PCP Internal Medicine; Referring Provider Nurse Practitioner Gerontology; Visit Provider Nurse Practitioner Gerontology
DX: E78.5 Hyperlipidemia, unspecified (principal)
CPT/HCPCS: 36415; 80061; 80076

== ENCOUNTER → 2021-07-21 | Outpatient (CLI) | payer MEDICARE, OTHER, SELFPAY ==
--- NOTE | 2021-07-21 08:47 | BI_ITS ---
MAMMOGRAPHY - BILATERAL SCREENING REASON FOR EXAM: Female, 70 years old. Routine annual screening examination. PERTINENT HISTORY: Mother with breast cancer. TECHNIQUE: Digital bilateral breast ulices (3D mammographic acquisition) in the CC and MLO projections. 2-D mediolateral oblique (MLO) and craniocaudad (CC) views of both breasts were obtained. CAD: Full Field Digital Mammography with Computer Added Detection was performed. COMPARISON: Comparison is made with prior study dated 07/20/2020 and 04/24/2019. FINDINGS: Breast Composition: There are scattered areas of fibroglandular density. There are no dominant masses or suspicious calcifications. Once again, there are stable asymmetry of breast tissue where more breast tissue is seen in the retroareolar region of the left breast as compared to the right side. Stable small benign-appearing bilateral axillary lymph nodes. No other significant abnormalities are identified. There has been no significant change since the prior study. BI/SCRN MAMM (CAD)W/ULICES BILAT IMPRESSION: Stable bilateral screening mammogram. Yearly follow-up mammogram recommended. (A) ASSESSMENT CATEGORY: BIRADS Category 2: Benign. A letter regarding these results will be sent to the patient by the facility within 30 days. Approximately 10% of breast cancers are not detected by mammography. A normal mammogram should not delay biopsy of a clinically suspicious abnormality. [id number] Electronically Signed: Jayden Byrd MD at 10:31 EDT ,
== END | disposition home or self-care (01) ==
LOC: OPBI 08:46
PROVIDERS: PCP Internal Medicine; Visit Provider Internal Medicine
DX: Z12.31 Encounter for screening mammogram for malignant neoplasm of breast (principal)
CPT/HCPCS: 77063; 77067

== ENCOUNTER 2021-10-04 06:43 | Outpatient (CLI) | payer MEDICARE, OTHER, SELFPAY ==
--- NOTE | 2021-10-04 06:45 | ECHOD_ITS ---
Reason For Study: CAD Procedure This was a 2D Doppler, Color Flow transthoracic echocardiogram. The exam was of adequate technical quality. Exam performed in department. Left Ventricle Normal LV size. Left ventricular systolic function is normal. The estimated ejection fraction is 65 %. No evidence for diastolic dysfunction. No regional wall motion abnormalities noted. Right Ventricle Normal RV size. Normal systolic function. Atria Normal left atrium. Normal right atrium. No doppler evidence for ASD. Mitral Valve There is mild mitral annular calcification. Extension of the mitral annular calcification onto the base of the posterior mitral valve leaflet. Trivial mitral valve insufficiency. Tricuspid Valve Normal tricuspid valve. Mild tricuspid valve insufficiency. Right ventricular systolic pressure estimated to be 25 mmHg. Aortic Valve Trisinus/trileaflet aortic valve. Mild diffuse aortic valve thickening. Mild focal aortic valve calcification. Aortic sclerosis, no stenosis. Pulmonic Valve The pulmonic valve is not well visualized. Trivial pulmonic valve insufficiency. Great Vessels Normal sized aortic root. Pericardium/Pleural No pericardial effusion. MMode/2D Measurements & Calculations LVIDd: 3.9 cm IVSd: 1.2 cm LVOT diam: 1.9 cm LVIDs: 2.5 cm LVPWd: 1.0 cm LVOT area: 3.0 cm2 RVDd: 3.0 cm FS: 37.1 % Ao root diam: 3.1 cm LAV(MOD-bp): 34.5 ml LVAd ap4: 26.2 cm2 LAV(MOD-bp) Indexed: 19.5 ml/m2 LVLd ap4: 8.0 cm LAV(MOD-sp2): 34.3 ml EDV(MOD-sp4): 70.4 ml LAV(MOD-sp4): 34.2 ml EDV(sp4-el): 73.3 ml LVAs ap4: 14.3 cm2 LVLs ap4: 6.9 cm ESV(MOD-sp4): 25.1 ml ESV(sp4-el): 25.2 ml EF(MOD-sp4): 64.3 % EF(sp4-el): 65.6 % LVAd ap2: 24.7 cm2 SV(MOD-sp4): 45.3 ml SV(MOD-sp2): 45.2 ml LVLd ap2: 7.5 cm EDV(MOD-sp2): 68.0 ml EDV(sp2-el): 69.4 ml LVAs ap2: 13.4 cm2 LVLs ap2: 6.8 cm ESV(MOD-sp2): 22.7 ml ESV(sp2-el): 22.3 ml EF(MOD-sp2): 66.5 % SV(sp4-el): 48.1 ml LA dimension(2D): 3.7 cm LA A4 area: 13.5 cm2 RA A4 area: 13.5 cm2 Time Measurements MV dec time: 0.20 sec Doppler Measurements & Calculations MV E max braden: 70.0 cm/sec Lat Peak E' Braden: 7.9 cm/sec Med Peak E' Braden: 6.5 cm/sec MV A max braden: 72.1 cm/sec E/E' lat: 8.8 E/E' med: 10.7 MV E/A: 0.97 Ao V2 max: 141.8 cm/sec LV V1 max: 108.4 cm/sec MV dec slope: 348.7 cm/sec2 Ao max P.0 mmHg LV V1 max P.7 mmHg PONCHO(V,D): 2.3 cm2 PA V2 max: 108.8 cm/sec TR max braden: 234.9 cm/sec PA V2 mean: 70.2 cm/sec TR max P.2 mmHg ECHO/Echo Complete Interpretation Summary Left ventricular systolic function is normal. The estimated ejection fraction is 65 %. There is mild mitral annular calcification. Extension of the mitral annular calcification onto the base of the posterior mi tral valve leaflet. Trivial mitral valve insufficiency. Mild tricuspid valve insufficiency. Aortic sclerosis, no stenosis. Trivial pulmonic valve insufficiency. Right ventricular systolic pressure estimated to be 25 mmHg. No evidence for diastolic dysfunction. Ordering Physician: Chauncey Munoz Referring Physician: Anne Hagen Performed By: Milka Rodas MARLYN
--- NOTE | 2021-10-04 19:11 | STRESSREP ---
Stress Test Report Date: 10/04/2021 Procedure: Exercise tolerance test/imaging study Indications: Chest pain; CAD; PCI Consent: Per the patient Procedure: The patient exercised on a Carlos protocol for 6 minutes completing stage II achieving a peak heart rate of 133 bpm (89% predicted maximal heart rate) with a peak blood pressure 180/68 mmHg and a peak MET capacity of 7 METs. The baseline ECG demonstrated sinus rhythm; ICLBBB. The peak exercise ECG demonstrated continued ICLBBB with associated ST/T wave abnormality. There were no cardiac dysrhythmias pretest, during exercise, or recovery. The functional capacity was considered good. There was no complaint of chest discomfort during exercise or recovery. The examination was discontinued secondary to dyspnea; lightheadedness. Impression: 1. Technically adequate (percent predicted maximal heart rate greater than 85%) exercise tolerance test 2. Peak exercise ECG continued in the left bundle branch block with associated ST/T wave abnormality 3. There were no cardiac dysrhythmias pretest, during exercise, or recovery 4. Nuclear images pending Myocardial perfusion imaging study: Technique: The patient was injected with 14.2 mCi of technetium 99m Cardiolite and subsequently rest SPECT Cardiolite nuclear imaging was obtained in the horizontal long, vertical long, and short axis views. The patient exercised on a Carlos protocol for 6 minutes completing stage II achieving a peak heart rate of 133 bpm (89% predicted maximal heart rate) with a peak blood pressure 180/68 mmHg and a peak MET capacity of 7 METs. The patient was injected with 43.9 mCi of technetium 99m Cardiolite and subsequently stress SPECT Cardiolite nuclear imaging was obtained in the horizontal long, vertical long, and short axis views. A gated Cardiolite study at peak stress was obtained. Interpretation: Rest and stress SPECT Cardiolite nuclear imaging status post realignment, normalization, and attenuation correction, demonstrates the appearance of relative uniform tracer uptake and myocardial perfusion appearing within normal limits. There is end systolic thickening and brightening. The gated Cardiolite study demonstrates myocardial thickening and inward wall motion. The reported LVEF is 82%. Impression: 1. Rest and stress SPECT Cardiolite nuclear imaging demonstrate relative uniform tracer uptake and myocardial perfusion appearing within normal limits. 2. The gated Cardiolite study reports an LVEF of 82%. This note was generated with [employer] software. It may contain incorrect words, spelling, and punctuation that were not noted in checking the note before signing.
== END 2021-10-04 23:59 | disposition home or self-care (01) ==
LOC: CVS 06:44
PROVIDERS: PCP Internal Medicine; Referring Provider Internal Medicine Cardiovascular Disease; Visit Provider Internal Medicine Cardiovascular Disease
DX: R07.9 Chest pain, unspecified (principal); I25.10 Atherosclerotic heart disease of native coronary artery without angina pectoris; R00.2 Palpitations; Z95.5 Presence of coronary angioplasty implant and graft; I10 Essential (primary) hypertension; E78.5 Hyperlipidemia, unspecified
CPT/HCPCS: 78452; 93017; 93306; A9500; A4216

== ENCOUNTER → 2022-07-23 | Outpatient (CLI) | payer MEDICARE, OTHER, SELFPAY ==
--- NOTE | 2022-07-23 10:41 | BI_ITS ---
MAMMOGRAPHY - BILATERAL SCREENING REASON FOR EXAM: Female, 71 years old. Routine annual screening examination. PERTINENT HISTORY: Mother with breast cancer. TECHNIQUE: Digital bilateral breast ulices (3D mammographic acquisition) in the CC and MLO projections. 2-D mediolateral oblique (MLO) and craniocaudad (CC) views of both breasts were obtained. CAD: Full Field Digital Mammography with Computer Added Detection was performed. COMPARISON: Comparison is made with prior study of July 21, 2021 and July 20, 2020. FINDINGS: Breast Composition: There are scattered areas of fibroglandular density. There are no dominant masses or suspicious calcifications. Stable asymmetry of breast tissue with more breast tissue is seen in the retroareolar region of the left breast as compared to the right side. No other significant abnormalities are identified. There has been no significant change since the prior study. BI/SCRN MAMM (CAD)W/ULICES BILAT IMPRESSION: Stable bilateral screening mammogram. Yearly follow-up mammogram recommended. (A) ASSESSMENT CATEGORY: BIRADS Category 2: Benign. A letter regarding these results will be sent to the patient by the facility within 30 days. Approximately 10% of breast cancers are not detected by mammography. A normal mammogram should not delay biopsy of a clinically suspicious abnormality. [id number] Electronically Signed: Jayden Byrd MD at 12:08 EDT ,
== END | disposition home or self-care (01) ==
LOC: OPBI 10:40
PROVIDERS: PCP Internal Medicine; Referring Provider Obstetrics & Gynecology; Visit Provider Obstetrics & Gynecology
DX: Z12.31 Encounter for screening mammogram for malignant neoplasm of breast (principal); Z80.3 Family history of malignant neoplasm of breast
CPT/HCPCS: 77063; 77067

== ENCOUNTER → 2023-08-08 | Outpatient (CLI) | payer MEDICARE, OTHER, SELFPAY ==
--- NOTE | 2023-08-08 07:58 | BI_ITS ---
MAMMOGRAPHY - BILATERAL SCREENING REASON FOR EXAM: Female, 73 years old. Routine annual screening examination. PERTINENT HISTORY: Mother with breast cancer. TECHNIQUE: Digital bilateral breast ulices (3D mammographic acquisition) in the CC and MLO projections. 2-D mediolateral oblique (MLO) and craniocaudad (CC) views of both breasts were obtained. CAD: Full Field Digital Mammography with Computer Added Detection was performed. COMPARISON: Comparison is made with prior study dated July 23, 2022 and July 21, 2021. FINDINGS: Breast Composition: There are scattered areas of fibroglandular density. There are no dominant masses or suspicious calcifications. Stable mild asymmetry of breast tissue were more breast tissue is seen in the retroareolar region of the left breast as compared to the right side. No other significant abnormalities are identified. There has been no significant change since the prior study. BI/SCRN MAMM (CAD)W/ULICES BILAT IMPRESSION: Stable bilateral screening mammogram. Yearly follow-up mammogram recommended. (A) ASSESSMENT CATEGORY: BIRADS Category 1: Negative. A letter regarding these results will be sent to the patient by the facility within 30 days. Approximately 10% of breast cancers are not detected by mammography. A normal mammogram should not delay biopsy of a clinically suspicious abnormality. [id number] Electronically Signed: Jayden Byrd MD at 8:54 EDT ,
== END | disposition home or self-care (01) ==
LOC: OPBI 07:56
PROVIDERS: PCP Internal Medicine; Visit Provider Nurse Practitioner
DX: Z12.31 Encounter for screening mammogram for malignant neoplasm of breast (principal); Z80.3 Family history of malignant neoplasm of breast
CPT/HCPCS: 77063; 77067

== ENCOUNTER → 2024-01-22 | Outpatient (CLI) | payer MEDICARE, OTHER, SELFPAY ==
--- NOTE | 2024-01-22 14:54 | NEURO ---
NCS and/or EMG Patient Report Ordering Doctor: Jozef Shaw DATE OF SERVICE: 01/22/24 Kimberley presents for electrodiagnostic testing of the upper limbs. She reports numbness and tingling in the hands, worse on the right side. Electrodiagnostic findings: Median motor nerve demonstrates normal distal latency, amplitude and conduction velocity bilaterally. Normal ulnar motor response bilaterally. Normal median and ulnar F?waves. Sensory responses are within normal limits. Needle EMG testing was performed in the upper limbs. All muscles tested showed no evidence of denervation with normal motor units potentials. Electrodiagnostic impression: This a normal electrodiagnostic study of the upper limbs. There is no electrodiagnostic evidence for peripheral neuropathy, including carpal tunnel or cubital tunnel syndrome. There is no electrodiagnostic evidence for cervical radiculopathy Multi Select Codes Neurology Neurology Interp Codes: 44969-00 Musc test done w/n test comp (interp) (2) and 65129-22 Nrv cndj test 13/> studies (interp)
== END | disposition home or self-care (01) ==
LOC: PSN 13:17
PROVIDERS: PCP Internal Medicine; Referring Provider Orthopaedic Surgery; Visit Provider Orthopaedic Surgery
DX: G56.03 Carpal tunnel syndrome, bilateral upper limbs (principal)
CPT/HCPCS: 95886; 95913

== ENCOUNTER → 2024-08-10 | Outpatient (CLI) | payer MEDICARE, OTHER, SELFPAY ==
--- NOTE | 2024-08-10 07:17 | BI_ITS ---
EXAM: SCRN MAMM (CAD)W/ULICES BILAT DATE: 08/10/2024 CLINICAL HISTORY: F, Age 74 y/o , SCREENING Patient's mother was diagnosed with breast cancer. BREAST CANCER RISK ASSESSMENT: Has not been calculated TECHNIQUE: Bilateral screening digital breast tomosynthesis with 2D and 3D images. Computer aided detection. COMPARISON: Prior exam(s) dated 08/08/2023 and 07/24/2019. FINDINGS: TISSUE DENSITY: BIRADS 2 BENIGN FINDING Bilateral Breast Mammographic Findings: There are no suspicious masses, suspicious cluster of microcalcifications, architectural distortion or secondary signs of malignancy identified in either breast. Benign vascular calcifications are seen in both breasts. BI/SCRN MAMM (CAD)W/ULICES BILAT IMPRESSION: OVERALL FINAL ASSESSMENT: BIRADS 2 BENIGN FINDING RECOMMENDATION: Routine annual follow-up in 1 Year A letter with findings and recommendations will be mailed to the patient. Reading Location: [id number]
== END | disposition home or self-care (01) ==
LOC: OPBI 07:15
PROVIDERS: PCP Internal Medicine; Referring Provider Internal Medicine; Visit Provider Internal Medicine
DX: Z12.31 Encounter for screening mammogram for malignant neoplasm of breast (principal); Z80.3 Family history of malignant neoplasm of breast
CPT/HCPCS: 77063; 77067

== ENCOUNTER → 2024-08-26 | Outpatient (CLI) | payer MEDICARE, OTHER, SELFPAY ==
[2024-08-26 11:20] LABS: Erythrocyte Sedimentation Rate 23 mm/hr (0-30)
[2024-08-26 11:22] LABS: Absolute Lymphocyte Count 1.76 X10^3/uL (0.83-4.51); Absolute Neutrophil Count 3.7 X10^3/uL (2.0-7.7); Basophil# 0.04 X10^3/uL; Basophil% 0.6 % (0-1); Eosinophil# 0.23 X10^3/uL; Eosinophils% 3.6 % (0-5); Hematocrit 38.2 % (37-47); Hemoglobin 13.1 g/dL (12.0-15.0); Lymphocyte # 1.76 X10^3/ul (0.83-4.51); Lymphocyte % 27.4 % (19-41); Mean Corp Hgb Conc 34.3 g/dL (32-36); Mean Corpuscular Hgb 33.5 pg (27.0-32.0); Mean Corpuscular Volume 97.7 fL (81-99); Mean Platelet Vol. 10.2 fl (6.2-12.0); Monocyte# 0.63 X10^3/uL; Monocyte% 9.8 % (0-10); NRBC Flagged by Analyzer 0 % (0-5); Neutrophil # 3.74 X10^3/uL (2.7-7.7); Neutrophil % 58.3 % (47-70); Platelet Count 203 K/mm3 (150-450); RBC Distribution Width CV 13.3 % (11.6-14.6); RBC Distribution Width SD 48.1 fl (35.1-43.9); Red Blood Count 3.91 M/mm3 (4.2-5.4); White Blood Count 6.4 K/mm3 (4.4-11.0)
[2024-08-26 12:35] LABS: CRP < 3.00 mg/L (0.0-3.0)
== END | disposition home or self-care (01) ==
LOC: LAB 10:50
PROVIDERS: PCP Internal Medicine; Referring Provider Orthopaedic Surgery; Visit Provider Orthopaedic Surgery
DX: M25.561 Pain in right knee (principal)
CPT/HCPCS: 36415; 85025; 85652; 86140

== ENCOUNTER 2025-01-12 17:05 | Emergency (ER) | payer MEDICARE, OTHER, SELFPAY ==
[2025-01-12 17:05] VITALS: BP 142/64; PULSE 94; RESP 12; TEMP 36.6; O2SAT 99; BMI 31.5
--- NOTE | 2025-01-12 18:03 | ED.VIS.BACK ---
HPI History of Present Illness Chief Complaint: Back Informant: patient and family Narrative Narrative: 74-year-old female with a history of low back pain/sciatica presenting with acute rectal pain. Patient states she had some coccygeal perirectal discomfort yesterday but today while doing aqua therapy she had an acute stabbing pain which resulted in a episode where she had rectal incontinence of formed stool. She has not had any changes in bladder control. She denies any saddle anesthesia or new leg symptoms. She called her doctor's office and they recommended that she come to emergency. Patient has no history of abscess or inflammatory bowel disease but does state the Crohn's disease runs in her family. She denies any fevers or chills. [facility] Medical History Genetic testing of female Anxiety Hemorrhoids History of pseudoaneurysm IBS (irritable bowel syndrome) Sciatica Arthritis Hyperlipidemia Hypertension Left bundle branch block Atherosclerotic heart disease of [place] coronary artery without angina pectoris Home Medications ?Medication ?Instructions ?Recorded ?Last Taken ?Type aspirin 81 mg tablet,delayed 81 mg PO DAILY@0800 04/06/15 04/11/18 History release oxycodone-acetaminophen 10 mg-325 1 tab PO Q6H PRN PRN Pain 10/23/18 Unknown History mg tablet gabapentin 400 mg capsule 400 mg PO QHS PRN PAIN 09/29/20 Unknown History ezetimibe 10 mg tablet (Zetia) 10 mg PO DAILY #90 tabs 10/27/20 Unknown Rx tizanidine 4 mg capsule 4 mg PO QHS PRN Sleep 05/11/21 Unknown History metoprolol succinate 25 mg 25 mg PO QHS #30 tabs 05/25/21 Unknown Rx tablet,extended release 24 hr diphenhydramine HCl 25 mg tablet 25 mg PO QHS PRN 09/06/21 Unknown History (Benadryl Allergy) clobetasol 0.05 % topical ointment 1 applic topical QHS #30 grams 07/12/22 Unknown Rx estradiol 0.01% (0.1 mg/gram) See Rx Instructions vaginal 07/12/22 Unknown Rx vaginal cream (Estrace) .COMPLEX #42.5 grams lisinopril 10 mg tablet 10 mg PO DAILY 05/16/23 Unknown History semaglutide 0.25 mg or 0.5 mg (2 0.25 mg subcut QWEEK 05/16/23 Unknown History mg/3 mL) subcutaneous pen injector (Ozempic) cholecalciferol (vitamin D3) 25 25 mcg PO DAILY 10/16/23 Unknown History mcg (1,000 unit) capsule dexlansoprazole 60 mg 60 mg PO DAILY 10/16/23 Unknown History capsule,biphase delayed release (Dexilant) vibegron 75 mg tablet (Gemtesa) 75 mg PO DAILY 10/16/23 Unknown History lorazepam 0.5 mg tablet 0.5 mg PO ONCE PRN 05/14/24 Unknown History nitroglycerin 0.4 mg sublingual 0.4 mg sublingual Q5-15M PRN chest 05/14/24 Unknown Rx tablet pain #25 tabs amoxicillin 500 mg capsule mg PO 3XD 05/20/24 Unknown History furosemide 20 mg tablet 20 mg PO DAILY #90 tabs 07/09/24 Unknown Rx amoxicillin 875 mg-potassium 1 tab PO BID #14 tabs 01/12/25 Unknown Rx clavulanate 125 mg tablet ketorolac 10 mg tablet 10 mg PO BID #10 tabs 01/12/25 Unknown Rx Allergy/AdvReac Type Severity Reaction Status Date / Time chlorhexidine Allergy Hives Verified 01/12/25 17:06 diclofenac sodium (From Allergy Swelling Verified 01/12/25 17:06 Voltaren) piroxicam (From Feldene) Allergy Rash Verified 01/12/25 17:06 simvastatin AdvReac Intermediate Myalgias Verified 01/12/25 17:06 adhesive AdvReac Rash Verified 01/12/25 17:06 cyclobenzaprine HCl (From AdvReac Nausea/Vom/ Verified 01/12/25 17:06 Flexeril) Diarrhea ibuprofen AdvReac Nausea/Vom/ Verified 01/12/25 17:06 Diarrhea meloxicam (From Mobic) AdvReac Nausea/Vom/ Verified 01/12/25 17:06 Diarrhea orphenadrine citrate (From AdvReac Other Verified 01/12/25 17:06 Norflex) pregabalin (From Lyrica) AdvReac Nausea/Vom/ Verified 01/12/25 17:06 Diarrhea Family History Mother Breast cancer Uterine cancer Father CAD (coronary artery disease) Heart disease Pancreatic cancer Brother Diabetes Heart disease Hypertension Stomach cancer Sister Diabetes Hypertension Fibromyalgia Sister Fibromyalgia Heart disease Renal failure Surgical History H/O: hysterectomy History of tubal ligation History of laparoscopic cholecystectomy (04/17/18) H/O left knee surgery Plantar fasciitis of left foot Bunion of left foot Status post right foot surgery Status post right knee replacement Stented coronary artery History of left heart catheterization (04/04/18) Social History Smoking Status: Never smoker second hand exposure: No alcohol intake: never substance use type: does not use caffeine: Yes what type of physical activity do you participate in: none seatbelt use: always do you feel safe at home: Yes ROS ROS ED Constitutional Constitutional ED: Denies chills, fever(s), sweats or weight loss Eyes Eyes: Denies change in vision or diplopia ENT ENT ED: Denies ear pain, rhinorrhea or sore throat Cardiovascular Cardiovascular: Denies chest pain, orthopnea, palpitations or racing heartbeat Respiratory/Chest Respiratory/Chest: Denies cough, dyspnea or orthopnea Gastrointestinal Gastrointestinal: Denies abdominal pain, diarrhea, nausea or vomiting Genitourinary Genitourinary ED: Denies dysuria, hematuria or urinary frequency Musculoskeletal Musculoskeletal: Reports back pain and other Details: See history of present illness ; Denies arthralgias or myalgias Integumentary Denies abscess or rash Neurologic Neurologic: Denies headache(s) or weakness Psychiatric Psychiatric: Denies anxiety, depression, suicidal ideation or suicidal thoughts Endocrine Endocrinology: Denies polydipsia, polyphagia or polyuria Allergic/Immunologic Allergic/Immunologic ED: Denies mouth swelling, tongue swelling or urticaria EXAM Physical Exam Const Vital Signs: 01/12/25 17:05 01/12/25 19:05 Temperature 97.8 F Temperature Source Temporal Pulse Rate 94 84 Respiratory Rate 12 18 Blood Pressure 142/64 H 111/47 L Blood Pressure Mean 90 68 Pulse Ox 99 100 Oxygen Delivery Method Room Air Room Air Positive well nourished and well developed General Appearance ED: well developed and NAD HEENT Reports normocephalic, head/scalp atraumatic and moist mucous membranes Eyes PERRL and EOMs intact bilaterally Neck no lymphadenopathy, supple and no JVD Resp normal respiratory effort and clear to auscultation bilaterally Cardio regular rate, regular rhythm and no murmurs GI normal to inspection, nondistended, normoactive bowel sounds and non-tender Palpation: soft Narrative: Rectal examination was performed in the presence of female nurse Shyam. Patient has good perianal sensation. Normal rectal tone. I do not appreciate any skin changes to suggest underlying infection. There is minimal tenderness at the coccyx. I do not see any skin rash. Back/Spine no CVA tenderness and normal ROM Extremity normal to inspection General Extremety ED: Negative for edema General Extremity: Negative for edema Neuro oriented x3 and CN's II-XII intact bilaterally Sensorium / Orientation: alert Motor Exam: strength 5/5 throughout Psych mental status grossly normal Mood & Affect: Negative for depressed or tearful Skin no rashes or lesions noted and no wounds MDM MDM MDM Narrative Medical decision making narrative: Differential diagnosis includes but not limited to perirectal perineal abscess cauda equina shingles malignancy fracture contusion hematoma White count is 5.5 with a hemoglobin 11.5 platelet count is 164. Glucose noted be 103. Normal electrolytes. BUN [address] of the pelvis was obtained. This was read by radiology reviewed by myself. On my review there may be a degree of stranding near the rectosigmoid junction. Perhaps this could be a focal area of colitis/diverticulitis. I spoke with the patient. Using shared decision making we are going to do a short course of antibiotics. She has oxycodone at home and has the option to increase the amount that she is taking. I recommended she follow-up with primary care in 24 to 48 hours if continued symptoms. Monitor the skin for rash. Return if worsening or concerns History & Record Review Discussion w/independent historian: Patient and Family (Son Brad) Lab Data Attestation: I reviewed the patient's lab results. Labs: Laboratory Results - last 24 hr 01/12/25 18:10 WBC 5.5 RBC 3.47 L Hgb 11.5 L Hct 35.1 L MCV 101.2 H MCH 33.1 H MCHC 32.8 RDW Std Deviation 52.9 H RDW Coeff of Carlos 14.4 Plt Count 164 MPV 10.6 Immature Gran % (Auto) 0.400 Neut % (Auto) 57.5 Lymph % (Auto) 26.5 [place] % (Auto) 10.6 H Eos % (Auto) 4.5 Baso % (Auto) 0.5 Absolute Neuts (auto) 3.2 Absolute Lymphs (auto) 1.47 Nucleated RBC % 0 Sodium 138 Potassium 4.7 Chloride 101 Carbon Dioxide 27.2 Anion Gap 10 BUN 31 H Creatinine 0.88 Estim Creat Clear Calc 52.22 Est GFR (MDRD) Non-Af 69 BUN/Creatinine Ratio 34.8 H Glucose 103 H Calcium 9.9 Radiography Diagnostic Testing: Clinical Impression(s) from Imaging Studies Abdomen/Pelvis CT 01/12/25 18:16 IMPRESSION: No acute abnormality of the abdomen or pelvis. Chronic and ancillary findings as above. Reading Location: [facility] Discharge Plan Triage Chief Complaint: Back ED Provider: Carmelo Taylor Dx/Rx/DC Orders Clinical Impression: Pain, rectum Prescriptions: New amoxicillin-pot clavulanate 875-125 mg tablet 1 tab PO BID Qty: 14 0RF ketorolac 10 mg tablet 10 mg PO BID Qty: 10 0RF Rx Instructions: maximum total duration of 5 days from all oral, intranasal, or parenteral formulations No Action gabapentin 400 mg capsule 400 mg PO QHS PRN (Reason: PAIN) ezetimibe [Zetia] 10 mg tablet 10 mg PO DAILY Qty: 90 3RF diphenhydramine HCl [Benadryl Allergy] 25 mg tablet 25 mg PO QHS PRN tizanidine 4 mg capsule 4 mg PO QHS PRN (Reason: Sleep) clobetasol 0.05 % ointment 1 applic topical QHS Qty: 30 3RF Rx Instructions: apply thin layer; massage gently into affected area nightly x 6 weeks then 1-2x weekly estradiol [Estrace] 0.01 % (0.1 mg/gram) cream See Rx Instructions vaginal .COMPLEX Qty: 42.5 3RF Rx Instructions: use fingertip amount or 1-2g every night vaginally x 2 weeks, then 1-3x weekly for maintenance Ozempic 0.25 mg or 0.5 mg (2 mg/3 mL) pen injector 0.25 mg subcut QWEEK Rx Instructions: for 4 weeks lisinopril 10 mg tablet 10 mg PO DAILY amoxicillin 500 mg capsule PO 3XD lorazepam 0.5 mg tablet 0.5 mg PO ONCE PRN Patient Comments: [NO ORIGINAL SIG] nitroglycerin 0.4 mg tablet, sublingual 0.4 mg SUBLINGUAL Q5-15M PRN (Reason: chest pain) Qty: 25 3RF Gemtesa 75 mg tablet 75 mg PO DAILY dexlansoprazole [Dexilant] 60 mg capsule,biphase delayed releas 60 mg PO DAILY cholecalciferol (vitamin D3) 25 mcg (1,000 unit) capsule 25 mcg PO DAILY aspirin 81 MG tablet 81 mg PO DAILY@0800 Patient Comments: BLOOD THINNER/HEART HEALTH oxycodone-acetaminophen 1 EACH tablet 1 tab PO Q6H PRN PRN (Reason: Pain) metoprolol succinate 25 mg tablet extended release 24 hr 25 mg PO QHS Qty: 30 11RF furosemide 20 mg tablet 20 mg PO DAILY Qty: 90 3RF Rx Instructions: may take an extra 0.5 tablet once daily as needed; DIURETIC Primary Care Provider: Anne Hagen Referrals: Anne Hagen MD [Primary Care Provider, Internal Medicine] Activity Restrictions/Additional Instructions: Please monitor the skin in the area that hurts in the sacral area for the development of a rash as this could be shingles I would schedule a follow-up appoint with your primary care doctor in [id number] hours If you are doing worse or have concerns please return to emergency Print Language: Stateless Disposition Disposition: Home, Self Care Discharge Date/Time: 01/12/25 20:36
--- NOTE | 2025-01-12 18:16 | CT_ITS ---
PROCEDURE: CT/Abdomen/Pelvis W IV Cont ONLY
[2025-01-12 18:18] LABS: Hematocrit 35.1 % (37-47); Hemoglobin 11.5 g/dL (12.0-15.0); Immature Granulocytes Count 0.020 X10^3/uL (0.0-0.0); Mean Corp Hgb Conc 32.8 g/dL (32-36); Mean Corpuscular Volume 101.2 fL (81-99); Mean Platelet Vol. 10.6 fl (6.2-12.0); NRBC Flagged by Analyzer 0 % (0-5); Platelet Count 164 K/mm3 (150-450); RBC Distribution Width CV 14.4 % (11.6-14.6); RBC Distribution Width SD 52.9 fl (35.1-43.9); Red Blood Count 3.47 M/mm3 (4.2-5.4); White Blood Count 5.5 K/mm3 (4.4-11.0)
[2025-01-12 18:48] LABS: Anion Gap 10 (5-15); BUN 31 mg/dL (4-19); BUN/Creat Ratio 34.8 RATIO (10-20); Calcium,Total 9.9 mg/dL (7.6-11.0); Carbon Dioxide 27.2 mmol/L (21.0-32.0); Chloride 101 mmol/L (98-108); Estimated Creatinine Clearance 52.22 ml/min (50-250); Glucose 103 mg/dL (70-99); Potassium 4.7 mmol/L (3.3-5.1)
[2025-01-12 19:05] VITALS: BP 111/47; PULSE 84; RESP 18; O2SAT 100
== END 2025-01-12 20:36 | disposition home or self-care (01) ==
PROVIDERS: Emergency Provider Emergency Medicine; PCP Internal Medicine; Visit Provider Emergency Medicine
DX: K62.89 Other specified diseases of anus and rectum (principal); I25.10 Atherosclerotic heart disease of native coronary artery without angina pectoris; I10 Essential (primary) hypertension; Z90.710 Acquired absence of both cervix and uterus; E78.5 Hyperlipidemia, unspecified; Z79.82 Long term (current) use of aspirin; Z79.899 Other long term (current) drug therapy; F41.9 Anxiety disorder, unspecified; Z98.51 Tubal ligation status; Z90.49 Acquired absence of other specified parts of digestive tract; Z96.651 Presence of right artificial knee joint; Z95.5 Presence of coronary angioplasty implant and graft
CPT/HCPCS: 74177; 80048; 85025; 99283; Q9967

== ENCOUNTER → 2025-01-14 | Outpatient (CLI) | payer MEDICARE, OTHER, SELFPAY ==
--- NOTE | 2025-01-14 12:31 | CT_ITS ---
PROCEDURE: SPINE LUMBAR WITHOUT CONTRAST 01/14/2025 REASON FOR EXAM: R/O CAUDA EQUINA SYNDROME PLS TECHNIQUE: Procedure Code: CTSPL Modality: CT Procedure: SPINE LUMBAR WITHOUT CONTRAST Coronal and Sagittal reconstruction series were provided. One or more dose reduction techniques were used (e.g., Automated exposure control, adjustment of the mA and/or kV according to patient size, use of iterative reconstruction technique COMPARISON: CT Abdomen and Pelvis w/Contrast, 05/18/2021 RADIATION DOSE SUMMARY: CTDlvol: 26.25 mGy DLP: 637.87 mGycm FINDINGS: BONES: No acute fracture, focal osseous lesion or erosion. Bony alignment is anatomic. Stable bone island in the L3 vertebral body. DISCS/DEGENERATIVE CHANGES: Mild narrowing of the L5-S1 disc space, which is unchanged. The remaining disc spaces are preserved. SOFT TISSUES: New ill-defined soft tissue density is present within and mildly expanding the left L3-L4 neural foramen, with mild perineural fat stranding. Peripheral calcification along the thecal sac at L5 and S1 has mildly increased since the prior study, again resulting in mild central canal narrowing. Mild scattered calcified atherosclerosis. CT/Spine Lumbar without Contrast IMPRESSION: 1. New ill-defined soft tissue within and mildly expanding the left L3-L4 neur al foramen with adjacent fat stranding. This favors inflammatory or nerve sheath related etiologies. A contrast-enhanced darlin mbar spine MRI is recommended to further evaluate. 2. Mild progression of peripheral thecal sac calcification at L5 and S1, causi ng central canal narrowing. Reading Location: [id number]
== END | disposition home or self-care (01) ==
LOC: CT 12:28
PROVIDERS: PCP Internal Medicine; Referring Provider Anesthesiology Pain Medicine; Visit Provider Anesthesiology Pain Medicine
DX: M54.17 Radiculopathy, lumbosacral region (principal)
CPT/HCPCS: 72131

== ENCOUNTER → 2025-01-15 | Outpatient (CLI) | payer MEDICARE, OTHER, SELFPAY ==
[2025-01-15 09:52] LABS: Anion Gap 12 (5-15); BUN 27 mg/dL (4-19); BUN/Creat Ratio 26.7 RATIO (10-20); Calcium,Total 10.8 mg/dL (7.6-11.0); Carbon Dioxide 25.1 mmol/L (21.0-32.0); Chloride 100 mmol/L (98-108); Glucose 129 mg/dL (70-99); Potassium 5.0 mmol/L (3.3-5.1)
--- NOTE | 2025-01-15 10:49 | MRI_ITS ---
PROCEDURE: SPINE LUMBAR W/WO CONTRAST 01/15/2025 REASON FOR EXAM: R/O CAUDA EQUINA Low back pain TECHNIQUE: Procedure Code: MRISPLWW Modality: MR Procedure: SPINE LUMBAR W/WO CONTRAST Multiplanar and multisequence images were obtained without and with intravenous gadolinium-based contrast administration. CONTRAST: Clariscan VOLUME: 50 mL COMPARISON: Earlier today's CT FINDINGS: T11-L1: Vertebral bodies: Negative. Disk Space: Mild degenerate disc disease. Negative for Modic changes. Facet Joints: Negative for bilateral facet joint hypertrophy. Neural foramina: Negative for neural foraminal narrowing Spinal Canal: Negative for central spinal narrowing. L1-2: Vertebral bodies: Negative. Disk Space: Negative. Negative for Modic changes. Facet Joints: Negative for bilateral facet joint hypertrophy. Neural foramina: Negative for neural foraminal narrowing Spinal Canal: Negative for subarticular zone narrowing. Negative for central spinal narrowing. L2-3: Vertebral bodies: Negative. Disk Space: Negative. Negative for Modic changes. Facet Joints: Slight bilateral facet joint hypertrophy. Neural foramina: Negative for neural foraminal narrowing Spinal Canal: Negative for subarticular zone narrowing. Negative for central spinal narrowing. L3-4: Vertebral bodies: Negative. Disk Space: Disc desiccation. Mild loss of disc height. There is a extradural lesions extending behind the L3 vertebral body and out the left L3-L4 neural foramen. Facet Joints: Moderate bilateral facet joint hypertrophy. Fluid in both facet joints. Neural foramina: Moderate bilateral facet joint hypertrophy. Possible synovial cyst on the left. As described above there is at extradural structure extending from the left central zone through the far lateral zone. Associated severe left and mild right neural foraminal narrowing. Spinal Canal: Slight left subarticular zone narrowing. Slight left central spinal narrowing. L4-5: Vertebral bodies: Negative. Disk Space: Disc desiccation moderate loss of disc height. Negative for Modic changes. Facet Joints: Mild bilateral facet joint hypertrophy. Neural foramina: Mild bilateral neural foraminal narrowing Spinal Canal: Moderate right subarticular zone narrowing. Mild right central spinal narrowing. L5-S1: Vertebral bodies: Negative. Disk Space: Disc desiccation. Mild loss of disc height. Negative for Modic changes. Facet Joints: Mild bilateral facet joint hypertrophy. Neural foramina: Negative for neural foraminal narrowing Spinal Canal: Negative for subarticular zone narrowing. Negative for central spinal narrowing. Vertebrae: Normal bone marrow signal. Conus Medullaris: Spinal cord is normal and ends at L1-L2. Imaged kidneys aorta otherwise negative. The remainder of the exam negative. MRI/Spine Lumbar W/WO Contrast IMPRESSION: Multilevel degenerative changes lumbar spine most prominent L3-L4. Soft tissue structure from the left central zone through the left far lateral z one appears to be extradural. Favor disc sequestration. Associated left neural foraminal, left subarticular zone and central spinal can al narrowing. Can not entirely exclude extra-axial intradural lesion such as schwannoma. Lesser degenerative changes to the right at L4-5. Reading Location: [id number]
== END | disposition home or self-care (01) ==
LOC: OPMRI 10:44
PROVIDERS: PCP Internal Medicine; Referring Provider Clinical Nurse Specialist Adult Health; Visit Provider Clinical Nurse Specialist Adult Health
DX: M54.17 Radiculopathy, lumbosacral region (principal)
CPT/HCPCS: 36415; 72158; 80048; A9575